=== PATIENT | male | born 1945 | race Caucasian/White ===

== ENCOUNTER 2017-08-24 08:12 | Emergency (ER) | payer OTHER ==
[~2017-08-24] VITALS: Ht 172.7 cm; Wt 77.9 kg
[~2017-08-24 08:12] MED LIST: AMLO-110 PO; ASPCH81X PO; ATOR-26 PO; BUSP15TA70 PO; CARV12.52 PO; CLOP1TAB5 PO; DIGO0.1267 PO; LEVO-459 PEG; LISI5TAB PO; LSX/40 PO; MCRK20 PO; METF1TAB53 PO; NTRGSL/4 UT; NUTR-1260 PO; OMEP20CA9 PO; PARO40TA3 PO; TAMS0.4C38 PO; VNTHFA/IN INH; WARF2.5T8 PO
[2017-08-24 08:23] VITALS: TEMP 36.7; Ht 172.7 cm; Wt 77.9 kg
[2017-08-24] MEDS ORDERED: LNX125 PO (09:03)
[2017-08-24] MEDS ORDERED: LISI-461 PO (09:05)
[2017-08-24] MEDS ORDERED: WARF3TAB6 PO (09:05)
--- NOTE | 2017-08-24 09:10 | EMERGENCY ROOM VISIT NOTE ---
History Report prepared by Neil: Marycruz Hidalgo Under the Supervision of: Dr. Lyubov Mcintyre M.D. First contact with patient: 08:49 Chief Complaint: DIZZY Stated Complaint: NEAR SYNCOPE Nursing Triage Summary: pt presents to ed from [facility] [place]. pt states was ambulating to get his am meds and became dizzy and weak. pt states having on and off numbness on rt side for past 3 weeks. pt denied having any cp/sob at time of occurance. pt denies any symptoms at present. History of Present Illness The patient is a 72 year old male who presents to the Emergency Room with complaints of episodic dizziness [employer]. He notes that he had an episode of near syncope while standing in line to get his blood sugar checked. He reports numbness and tingling in his right arm and right leg. He notes that he started to fall, but he was assisted to sit down. He notes that he did not fall to the floor. He denies any fluttering sensations in his chest. He notes nausea, headache, numbness, and lightheadedness He notes that he has had numbness and tingling in the right side of his limbs for the last few weeks. He states that he has not had his morning medications. The patient currently resides at [facility]. The patient has a history of acute DE, atrial fibrillation, CHF, HTN, DM, and anxiety. He denies any chest pain, shortness of breath, abdominal pain, back pain, melena, and hematochezia. Source of History: patient Onset: [employer] Position: other (global ) Quality: other (dizziness) Timing: other (episodic ) Associated Symptoms: + headache, + nausea, + numbness, No chest pain, No SOB , No abdominal pain, No back pain, No melena, No hematochezia Note: He notes lightheadedness, numbness, and tingling in his right arm and right leg. Review of Systems See HPI for pertinent positives & negatives. A total of 10 systems reviewed and were otherwise negative. Past Medical & Surgical Medical Problems: (1) Abnorm Electrocardiogram (2) Acute DE, inferior wall (3) Afib (4) Anxiety (5) Atrial Fibrillation (6) Congestive Heart Failure Nos (7) Diabetes (8) Hypertension (9) PNA (pneumonia) (10) Sepsis Family History FHx: heart disease Hypertension Social History Smoking Status: Unknown if Ever Smoked Drug Use: none Marital Status: single Housing Status: other Occupation Status: unemployed Current/Historical Medications Scheduled Albuterol Hfa (Ventolin Hfa), 1 PUFFS INH BID Amlodipine (Norvasc), 5 MG PO DAILY Aspirin (Aspirin Chewable), 81 MG PO QAM Atorvastatin (Lipitor), 80 MG PO QPM Buspirone Hcl (Buspar), 15 MG PO BID Carvedilol (Coreg), 25 MG PO BID Clopidogrel Bisulfate (Plavix), 75 MG PO QAM Digoxin (Digoxin), 0.125 MG PO QAM Furosemide (Lasix), 80 MG PO DAILY Lisinopril (Lisinopril), 10 MG PO DAILY Metformin Hcl (Glucophage Ext Rel), 1,000 MG PO BID Nitroglycerin (Nitrostat), 0.4 MG UT PRN Omeprazole (Prilosec), 20 MG PO BID Paroxetine Hcl (Paxil), 40 MG PO QAM Potassium Chloride (Klor-Con M20), 20 MEQ PO BID Tamsulosin Hcl (Flomax), 0.4 MG PO QPM Warfarin Sod (Jantoven), 3 MG PO HS Allergies Coded Allergies: No Known Allergies (Unverified , 08/24/17) Physical Exam Vital Signs Date Time Temp Pulse Resp B/P (MAP) Pulse Ox O2 Delivery O2 Flow Rate FiO2 08/24/17 13:18 79 161/131 98 08/24/17 12:24 78 08/24/17 10:52 69 18 159/88 08/24/17 10:02 64 182/99 71 164/97 76 115/75 08/24/17 09:41 63 18 186/100 08/24/17 09:39 62 08/24/17 08:23 36.7 62 18 193/97 98 Room Air 08/24/17 08:22 60 Physical Exam Vital signs reviewed. General: Elderly. Well-appearing, in no significant distress. HEENT: No scleral icterus, PERRLA, neck supple. Atraumatic. Cardiovascular: Regular rate and rhythm, no extra sounds. Pulmonary: Clear to auscultation bilaterally, normal work of breathing. Abdomen: Soft, nontender, nondistended, positive bowel sounds. Musculoskeletal: Atraumatic, no peripheral edema. Neurologic: Patient awake alert and oriented x 3, full strength in all 4 extremities. Cranial nerves 2 through 12 grossly intact. Skin: Warm, dry, no rash Medical Decision & Procedures ER Provider Diagnostic Interpretation: Radiology results as stated below per my review and radiologist interpretation: CHEST ONE VIEW PORTABLE HISTORY: dizzy COMPARISON: Chest 06/28/2016. FINDINGS: The lungs are clear. Cardiac silhouette is normal in size. No pleural effusions. No pneumothorax. IMPRESSION: No acute process. Electronically signed by: Evangelist Barnett M.D. 08/24/2017 9:46 AM Dictated Date/Time: 08/24/2017 9:[address] HEAD WITHOUT CONTRAST (CT) CLINICAL HISTORY: Right-sided weakness. Dizziness. Near-syncope. COMPARISON STUDY: No previous studies for comparison. TECHNIQUE: Axial CT of the brain is performed from the vertex to the skull base. IV contrast was not administered for this examination. A dose lowering technique was utilized adhering to the principles of ALARA. CT DOSE: 614.27 mGy.cm FINDINGS: No intra or extra-axial mass lesions are visualized. There is no CT evidence of acute cortical infarction. There is no evidence of midline shift. There is no acute hemorrhage. No calvarial fractures are visualized. There are patchy white matter hypodensities likely on a small vessel basis. There is no evidence of pathologic ventricular dilatation. There is no evidence of acute sinusitis IMPRESSION: No acute intracranial findings Electronically signed by: Sameer Reynolds M.D. 08/24/2017 11:35 AM Dictated Date/Time: 08/24/2017 11:34 AM Laboratory Results 08/24/17 08:25 Red Blood Count 4.76, Mean Corpuscular Volume 89.9, Mean Corpuscular Hemoglobin 32.4, Mean Corpuscular Hemoglobin Concent 36.0, Mean Platelet Volume 10.9, Neutrophils (%) (Auto) 67.3, Lymphocytes (%) (Auto) 19.8, Monocytes (%) (Auto) 10.2, Eosinophils (%) (Auto) 1.9, Basophils (%) (Auto) 0.4, Neutrophils # (Auto ) 5.29, Lymphocytes # (Auto) 1.56, Monocytes # (Auto) 0.80, Eosinophils # (Auto ) 0.15, Basophils # (Auto) 0.03 08/24/17 08:25 Test 08/24/17 08:25 08/24/17 09:32 08/24/17 09:40 White Blood Count 7.86 K/uL (4.8-10.8) Red Blood Count 4.76 M/uL (4.7-6.1) Hemoglobin 15.4 g/dL (14.0-18.0) Hematocrit 42.8 % (42-52) Mean Corpuscular Volume 89.9 fL (80-100) Mean Corpuscular Hemoglobin 32.4 pg (25-34) Mean Corpuscular Hemoglobin Concent 36.0 g/dl (32-36) Platelet Count 174 K/uL (130-400) Mean Platelet Volume 10.9 fL (7.4-10.4) Neutrophils (%) (Auto) 67.3 % Lymphocytes (%) (Auto) 19.8 % Monocytes (%) (Auto) 10.2 % Eosinophils (%) (Auto) 1.9 % Basophils (%) (Auto) 0.4 % Neutrophils # (Auto) 5.29 K/uL (1.4-6.5) Lymphocytes # (Auto) 1.56 K/uL (1.2-3.4) Monocytes # (Auto) 0.80 K/uL (0.11-0.59) Eosinophils # (Auto) 0.15 K/uL (0-0.5) Basophils # (Auto) 0.03 K/uL (0-0.2) RDW Standard Deviation 41.3 fL (36.4-46.3) RDW Coefficient of Variation 12.7 % (11.5-14.5) Immature Granulocyte % (Auto) 0.4 % Immature Granulocyte # (Auto) 0.03 K/uL (0.00-0.02) Prothrombin Time 11.4 SECONDS (9.0-12.0) Prothromb Time International Ratio 1.1 (0.9-1.1) Activated Partial Thromboplast Time 26.0 SECONDS (21.0-31.0) Partial Thromboplastin Ratio 1.0 Anion Gap 4.0 mmol/L (3-11) Est Creatinine Clear Calc Drug Dose 45.2 ml/min Estimated GFR () 55.2 Estimated GFR (Non- 47.7 BUN/Creatinine Ratio 9.3 (10-20) Calcium Level 8.5 mg/dl (8.5-10.1) Magnesium Level 1.6 mg/dl (1.8-2.4) Total Bilirubin 0.7 mg/dl (0.2-1) Direct Bilirubin 0.1 mg/dl (0-0.2) Aspartate Amino Transf (AST/SGOT) 33 U/L (15-37) Alanine Aminotransferase (ALT/SGPT) 43 U/L (12-78) Alkaline Phosphatase 114 U/L (45-117) Total Protein 6.8 gm/dl (6.4-8.2) Albumin 3.3 gm/dl (3.4-5.0) Thyroid Stimulating Hormone (TSH) 1.160 uIu/ml (0.300-4.500) Bedside Troponin I < 0.030 ng/ml (0-0.045) Urine Color YELLOW Urine Appearance CLEAR (CLEAR) Urine pH 6.0 (4.5-7.5) Urine Specific [place] 1.012 (1.000-1.030) Urine Protein 1+ (NEG) Urine Glucose (UA) 2+ (NEG) Urine Ketones NEG (NEG) Urine Occult Blood NEG (NEG) Urine Nitrite NEG (NEG) Urine Bilirubin NEG (NEG) Urine Urobilinogen NEG (NEG) Urine Leukocyte Esterase NEG (NEG) Urine WBC (Auto) 0 /hpf (0-5) Urine RBC (Auto) 0-4 /hpf (0-4) Urine Hyaline Casts (Auto) 1-5 /lpf (0-5) Urine Epithelial Cells (Auto) 0-5 /lpf (0-5) Urine Bacteria (Auto) NEG (NEG) Laboratory results per my review. Medications Administered Medications (Trade) Dose Ordered Sig/Corry Route Start Time Stop Time Status Last Admin Dose Admin Amlodipine Besylate (Norvasc Tab) 5 mg NOW ONCE PO 08/24/17 09:15 08/24/17 09:24 DC 08/24/17 09:34 5 MG Digoxin (Lanoxin Tab) 0.125 mg NOW STAT PO 08/24/17 09:13 08/24/17 09:24 DC 08/24/17 09:39 0.125 MG ECG Indication: other (dizziness) Rate (beats per minute): 64 Rhythm: normal sinus Findings: T-wave inversion (deep TWI in anterior and lateral ), no acute ischemic change, no ectopy, other (LVH with repolarization abnormality) Change: no significant change (when compared to 06/30/2016) ED Course 0902: Past medical records reviewed. The patient was evaluated in room B2. A complete history and physical examination was performed. 0913: Ordered Digoxin 0.125 mg PO 0915: Ordered Amlodipine 5 mg PO 1240: I reassessed the patient at this time. He is feeling better and resting comfortably. I discussed the results and treatment plan with the patient. I answered all pertaining questions that he had. He expressed understanding and verbalized agreement. The patient will be discharged home. Medical Decision Differential diagnosis: Etiologies such as benign positional vertigo, dehydration, hypovolemia, anemia, tumor, infection, hypoglycemia, electrolyte abnormalities, cardiac sources, intracerebral event, toxicologic, neurologic, as well as others were entertained. This patient was evaluated and appeared to be in no significant distress. Physical examination is fairly unrevealing. The patient initially stated that he had not of his morning medications or ventilator told nursing that he took his coreg and lisinopril. The patient was given Norvasc and digoxin. Patient' s EKG reveals chronic changes, there is no evidence of acute abnormality. Laboratory work is fairly unrevealing. CT scan of the head is negative. His blood pressure is somewhat labile in the emergency department, the etiology of this is unclear. His creatinine is mildly elevated however has been elevated in the past. He has not had a meal yet today. The patient feels well and is had no further episodes here in the ER. He will be discharged back to [place] [facility] for further medical management. He was advised to watch his blood sugars carefully and to return to the ER for worsening of symptoms or any medical concerns. Medication Reconcilliation Current Medication List: was personally reviewed by me Blood Pressure Screening Patient's blood pressure: Elevated blood pressure Blood pressure disposition: Elevated BP felt to be situational (has not recieved morning medication) Impression Primary Impression: Near syncope Scribe Attestation The scribe's documentation has been prepared under my direction and personally reviewed by me in its entirety. I confirm that the note above accurately reflects all work, treatment, procedures, and medical decision making performed by me. Departure Information Dispostion Home / Self-Care Referrals Sushil VALDEZ (PCP) Forms HOME CARE DOCUMENTATION FORM, IMPORTANT VISIT INFORMATION Patient Instructions My [facility] Additional Instructions Diagnosis: Near-syncope Please drink plenty of clear fluids. Continue your medications as prescribed. Monitor your glucose carefully as your medications may need to be adjusted. Return to the emergency department for worsening of symptoms or any medical concerns.
[2017-08-24] MEDS ORDERED: DIGOXIN 0.125 MG TAB PO STA (09:13)
[2017-08-24] MEDS ORDERED: CARVEDILOL 12.5 MG TAB PO ONE (09:15)
[2017-08-24] MEDS ORDERED: LISINOPRIL 5 MG TAB PO ONE (09:15)
[2017-08-24] MEDS ORDERED: AMLODIPINE BESYLATE 5 MG TAB PO ONE (09:15)
[2017-08-24 09:31] LABS: BASO % 0.4 %; BASO ABS # 0.03 K/uL (0-0.2); EOS % 1.9 %; EOS ABS # 0.15 K/uL (0-0.5); HEMATOCRIT 42.8 % (42-52); HEMOGLOBIN 15.4 g/dL (14.0-18.0); IG# 0.03 K/uL (0.00-0.02); LYMPH % 19.8 %; LYMPH ABS # 1.56 K/uL (1.2-3.4); MEAN CELL VOLUME 89.9 fL (80-100); MEAN CORPUSCULAR HEMOGLOBIN 32.4 pg (25-34); MEAN PLATELET VOLUME 10.9 fL (7.4-10.4); MONO % 10.2 %; NEUT % 67.3 %; NEUT ABS # 5.29 K/uL (1.4-6.5); PLATELET COUNT 174 K/uL (130-400); RED CELL DISTRIBUTION WIDTH CV 12.7 % (11.5-14.5); RED CELL DISTRIBUTION WIDTH SD 41.3 fL (36.4-46.3); WHITE BLOOD COUNT 7.86 K/uL (4.8-10.8)
[2017-08-24 09:38] LABS: INR 1.1 (0.9-1.1)
[2017-08-24 09:41] LABS: ALBUMIN 3.3 gm/dl (3.4-5.0); CALCIUM 8.5 mg/dl (8.5-10.1); CREATININE 1.47 mg/dl (0.60-1.40); POTASSIUM 3.8 mmol/L (3.5-5.1)
--- NOTE | 2017-08-24 09:47 | DIAGNOSTIC IMAGING REPORT ---
CHEST ONE VIEW PORTABLE HISTORY: dizzy COMPARISON: Chest 06/28/2016. FINDINGS: The lungs are clear. Cardiac silhouette is normal in size. No pleural effusions. No pneumothorax. IMPRESSION: No acute process. Electronically signed by: Evangelist Barnett M.D. 08/24/2017 9:46 AM Dictated Date/Time: 08/24/2017 9:44 AM
[2017-08-24 09:52] LABS: TOTAL PROTEIN 6.8 gm/dl (6.4-8.2)
--- NOTE | 2017-08-24 11:36 | DIAGNOSTIC IMAGING REPORT ---
CT HEAD WITHOUT CONTRAST (CT) CLINICAL HISTORY: Right-sided weakness. Dizziness. Near-syncope. COMPARISON STUDY: No previous studies for comparison. TECHNIQUE: Axial CT of the brain is performed from the vertex to the skull base. IV contrast was not administered for this examination. A dose lowering technique was utilized adhering to the principles of ALARA. CT DOSE: 614.27 mGy.cm FINDINGS: No intra or extra-axial mass lesions are visualized. There is no CT evidence of acute cortical infarction. There is no evidence of midline shift. There is no acute hemorrhage. No calvarial fractures are visualized. There are patchy white matter hypodensities likely on a small vessel basis. There is no evidence of pathologic ventricular dilatation. There is no evidence of acute sinusitis IMPRESSION: No acute intracranial findings Electronically signed by: Saemer Reynolds M.D. 08/24/2017 11:35 AM Dictated Date/Time: 08/24/2017 11:34 AM
[2017-08-24 13:18] VITALS: BP 161/131; PULSE 79; O2SAT 98
== END 2017-08-24 13:19 ==
LOC: EDBD 08:12 → C.EDB 08:13
DX: R55 Syncope and collapse (principal); I25.2 Old myocardial infarction; I48.91 Unspecified atrial fibrillation; I11.0 Hypertensive heart disease with heart failure; I50.9 Heart failure, unspecified; E11.9 Type 2 diabetes mellitus without complications; F41.9 Anxiety disorder, unspecified; Z79.82 Long term (current) use of aspirin; Z79.02 Long term (current) use of antithrombotics/antiplatelets; Z79.84 Long term (current) use of oral hypoglycemic drugs; Z79.01 Long term (current) use of anticoagulants; Z82.49 Family history of ischemic heart disease and other diseases of the circulatory system

== ENCOUNTER → 2017-09-18 | Outpatient (CLI) | payer OTHER ==
[~2017-09-18] MED LIST changes: -DIGO0.1267 PO; -LEVO-459 PEG; +LISI-461 PO; -LISI5TAB PO; +LNX125 PO; -NUTR-1260 PO; -WARF2.5T8 PO; +WARF3TAB6 PO
[2017-09-18 11:41] LABS: BASO % 0.3 %; BASO ABS # 0.04 K/uL (0-0.2); EOS % 1.1 %; EOS ABS # 0.17 K/uL (0-0.5); HEMATOCRIT 42.7 % (42-52); HEMOGLOBIN 15.1 g/dL (14.0-18.0); LYMPH % 9.4 %; LYMPH ABS # 1.47 K/uL (1.2-3.4); MEAN CELL VOLUME 90.3 fL (80-100); MEAN CORPUSCULAR HEMOGLOBIN 31.9 pg (25-34); MEAN CORPUSCULAR HGB CONC 35.4 g/dl (32-36); MEAN PLATELET VOLUME 10.7 fL (7.4-10.4); MONO % 8.8 %; MONO ABS # 1.38 K/uL (0.11-0.59); NEUT % 79.8 %; NEUT ABS # 12.44 K/uL (1.4-6.5); PLATELET COUNT 242 K/uL (130-400); RED CELL DISTRIBUTION WIDTH CV 13.1 % (11.5-14.5); RED CELL DISTRIBUTION WIDTH SD 42.3 fL (36.4-46.3)
[2017-09-18 12:01] LABS: ALBUMIN 3.4 gm/dl (3.4-5.0); ALKALINE PHOSPHATASE 119 U/L (45-117); ALT/SGPT 36 U/L (12-78); AST/SGOT 38 U/L (15-37); BLOOD UREA NITROGEN 15 mg/dl (7-18); CARBON DIOXIDE 27 mmol/L (21-32); CREATININE 1.65 mg/dl (0.60-1.40); GLUCOSE 187 mg/dl (70-99); POTASSIUM 4.2 mmol/L (3.5-5.1); SODIUM 138 mmol/L (136-145); TOTAL PROTEIN 7.1 gm/dl (6.4-8.2)
== END ==
LOC: C.LABSPEC 11:12
PROVIDERS: ATTEND Family Medicine
DX: I95.1 Orthostatic hypotension (principal)

== ENCOUNTER → 2018-03-27 | Outpatient (CLI) | payer OTHER ==
[~2018-03-27] MED LIST changes: -AMLO-110 PO; -CARV12.52 PO; +CARV25TA2 PO; -CLOP1TAB5 PO; +FERR1TAB23 PO; +GLIP5TAB3 PO; +IMD/2 PO; +ISOS60TA25 PO; +LEVA45AE INH; -LISI-461 PO; +LISI-725 PO; +MAGN1TAB41 PO; -MCRK20 PO; -METF1TAB53 PO; +NSS IV; +POTA-639 PO; -VNTHFA/IN INH; +VTMB12 PO; +WARF2.5T8 PO; -WARF3TAB6 PO
== END | disposition home or self-care (01) ==
LOC: C.LABSPEC 08:30
PROVIDERS: ATTEND Nurse Practitioner Adult Health
DX: R19.7 Diarrhea, unspecified (principal)

== ENCOUNTER 2018-09-23 13:33 | Inpatient (IN) ==
[2018-09-23] MEDS ORDERED: SODIUM CHLORIDE 0.9% 1000ML 1,000 ML IV ONE (14:35)
[2018-09-23] MEDS ORDERED: ONDANSETRON INJ 2 MG/ML 2 ML VIAL IV STA (14:35)
--- NOTE | 2018-09-23 14:51 | XRay Report ---
XR chest 1V portable CLINICAL HISTORY: 73 years-old Male presenting with Sepsis. TECHNIQUE: Portable upright AP view of the chest was obtained. COMPARISON: 05/14/[address] from 05/13/2018. FINDINGS: Atherosclerosis of the aortic arch. Cardiac silhouette mildly enlarged. Main pulmonary artery may be enlarged. No focal opacity. No large effusion or pneumothorax. Osseous structures normal. Upper abdom en normal. IMPRESSION: 1. Mild cardiomegaly. No convincing evidence of acute cardiopulmonary disease. Electronically signed by: Larry Wyatt M.D. 09/23/2018 2:50 PM
[2018-09-23 15:09] LABS: Basophils # (auto) 0.03 K/uL (0-0.2); Basophils % (auto) 0.5 %; Eosinophils # (auto) 0.31 K/uL (0-0.5); Hematocrit (blood only) 38.3 % (42-52); Immature Granulocytes # (auto) 0.02 K/uL (0.00-0.02); Immature Granulocytes % (auto) 0.3 %; Lymphocytes # (auto) 0.88 K/uL (1.2-3.4); Lymphocytes % (auto) 14.3 %; Mean Corpuscular Hgb Conc 33.9 g/dL (32-36); Mean Corpuscular Volume 93.4 fL (80-100); Monocytes % (auto) 6.5 %; Neutrophils # (auto) 4.53 K/uL (1.4-6.5); Neutrophils % (auto) 73.4 %; Platelet Count 181 K/uL (130-400); RDW Coefficient of Variation 13.8 % (11.5-14.5); RDW Standard Deviation 47.2 fL (36.4-46.3); White Blood Count 6.17 K/uL (4.8-10.8)
[2018-09-23 15:23] LABS: Alanine Aminotransferase 83 U/L (12-78); Albumin Globulin Ratio 0.7 (0.9-2); Albumin Level 3.1 gm/dl (3.4-5.0); Alkaline Phosphatase 166 U/L (45-117); Aspartate Aminotransferase 54 U/L (15-37); BUN Creatinine Ratio 53.5 (10-20); Bilirubin,Total 0.5 mg/dl (0.2-1); Blood Urea Nitrogen 100 mg/dl (7-18); Calcium 7.9 mg/dl (8.5-10.1); Carbon Dioxide 18 mmol/L (21-32); Chloride 112 mmol/L (98-107); Creatinine Clr Calc Pharmacy 33.9 ml/min; Est GFR (Non-African American) 35.4; Globulin 4.3 gm/dl (2.5-4.0); Glucose 143 mg/dl (70-99); Magnesium 1.9 mg/dl (1.8-2.4); Potassium 7.1 mmol/L (3.5-5.1); Sodium 135 mmol/L (136-145); Total Protein 7.4 gm/dl (6.4-8.2); Troponin I < 0.015 ng/ml (0-0.045)
[2018-09-23] MEDS ORDERED: ALBUT/IPRATROP 3MG/0.5MG NEB 3 ML VIAL NEB STA (15:28)
[2018-09-23] MEDS ORDERED: DEXTROSE 50% 50 ML SYRINGE IV ONE (15:40)
[2018-09-23] MEDS ORDERED: CALCIUM GLUCONATE 10% 1,000 MG in SODIUM CHLORIDE 0.9% 50 ML IV STA (15:40)
[2018-09-23] MEDS ORDERED: NovoLIN-R INSULIN PER UNIT CHARGE IV STA (15:40)
[2018-09-23 15:48] LABS: iSTAT Hemoglobin 12.2 g/dl (14.0-18.0); iSTAT Ionized Calcium 1.32 mmol/l (1.12-1.32)
[2018-09-23 16:10] LABS: INR 1.5 (0.9-1.1); Partial Thromboplastin Ratio 1.1; Partial Thromboplastin Time 29.6 Seconds (21.0-31.0); Prothrombin Time 14.4 Seconds (9.0-12.0)
--- NOTE | 2018-09-23 16:18 | Emergency Department Note ---
Entered by Jessica Lopez acting as a scribe for Aden Borrero MD History of Present Illness General Chief complaint: Syncope (Near Syncope) Stated complaint: syncope Time Seen by Provider: 09/23/18 14:20 Source: patient and RN notes reviewed Mode of arrival: EMS Limitations: no limitations History of Present Illness Provider complaint: Syncope/Near Syncope, vomiting Onset (ago): hour(s) 2 Location: abdomen Pain Consistency: + now resolved Associated symptoms: + other (chills, diarrhea, nausea) Patient is a 73 year old male presenting to the ED via EMS for vomiting that began x2 hours ago. Per nurses note, patient was brought in from [facility] after patient had a syncopal episode while using the bathroom. Note also includes that patient complained of nausea, vomiting, headache, and neck pain. Notes shares that patients BP was low at 86/58 and blood sugar was 195. Patient states that he was in his cell and went to use the restroom when he started to feel nauseous--he had vomited a few hours prior. He had diarrhea in the bathroom. The patient denies syncope despite the above report. Patient shares he does feel dehydrated and has had intermittent chills and diarrhea for the past few days. Diarrhea is described as dark black. Patient denies any CP or abd pain. Patient shares he was taken from his cell via EMS to the ED. He shares that he was in the [facility] recently after noticing chest discomfort and SOB. Patient shares he is on Coumadin, and was recently admitted a few months ago to this hospital. He denies any history of GI bleeds. Home Medications Home Medications Medication Instructions Recorded Confirmed Type atorvastatin 80 mg PO HS 05/01/18 09/23/18 History cyanocobalamin (vitamin B-12) 1,000 mcg PO QAM 05/01/18 09/23/18 History [Vitamin B-12] ferrous sulfate [iron] 325 mg PO 3XWK 05/01/18 09/23/18 History isosorbide mononitrate 60 mg PO QAM 05/01/18 09/23/18 History magnesium oxide 400 mg PO BID 05/01/18 09/23/18 History nitroglycerin [Nitrostat] 0.4 mg SUBLINGUAL UD 05/01/18 09/23/18 History omeprazole 20 mg PO BID 05/01/18 09/23/18 History paroxetine HCl 40 mg PO QAM 05/01/18 09/23/18 History potassium chloride 40 meq PO BID 05/01/18 09/23/18 History tamsulosin 0.4 mg PO HS 05/01/18 09/23/18 History glipizide 2.5 mg PO DAILY 05/13/18 09/23/18 History A&D Ointment 1 applic TOPICAL TID 09/23/18 09/23/18 History carvedilol 12.5 mg PO BID 09/23/18 09/23/18 History furosemide [Lasix] 80 mg PO DAILY 09/23/18 09/23/18 History hydralazine 25 mg PO TID 09/23/18 09/23/18 History hydrocortisone 1 applic TOPICAL BID 09/23/18 09/23/18 History lisinopril 40 mg PO DAILY 09/23/18 09/23/18 History spironolactone 25 mg PO BID 09/23/18 09/23/18 History warfarin 4 mg PO HS 09/23/18 09/23/18 History Allergies Allergy/AdvReac Type Severity Reaction Status Date / Time No Known Allergies Allergy Verified 09/23/18 15:45 Past Med/Surg History Medical History Diabetes (Chronic) Anxiety (Chronic) CHF (congestive heart failure) ICM with EF of 15-20% CKD (chronic kidney disease) stage 3, GFR 30-59 ml/min Essential hypertension Acute AL, inferior wall Afib Anemia Anxiety Atrial fibrillation CAD (coronary artery disease) s/p inferior wall AL with chronically occluded RCA - cath on 01/09/15 - no intervention. L to R collateralization noted CHF exacerbation COPD (chronic obstructive pulmonary disease) Cardiac ischemia Depression GERD (gastroesophageal reflux disease) High cholesterol Hyperlipidemia Male genitourinary symptoms Near syncope PNA (pneumonia) Sepsis Family History Other Diabetes Social History Current Living Situation: Other Current Living Situation Comment: correctional facility Feels Safe at Home: Yes Smoking Status: Unknown if ever smoked Hx Alcohol Use: No Hx Substance Use: No Beliefs That Will Affect Care: None Preferred Language: Kinyarwanda Review of Systems See HPI for pertinent positives & negatives. and A total of 10 systems reviewed and were otherwise negative Physical Exam Vital Signs Vital Signs - 24 hr 09/23/18 13:40 09/23/18 13:45 09/23/18 13:53 Temperature 36.4 C L Temperature Source Oral Sepsis Recent Fever Within 48 Hours No Sepsis Action Taken by Nursing No Action Required Pulse Rate 63 59 L 62 Pulse Rate [Left Finger] Pulse Rhythm Regular Pulse Rhythm [Left Finger] Pulse Strength Normal Pulse Strength [Left Finger] Respiratory Rate 20 19 19 Respiratory Effort / Characteristics Non-Labored Spontaneous Respiratory Depth Normal Respiratory Pattern Regular Blood Pressure 95/53 L 95/53 L Blood Pressure [Right Arm] Blood Pressure Mean 67 67 Blood Pressure Mean [Right Arm] Blood Pressure Position Lying Blood Pressure Position [Right Arm] Pulse Oximetry 94 95 94 Oxygen Delivery Method Room Air Oxygen Flow Rate 09/23/18 14:00 09/23/18 14:01 09/23/18 14:15 Temperature Temperature Source Sepsis Recent Fever Within 48 Hours Sepsis Action Taken by Nursing Pulse Rate 59 L 58 L 61 Pulse Rate [Left Finger] Pulse Rhythm Pulse Rhythm [Left Finger] Pulse Strength Pulse Strength [Left Finger] Respiratory Rate 18 19 20 Respiratory Effort / Characteristics Respiratory Depth Respiratory Pattern Blood Pressure 100/48 L Blood Pressure [Right Arm] Blood Pressure Mean 65 Blood Pressure Mean [Right Arm] Blood Pressure Position Blood Pressure Position [Right Arm] Pulse Oximetry 95 95 95 Oxygen Delivery Method Oxygen Flow Rate 09/23/18 14:30 09/23/18 14:31 09/23/18 14:35 Temperature Temperature Source Sepsis Recent Fever Within 48 Hours Sepsis Action Taken by Nursing Pulse Rate 63 65 Pulse Rate [Left Finger] Pulse Rhythm Pulse Rhythm [Left Finger] Pulse Strength Pulse Strength [Left Finger] Respiratory Rate 18 20 Respiratory Effort / Characteristics Respiratory Depth Respiratory Pattern Blood Pressure 96/57 L Blood Pressure [Right Arm] Blood Pressure Mean 70 Blood Pressure Mean [Right Arm] Blood Pressure Position Blood Pressure Position [Right Arm] Pulse Oximetry 97 95 Oxygen Delivery Method Room Air Oxygen Flow Rate 09/23/18 14:45 09/23/18 15:00 09/23/18 15:01 Temperature Temperature Source Sepsis Recent Fever Within 48 Hours Sepsis Action Taken by Nursing Pulse Rate 60 57 L 60 Pulse Rate [Left Finger] Pulse Rhythm Pulse Rhythm [Left Finger] Pulse Strength Pulse Strength [Left Finger] Respiratory Rate 19 20 19 Respiratory Effort / Characteristics Respiratory Depth Respiratory Pattern Blood Pressure 100/49 L 88/47 L Blood Pressure [Right Arm] Blood Pressure Mean 66 60 Blood Pressure Mean [Right Arm] Blood Pressure Position Blood Pressure Position [Right Arm] Pulse Oximetry 97 95 96 Oxygen Delivery Method Oxygen Flow Rate 09/23/18 15:02 09/23/18 15:15 09/23/18 15:16 Temperature Temperature Source Sepsis Recent Fever Within 48 Hours Sepsis Action Taken by Nursing Pulse Rate 60 60 57 L Pulse Rate [Left Finger] Pulse Rhythm Pulse Rhythm [Left Finger] Pulse Strength Pulse Strength [Left Finger] Respiratory Rate 20 20 19 Respiratory Effort / Characteristics Respiratory Depth Respiratory Pattern Blood Pressure 101/51 L Blood Pressure [Right Arm] Blood Pressure Mean 67 Blood Pressure Mean [Right Arm] Blood Pressure Position Blood Pressure Position [Right Arm] Pulse Oximetry 95 96 96 Oxygen Delivery Method Oxygen Flow Rate 09/23/18 15:20 09/23/18 15:30 09/23/18 15:31 Temperature Temperature Source Sepsis Recent Fever Within 48 Hours Sepsis Action Taken by Nursing Pulse Rate 59 L 63 62 Pulse Rate [Left Finger] Pulse Rhythm Pulse Rhythm [Left Finger] Pulse Strength Pulse Strength [Left Finger] Respiratory Rate 21 21 20 Respiratory Effort / Characteristics Respiratory Depth Respiratory Pattern Blood Pressure 94/52 L Blood Pressure [Right Arm] Blood Pressure Mean 66 Blood Pressure Mean [Right Arm] Blood Pressure Position Blood Pressure Position [Right Arm] Pulse Oximetry 96 96 96 Oxygen Delivery Method Oxygen Flow Rate 09/23/18 15:40 09/23/18 15:45 09/23/18 15:50 Temperature Temperature Source Sepsis Recent Fever Within 48 Hours Sepsis Action Taken by Nursing Pulse Rate 61 65 67 Pulse Rate [Left Finger] Pulse Rhythm Pulse Rhythm [Left Finger] Pulse Strength Pulse Strength [Left Finger] Respiratory Rate 20 20 19 Respiratory Effort / Characteristics Respiratory Depth Respiratory Pattern Blood Pressure 106/51 L Blood Pressure [Right Arm] Blood Pressure Mean 69 Blood Pressure Mean [Right Arm] Blood Pressure Position Blood Pressure Position [Right Arm] Pulse Oximetry 94 96 97 Oxygen Delivery Method Oxygen Flow Rate 09/23/18 16:00 09/23/18 16:01 09/23/18 16:10 Temperature Temperature Source Sepsis Recent Fever Within 48 Hours Sepsis Action Taken by Nursing Pulse Rate 72 78 83 Pulse Rate [Left Finger] Pulse Rhythm Pulse Rhythm [Left Finger] Pulse Strength Pulse Strength [Left Finger] Respiratory Rate 19 20 18 Respiratory Effort / Characteristics Respiratory Depth Respiratory Pattern Blood Pressure 121/51 L Blood Pressure [Right Arm] Blood Pressure Mean 74 Blood Pressure Mean [Right Arm] Blood Pressure Position Blood Pressure Position [Right Arm] Pulse Oximetry 100 100 96 Oxygen Delivery Method Oxygen Flow Rate 09/23/18 16:15 09/23/18 16:20 09/23/18 16:30 Temperature Temperature Source Sepsis Recent Fever Within 48 Hours Sepsis Action Taken by Nursing Pulse Rate 78 78 81 Pulse Rate [Left Finger] Pulse Rhythm Pulse Rhythm [Left Finger] Pulse Strength Pulse Strength [Left Finger] Respiratory Rate 18 19 21 Respiratory Effort / Characteristics Respiratory Depth Respiratory Pattern Blood Pressure 116/56 L 113/63 Blood Pressure [Right Arm] Blood Pressure Mean 76 79 Blood Pressure Mean [Right Arm] Blood Pressure Position Blood Pressure Position [Right Arm] Pulse Oximetry 97 96 90 Oxygen Delivery Method Oxygen Flow Rate 09/23/18 16:31 09/23/18 16:40 09/23/18 16:45 Temperature Temperature Source Sepsis Recent Fever Within 48 Hours Sepsis Action Taken by Nursing Pulse Rate 82 82 80 Pulse Rate [Left Finger] Pulse Rhythm Pulse Rhythm [Left Finger] Pulse Strength Pulse Strength [Left Finger] Respiratory Rate 20 20 20 Respiratory Effort / Characteristics Respiratory Depth Respiratory Pattern Blood Pressure 102/54 L Blood Pressure [Right Arm] Blood Pressure Mean 70 Blood Pressure Mean [Right Arm] Blood Pressure Position Blood Pressure Position [Right Arm] Pulse Oximetry 95 95 95 Oxygen Delivery Method Oxygen Flow Rate 09/23/18 16:50 09/23/18 17:00 09/23/18 17:01 Temperature Temperature Source Sepsis Recent Fever Within 48 Hours Sepsis Action Taken by Nursing Pulse Rate 81 89 86 Pulse Rate [Left Finger] Pulse Rhythm Pulse Rhythm [Left Finger] Pulse Strength Pulse Strength [Left Finger] Respiratory Rate 20 19 22 Respiratory Effort / Characteristics Respiratory Depth Respiratory Pattern Blood Pressure 128/66 Blood Pressure [Right Arm] Blood Pressure Mean 86 Blood Pressure Mean [Right Arm] Blood Pressure Position Blood Pressure Position [Right Arm] Pulse Oximetry 95 93 92 Oxygen Delivery Method Oxygen Flow Rate 09/23/18 17:10 09/23/18 17:15 09/23/18 17:20 Temperature Temperature Source Sepsis Recent Fever Within 48 Hours Sepsis Action Taken by Nursing Pulse Rate 88 91 H 96 H Pulse Rate [Left Finger] Pulse Rhythm Pulse Rhythm [Left Finger] Pulse Strength Pulse Strength [Left Finger] Respiratory Rate 21 20 19 Respiratory Effort / Characteristics Respiratory Depth Respiratory Pattern Blood Pressure 125/65 Blood Pressure [Right Arm] Blood Pressure Mean 85 Blood Pressure Mean [Right Arm] Blood Pressure Position Blood Pressure Position [Right Arm] Pulse Oximetry 93 92 95 Oxygen Delivery Method Oxygen Flow Rate 09/23/18 17:30 09/23/18 17:31 09/23/18 17:40 Temperature Temperature Source Sepsis Recent Fever Within 48 Hours Sepsis Action Taken by Nursing Pulse Rate 99 H 100 H 100 H Pulse Rate [Left Finger] Pulse Rhythm Pulse Rhythm [Left Finger] Pulse Strength Pulse Strength [Left Finger] Respiratory Rate 25 H 26 H 22 Respiratory Effort / Characteristics Respiratory Depth Respiratory Pattern Blood Pressure 138/78 Blood Pressure [Right Arm] Blood Pressure Mean 98 Blood Pressure Mean [Right Arm] Blood Pressure Position Blood Pressure Position [Right Arm] Pulse Oximetry 88 L 95 95 Oxygen Delivery Method Oxygen Flow Rate 09/23/18 17:45 09/23/18 17:50 09/23/18 18:00 Temperature Temperature Source Sepsis Recent Fever Within 48 Hours Sepsis Action Taken by Nursing Pulse Rate 100 H 100 H 103 H Pulse Rate [Left Finger] Pulse Rhythm Pulse Rhythm [Left Finger] Pulse Strength Pulse Strength [Left Finger] Respiratory Rate 19 21 21 Respiratory Effort / Characteristics Respiratory Depth Respiratory Pattern Blood Pressure 123/69 115/62 Blood Pressure [Right Arm] Blood Pressure Mean 87 79 Blood Pressure Mean [Right Arm] Blood Pressure Position Blood Pressure Position [Right Arm] Pulse Oximetry 94 97 97 Oxygen Delivery Method Oxygen Flow Rate 09/23/18 18:01 09/23/18 18:10 09/23/18 18:15 Temperature Temperature Source Sepsis Recent Fever Within 48 Hours Sepsis Action Taken by Nursing Pulse Rate 102 H 103 H 101 H Pulse Rate [Left Finger] Pulse Rhythm Pulse Rhythm [Left Finger] Pulse Strength Pulse Strength [Left Finger] Respiratory Rate 20 21 21 Respiratory Effort / Characteristics Respiratory Depth Respiratory Pattern Blood Pressure 107/55 L Blood Pressure [Right Arm] Blood Pressure Mean 72 Blood Pressure Mean [Right Arm] Blood Pressure Position Blood Pressure Position [Right Arm] Pulse Oximetry 97 93 97 Oxygen Delivery Method Oxygen Flow Rate 09/23/18 18:20 09/23/18 18:30 09/23/18 18:31 Temperature Temperature Source Sepsis Recent Fever Within 48 Hours Sepsis Action Taken by Nursing Pulse Rate 101 H 100 H 100 H Pulse Rate [Left Finger] Pulse Rhythm Pulse Rhythm [Left Finger] Pulse Strength Pulse Strength [Left Finger] Respiratory Rate 21 22 19 Respiratory Effort / Characteristics Respiratory Depth Respiratory Pattern Blood Pressure 97/53 L Blood Pressure [Right Arm] Blood Pressure Mean 67 Blood Pressure Mean [Right Arm] Blood Pressure Position Blood Pressure Position [Right Arm] Pulse Oximetry 83 L 97 99 Oxygen Delivery Method Oxygen Flow Rate 09/23/18 18:40 09/23/18 18:45 09/23/18 18:50 Temperature Temperature Source Sepsis Recent Fever Within 48 Hours Sepsis Action Taken by Nursing Pulse Rate 108 H 102 H 100 H Pulse Rate [Left Finger] Pulse Rhythm Pulse Rhythm [Left Finger] Pulse Strength Pulse Strength [Left Finger] Respiratory Rate 25 H 20 20 Respiratory Effort / Characteristics Respiratory Depth Respiratory Pattern Blood Pressure 98/55 L Blood Pressure [Right Arm] Blood Pressure Mean 69 Blood Pressure Mean [Right Arm] Blood Pressure Position Blood Pressure Position [Right Arm] Pulse Oximetry 99 96 98 Oxygen Delivery Method Room Air Oxygen Flow Rate 09/23/18 20:34 Temperature Temperature Source Sepsis Recent Fever Within 48 Hours Sepsis Action Taken by Nursing Pulse Rate Pulse Rate [Left Finger] 94 H Pulse Rhythm Pulse Rhythm [Left Finger] Regular Pulse Strength Pulse Strength [Left Finger] Normal Respiratory Rate 16 Respiratory Effort / Characteristics Non-Labored Spontaneous Respiratory Depth Normal Respiratory Pattern Blood Pressure Blood Pressure [Right Arm] 84/47 L Blood Pressure Mean Blood Pressure Mean [Right Arm] 59 Blood Pressure Position Blood Pressure Position [Right Arm] Sitting Pulse Oximetry 94 Oxygen Delivery Method Nasal Cannula Oxygen Flow Rate 4 GENERAL: Patient is in no acute distress. HEENT: No acute trauma, normocephalic atraumatic, mucous membranes dry, no nasal congestion, no scleral icterus. NECK: No stridor, no adenopathy, no meningismus, trachea is midline. LUNGS: Clear to auscultation bilaterally, no wheeze, no rhonchi, breath sounds equal. HEART: Without murmurs gallops or rubs, regular rate and rhythm. ABDOMEN: Soft, nontender, bowel sounds positive, no hernias, no peritonitis. EXTREMITIES: No cyanosis or edema, full range of motion of all the joints without pain or difficulty, no signs for acute trauma. NEUROLOGIC: Oriented x 3, no acute motor or sensory deficits, no focal weakness. SKIN: No rash, no jaundice, no diaphoresis. Pale RECTAL EXAM: Scant heme positive. Course 1426: Past medical records reviewed. The patient was evaluated in room B02, and a complete history and physical examination were performed. 1529: Alerted by nurse that patient has potassium of 7. 1537: Alerted by nurse that potassium was 8.6. 1552: Updated patient and guards on plan for admission. Patient is agreeable to plan. Administered Medications Atorvastatin Calcium (Lipitor) 80 mg PO HS HI Stop: 10/23/18 20:59 Last Admin: 09/23/18 20:59 Dose: 80 mg Pantoprazole Sodium 40 mg/ (Syringe) 10 mls @ 5 mls/min IV BID HI Stop: 10/23/18 20:59 Last Admin: 09/23/18 20:21 Dose: 5 mls/min Sodium Chloride (Nss 1000ml) 1,000 mls @ 80 mls/hr IV .[id number] HI Stop: 09/24/18 20:59 Last Admin: 09/23/18 20:59 Dose: 80 mls/hr Insulin Aspart (Novolog Flexpen) 0 units SC ACHS HI Stop: 10/23/18 20:59 Last Admin: 09/23/18 21:00 Dose: Not Given Non-Formulary Medication (A&D Ointment) 1 appln TOP TID HI Stop: 10/23/18 20:59 Last Admin: 09/23/18 20:59 Dose: Not Given Discontinued Medications Acetaminophen (Ofirmev) 1,000 mg IV ONE STA Stop: 09/23/18 17:36 Last Admin: 09/23/18 18:22 Dose: 1,000 mg Albuterol (Duoneb) 3 ml NEB NOW STA Stop: 09/23/18 15:29 Last Admin: 09/23/18 15:51 Dose: 3 ml Dextrose (Dextrose 50%) 50 ml IV NOW ONE Stop: 09/23/18 15:41 Last Admin: 09/23/18 15:51 Dose: 50 ml Sodium Chloride (Nss 1000ml) 1,000 mls @ 999 mls/hr IV .[id number] ONE Stop: 09/23/18 15:35 Last Infusion: 09/23/18 16:32 Dose: 0 mls/hr Admin: 09/23/18 15:26 Dose: 999 mls/hr Calcium Gluconate 1,000 mg/ (Sodium Chloride) 60 mls @ 240 mls/hr IV NOW STA Stop: 09/23/18 15:54 Last Infusion: 09/23/18 16:17 Dose: 0 mls/hr Admin: 09/23/18 15:53 Dose: 240 mls/hr Sodium Chloride (Nss) 500 mls @ 999 mls/hr IV .Q31M ONE Stop: 09/23/18 20:00 Last Infusion: 09/23/18 20:59 Dose: 0 mls/hr Admin: 09/23/18 20:21 Dose: 999 mls/hr Insulin Human Regular (Novolin R U-100 Per Unit) 10 units IV NOW STA Stop: 09/23/18 15:41 Last Admin: 09/23/18 15:52 Dose: 10 units Ondansetron HCl (Zofran) 4 mg IV NOW STA Stop: 09/23/18 14:36 Last Admin: 09/23/18 15:26 Dose: 4 mg Sodium Polystyrene Sulfonate (Kayexalate) 15 gm PO ONE ONE Stop: 09/23/18 19:46 Last Admin: 09/23/18 20:21 Dose: 15 gm Medical Decision Making Differential Diagnosis Differential Diagnosis includes:Gi bleed, anemia, electrolyte imbalance, dehydration, dysrhythmia, AL, infection or sepsis, Medical Records Attestation: I reviewed the patient's medical records. Left here 05/19/18. Was admitted for CHF. Records show that patients Coumadin was stopped after falling, but gave [facility] approval to restart Coumadin. Home Medications Current Medication List: was personally reviewed by me Laboratory Data Attestation: I reviewed the patient's lab results. Result diagrams: 09/23/18 18:15 09/23/18 18:15 Lab Results 09/23/18 09/23/18 09/23/18 Range/Units 14:30 14:30 14:30 WBC 6.17 (4.8-10.8) K/uL RBC 4.10 L (4.7-6.1) M/uL Hgb 13.0 L (14.0-18.0) g/dL POC Hgb (14.0-18.0) g/dl Hct 38.3 L (42-52) % POC Hct (42-52) % MCV 93.4 (80-100) fL MCH 31.7 (25-34) pg MCHC 33.9 (32-36) g/dL RDW Std Deviation 47.2 H (36.4-46.3) fL RDW Coeff of Samara 13.8 (11.5-14.5) % Plt Count 181 (130-400) K/uL MPV 10.0 (7.4-10.4) fL Immature Gran % (Auto) 0.3 % Neut % (Auto) 73.4 % Lymph % (Auto) 14.3 % [place] % (Auto) 6.5 % Eos % (Auto) 5.0 % Baso % (Auto) 0.5 % Immature Gran # (Auto) 0.02 (0.00-0.02) K/uL Neut # (Auto) 4.53 (1.4-6.5) K/uL Lymph # (Auto) 0.88 L (1.2-3.4) K/uL [place] # (Auto) 0.40 (0.11-0.59) K/uL Eos # (Auto) 0.31 (0-0.5) K/uL Baso # (Auto) 0.03 (0-0.2) K/uL PT Cancelled INR Cancelled APTT Cancelled PTT Ratio Cancelled POC Sodium (135-144) mEq/L Sodium 135 L (136-145) mmol/L POC Potassium (3.3-5.0) mEq/L Potassium 7.1 H* (3.5-5.1) mmol/L POC Chloride (101-112) mEq/L Chloride 112 H (98-107) mmol/L Carbon Dioxide 18 L (21-32) mmol/L POC Total CO2 (24-31) mEq/l Anion Gap 5.0 (3-11) POC Anion Gap (16-25) mmol/L POC BUN (7-18) mg/dl BUN 100 H (7-18) mg/dl Creatinine 1.87 H (0.6-1.4) mg/dl POC Creatinine (0.6-1.3) mg/dl Est Cr Clr Drug Dosing 33.9 ml/min Est GFR ( Amer) 41.0 Est GFR (Non-Af Amer) 35.4 BUN/Creatinine Ratio 53.5 H (10-20) Glucose 143 H (70-99) mg/dl POC Glucose (70-99) POC Glucose (other) (70-99) mg/dl Lactate (0.4-2.0) mmol/L Calcium 7.9 L (8.5-10.1) mg/dl POC Ioniz Calcium Tavo (1.12-1.32) mmol/l Magnesium 1.9 (1.8-2.4) mg/dl Total Bilirubin 0.5 (0.2-1) mg/dl AST 54 H (15-37) U/L ALT 83 H (12-78) U/L Alkaline Phosphatase 166 H (45-117) U/L Troponin I < 0.015 (0-0.045) ng/ml Total Protein 7.4 (6.4-8.2) gm/dl Albumin 3.1 L (3.4-5.0) gm/dl Globulin 4.3 H (2.5-4.0) gm/dl Albumin/Globulin Ratio 0.7 L (0.9-2) Urine Color Urine Appearance (Clear) Urine pH (4.5-7.5) Ur Specific Prentiss (1.000-1.030) Urine Protein (Negative) Urine Glucose (UA) (Negative) Urine Ketones (Negative) Urine Blood (Negative) Urine Nitrite (Negative) Urine Bilirubin (Negative) Urine Urobilinogen (Negative) Ur Leukocyte Esterase (Negative) Influenza Type A (PCR) (Neg) Influenza Type B (PCR) (Neg) 09/23/18 09/23/18 09/23/18 Range/Units 15:22 15:34 15:41 WBC (4.8-10.8) K/uL RBC (4.7-6.1) M/uL Hgb (14.0-18.0) g/dL POC Hgb 12.2 L (14.0-18.0) g/dl Hct (42-52) % POC Hct 36 L (42-52) % MCV (80-100) fL MCH (25-34) pg MCHC (32-36) g/dL RDW Std Deviation (36.4-46.3) fL RDW Coeff of Samara (11.5-14.5) % Plt Count (130-400) K/uL MPV (7.4-10.4) fL Immature Gran % (Auto) % Neut % (Auto) % Lymph % (Auto) % [place] % (Auto) % Eos % (Auto) % Baso % (Auto) % Immature Gran # (Auto) (0.00-0.02) K/uL Neut # (Auto) (1.4-6.5) K/uL Lymph # (Auto) (1.2-3.4) K/uL [place] # (Auto) (0.11-0.59) K/uL Eos # (Auto) (0-0.5) K/uL Baso # (Auto) (0-0.2) K/uL PT 14.4 H INR 1.5 H APTT 29.6 PTT Ratio 1.1 POC Sodium 132 L (135-144) mEq/L Sodium (136-145) mmol/L POC Potassium 8.6 H* (3.3-5.0) mEq/L Potassium (3.5-5.1) mmol/L POC Chloride 107 (101-112) mEq/L Chloride (98-107) mmol/L Carbon Dioxide (21-32) mmol/L POC Total CO2 20 L (24-31) mEq/l Anion Gap (3-11) POC Anion Gap 14.0 L (16-25) mmol/L POC BUN 116 H* (7-18) mg/dl BUN (7-18) mg/dl Creatinine (0.6-1.4) mg/dl POC Creatinine 2.1 H (0.6-1.3) mg/dl Est Cr Clr Drug Dosing ml/min Est GFR ( Amer) Est GFR (Non-Af Amer) BUN/Creatinine Ratio (10-20) Glucose (70-99) mg/dl POC Glucose (70-99) POC Glucose (other) 182 H (70-99) mg/dl Lactate 0.8 (0.4-2.0) mmol/L Calcium (8.5-10.1) mg/dl POC Ioniz Calcium Tavo 1.32 (1.12-1.32) mmol/l Magnesium (1.8-2.4) mg/dl Total Bilirubin (0.2-1) mg/dl AST (15-37) U/L ALT (12-78) U/L Alkaline Phosphatase (45-117) U/L Troponin I (0-0.045) ng/ml Total Protein (6.4-8.2) gm/dl Albumin (3.4-5.0) gm/dl Globulin (2.5-4.0) gm/dl Albumin/Globulin Ratio (0.9-2) Urine Color Urine Appearance (Clear) Urine pH (4.5-7.5) Ur Specific Prentiss (1.000-1.030) Urine Protein (Negative) Urine Glucose (UA) (Negative) Urine Ketones (Negative) Urine Blood (Negative) Urine Nitrite (Negative) Urine Bilirubin (Negative) Urine Urobilinogen (Negative) Ur Leukocyte Esterase (Negative) Influenza Type A (PCR) (Neg) Influenza Type B (PCR) (Neg) 09/23/18 09/23/18 09/23/18 Range/Units 16:15 18:15 18:15 WBC 7.45 (4.8-10.8) K/uL RBC 4.27 L (4.7-6.1) M/uL Hgb 12.9 L (14.0-18.0) g/dL POC Hgb (14.0-18.0) g/dl Hct 39.9 L (42-52) % POC Hct (42-52) % MCV 93.4 (80-100) fL MCH 30.2 (25-34) pg MCHC 32.3 (32-36) g/dL RDW Std Deviation 47.6 H (36.4-46.3) fL RDW Coeff of Samara 14.0 (11.5-14.5) % Plt Count 187 (130-400) K/uL MPV 10.2 (7.4-10.4) fL Immature Gran % (Auto) % Neut % (Auto) % Lymph % (Auto) % [place] % (Auto) % Eos % (Auto) % Baso % (Auto) % Immature Gran # (Auto) (0.00-0.02) K/uL Neut # (Auto) (1.4-6.5) K/uL Lymph # (Auto) (1.2-3.4) K/uL [place] # (Auto) (0.11-0.59) K/uL Eos # (Auto) (0-0.5) K/uL Baso # (Auto) (0-0.2) K/uL PT INR APTT PTT Ratio POC Sodium (135-144) mEq/L Sodium 134 L (136-145) mmol/L POC Potassium (3.3-5.0) mEq/L Potassium 7.0 H* (3.5-5.1) mmol/L POC Chloride (101-112) mEq/L Chloride 109 H (98-107) mmol/L Carbon Dioxide 19 L (21-32) mmol/L POC Total CO2 (24-31) mEq/l Anion Gap 4.0 (3-11) POC Anion Gap (16-25) mmol/L POC BUN (7-18) mg/dl BUN 104 H (7-18) mg/dl Creatinine 1.95 H (0.6-1.4) mg/dl POC Creatinine (0.6-1.3) mg/dl Est Cr Clr Drug Dosing 32.5 ml/min Est GFR ( Amer) 39.0 Est GFR (Non-Af Amer) 33.6 BUN/Creatinine Ratio 53.4 H (10-20) Glucose 108 H (70-99) mg/dl POC Glucose (70-99) POC Glucose (other) (70-99) mg/dl Lactate (0.4-2.0) mmol/L Calcium 9.4 D (8.5-10.1) mg/dl POC Ioniz Calcium Tavo (1.12-1.32) mmol/l Magnesium (1.8-2.4) mg/dl Total Bilirubin (0.2-1) mg/dl AST (15-37) U/L ALT (12-78) U/L Alkaline Phosphatase (45-117) U/L Troponin I < 0.015 (0-0.045) ng/ml Total Protein (6.4-8.2) gm/dl Albumin (3.4-5.0) gm/dl Globulin (2.5-4.0) gm/dl Albumin/Globulin Ratio (0.9-2) Urine Color Yellow Urine Appearance Clear (Clear) Urine pH 5.0 (4.5-7.5) Ur Specific Prentiss 1.011 (1.000-1.030) Urine Protein Negative (Negative) Urine Glucose (UA) Negative (Negative) Urine Ketones Negative (Negative) Urine Blood Negative (Negative) Urine Nitrite Negative (Negative) Urine Bilirubin Negative (Negative) Urine Urobilinogen Negative (Negative) Ur Leukocyte Esterase Negative (Negative) Influenza Type A (PCR) (Neg) Influenza Type B (PCR) (Neg) 02/07/19 02/07/19 Range/Units 18:15 21:00 WBC (4.8-10.8) K/uL RBC (4.7-6.1) M/uL Hgb (14.0-18.0) g/dL POC Hgb (14.0-18.0) g/dl Hct (42-52) % POC Hct (42-52) % MCV (80-100) fL MCH (25-34) pg MCHC (32-36) g/dL RDW Std Deviation (36.4-46.3) fL RDW Coeff of Samara (11.5-14.5) % Plt Count (130-400) K/uL MPV (7.4-10.4) fL Immature Gran % (Auto) % Neut % (Auto) % Lymph % (Auto) % [place] % (Auto) % Eos % (Auto) % Baso % (Auto) % Immature Gran # (Auto) (0.00-0.02) K/uL Neut # (Auto) (1.4-6.5) K/uL Lymph # (Auto) (1.2-3.4) K/uL [place] # (Auto) (0.11-0.59) K/uL Eos # (Auto) (0-0.5) K/uL Baso # (Auto) (0-0.2) K/uL PT INR APTT PTT Ratio POC Sodium (135-144) mEq/L Sodium (136-145) mmol/L POC Potassium (3.3-5.0) mEq/L Potassium (3.5-5.1) mmol/L POC Chloride (101-112) mEq/L Chloride (98-107) mmol/L Carbon Dioxide (21-32) mmol/L POC Total CO2 (24-31) mEq/l Anion Gap (3-11) POC Anion Gap (16-25) mmol/L POC BUN (7-18) mg/dl BUN (7-18) mg/dl Creatinine (0.6-1.4) mg/dl POC Creatinine (0.6-1.3) mg/dl Est Cr Clr Drug Dosing ml/min Est GFR ( Amer) Est GFR (Non-Af Amer) BUN/Creatinine Ratio (10-20) Glucose (70-99) mg/dl POC Glucose 96 (70-99) POC Glucose (other) (70-99) mg/dl Lactate (0.4-2.0) mmol/L Calcium (8.5-10.1) mg/dl POC Ioniz Calcium Tavo (1.12-1.32) mmol/l Magnesium (1.8-2.4) mg/dl Total Bilirubin (0.2-1) mg/dl AST (15-37) U/L ALT (12-78) U/L Alkaline Phosphatase (45-117) U/L Troponin I (0-0.045) ng/ml Total Protein (6.4-8.2) gm/dl Albumin (3.4-5.0) gm/dl Globulin (2.5-4.0) gm/dl Albumin/Globulin Ratio (0.9-2) Urine Color Urine Appearance (Clear) Urine pH (4.5-7.5) Ur Specific [place] (1.000-1.030) Urine Protein (Negative) Urine Glucose (UA) (Negative) Urine Ketones (Negative) Urine Blood (Negative) Urine Nitrite (Negative) Urine Bilirubin (Negative) Urine Urobilinogen (Negative) Ur Leukocyte Esterase (Negative) Influenza Type A (PCR) Neg for Influ A (Neg) Influenza Type B (PCR) Neg for Influ B (Neg) Imaging Data Radiologist's Impression: XR chest 1V portable CLINICAL HISTORY: 73 years-old Male presenting with Sepsis. TECHNIQUE: Portable upright AP view of the chest was obtained. COMPARISON: 05/14/[address] from 05/13/2018. FINDINGS: Atherosclerosis of the aortic arch. Cardiac silhouette mildly enlarged. Main pulmonary artery may be enlarged. No focal opacity. No large effusion or pneumothorax. Osseous structures normal. Upper abdomen normal. IMPRESSION: 1. Mild cardiomegaly. No convincing evidence of acute cardiopulmonary disease. Electronically signed by: Larry Wyatt M.D. 09/23/2018 2:50 PM ECG Data Attestation: I personally reviewed and interpreted this ECG as follows: Indication: syncope and vomiting Rate (beats per minute): 60 Rhythm: normal sinus Findings: + other (nonspecific ST change diffusely. ); no PVC Blood Pressure Blood Pressure Findings: Low blood pressure Blood Pressure Disposition: further management by hospitalist [facility] Narrative There is no leukocytosis. The patient is somewhat anemic but this appears to be baseline. INR is elevated consistent with his Coumadin use although, he is under anticoagulated. Renal panel testing shows renal insufficiency/failure with a creatinine of around 1.8. Potassium was markedly elevated at 7-8. BUN elevated consistent with dehydration. Lactic acid level was not elevated making severe sepsis less likely. There were a few subtle liver enzyme elevations. Urinalysis did not show evidence for infection. Influenza testing was negative. Chest film did not show pneumonia or CHF. EKG shows a sinus rhythm, no acute ischemia. Cardiac enzyme testing x1 is not consistent with acute cardiac injury. The patient received IV saline 1 L, he received IV Tylenol. He was given IV Zofran. He was given a DuoNeb. He received IV calcium, IV insulin and IV dextrose. Most of his medications were given to treat the severe hyperkalemia. The patient is doing well. His blood pressure is improved. The patient requires a hospital stay. He is hyperkalemic. He presents hypotensive. He has been vomiting and has some diarrhea. I did perform a stool heme test, this was trace heme positive. I talked to the patient and case management. I spoke to the on-call hospitalist. A hospital stay is warranted. Further workup is required. Impression & Plan Acute hypokalemia, Dehydration, Acute kidney injury, Hypotension, Vomiting, Diarrhea Critical Care Time I have personally spent greater than 44 minutes of critical care time in the direct management of this patient. This includes bedside care, interpretation of diagnostic studies, and testing, discussion with consultants, patient, and family members, and other required patient management activities. This 44 minutes is in excess of all separately billable procedures. Critical Care Time: Yes Total Critical Care Time: 44 Discharge Plan Visit Data Chief Complaint: Syncope (Near Syncope) Stated Complaint: syncope ED Provider: Aden Borrero Discharge Problem: Acute hypokalemia, Dehydration, Acute kidney injury, Hypotension, Vomiting, Diarrhea Patient Disposition: Admitted As Inpatient Discharge Instructions Interventions: ED Discharge Assessment Last Done: 09/23/18 18:50 The remaibe's documentation has been prepared under my direction and personally reviewed by me in its entirety. I confirm that the note above accurately reflects all work, treatment, procedures, and medical decision making performed by me.
[2018-09-23 16:28] LABS: Appearance Urine Clear (Clear); Bilirubin Urine Negative (Negative); Color Urine Yellow; Glucose Urine UA Negative (Negative); Ketones Urine Negative (Negative); Leukocyte Esterase Urine Negative (Negative); Nitrite Urine Negative (Negative); Protein Urine Negative (Negative); Specific Gravity Urine 1.011 (1.000-1.030); Urobilinogen Urine Negative (Negative)
[2018-09-23] MEDS ORDERED: ACETAMINOPHEN 1000 MG/100 ML IV IV STA (17:35)
--- NOTE | 2018-09-23 17:46 | History & Physical Report ---
Date of Service September 23, 2018 Assessment & Plan (1) Hyperkalemia: - Suspect this is largely due to dehydration possibly from GI illness/ other viral illness and also related to Spironolactone (BUN 100/Cr 1.87); Hyperkalemia may be induced by Spironolactone and ACEI as well -- Will need to F/U and see as Spironolactone may be new as he was previously on Lasix and is not on med rec sent from [facility] - Given 1 L NSS, calcium gluconate, Insulin/Glucose in ED - suspect this reading could be due to dehydration and will get repeat BMP in ED to further assess as hydration may be the coy to fix the lab given his hypotension but if not will need to add Kayexelate to truly remove K - BMP Q4H until stablized and monitor on telemetry - NSS at 80 mL/hr and monitor for fluid overload given EF 15-20% - Currently NSR on EKG with question of incomplete LBBB and previous EKGs with atrial fibrillation - will trend troponins and daily EKG Present on Admission?: Yes (2) Acute kidney injury: - Superimposed on CKD Stage III - Suspect this is prerenal given dehydration and will hydrate - was given 1 L NSS in ED and will run NSS at 80 mL/hr x 2 bags and monitor to avoid overload given ischemic cardiomyopathy - BUN is 100 and looks dry but given the extremes do need to R/O GI bleed Present on Admission?: Yes (3) Anemia: - Hgb 13 on arrival which is higher than baseline that may support dehydration however reports black stool but seems chronic - Will trend H&H and hold Coumadin at this time given the also drastically high BUN and symptoms will R/O bleed as cause - Per ED - scant heme + - Protonix 40 mg IV BID until further H&Hs can be evaluated Present on Admission?: Yes (4) Neck stiffness: - No meningeal signs to suggest meningitis at this time; reports acute onset nausea/vomiting and having chronic diarrhea - Does report respiratory symptoms of a progressive non-productive cough and SOB a couple days prior and will R/O influenza - Possibly related to viral illness - Tylenol 1 g IV x 1 dose then Tylenol PRN Present on Admission?: Yes (5) Atrial fibrillation, permanent: - Currently NSR on EKG but seems normally more A Fib - Due to hypotension will hold Coreg 12.5 mg BID and may need to use PRN IV dosing if experiencing A Fib with RVR until BP more stabilized - just having some mild tachycardia likely in setting of hypovolemia Present on Admission?: Yes (6) Chronic combined systolic (congestive) and diastolic (congestive) heart failure: - Most recent echo with EF 15-20%, Inferior wall thinning and akinesis, severe hypokinesis of remaining segments and regional wall motion abnormalities - Does not appear in an acute exacerbation at this time - Will monitor with I&Os given fluid resuscitation - Holding Lisinopril 40 mg daily 2/2 hyperkalemia Present on Admission?: Yes (7) Type 2 diabetes mellitus: - Hold Glipizide 2.5 mg daily and cover with SSI Present on Admission?: Yes (8) CAD (coronary artery disease): - H/O AK and PCI in the past; ischemic cardiomyopathy as described above - No current chest pain; EKG with reports of incomplete LBBB - serial troponins - Imdur 60 mg daily Present on Admission?: Yes (9) Chronic respiratory failure with hypoxia: - Wears baseline 2 L NC due to COPD and no acute exacerbation at this time - Duonebs PRN Present on Admission?: Yes History of Present Illness Chief Complaint: Headache/Nausea/Vomiting/Diarrhea Primary Care Provider: [facility] Mr. Garza is a 73 y/o male with PMHx of Paroxysmal Atrial Fibrillation, Chronic Combined Systolic and Diastolic CHF, Ischemic Cardiomyopathy with EF 15- 20%, CAD with AK and PCI, T2DM, HTN, CKD Stage III, Chronic Respiratory Failure due to COPD on 2 L NC, and BPH who presents from [facility] for acute onset headache, nausea/vomiting, stool incontinence. He reports feeling in is normal state of health up until approx. 2 hours before presentation. He states he was in his cell and developed nausea and when he went to the bathroom he had one episode of vomiting. He reports severe neck pain at the base of the head and denies chronic issues with this. States he did have migraines in the past. He reports chronic blurry vision but no worsening with the headache. No presence of meningeal signs on assessment. He states he did not have a syncopal episode prior to arrival which was reported. He was incontinent of stool during that time. His BP was noted to be 86/58 and BSG of 195. He reports feeling chilled and visibly experiencing rigors. He endorses having diarrhea for "months" going about 4-5 times a day. Reports stool is normally black per report. Patient also has a wet sounding cough that is nonproductive that has been present over the past few days Allergies Allergy/AdvReac Type Severity Reaction Status Date / Time No Known Allergies Allergy Verified 09/23/18 15:45 Home Medications Home Medications Medication Instructions Recorded Confirmed Type atorvastatin 80 mg PO HS 05/01/18 09/23/18 History cyanocobalamin (vitamin B-12) 1,000 mcg PO QAM 05/01/18 09/23/18 History [Vitamin B-12] ferrous sulfate [iron] 325 mg PO 3XWK 05/01/18 09/23/18 History isosorbide mononitrate 60 mg PO QAM 05/01/18 09/23/18 History magnesium oxide 400 mg PO BID 05/01/18 09/23/18 History nitroglycerin [Nitrostat] 0.4 mg SUBLINGUAL UD 05/01/18 09/23/18 History omeprazole 20 mg PO BID 05/01/18 09/23/18 History paroxetine HCl 40 mg PO QAM 05/01/18 09/23/18 History potassium chloride 40 meq PO BID 05/01/18 09/23/18 History tamsulosin 0.4 mg PO HS 05/01/18 09/23/18 History glipizide 2.5 mg PO DAILY 05/13/18 09/23/18 History A&D Ointment 1 applic TOPICAL TID 09/23/18 09/23/18 History carvedilol 12.5 mg PO BID 09/23/18 09/23/18 History furosemide [Lasix] 80 mg PO DAILY 09/23/18 09/23/18 History hydralazine 25 mg PO TID 09/23/18 09/23/18 History hydrocortisone 1 applic TOPICAL BID 09/23/18 09/23/18 History lisinopril 40 mg PO DAILY 09/23/18 09/23/18 History spironolactone 25 mg PO BID 09/23/18 09/23/18 History warfarin 4 mg PO HS 09/23/18 09/23/18 History Past Med/Surg History Medical History Diabetes (Chronic) Anxiety (Chronic) CHF (congestive heart failure) ICM with EF of 15-20% CKD (chronic kidney disease) stage 3, GFR 30-59 ml/min Essential hypertension Acute AK, inferior wall Afib Anemia Anxiety Atrial fibrillation CAD (coronary artery disease) s/p inferior wall AK with chronically occluded RCA - cath on 01/09/15 - no intervention. L to R collateralization noted CHF exacerbation COPD (chronic obstructive pulmonary disease) Cardiac ischemia Depression GERD (gastroesophageal reflux disease) High cholesterol Hyperlipidemia Male genitourinary symptoms Near syncope PNA (pneumonia) Sepsis Family History Other Diabetes Social History Current Living Situation: Other Current Living Situation Comment: correctional facility Feels Safe at Home: Yes Smoking Status: Unknown if ever smoked Hx Alcohol Use: No Hx Substance Use: No Beliefs That Will Affect Care: None Preferred Language: Panamanian Review of Systems Constitutional: + chills, + fatigue and + weakness; no fever Eyes: + problem reported (chronic blurry vision) Ear, Nose, Mouth, Throat: no nasal congestion and no sore throat Respiratory: + cough; no dyspnea and no sputum production Cardiovascular: no chest pain, no orthopnea, no palpitations, no syncope, no edema and no calf pain Gastrointestinal: + diarrhea/loose stools; no abdominal pain, no nausea, no vomiting and no constipation Genitourinary (Male): no dysuria Musculoskeletal: no body aches Integumentary: no rash Neurologic: + headache(s) (at the base of the head without radiation) Physical Exam 2 Vital Signs (Past 24 Hours): Last Vital Signs Temp 36.4 C L 09/23/18 13:40 Pulse 82 09/23/18 16:31 Resp 20 09/23/18 16:31 BP 113/63 09/23/18 16:30 Pulse Ox 95 09/23/18 16:31 Physical Exam: Exam as done by Jessica Rodriguez DO: Constitutional: WD/WN, vitals as above + ill appearing; no acute distress currently experiencing rigors Eyes: + anicteric sclerae, PERRL and EOM intact bilaterally ENMT: Ears: no hearing impairment Throat: uvula midline Neck: trachea midline Respiratory: normal respiratory effort, lungs clear to auscultation Auscultation: + diminished lung sounds Cardiovascular: Rate/Rhythm: regular rate and regular rhythm Gastrointestinal (Abdomen): Inspection/Auscultation: normal bowel sounds Percussion/Palpation: abdomen soft; abdomen nontender Musculoskeletal: Head/Neck/Chest: normocephalic, head atraumatic and neck supple Neg for peripheral LE edema, + pedal pulses Skin: no rashes, warm and dry Neurologic: moves all extremities; no meningeal signs Speech / Cognition: normal speech Psychiatric: A+Ox3, euthymic affect Lymphatic: Exam as done by Jessica Rodriguez, DO Results & Data Diagnostic Findings XR chest 1V portable FINDINGS: Atherosclerosis of the aortic arch. Cardiac silhouette mildly enlarged. Main pulmonary artery may be enlarged. No focal opacity. No large effusion or pneumothorax. Osseous structures normal. Upper abdomen normal. IMPRESSION: 1. Mild cardiomegaly. No convincing evidence of acute cardiopulmonary disease. Code Status & VTE Plan Code Status FULL RESUSCITATION Supervising Physician Co-Signing Physician Notes Pt seen and examined by me. Denies chest pain or SOB. Sudden onset of n/v today. Hx of several months of diarrhea. ?? syncope, denies LOC or fall. Pt states his nausea is less. He has had no emesis since leaving detention. Feels generally unwell. Agree with HPI/ROS as noted by PA See above for my exam in PE section Agree with plan as outlined above HyperK--monitor s/p above intervention, IVF Flu swab pending Afib, on coumadin--holding for now Other medical issues are stable 2L O2 baseline _ (1) CAD (coronary artery disease) Associated angina: without angina Coronary Disease-Associated Artery/Lesion type: [place] artery [place] vs. transplanted heart: [place] heart Qualified Code (s): I25.10 - Atherosclerotic heart disease of [place] coronary artery without angina pectoris
[2018-09-23 18:40] LABS: Hematocrit (blood only) 39.9 % (42-52); Hemoglobin 12.9 g/dL (14.0-18.0); Mean Corpuscular Hgb Conc 32.3 g/dL (32-36); Mean Corpuscular Volume 93.4 fL (80-100); Mean Platelet Volume 10.2 fL (7.4-10.4); Platelet Count 187 K/uL (130-400); RDW Standard Deviation 47.6 fL (36.4-46.3); Red Blood Count 4.27 M/uL (4.7-6.1); White Blood Count 7.45 K/uL (4.8-10.8)
[2018-09-23] MEDS ORDERED: ALBUT/IPRATROP 3MG/0.5MG NEB 3 ML VIAL NEB PRN (18:46)
[2018-09-23 18:56] LABS: BUN Creatinine Ratio 53.4 (10-20); Blood Urea Nitrogen 104 mg/dl (7-18); Calcium 9.4 mg/dl (8.5-10.1); Carbon Dioxide 19 mmol/L (21-32); Chloride 109 mmol/L (98-107); Creatinine Clr Calc Pharmacy 32.5 ml/min; Est GFR (Non-African American) 33.6; Glucose 108 mg/dl (70-99); Sodium 134 mmol/L (136-145)
[2018-09-23 19:09] LABS: Influenza A virus by PCR Neg for Influ A (Neg); Influenza B virus by PCR Neg for Influ B (Neg); Troponin I < 0.015 ng/ml (0-0.045)
[2018-09-23] MEDS ORDERED: MAGNESIUM HYDROXIDE SUSP 30 ML UDC PO PRN (19:21)
[2018-09-23] MEDS ORDERED: NITROGLYCERIN SL 0.4 MG/TAB TAB SL SCH (19:21)
[2018-09-23] MEDS ORDERED: ACETAMINOPHEN 325 MG TAB PO PRN (19:21)
[2018-09-23] MEDS ORDERED: GLUCOSE 10 TABS/TUBE PO PRN (19:21)
[2018-09-23] MEDS ORDERED: DEXTROSE 50% 50 ML SYRINGE IV PRN (19:21)
[2018-09-23] MEDS ORDERED: ONDANSETRON INJ 2 MG/ML 2 ML VIAL IV PRN (19:21)
[2018-09-23] MEDS ORDERED: GLUCOSE 40% GEL 15 GM TUBE PO PRN (19:21)
[2018-09-23] MEDS ORDERED: POLYETHYLENE (MIRALAX) 17 GM PACK PO PRN (19:21)
[2018-09-23] MEDS ORDERED: CARBOHYDRATES FOR HYPOGLYCEMIA PO PRN (19:21)
[2018-09-23] MEDS ORDERED: ALUMINUM/MAGNESIUM SUSP 30 ML UDC PO PRN (19:21)
[2018-09-23] MEDS ORDERED: GLUCAGON FOR INJ 1 MG VIAL SQ PRN (19:21)
[2018-09-23] MEDS ORDERED: SODIUM CHLORIDE 0.9% 500 ML IV ONE (19:30)
[2018-09-23] MEDS ORDERED: SODIUM POLYSTYRENE SULFONATE 15G/60ML SUSP PO ONE (19:45)
[2018-09-23] MEDS ORDERED: SODIUM CHLORIDE 0.9% 1000ML 1,000 ML IV SCH (20:00)
[2018-09-23] MEDS: PANTOprazole 40 MG in SYRINGE 0 ML IV SCH (20:21)
[2018-09-23] MEDS: [UNRECOGNIZED DRUG - OTHER] TOP SCH (20:59)
[2018-09-23] MEDS: ATORVASTATIN 40 MG TAB PO SCH (20:59)
[2018-09-23] MEDS: INSULIN ASPART 100 UNITS/ML 3 ML PEN SC SCH (21:00)
[2018-09-23 21:59] LABS: Hematocrit (blood only) 38.6 % (42-52); Hemoglobin 12.7 g/dL (14.0-18.0); Mean Corpuscular Hgb Conc 32.9 g/dL (32-36); Mean Corpuscular Volume 94.1 fL (80-100); Mean Platelet Volume 9.8 fL (7.4-10.4); Platelet Count 166 K/uL (130-400); RDW Coefficient of Variation 13.9 % (11.5-14.5); RDW Standard Deviation 47.6 fL (36.4-46.3); White Blood Count 12.57 K/uL (4.8-10.8)
[2018-09-23 22:21] LABS: BUN Creatinine Ratio 46.3 (10-20); Calcium 9.2 mg/dl (8.5-10.1); Creatinine Clr Calc Pharmacy 25.9 ml/min; Est GFR (African American) 31.9; Est GFR (Non-African American) 27.5
[2018-09-23] MEDS ORDERED: DEXTROSE 50% 50 ML SYRINGE IV STA (22:23)
[2018-09-23] MEDS ORDERED: INSULIN HUMAN REGULAR PER UNIT 10 UNITS in SYRINGE 9.9 ML IV SCH (22:30)
[2018-09-23] MEDS ORDERED: PIPERACILL/TAZOBAC CONSULT ACTIVE PRN (22:45)
[2018-09-23] MEDS ORDERED: PIPERACILLIN/TAZOBACTAM 4.5 GM in DEXTROSE 5% 100 ML IV STA (22:51)
[2018-09-24] MEDS ORDERED: DEXTROSE 50% 50 ML SYRINGE IV ONE (00:23)
[2018-09-24] MEDS ORDERED: INSULIN HUMAN REGULAR PER UNIT 10 UNITS in SYRINGE 9.9 ML IV SCH (00:30)
[2018-09-24 01:34] LABS: Hematocrit (blood only) 34.9 % (42-52); Hemoglobin 11.2 g/dL (14.0-18.0); Mean Corpuscular Hgb Conc 32.1 g/dL (32-36); Mean Corpuscular Volume 94.1 fL (80-100); Mean Platelet Volume 9.5 fL (7.4-10.4); Platelet Count 146 K/uL (130-400); RDW Coefficient of Variation 13.9 % (11.5-14.5); RDW Standard Deviation 47.7 fL (36.4-46.3); Red Blood Count 3.71 M/uL (4.7-6.1); White Blood Count 15.45 K/uL (4.8-10.8)
[2018-09-24 01:57] LABS: BUN Creatinine Ratio 42.8 (10-20); Calcium 8.6 mg/dl (8.5-10.1); Creatinine Clr Calc Pharmacy 25.5 ml/min; Est GFR (African American) 31.4; Est GFR (Non-African American) 27.1; Potassium 6.7 mmol/L (3.5-5.1)
[2018-09-24] MEDS ORDERED: PIPERACILLIN/TAZOBACTAM 4.5 GM in DEXTROSE 5% 100 ML IV SCH (04:00)
[2018-09-24] MEDS: SODIUM BICARBONATE 8.4% 75 MEQ in SODIUM CHLORIDE 0.45 % 1,000 ML IV SCH ×2 (04:12→14:56)
[2018-09-24 05:56] LABS: Hematocrit (blood only) 32.8 % (42-52); Hemoglobin 10.8 g/dL (14.0-18.0); Mean Corpuscular Hgb Conc 32.9 g/dL (32-36); Mean Corpuscular Volume 91.9 fL (80-100); Mean Platelet Volume 9.3 fL (7.4-10.4); Platelet Count 144 K/uL (130-400); RDW Coefficient of Variation 13.9 % (11.5-14.5); RDW Standard Deviation 47.4 fL (36.4-46.3); Red Blood Count 3.57 M/uL (4.7-6.1); White Blood Count 17.07 K/uL (4.8-10.8)
[2018-09-24 06:34] LABS: BUN Creatinine Ratio 43.3 (10-20); Calcium 8.7 mg/dl (8.5-10.1); Creatinine Clr Calc Pharmacy 27.1 ml/min; Est GFR (African American) 33.1; Est GFR (Non-African American) 28.6; Magnesium 1.6 mg/dl (1.8-2.4); Potassium 6.6 mmol/L (3.5-5.1)
[2018-09-24] MEDS ORDERED: MAGNESIUM SULFATE / D5W 1 GM/100 ML BAG IV ONE (06:38)
[2018-09-24 07:32] LABS: Basophils # (auto) 0.02 K/uL (0-0.2); Basophils % (auto) 0.1 %; Echinocytes 2+; Eosinophils # (auto) 0.05 K/uL (0-0.5); Eosinophils % (auto) 0.3 %; Howell-Jolly Bodies 1+; Immature Granulocytes # (auto) 0.04 K/uL (0.00-0.02); Immature Granulocytes % (auto) 0.2 %; Lymphocytes % (auto) 4.7 %; Monocytes # (auto) 1.59 K/uL (0.11-0.59); Monocytes % (auto) 9.3 %; Neutrophils # (auto) 14.57 K/uL (1.4-6.5); Neutrophils % (auto) 85.4 %
[2018-09-24] MEDS: CYANOCOBALAMIN 500 MCG TABLET (VITAMIN B-12) PO SCH (08:24)
[2018-09-24] MEDS: PARoxetine HCl 20 MG TAB PO SCH (08:24)
[2018-09-24] MEDS: PANTOprazole 40 MG in SYRINGE 0 ML IV SCH ×2 (08:44→20:09)
[2018-09-24] MEDS: INSULIN ASPART 100 UNITS/ML 3 ML PEN SC SCH ×4 (08:52→21:25)
[2018-09-24] MEDS ORDERED: FERROUS SULFATE 325 MG TAB PO SCH (09:00)
[2018-09-24] MEDS ORDERED: ISOSORBIDE MONO EXTENDED REL 60 MG TABCR PO SCH (09:00)
[2018-09-24] MEDS: [UNRECOGNIZED DRUG - OTHER] TOP SCH ×3 (10:25→21:22)
[2018-09-24 10:26] LABS: BUN Creatinine Ratio 40.2 (10-20); Calcium 8.5 mg/dl (8.5-10.1); Creatinine Clr Calc Pharmacy 26.8 ml/min; Est GFR (African American) 32.8; Est GFR (Non-African American) 28.3; Potassium 5.8 mmol/L (3.5-5.1)
--- NOTE | 2018-09-24 10:56 | CT Scan Report ---
CT abd pelvis wo con CT DOSE: 592.78 mGycm HISTORY: Infection Unknown Source of Infection/Sepsis; Nausea/Vomitin TECHNIQUE: Multiaxial CT images of the abdomen and pelvis were performed without contrast. A dose lo wering technique was utilized adhering to the principles of ALARA. COMPARISON STUDY: 05/13/2018 FINDINGS: Mild bibasilar infiltrative/atelectatic change. Configuration of liver spleen and pancreas are unremarkable. Several gallstones are present within the gallbladder lumen. Several renal cysts bi laterally. No evidence for hydronephrosis or obstructing urinary tract calculus. Nonobstructive bowel pattern. Stable 3.5 cm infrarenal abdominal aortic aneurysm. Nonobstructive bowel pattern. Scattered colonic diverticuli with no evidence for diverticulitis. Hines catheter within the bladder. IMPRESSION:. Small bibasilar parenchymal infiltrative/atelectatic changes. 2. Gallstones. 3. Bilateral renal cysts with no evidence for hydronephrosis. 4. No acute process of the abdomen or pelvis. IMPRESSION: No significant abnormality identified within the abdomen or pelvis. The above report was generated using voice recognition software. It may contain grammatical, syntax or spelling errors. Electronically signed by: Alexis Balderas M.D. 09/24/2018 10:55 AM
--- NOTE | 2018-09-24 11:09 | Hospitalist Progress Note ---
Date of Service September 24, 2018 Assessment & Plan (1) Hyperkalemia: - Likely multifactorial given JACOB and use of Spironolactone/ACEI and likely component of dehydration - Has had intermittent dosing of Dextrose/Insulin and Kayexcelate - K is now down to 5.8 - Will check BMP this evening and likely can follow daily thereafter (2) Acute kidney injury: - Superimposed on CKD Stage III - Given low BPs and the significant rise since admission this could likely be ATN but has stabilized. Will monitor for improvement - Initial concern for possible emergent dialysis needs but this is now improving - 1/2 NSS with Sodium Bicarb at 100 mL/hr and monitor I&Os (3) Anemia: - Hgb 13 on arrival which is higher than baseline that may support dehydration however reports black stool but seems chronic - Slight decrease in hemoglobin however this is actually trending better towards baseline - do not suspect GI bleed at this time - Will continue Protonix 40 mg IV BID for now given symptoms until GI source of possible infection R/Od (4) Neck stiffness: - This is more base of the head pain and seems to be musculoskeletal and wax and wanes; reports he would intermittent get this same pain when tipping his head back to watch TV and also reports chronic vision issues due to not having his glasses which seems to trigger some of his head pain - Again no menigeal signs appreciated on assessment today (5) Atrial fibrillation, permanent: - Currently NSR but previously it was suggested he was more chronically in A Fib and will monitor - so maybe more Paroxysmal - Due to hypotension will hold Coreg 12.5 mg BID and monitor for rebound until BP more stabilized - Will resume Coumadin and monitor INR - currently in NSR and will hold on bridge (6) Chronic combined systolic (congestive) and diastolic (congestive) heart failure: - Most recent echo with EF 15-20%, Inferior wall thinning and akinesis, severe hypokinesis of remaining segments and regional wall motion abnormalities - Does not appear in an acute exacerbation at this time - Will monitor with I&Os given fluid resuscitation - Holding Lisinopril 40 mg daily 2/2 hyperkalemia/hypotension/JACOB (7) Type 2 diabetes mellitus: - Hold Glipizide 2.5 mg daily and cover with SSI (8) CAD (coronary artery disease): - H/O [place] and PCI in the past; ischemic cardiomyopathy as described above - Troponins negative x 2 - Hold Imdur 60 mg daily (9) Chronic respiratory failure with hypoxia: - Wears baseline 2 L NC due to COPD and no acute exacerbation at this time - Duonebs PRN (10) DVT prophylaxis: - Coumadin Disposition: Await clinical improvement; inmate at [facility] Subjective Patient reports feeling a little better compared to yesterday and objectively looks a bit better. K is beginning to trend down and Cr is stabilized; BP is improving Procalcitonin is positive and now has a WBC of 17 - source at this time is unknown Reports headache is improving and is more at the base of the head not neck stiffness and notes that tipping his head back to watch tv aggravates this which has been going on. Again no meningeal signs to suggest meningitis as cause of sepsis Still looks generally dry on examination and does not appear in volume overload He currently has no complaints or symptoms to help determine source of infection Constitutional: + fatigue and + weakness; no fever, no chills and no anorexia Eyes: + problem reported (chronic blurred vision - awaiting new glasses); no worsening vision Ear, Nose, Mouth, Throat: + dry mouth; no nasal congestion, no sore throat, no hoarseness and no pain with swallowing Respiratory: + cough; no dyspnea, no sputum production and no wheezing Cardiovascular: no chest pain, no palpitations, no lightheadedness, no edema and no calf pain Gastrointestinal: + diarrhea/loose stools (chronic); no abdominal pain, no nausea, no vomiting and no constipation Genitourinary (Male): no dysuria Musculoskeletal: no neck pain and no body aches Integumentary: no rash Physical Exam 2 Vital Signs (Past 24 Hours): Last Vital Signs Temp 36.5 C 09/24/18 07:57 Pulse 76 09/24/18 07:57 Resp 18 09/24/18 07:57 BP 104/56 L 09/24/18 07:57 Pulse Ox 95 09/24/18 07:57 Constitutional: + ill appearing (but improving); no acute distress Eyes: + anicteric sclerae ENMT: Ears: no hearing impairment Throat: uvula midline Neck: trachea midline Respiratory: normal respiratory effort, lungs clear to auscultation Cardiovascular: Rate/Rhythm: regular rate and regular rhythm Gastrointestinal (Abdomen): Inspection/Auscultation: normal bowel sounds Percussion/Palpation: abdomen soft; abdomen nontender Musculoskeletal: Head/Neck/Chest: normocephalic, head atraumatic and neck supple Extremities: no cyanosis Skin: no rashes, warm and dry Neurologic: moves all extremities; no meningeal signs Psychiatric: A+Ox3, euthymic affect Genitourinary: Hines catheter draining pale yellow urine _ (1) CAD (coronary artery disease) Coronary Disease-Associated Artery/Lesion type: [place] artery [place] vs. transplanted heart: [place] heart Associated angina: without angina Qualified Code(s): I25.10 - Atherosclerotic heart disease of [place] coronary artery without angina pectoris
--- NOTE | 2018-09-24 11:11 | CT Scan Report ---
CT chest wo con CT DOSE: 561.93 mGycm HISTORY: Cough Unknown Source of Infection/Sepsis; Cough TECHNIQUE: Multiaxial CT images of the chest were performed without contrast. A dose lowering techni que was utilized adhering to the principles of ALARA. COMPARISON: 05/13/2018 FINDINGS: Considerable decrease in volume of the pleural effusions described previously. Patchy bibas ilar parenchymal infiltrative change. Small parenchymal infiltrate superior segment right lower lobe. Pulmonary apices are clear. There is a component of moderate emphysematous change. Narrowing of the mainstem bronchi in the prior study has resolved. Mild mid mediastinal adenopathy measured up to 1.3 cm. Adenopathy overall is of the mediastinal and hilar regions has improved. IMPRESSION: 1. Mixed findings compared to the prior study. 2. Patchy bibasilar parenchymal infiltrative change with additional infiltrative process superior seg ment right lower lobe 3. Resolution of the prior bilateral pleural effusions. 4. Mediastinal adenopathy improved from the prior exam. 5. Gallstones. 6. Left supraclavicular adenopathy stable compared to the prior exam. The above report was generated using voice recognition software. It may contain grammatical, syntax or spelling errors. Electronically signed by: Alexis Balderas M.D. 09/24/2018 11:10 AM
[2018-09-24] MEDS: PIPERACILLIN/TAZOBACTAM 3.375 GM in DEXTROSE 5% 100 ML IV SCH ×2 (12:16→20:08)
[2018-09-24] MEDS: WARFARIN SOD 4 MG TAB PO SCH (16:52)
[2018-09-24 17:13] LABS: BUN Creatinine Ratio 39.6 (10-20); Calcium 8.3 mg/dl (8.5-10.1); Est GFR (Non-African American) 31.1; Potassium 5.1 mmol/L (3.5-5.1)
[2018-09-24] MEDS: ATORVASTATIN 40 MG TAB PO SCH (20:09)
[2018-09-25] MEDS: SODIUM BICARBONATE 8.4% 75 MEQ in SODIUM CHLORIDE 0.45 % 1,000 ML IV SCH (01:11)
[2018-09-25] MEDS: PIPERACILLIN/TAZOBACTAM 3.375 GM in DEXTROSE 5% 100 ML IV SCH ×3 (04:55→20:56)
[2018-09-25 07:27] LABS: Hematocrit (blood only) 31.4 % (42-52); Hemoglobin 10.4 g/dL (14.0-18.0); Mean Corpuscular Hgb Conc 33.1 g/dL (32-36); Mean Platelet Volume 9.9 fL (7.4-10.4); Platelet Count 138 K/uL (130-400); RDW Coefficient of Variation 13.9 % (11.5-14.5); RDW Standard Deviation 46.4 fL (36.4-46.3); Red Blood Count 3.45 M/uL (4.7-6.1); White Blood Count 12.46 K/uL (4.8-10.8)
[2018-09-25 07:35] LABS: INR 1.6 (0.9-1.1)
[2018-09-25 08:00] LABS: BUN Creatinine Ratio 35.1 (10-20); Calcium 8.3 mg/dl (8.5-10.1); Est GFR (Non-African American) 38.9; Magnesium 1.7 mg/dl (1.8-2.4); Potassium 4.3 mmol/L (3.5-5.1)
[2018-09-25] MEDS: CYANOCOBALAMIN 500 MCG TABLET (VITAMIN B-12) PO SCH (09:01)
[2018-09-25] MEDS: PANTOprazole 40 MG in SYRINGE 0 ML IV SCH (09:01)
[2018-09-25] MEDS: PARoxetine HCl 20 MG TAB PO SCH (09:01)
[2018-09-25] MEDS: INSULIN ASPART 100 UNITS/ML 3 ML PEN SC SCH ×4 (09:02→20:56)
[2018-09-25] MEDS: [UNRECOGNIZED DRUG - OTHER] TOP SCH ×3 (10:42→20:48)
--- NOTE | 2018-09-25 12:57 | Hospitalist Progress Note ---
Date of Service September 25, 2018 Assessment & Plan (1) Severe sepsis with acute organ dysfunction: - This is POA - initial presentation fit possibly viral etiology with hypovolemia however as first night progressed he developed leukocytosis and procalcitonin was elevated - Likely presentation is multifactorial between dehydration/hypovolemia and sepsis from pulmonary source leading to hypotension and JACOB - CT chest with consolidation in RLL and given symptoms this suggests a pneumonia; CT abd unremarkable - BP did improve with fluid resuscitation and will monitor off IVF at this time - Continue Zosyn for now and likely convert to Augmentin tomorrow (2) Hyperkalemia: - Likely multifactorial given JACOB and use of Spironolactone/ACEI and likely component of dehydration - Has had intermittent dosing of Dextrose/Insulin and Kayexcelate - K is now down to 4.3 and stable - Daily BMP (3) Acute kidney injury: - Superimposed on CKD Stage III - This does seem to be pre-renal even though there was a rise to 2.3 he has quickly rebound nearly to his baseline - 1/2 NSS with Sodium Bicarb at 100 mL/hr will be stopped at this time and monitor - can give intermittent boluses if necessary and thankfully no signs of volume overload (4) Anemia: - Hgb 13 on arrival which is higher than baseline that may support dehydration however reports black stool but seems chronic - Slight decrease in hemoglobin however this is actually trending better towards baseline - do not suspect GI bleed at this time (5) Neck stiffness: - This is more base of the head pain and seems to be musculoskeletal and wax and wanes; reports he would intermittent get this same pain when tipping his head back to watch TV and also reports chronic vision issues due to not having his glasses which seems to trigger some of his head pain - Again no meningeal signs appreciated (6) Atrial fibrillation, permanent: - It appears he converted back to A Fib which is more commonly his rhythm per record review - rate controlled at this time - Due to hypotension will hold Coreg 12.5 mg BID and monitor for rebound until BP more stabilized - Will resume Coumadin and monitor INR - currently 1.6 (7) Chronic combined systolic (congestive) and diastolic (congestive) heart failure: - Most recent echo with EF 15-20%, Inferior wall thinning and akinesis, severe hypokinesis of remaining segments and regional wall motion abnormalities - Does not appear in an acute exacerbation at this time - Will monitor with I&Os - Holding Lisinopril 40 mg daily 2/2 hyperkalemia/hypotension/JACOB (8) Type 2 diabetes mellitus: - Hold Glipizide 2.5 mg daily and cover with SSI (9) CAD (coronary artery disease): - H/O PR and PCI in the past; ischemic cardiomyopathy as described above - Troponins negative x 2 - Hold Imdur 60 mg daily (10) Chronic respiratory failure with hypoxia: - Wears baseline 2 L NC due to COPD and no acute exacerbation at this time - seems like he could use O2 only intermittently as he has good saturations on RA at times - Duonebs PRN (11) DVT prophylaxis: - Coumadin Disposition: Possible D/C next 1-2 days; inmate at [facility] Subjective Reports feeling better today. Having normal blood pressures today but intermittent lower ones. Tolerating diet without nausea/vomiting. K is WNL and Cr at 1.73. Continues with a cough that is nonproductive. Was on RA on my visit and denied SOB. Constitutional: + fatigue; no fever, no chills and no anorexia Eyes: + problem reported (chronic blurred vision - awaiting new glasses); no worsening vision Ear, Nose, Mouth, Throat: no nasal congestion Respiratory: + cough; no dyspnea, no sputum production and no wheezing Cardiovascular: no chest pain, no orthopnea and no lightheadedness Gastrointestinal: + diarrhea/loose stools (chronic); no abdominal pain, no nausea, no vomiting and no constipation Genitourinary (Male): no dysuria Musculoskeletal: no body aches Integumentary: no rash Neurologic: no headache(s) Physical Exam 2 Vital Signs (Past 24 Hours): Last Vital Signs Temp 36.5 C 09/25/18 11:00 Pulse 66 09/25/18 11:00 Resp 16 09/25/18 11:00 BP 93/60 L 09/25/18 11:00 Pulse Ox 95 09/25/18 11:00 Constitutional: + thin; no acute distress and not ill appearing Eyes: + anicteric sclerae ENMT: Ears: no hearing impairment Throat: uvula midline Neck: trachea midline Respiratory: normal respiratory effort and + cough Auscultation: + diminished lung sounds and + rhonchi (R base) Cardiovascular: Rate/Rhythm: regular rate; + abnormal rhythm (irregularly irregular) Gastrointestinal (Abdomen): Inspection/Auscultation: normal bowel sounds Percussion/Palpation: abdomen soft; abdomen nontender Musculoskeletal: Head/Neck/Chest: normocephalic, head atraumatic and neck supple Skin: no rashes, warm and dry Neurologic: moves all extremities; no meningeal signs Psychiatric: A+Ox3, euthymic affect _ (1) CAD (coronary artery disease) Coronary Disease-Associated Artery/Lesion type: mo[place]gan artery [place] vs. transplanted heart: mohegan heart Associated angina: without angina Qualified Code(s): I25.10 - Atherosclerotic heart disease of mohegan coronary artery without angina pectoris
[2018-09-25] MEDS: WARFARIN SOD 4 MG TAB PO SCH (17:19)
[2018-09-25] MEDS: ATORVASTATIN 40 MG TAB PO SCH (20:57)
[2018-09-26] MEDS ORDERED: COUGH DROP (SUGAR FREE) LOZ 24 LOZ/1 BOX BUCCAL ONE (03:27)
[2018-09-26] MEDS ORDERED: COUGH DROP (SUGAR FREE) LOZ 24 LOZ/1 BOX BUCCAL PRN (03:28)
[2018-09-26] MEDS: PIPERACILLIN/TAZOBACTAM 3.375 GM in DEXTROSE 5% 100 ML IV SCH (04:56)
[2018-09-26 07:55] LABS: Hematocrit (blood only) 33.9 % (42-52); Hemoglobin 11.2 g/dL (14.0-18.0); Mean Corpuscular Volume 91.4 fL (80-100); Mean Platelet Volume 9.8 fL (7.4-10.4); Platelet Count 163 K/uL (130-400); RDW Coefficient of Variation 13.9 % (11.5-14.5); RDW Standard Deviation 45.9 fL (36.4-46.3); Red Blood Count 3.71 M/uL (4.7-6.1); White Blood Count 11.83 K/uL (4.8-10.8)
[2018-09-26 08:04] LABS: INR 2.1 (0.9-1.1); Prothrombin Time 20.1 Seconds (9.0-12.0)
[2018-09-26] MEDS: CYANOCOBALAMIN 500 MCG TABLET (VITAMIN B-12) PO SCH (08:38)
[2018-09-26] MEDS: PARoxetine HCl 20 MG TAB PO SCH (08:39)
[2018-09-26 08:40] LABS: BUN Creatinine Ratio 22.3 (10-20); Calcium 8.8 mg/dl (8.5-10.1); Creatinine Clr Calc Pharmacy 40.7 ml/min; Est GFR (African American) 53.1; Est GFR (Non-African American) 45.8; Magnesium 1.7 mg/dl (1.8-2.4); Potassium 4.1 mmol/L (3.5-5.1)
[2018-09-26] MEDS: INSULIN ASPART 100 UNITS/ML 3 ML PEN SC SCH ×2 (08:43→12:48)
[2018-09-26] MEDS ORDERED: MAGNESIUM OXIDE 400 MG TAB PO SCH (09:00)
[2018-09-26] MEDS: [UNRECOGNIZED DRUG - OTHER] TOP SCH ×2 (09:00→12:54)
[2018-09-26] MEDS ORDERED: AMOXICILLIN/CLAVULANATE 875 MG TAB PO SCH (09:30)
--- NOTE | 2018-09-26 19:47 | Discharge Summary ---
Date of Service September 26, 2018 Admission HPI Per Admitting Provider Mr. Garza is a 73 y/o male with PMHx of Paroxysmal Atrial Fibrillation, Chronic Combined Systolic and Diastolic CHF, Ischemic Cardiomyopathy with EF 15- 20%, CAD with HI and PCI, T2DM, HTN, CKD Stage III, Chronic Respiratory Failure due to COPD on 2 L NC, and BPH who presents from [facility] for acute onset headache, nausea/vomiting, stool incontinence. He reports feeling in is normal state of health up until approx. 2 hours before presentation. He states he was in his cell and developed nausea and when he went to the bathroom he had one episode of vomiting. He reports severe neck pain at the base of the head and denies chronic issues with this. States he did have migraines in the past. He reports chronic blurry vision but no worsening with the headache. No presence of meningeal signs on assessment. He states he did not have a syncopal episode prior to arrival which was reported. He was incontinent of stool during that time. His BP was noted to be 86/58 and BSG of 195. He reports feeling chilled and visibly experiencing rigors. He endorses having diarrhea for "months" going about 4-5 times a day. Reports stool is normally black per report. Patient also has a wet sounding cough that is nonproductive that has been present over the past few days Principal Diagnosis Severe Sepsis vs Severe Hypovolemia; JACOB on CKD; Pneumonia Discharge Exam Constitutional + thin; no acute distress and not ill appearing Eyes + anicteric sclerae, PERRL and EOM intact bilaterally ENMT Ears: no hearing impairment Throat: uvula midline Neck trachea midline Respiratory normal respiratory effort, lungs clear to auscultation normal respiratory effort and + cough Auscultation: + diminished lung sounds and + rhonchi (R base) Cardiovascular Rate/Rhythm: regular rate; + abnormal rhythm (irregularly irregular) Gastrointestinal (Abdomen) Inspection/Auscultation: normal bowel sounds Percussion/Palpation: abdomen soft; abdomen nontender Musculoskeletal Head/Neck/Chest: normocephalic, head atraumatic and neck supple Extremities: no cyanosis Skin no rashes, warm and dry Neurologic moves all extremities; no meningeal signs Psychiatric A+Ox3, euthymic affect Discharge Data Allergies Allergy/AdvReac Type Severity Reaction Status Date / Time No Known Allergies Allergy Verified 09/23/18 15:45 Consultations 02/07/19 15:49 ED Decision to Admit Stat Ordered Studies CT chest wo con COMPARISON: 05/13/2018 FINDINGS: Considerable decrease in volume of the pleural effusions described previously. Patchy bibasilar parenchymal infiltrative change. Small parenchymal infiltrate superior segment right lower lobe. Pulmonary apices are clear. There is a component of moderate emphysematous change. Narrowing of the mainstem bronchi in the prior study has resolved. Mild mid mediastinal adenopathy measured up to 1.3 cm. Adenopathy overall is of the mediastinal and hilar regions has improved. IMPRESSION: 1. Mixed findings compared to the prior study. 2. Patchy bibasilar parenchymal infiltrative change with additional infiltrative process superior segment right lower lobe 3. Resolution of the prior bilateral pleural effusions. 4. Mediastinal adenopathy improved from the prior exam. 5. Gallstones. 6. Left supraclavicular adenopathy stable compared to the prior exam. CT abd pelvis wo con FINDINGS: Mild bibasilar infiltrative/atelectatic change. Configuration of liver spleen and pancreas are unremarkable. Several gallstones are present within the gallbladder lumen. Several renal cysts bilaterally. No evidence for hydronephrosis or obstructing urinary tract calculus. Nonobstructive bowel pattern. Stable 3.5 cm infrarenal abdominal aortic aneurysm. Nonobstructive bowel pattern. Scattered colonic diverticuli with no evidence for diverticulitis. Hines catheter within the bladder. IMPRESSION:. 1. Small bibasilar parenchymal infiltrative/atelectatic changes. 2. Gallstones. 3. Bilateral renal cysts with no evidence for hydronephrosis. 4. No acute process of the abdomen or pelvis. No significant abnormality identified within the abdomen or pelvis. Hospital Course (1) Severe sepsis with acute organ dysfunction: - This is POA - initial presentation fit possibly viral etiology with hypovolemia however as first night progressed he developed leukocytosis and procalcitonin was elevated - this procal could be from severe hypotension? - Likely presentation is multifactorial between dehydration/hypovolemia and sepsis from pulmonary source leading to hypotension and JACOB - CT chest with consolidation in RLL and given symptoms this suggests a pneumonia however maybe atelectic; CT abd unremarkable - BP did improve with fluid resuscitation and remains stable off IVF - Initially treated with Zosyn and will convert to Augmentin BID to finish a 7 day course (2) Hyperkalemia: - Likely multifactorial given JACOB and use of Spironolactone/ACEI and likely component of dehydration - Has had intermittent dosing of Dextrose/Insulin and Kayexcelate during admission and K is stable at 4.1 but was 8.6 on admission surprisingly without EKG changes (3) Acute kidney injury: - Superimposed on CKD Stage III - This does seem to be pre-renal even though there was a rise to 2.3 he has quickly rebound nearly to his baseline - 1/2 NSS with Sodium Bicarb at 100 mL/hr was utilized and has been stable off fluids (4) Anemia: - Hgb 13 on arrival which is higher than baseline that may support dehydration however reports black stool but seems chronic and is on iron supplementation; heme negative - Slight decrease in hemoglobin however this is actually trending better towards baseline - do not suspect GI bleed at this time (5) Neck stiffness: - This is more base of the head pain and seems to be musculoskeletal and wax and wanes; reports he would intermittent get this same pain when tipping his head back to watch TV and also reports chronic vision issues due to not having his glasses which seems to trigger some of his head pain - No meningeal signs appreciated (6) Atrial fibrillation, permanent: - Was NSR on admission but appears he converted back to A Fib which is more commonly his rhythm per record review - rate controlled at this time - May continue Coreg 12.5 mg BID with BP monitoring - Coumadin and monitor INR - currently 2.1 (7) Chronic combined systolic (congestive) and diastolic (congestive) heart failure: - Most recent echo with EF 15-20%, Inferior wall thinning and akinesis, severe hypokinesis of remaining segments and regional wall motion abnormalities - Does not appear in an acute exacerbation at this time - Recommend to resume Lisinopril given his ischemic cardiomyopathy and is Coreg - may need to monitor his BP and gradually resume is other anti-hypertensives - Recommend to hold is diuretic therapy 2-3 more days unless signs/symptoms of vascular overload occurs (8) Type 2 diabetes mellitus: - Glipizide 2.5 mg daily (9) CAD (coronary artery disease): - H/O HI and PCI in the past; ischemic cardiomyopathy as described above - Troponins negative x 2 - Imdur 60 mg daily (10) Chronic respiratory failure with hypoxia: - Wears baseline 2 L NC due to COPD and no acute exacerbation at this time - seems like he could use O2 only intermittently as he has good saturations on RA at times Total Time Total Time Spent Total Time Spent (In Minutes): Greater than 30 minutes Discharge Plan Discharge Items [facility] Disposition: [facility] Reason For Visit: HYPERKALEMIA Discharge Diagnosis: Pneumonia Discharge Goals: Decrease discomfort, Improve disease control and Increase independence Activity: Resume your previous activity Non-emergency contact: Primary Care Provider Call non-emergency contact if: you have any medication questions, your symptoms worsen and your temperature is above 101 Follow-up/Referrals: Sushil VALDEZ [Primary Care Provider] - Diet: Heart Healthy Addtl Provider Instructions: Severe sepsis with acute organ dysfunction: - Initial presentation fit possibly viral etiology with hypovolemia however as first night progressed he developed leukocytosis and procalcitonin was elevated at 2.6 - Likely presentation is multifactorial between dehydration/hypovolemia and sepsis from pulmonary source leading to hypotension and JACOB - CT chest with consolidation in RLL and given symptoms this suggests a pneumonia; CT abd unremarkable - BP did improve with fluid resuscitation and has remained stable off fluids but without blood pressure medications administered - Initially treated with Zosyn due to initially unknown source of infection. Given good clinical response will convert to Augmentin BID to finish a course - Given his reported chronic diarrhea may benefit from a probiotic especially while on antibiotics and may not be unreasonable to continue Hyperkalemia: - Likely multifactorial given JACOB and use of Spironolactone/ACEI and likely component of dehydration - Currently K is at 4.1 and no further intervention is necessary at this time. Could consider repeat labs in 2-3 days to confirm stability Acute kidney injury on CKD Stage III: - Cr peaked at 2.3 and currently at 1.51 which baseline appears to be around 1.3 -1.4 when comparing previous admissions Anemia: - Hgb 13 on arrival which is higher than baseline that may support dehydration however reports black stool but seems chronic; heme negative on assessment and Hgb remaining stable around 11 which is his baseline on previous labs - Do not suspect GI bleed given stability of labs. Likely the black stool is from iron supplementation Neck stiffness: - This is more base of the head pain and seems to be musculoskeletal and wax and wanes; reports he would intermittently get this same pain when tipping his head back to watch TV and also reports chronic vision issues due to not having his glasses which seems to trigger some of his head pain; also had some nausea last night that seemed to trigger his headache - No meningeal signs appreciated and does not support a meningitis - He does have a history of migraines and this could be possible vs just simply a headache due to illness Atrial fibrillation, permanent: - Was NSR on admission but it appears he converted back to A Fib which is more commonly his rhythm per record review - rate controlled at this time - Due to hypotension did hold Coreg 12.5 mg BID and given normalization of his BP can resume this on discharge - Coumadin continued and INR at 2.1 on 09/26/18 Chronic combined systolic (congestive) and diastolic (congestive) heart failure : - Most recent echo with EF 15-20%, Inferior wall thinning and akinesis, severe hypokinesis of remaining segments and regional wall motion abnormalities - Does not appear in an acute exacerbation at this time and maybe slightly on the dry side - Recommend to hold his diuretic therapy for possible 2-3 more days until more recovered from acute illness. Recommend to hold his potassium until resuming diuretics - Recommend daily weights and monitor as if fluid retention begins to occur would recommend to resume his diuretic therapy to prevent CHF exacerbation - Suspect the hyperkalemia was in the setting of renal failure and dehydration. Would recommend to continue the Lisinopril due to his chronic heart failure and his reduce ejection fraction HTN: - He is now normotensive. However his multiple blood pressure medications could be too much right now. Due to his ischemic cardiomyopathy and A Fib the Lisinopril and Coreg are definitely recommended. May need to trend blood pressures for a couple days and then can resume his Hydralazine/Imdur. Type 2 diabetes mellitus: - May resume Glipizide 2.5 mg daily CAD (coronary artery disease): - H/O HI and PCI in the past; ischemic cardiomyopathy as described above - Troponins negative x 2 - Continue Imdur 60 mg daily Chronic respiratory failure with hypoxia: - Wears baseline 2 L NC due to COPD and no acute exacerbation at this time - seems like he could use O2 only intermittently as he has good saturations on RA at times but suspect he likely has more desaturations with fluid retention Prescriptions: New amoxicillin-pot clavulanate 875-125 mg Tablet 1 tab PO BIDM Qty: 9 RF: 0 Continue glipizide 5 mg Tablet 2.5 mg PO DAILY RF: 0 atorvastatin 80 mg Tablet 80 mg PO HS RF: 0 isosorbide mononitrate 60 mg Tablet Extended Release 24 Hr 60 mg PO QAM RF: 0 ferrous sulfate [iron] 325 mg (65 mg iron) Tablet 325 mg PO 3XWK RF: 0 nitroglycerin [Nitrostat] 0.4 mg Tablet, Sublingual 0.4 mg Sublingual UD RF: 0 omeprazole 20 mg Capsule,Delayed Release(Dr/Ec) 20 mg PO BID RF: 0 magnesium oxide 400 mg Capsule 400 mg PO BID RF: 0 cyanocobalamin (vitamin B-12) [Vitamin B-12] 1,000 mcg Tablet 1,000 mcg PO QAM RF: 0 tamsulosin 0.4 mg Capsule 0.4 mg PO HS RF: 0 paroxetine HCl 40 mg Tablet 40 mg PO QAM RF: 0 A&D Ointment 1 applic topical TID RF: 0 carvedilol 12.5 mg Tablet 12.5 mg PO BID RF: 0 hydralazine 25 mg Tablet 25 mg PO TID RF: 0 hydrocortisone 2.5 % Lotion 1 applic TOPICAL BID RF: 0 warfarin 2 mg Tablet 4 mg PO HS RF: 0 lisinopril 40 mg Tablet 40 mg PO DAILY RF: 0 spironolactone 25 mg Tablet 25 mg PO BID Qty: 0 RF: 0 furosemide [Lasix] 80 mg Tablet 80 mg PO DAILY Qty: 0 RF: 0 potassium chloride 20 mEq Tablet Extended Release 40 meq PO BID Qty: 0 RF: 0 Stand-Alone Forms: [facility] Discharge Orders: Discharge Order (Routine); Ordered 09/26/18 Ordered By: Génesis Copeland Admission Data Admit Date/Time: 09/23/18 17:42 Attending Provider: Raman Barclay Admit Provider: Jessica Rodriguez Primary Care Provider: Sushil VALDEZ Other Providers: Jessica Rodriguez Service: Medical Other Interventions: Discharge Summary Assessment (RN) Last Done: 09/26/18 13:01 Pending Studies at Discharge: No DC Date/Time DO NOT enter until pt leaves facility: 09/26/18 15:09
== END 2018-09-26 15:09 | DRG 871 ==
LOC: ED 13:33 → SUATTDRO 17:42 → 2S 17:42 → 4W 09-25 11:04

== ENCOUNTER 2018-10-14 09:00 | Inpatient (IN) ==
[2018-10-14] MEDS ORDERED: ONDANSETRON INJ 2 MG/ML 2 ML VIAL IV STA (09:20)
[2018-10-14] MEDS ORDERED: SODIUM CHLORIDE 0.9% 1000ML 1,000 ML IV SCH (09:30)
[2018-10-14 09:55] LABS: Basophils # (auto) 0.04 K/uL (0-0.2); Basophils % (auto) 0.5 %; Eosinophils # (auto) 0.15 K/uL (0-0.5); Hematocrit (blood only) 39.9 % (42-52); Hemoglobin 13.1 g/dL (14.0-18.0); Immature Granulocytes # (auto) 0.01 K/uL (0.00-0.02); Immature Granulocytes % (auto) 0.1 %; Lymphocytes # (auto) 0.73 K/uL (1.2-3.4); Lymphocytes % (auto) 9.7 %; Mean Corpuscular Hgb Conc 32.8 g/dL (32-36); Mean Corpuscular Volume 92.8 fL (80-100); Mean Platelet Volume 9.7 fL (7.4-10.4); Monocytes # (auto) 0.84 K/uL (0.11-0.59); Monocytes % (auto) 11.2 %; Neutrophils # (auto) 5.75 K/uL (1.4-6.5); Neutrophils % (auto) 76.5 %; Platelet Count 184 K/uL (130-400); RDW Coefficient of Variation 14.8 % (11.5-14.5); RDW Standard Deviation 50.3 fL (36.4-46.3); White Blood Count 7.52 K/uL (4.8-10.8)
--- NOTE | 2018-10-14 09:55 | XRay Report ---
KUB HISTORY: Acute vomiting with reported constipation constipation COMPARISON: CT abdomen pelvis 09/24/2018. FINDINGS: The bowel gas pattern is non-obstructive. Gas-filled loops of large bowel with mild stool v olume. There is no organomegaly. No renal calculi. No ureteral calculi. No pneumoperitoneum or pneum atosis. Degenerative changes are noted about the spine, pelvis and hips. No fracture. IMPRESSION: 1. Nonobstructive bowel gas pattern. 2. No radiographic evidence of constipation. Electronically signed by: Moises Vuong M.D. 10/14/2018 9:53 AM
--- NOTE | 2018-10-14 09:56 | XRay Report ---
XR chest 1V portable HISTORY: 73 years-old Male a fib, vomiting acute vomiting with cardiac arrhythmia COMPARISON: Chest radiograph 09/23/2018, chest CT 09/24/2018 TECHNIQUE: Portable AP view of the chest FINDINGS: Cardiomediastinal and hilar silhouettes are unchanged. There is no pneumothorax, pleural effusion, fo adalgisa airspace consolidation or overt pulmonary edema. The bones of the chest appear grossly intact. IMPRESSION: No acute process. The above report was generated using voice recognition software. It may contain grammatical, syntax o r spelling errors. Electronically signed by: Moises Vuong M.D. 10/14/2018 9:54 AM
[2018-10-14 10:19] LABS: Albumin Level 3.6 gm/dl (3.4-5.0); BUN Creatinine Ratio 28.4 (10-20); Bilirubin,Total 0.5 mg/dl (0.2-1); Calcium 9.7 mg/dl (8.5-10.1); Creatinine Clr Calc Pharmacy 16.4 ml/min; Est GFR (African American) 18.7; Est GFR (Non-African American) 16.1; Globulin 4.9 gm/dl (2.5-4.0); Potassium 8.2 mmol/L (3.5-5.1); Total Protein 8.5 gm/dl (6.4-8.2)
--- NOTE | 2018-10-14 10:35 | Ultrasound Report ---
Iliac ultrasound CLINICAL HISTORY: gallstones vomiting COMPARISON STUDY: 01/19/2018 FINDINGS: There is an infrarenal abdominal aortic aneurysm measuring 3.6 cm in maximal diameter. The liver appears sonographically normal. There is no ductal dilatation. The common bile duct measures 5 mm. The pancreas was nonvisualized. There is a 9 mm shadowing calculus in the region the gallbladder neck. There is no gallbladder wall t hickening. There is no pericholecystic fluid. There is no right-sided hydronephrosis. There are multiple septated renal cysts the largest of which measures 34 mm. IMPRESSION: 1. Cholelithiasis. No evidence of ductal dilatation 2. Nondiagnostic evaluation the pancreas 3. 3.6 cm infrarenal abdominal aortic aneurysm 4. Complex right renal cysts Electronically signed by: Sameer Reynolds M.D. 10/14/2018 10:34 AM
[2018-10-14 10:42] LABS: Partial Thromboplastin Ratio 1.9; Prothrombin Time 77.3 Seconds (9.0-12.0)
[2018-10-14] MEDS ORDERED: NovoLIN-R INSULIN PER UNIT CHARGE IV STA (10:51)
[2018-10-14] MEDS ORDERED: CALCIUM GLUCONATE 10% 10 ML VIAL IV STA (10:51)
[2018-10-14] MEDS ORDERED: SODIUM CHLORIDE 0.9% 1000ML 1,000 ML IV ONE (10:51)
[2018-10-14 10:55] LABS: iSTAT Creatinine 3.4 mg/dl (0.6-1.3); iSTAT Hemoglobin 12.6 g/dl (14.0-18.0); iSTAT Ionized Calcium 1.32 mmol/l (1.12-1.32); iSTAT Potassium 8.9 mEq/L (3.3-5.0)
[2018-10-14 11:13] LABS: INR 8.8 (0.9-1.1)
[2018-10-14 11:14] LABS: Partial Thromboplastin Time 51.1 Seconds (21.0-31.0)
[2018-10-14] MEDS: DEXTROSE 50% 50 ML SYRINGE IV ONE ×2 (11:25→11:26)
--- NOTE | 2018-10-14 12:05 | CT Scan Report ---
CT OF THE ABDOMEN AND PELVIS WITHOUT CONTRAST CLINICAL HISTORY: renal failure, obstruction? COMPARISON STUDY: CT of the abdomen and pelvis September 24, 2018.] Ultrasound performed earlier today . TECHNIQUE: Axial images of the abdomen and pelvis were obtained without IV contrast. Images were revi ewed in the axial, sagittal, and coronal planes. Automated exposure control was utilized for the andres dy. A dose lowering technique was utilized adhering to the principles of ALARA. FINDINGS: No abnormalities are identified within the lower lungs. No pneumatosis, free air or portal venous gas is present. Evaluation of the abdomen and pelvis is suboptimal on this unenhanced exam. Se veral hypodense hepatic lesions are suboptimally assessed on this unenhanced exam but are unchanged f rom study of May 13, 2018. These favor cysts. Gallstone is noted without evidence for acute cho lecystitis. Unenhanced images of the spleen, adrenal glands and pancreas are normal. There are cl us water attenuation bilateral renal lesions. These are suboptimally assessed on this unenhanced exam but favor cysts. A few intermediate attenuation lesions probably reflect hyperdense cysts when corre lating with prior contrast enhanced CT but these remain indeterminate. Moderate to marked bilateral r enal atrophy, greater on the left is noted. There is no hydronephrosis or hydroureter. No ureteral ca lculi are present. A 2 mm left renal calculus is noted. A 3.7 cm infrarenal abdominal aortic aneurysm is unchanged. There is no evidence for rupture. There is hypodensity within the cecum. The appendix is normal caliber. There is no evidence for acute appendicitis. An L1 compression deformity is not ac dotty. There is grade one antral listhesis of L4 and L5 due to bilateral L4 pars defects. There is no e vidence for a bowel obstruction. No suspicious osseous lesions are noted. There is no biliary or panc reatic ductal dilatation. IMPRESSION: 1. No hydronephrosis. Moderate to marked left renal atrophy. Moderate right renal atrophy. 2. Numerous bilateral renal lesions which are suboptimally assessed on this unenhanced exam. The annalisa rity, if not all, of these reflect cysts. A few lesions are indeterminate but may reflect hyperdense cysts within correlating with prior contrast enhanced CT of May 13, 2018. 3. Cholelithiasis. 4. No change in a 3.7 cm infrarenal abdominal aortic aneurysm. No rupture. 5. 2 mm left renal calculus. No ureteral calculi. Electronically signed by: Leroy Maguire M.D. 10/14/2018 12:03 PM
[2018-10-14 12:30] LABS: Albumin Globulin Ratio 0.7 (0.9-2)
--- NOTE | 2018-10-14 13:16 | XRay Report ---
KUB HISTORY: Acute renal failure. Acute generalized abdominal pain NGT suction COMPARISON: CT abdomen and pelvis of same day at 11:36 AM. FINDINGS: The imaged lung kirby appear clear. The bowel gas pattern is non-obstructive. There is no organomegaly. No renal calculi. No ureteral calculi. No pneumoperitoneum or pneumatosis. Arterial ca lcifications are noted. No fracture. IMPRESSION: Nonobstructive bowel gas pattern. Electronically signed by: Moises Vuong M.D. 10/14/2018 1:15 PM
[2018-10-14] MEDS ORDERED: GLUCOSE 40% GEL 15 GM TUBE PO PRN (14:04)
[2018-10-14] MEDS ORDERED: GLUCOSE 10 TABS/TUBE PO PRN (14:04)
[2018-10-14] MEDS ORDERED: ACETAMINOPHEN 325 MG TAB PO PRN (14:04)
[2018-10-14] MEDS ORDERED: DEXTROSE 50% 50 ML SYRINGE IV PRN (14:04)
[2018-10-14] MEDS ORDERED: GLUCAGON FOR INJ 1 MG VIAL SQ PRN (14:04)
[2018-10-14] MEDS ORDERED: CARBOHYDRATES FOR HYPOGLYCEMIA PO PRN (14:04)
[2018-10-14] MEDS: SODIUM CHLORIDE 0.9% 1000ML 1,000 ML IV SCH (14:13)
[2018-10-14] MEDS ORDERED: SODIUM POLYSTYRENE SULFONATE 15G/60ML SUSP PO ONE ×3 (14:30→15:45)
[2018-10-14] MEDS ORDERED: CALCIUM GLUCONATE 10% 1,000 MG in SODIUM CHLORIDE 0.9% 50 ML IV ONE (14:30)
--- NOTE | 2018-10-14 14:36 | History & Physical Report ---
Date of Service October 14, 2018 Assessment & Plan (1) Acute renal failure: Patient with CKD Stage II, baseline Cr 1.2 - 1.4, history of DM/HTN, suggestion of medical-renal disease on CT scan with bilateral renal atrophy, also with numerous renal cysts . Presenting with ARF. Most likely multi- factorial, progression of disease as well as pre-renal azotemia in setting of poor po intake and GI losses and medication effects - patient has been on Lasix (?when they stopped this at [facility]) as well as Lisinopril, Spironolactone and K repletion. NDX=703 now, Cr=3.58. HCO3=19 and K=8.2 with EKG changes. Calcium gluconate administered in ER as well as insulin and D50. Patient is making urine, AA&O x 4 with no asterixis or clinical evidence of uremia. -Admit to PCU with continuous cardiac monitoring -Place Hines catheter and monitor strict I/Os -Check UA with culture if indicated, urine eosinophils and electrolytes to calculate FeUrea -NSS at 100mL/hr x 2 liters -BMP TID to assess renal function -Kayexelate -Nephrology consultation - appreciate assistance with this case -Avoid nephrotoxic medications -Renal dosing where appropriate Present on Admission?: Yes (2) Acute hyperkalemia: As above, acute hyperkalemia with EKG changes in setting of CKD, volume depletion and medication effects. -Calcium gluconate, insulin and D50 given in ER -Will administer additional gram of Calcium -Kayexelate - monitor for BM -Nephro consult as above - if failure of medical management patient will need HD (3) Neck stiffness: Patient complaining of pain and stiffness at the base of his neck as well as frontal headache. This was present during his last hospital stay as well. No neurological deficits although patient does report tingling in his fingertips on occasion. Seems to be positional in nature - worse when tipping his head back. No meningeal signs. ?degenerative changes with cervicalgia -Check XR of C-spine -PT and OT evaluation, possible recommendations on strengthening exercises -Heat and Tylenol PRN (4) Type 2 diabetes mellitus: Patient on Glipizide 2.5mg po daily. -Hold glipizide for now -ISS, caution with renal impairment -Monitor blood glucose (5) CAD (coronary artery disease): Stable. History of VA with PCI in the past. ICM with EF of 15-20%. Patient presently without chest pain. Appears hypovolemic on clinical exam -Hold Atorvastatin for now -Hold Lisinopril -Continue Carvedilol -Continue Imdur -Continue Hydralazine (6) Hypertension: Blood pressure stable at present -Continue Hydralazine, Coreg, Imdur -Continue to monitor (7) BPH (benign prostatic hyperplasia): Stable -Hines placement as above -Continue Flomax (8) Atrial fibrillation, permanent: Patient with AF, rate controlled at present. INR suprathrapeutic at 8.8. No bleeding reported -Hold Coumadin -Will administer 2.5mg of oral vitamin K for reversal - ?uremic platelets contributing to bleeding risk factor ?need for temporary HD access placement -Monitor INR daily -Continue Coreg (9) COPD (chronic obstructive pulmonary disease): Stable. No SOB/respiratory distress. -Continue supplemental O2 - patient wears 2L at baseline -Nebs as needed (10) Anxiety: Stable -Continue Paxil (11) CHF (congestive heart failure): As above. Stable -Cautious IVF repletion -Continue Coreg, Hydralazine, Imdur F/E/N- NSS at 100mL/hr x 2 liters, monitor electrolytes with BMP TID, Renal/CC/Heart healthy diet as tolerated Ppx - No chemical prophylaxis given elevated INR, continue home Protonix Code - Full Dispo -PCU History of Present Illness Chief Complaint: Nausea/vomitin/JACOB/hyperkalemia Primary Care Provider: [facility] Mr. Garza is a 73yo male presenting with JACOB and hyperkalemia. He is an inmate at [facility]. States that when he woke this AM he felt ill and quite weak. He required assistance to get up from the toilet. He went to breakfast and became acutely nauseous with a few episodes of NB/NB vomiting. He reports loose stools at baseline, no diarrhea with this episode. He states he has not been eating or drinking well for the last week. Patient hemodynamically stable upon arrival. Laboratory workup with BXT=991, Cr=3.58 and K=8.2. Also with INR of 8.8, no bleeding at present. Patient takes Lasix 80mg po daily, Spironolactone 25mg po BID, KCL 40mEq po BID as well as Lisinopril 40mg po daily. He states that he was not being given the Lasix as he was producing too much urine. He is unsure about the dosing on his other medications. He is also complaining of posterior neck pain and headache since last admission. Occasional tingling in his fingertips, no weakness. Patient was admitted earlier this month with very similar presentation. His potassium was 8.6 on admission at that time. He was managed with Insulin/Dextrose and Kayexelate with improvement. His discharge K level was stable at 4.1. Patient with history of CKD III, Cr on admission was 2.3 which improved to 1.51 prior to discharge. ER Course: Calcium gluconate x 1gm, Insulin 10u + 1 amp of D50, NSS x 2 liters, Zofran Allergies Allergy/AdvReac Type Severity Reaction Status Date / Time No Known Allergies Allergy Verified 10/14/18 09:51 Home Medications Home Medications Medication Instructions Recorded Confirmed Type atorvastatin 80 mg PO HS 05/01/18 10/14/18 History cyanocobalamin (vitamin B-12) 1,000 mcg PO DAILY 05/01/18 10/14/18 History [Vitamin B-12] ferrous sulfate [iron] 325 mg PO 3XWK 05/01/18 10/14/18 History isosorbide mononitrate 60 mg PO DAILY 05/01/18 10/14/18 History magnesium oxide 400 mg PO BID 05/01/18 10/14/18 History nitroglycerin [Nitrostat] 0.4 mg SUBLINGUAL UD PRN 05/01/18 10/14/18 History paroxetine HCl 40 mg PO QAM 05/01/18 10/14/18 History tamsulosin 0.4 mg PO HS 05/01/18 10/14/18 History glipizide 2.5 mg PO DAILY 05/13/18 10/14/18 History A&D Ointment 1 applic TOPICAL TID 09/23/18 10/14/18 History carvedilol 12.5 mg PO BID 09/23/18 10/14/18 History hydralazine 25 mg PO TID 09/23/18 10/14/18 History hydrocortisone 1 applic TOPICAL BID 09/23/18 10/14/18 History warfarin 4 mg PO HS 09/23/18 10/14/18 History furosemide [Lasix] 80 mg PO DAILY #0 tab 09/26/18 10/14/18 Rx potassium chloride 40 meq PO BID #0 tab 09/26/18 10/14/18 Rx spironolactone 25 mg PO BID #0 tab 09/26/18 10/14/18 Rx acetaminophen 325 mg PO TID PRN 10/14/18 10/14/18 History ascorbic acid (vitamin C) [Vitamin 500 mg PO 3XWK 10/14/18 10/14/18 History C] lisinopril 20 mg PO DAILY 10/14/18 10/14/18 History pantoprazole 40 mg PO BID 10/14/18 10/14/18 History Past Med/Surg History Medical History Diabetes (Chronic) Anxiety (Chronic) CHF (congestive heart failure) ICM with EF of 15-20% No significant past surgical history Acute VA, inferior wall Afib Anemia Anxiety Atrial fibrillation CAD (coronary artery disease) s/p inferior wall VA with chronically occluded RCA - cath on 01/09/15 - no intervention. L to R collateralization noted CHF exacerbation CKD (chronic kidney disease) stage 3, GFR 30-59 ml/min COPD (chronic obstructive pulmonary disease) Cardiac ischemia Depression Essential hypertension GERD (gastroesophageal reflux disease) High cholesterol Hyperlipidemia Male genitourinary symptoms Near syncope PNA (pneumonia) Sepsis Family History Other Diabetes Social History Preferred Language: Brazilian Communication Ability: Effective Education General Manager Required: No Beliefs That Will Affect Care: Mu-Ism Current Living Situation: Other Current Living Situation Comment: [facility] Other Information That Helps Us Care for You: No Feels Safe at Home: Yes Safety Concerns: Feels Safe At This Time Smoking Status: Former smoker Hx Alcohol Use: No Hx Substance Use: No Review of Systems All systems reviewed & are unremarkable except as noted in HPI & below +neck pain +headache Denies CP, palpitations, SOB, abdominal pain, flank pain Physical Exam Vital Signs (Past 24 Hours): Last Vital Signs Temp 36.4 C L 10/14/18 09:04 Pulse 74 10/14/18 11:40 Resp 20 10/14/18 11:40 BP 130/63 10/14/18 11:40 Pulse Ox 100 10/14/18 11:40 Physical Exam: General: patient resting comfortably, NAD, non-toxic in appearance, AA&O x 4 Skin: warm, dry, intact, no rashes or lesions, no bruises HEENT: NC/AT, PERRL, EOMI, anicteric sclera, conjunctiva without injection, external ear normal to inspection and nontender, nares patent, dry mucus membra angelia, dentures in place, no oropharyngeal lesions, neck supple, trachea midline, no LAD, no thyromegaly, no JVD Heart: +S1/S2, regular, no m/r/g Lungs: equal air entry bilaterally, no rales/rhonchi/wheezes Abd: +BS, soft, ND, no masses/organomegaly/ascites, mild tenderness with deep palpation in lower abdomen, no rebound/guarding/peritoneal signs, no CVA tenderness, no suprapubic tenderness Ext: warm, 2+ pulses in UE/LE bilaterally, no clubbing/cyanosis or edema Neuro: nonfocal, patient AA&O x 4, speech intact, no facial droop, moving all extremities on command with equal strength 5/5, no asterixis Results & Data Laboratory Results Lab Results 10/14/18 10/14/18 10/14/18 Range/Units 09:39 09:39 09:43 WBC 7.52 (4.8-10.8) K/uL RBC 4.30 L (4.7-6.1) M/uL Hgb 13.1 L (14.0-18.0) g/dL POC Hgb (14.0-18.0) g/dl Hct 39.9 L (42-52) % POC Hct (42-52) % MCV 92.8 (80-100) fL MCH 30.5 (25-34) pg MCHC 32.8 (32-36) g/dL RDW Std Deviation 50.3 H (36.4-46.3) fL RDW Coeff of Samara 14.8 H (11.5-14.5) % Plt Count 184 (130-400) K/uL MPV 9.7 (7.4-10.4) fL Immature Gran % (Auto) 0.1 % Neut % (Auto) 76.5 % Lymph % (Auto) 9.7 % [place] % (Auto) 11.2 % Eos % (Auto) 2.0 % Baso % (Auto) 0.5 % Immature Gran # (Auto) 0.01 (0.00-0.02) K/uL Neut # (Auto) 5.75 (1.4-6.5) K/uL Lymph # (Auto) 0.73 L (1.2-3.4) K/uL [place] # (Auto) 0.84 H (0.11-0.59) K/uL Eos # (Auto) 0.15 (0-0.5) K/uL Baso # (Auto) 0.04 (0-0.2) K/uL PT 77.3 H (9.0-12.0) Seconds INR 8.8 H* (0.9-1.1) APTT 51.1 H* (21.0-31.0) Seconds PTT Ratio 1.9 POC Sodium (135-144) mEq/L Sodium 131 L (136-145) mmol/L POC Potassium (3.3-5.0) mEq/L Potassium 8.2 H* (3.5-5.1) mmol/L POC Chloride (101-112) mEq/L Chloride 105 (98-107) mmol/L Carbon Dioxide 19 L (21-32) mmol/L POC Total CO2 (24-31) mEq/l Anion Gap 7.0 (3-11) POC Anion Gap (16-25) mmol/L POC BUN (7-18) mg/dl BUN 102 H (7-18) mg/dl Creatinine 3.58 H (0.6-1.4) mg/dl POC Creatinine (0.6-1.3) mg/dl Est Cr Clr Drug Dosing 16.4 ml/min Est GFR ( Amer) 18.7 Est GFR (Non-Af Amer) 16.1 BUN/Creatinine Ratio 28.4 H (10-20) Glucose 178 H (70-99) mg/dl POC Glucose (other) (70-99) mg/dl Calcium 9.7 (8.5-10.1) mg/dl POC Ioniz Calcium [place]avo (1.12-1.32) mmol/l Total Bilirubin 0.5 (0.2-1) mg/dl AST 47 H (15-37) U/L ALT 73 (12-78) U/L Alkaline Phosphatase 172 H (45-117) U/L Total Protein 8.5 H (6.4-8.2) gm/dl Albumin 3.6 (3.4-5.0) gm/dl Globulin 4.9 H (2.5-4.0) gm/dl Albumin/Globulin Ratio 0.7 L (0.9-2) Lipase 342 (73-393) U/L 10/14/18 Range/Units 10:40 WBC (4.8-10.8) K/uL RBC (4.7-6.1) M/uL Hgb (14.0-18.0) g/dL POC Hgb 12.6 L (14.0-18.0) g/dl Hct (42-52) % POC Hct 37 L (42-52) % MCV (80-100) fL MCH (25-34) pg MCHC (32-36) g/dL RDW Std Deviation (36.4-46.3) fL RDW Coeff of Samara (11.5-14.5) % Plt Count (130-400) K/uL MPV (7.4-10.4) fL Immature Gran % (Auto) % Neut % (Auto) % Lymph % (Auto) % [place] % (Auto) % Eos % (Auto) % Baso % (Auto) % Immature Gran # (Auto) (0.00-0.02) K/uL Neut # (Auto) (1.4-6.5) K/uL Lymph # (Auto) (1.2-3.4) K/uL [place] # (Auto) (0.11-0.59) K/uL Eos # (Auto) (0-0.5) K/uL Baso # (Auto) (0-0.2) K/uL PT (9.0-12.0) Seconds INR (0.9-1.1) APTT (21.0-31.0) Seconds PTT Ratio POC Sodium 132 L (135-144) mEq/L Sodium (136-145) mmol/L POC Potassium 8.9 H* (3.3-5.0) mEq/L Potassium (3.5-5.1) mmol/L POC Chloride 108 (101-112) mEq/L Chloride (98-107) mmol/L Carbon Dioxide (21-32) mmol/L POC Total CO2 20 L (24-31) mEq/l Anion Gap (3-11) POC Anion Gap 14.0 L (16-25) mmol/L POC BUN 106 H* (7-18) mg/dl BUN (7-18) mg/dl Creatinine (0.6-1.4) mg/dl POC Creatinine 3.4 H (0.6-1.3) mg/dl Est Cr Clr Drug Dosing ml/min Est GFR ( Amer) Est GFR (Non-Af Amer) BUN/Creatinine Ratio (10-20) Glucose (70-99) mg/dl POC Glucose (other) 188 H (70-99) mg/dl Calcium (8.5-10.1) mg/dl POC Ioniz Calcium [place] 1.32 (1.12-1.32) mmol/l Total Bilirubin (0.2-1) mg/dl AST (15-37) U/L ALT (12-78) U/L Alkaline Phosphatase (45-117) U/L Total Protein (6.4-8.2) gm/dl Albumin (3.4-5.0) gm/dl Globulin (2.5-4.0) gm/dl Albumin/Globulin Ratio (0.9-2) Lipase (73-393) U/L Diagnostic Findings KUB HISTORY: Acute vomiting with reported constipation constipation COMPARISON: CT abdomen pelvis 09/24/2018. FINDINGS: The bowel gas pattern is non-obstructive. Gas-filled loops of large bowel with mild stool volume. There is no organomegaly. No renal calculi. No ureteral calculi. No pneumoperitoneum or pneumatosis. Degenerative changes are noted about the spine, pelvis and hips. No fracture. IMPRESSION: 1. Nonobstructive bowel gas pattern. 2. No radiographic evidence of constipation. Electronically signed by: Moises Vuong M.D. 10/14/2018 9:53 AM Dictated: 10/14/18 0952 Transcribed: 10/14/18 0952 Iliac ultrasound CLINICAL HISTORY: gallstones vomiting COMPARISON STUDY: 01/19/2018 FINDINGS: There is an infrarenal abdominal aortic aneurysm measuring 3.6 cm in maximal diameter. The liver appears sonographically normal. There is no ductal dilatation. The common bile duct measures 5 mm. The pancreas was nonvisualized. There is a 9 mm shadowing calculus in the region the gallbladder neck. There is no gallbladder wall thickening. There is no pericholecystic fluid. There is no right-sided hydronephrosis. There are multiple septated renal cysts the largest of which measures 34 mm. IMPRESSION: 1. Cholelithiasis. No evidence of ductal dilatation 2. Nondiagnostic evaluation the pancreas 3. 3.6 cm infrarenal abdominal aortic aneurysm 4. Complex right renal cysts Electronically signed by: Sameer Reynolds M.D. 10/14/2018 10:34 AM Dictated: 10/14/18 1030 Transcribed: 10/14/18 1030 XR chest 1V portable HISTORY: 73 years-old Male a fib, vomiting acute vomiting with cardiac arrhythmia COMPARISON: Chest radiograph 09/23/2018, chest CT 09/24/2018 TECHNIQUE: Portable AP view of the chest FINDINGS: Cardiomediastinal and hilar silhouettes are unchanged. There is no pneumothorax, pleural effusion, focal airspace consolidation or overt pulmonary edema. The bones of the chest appear grossly intact. IMPRESSION: No acute process. The above report was generated using voice recognition software. It may contain grammatical, syntax or spelling errors. Electronically signed by: Moises Vuong M.D. 10/14/2018 9:54 AM Dictated: 10/14/1853 Transcribed: 10/14/1853 -- CT OF THE ABDOMEN AND PELVIS WITHOUT CONTRAST CLINICAL HISTORY: renal failure, obstruction? COMPARISON STUDY: CT of the abdomen and pelvis September 24, 2018.] Ultrasound performed earlier today. TECHNIQUE: Axial images of the abdomen and pelvis were obtained without IV contrast. Images were reviewed in the axial, sagittal, and coronal planes. Automated exposure control was utilized for the study. A dose lowering technique was utilized adhering to the principles of ALARA. FINDINGS: No abnormalities are identified within the lower lungs. No pneumatosis, free air or portal venous gas is present. Evaluation of the abdomen and pelvis is suboptimal on this unenhanced exam. Several hypodense hepatic l esions are suboptimally assessed on this unenhanced exam but are unchanged from study of May 13, 2018. These favor cysts. Gallstone is noted without evidence for acute cholecystitis. Unenhanced images of the spleen, adrenal glands and pancreas are normal. There are numerous water attenuation bilateral renal lesions. These are suboptimally assessed on this unenhanced exam but favor cysts. A few intermediate attenuation lesions probably reflect hyperdense cysts when correlating with prior contrast enhanced CT but these remain indeterminate. Moderate to marked bilateral renal atrophy, greater on the left is noted. There is no hydronephrosis or hydroureter. No ureteral calculi are present. A 2 mm left renal calculus is noted. A 3.7 cm infrarenal abdominal aortic aneurysm is unchanged. There is no evidence for rupture. There is hypodensity within the cecum. The appendix is normal caliber. There is no evidence for acute appendicitis. An L1 compression deformity is not acute. There is grade one antral listhesis of L4 and L5 due to bilateral L4 pars defects. There is no evidence for a bowel obstruction. No suspicious osseous lesions are noted. There is no biliary or pancreatic ductal dilatation. IMPRESSION: 1. No hydronephrosis. Moderate to marked left renal atrophy. Moderate right renal atrophy. 2. Numerous bilateral renal lesions which are suboptimally assessed on this un enhanced exam. The majority, if not all, of these reflect cysts. A few lesions are indeterminate but may reflect hyperdense cysts within correlating with prior contrast enhanced CT of May 13, 2018. 3. Cholelithiasis. 4. No change in a 3.7 cm infrarenal abdominal aortic aneurysm. No rupture. 5. 2 mm left renal calculus. No ureteral calculi. Electronically signed by: Leroy Maguire M.D. 10/14/2018 12:03 PM Dictated: 10/14/18 1152 Transcribed: 10/14/18 1152 ECG Additional Comments: Sinus bradycardia at 59bpm, PACs, ?bigeminy, normal axis, XZ=878, PKJ=071, CXx=729, tall T-waves present in V1-V3. When compared to 09/25/18 QRS duration has increased, T-waves more pronounced Code Status & VTE Plan Code Status FULL VTE Prophylaxis Plan VTE Prophylaxis will be ordered: No Reason for no VTE drug order: Treatment not indicated Reason for no VTE mechanical prophylaxis: Treatment not indicated Critical Care Time Critical Care Time: No (1) Acute renal failure Acute renal failure type: unspecified Qualified Code(s): N17.9 - Acute kidney failure, unspecified (2) Type 2 diabetes mellitus Diabetes mellitus jail insulin use: without jail use Diabetes mellitus complication status: without complication Qualified Code(s): E11.9 - Type 2 diabetes mellitus without complications (3) CAD (coronary artery disease) Coronary Disease-Associated Artery/Lesion type: [place] artery [place] vs. transplanted heart: [place] heart Associated angina: without angina Qualified Code(s): I25.10 - Atherosclerotic heart disease of [place] coronary artery without angina pectoris (4) Hypertension Hypertension type: essential hypertension Qualified Code(s): I10 - Essential (primary) hypertension (5) BPH (benign prostatic hyperplasia) Lower urinary tract symptom presence: symptoms absent Qualified Code(s): N40.0 - Benign prostatic hyperplasia without lower urinary tract symptoms
[2018-10-14] MEDS ORDERED: ALBUT/IPRATROP 3MG/0.5MG NEB 3 ML VIAL NEB PRN (14:41)
[2018-10-14] MEDS ORDERED: PHYTONADIONE 2.5 MG TAB PO STA (14:43)
[2018-10-14] MEDS ORDERED: PHYTONADIONE 5 MG TAB PO STA (14:55)
[2018-10-14 15:14] LABS: Calcium 9.2 mg/dl (8.5-10.1); Creatinine Clr Calc Pharmacy 18.8 ml/min; Est GFR (African American) 22.1; Magnesium 2.3 mg/dl (1.8-2.4); Potassium 7.6 mmol/L (3.5-5.1)
--- NOTE | 2018-10-14 15:19 | XRay Report ---
XR cervical spine 2 or 3V HISTORY: 73 years-old Male chronic pain chronic neck pain without reported trauma COMPARISON: CT cervical spine 05/13/2018 TECHNIQUE: 5 views of the cervical spine FINDINGS: Moderate intervertebral disc space narrowing with spondylitic spurring redemonstrated at C5-C6. Mild to moderate multilevel facet arthrosis with spondylitic spurring. No acute fracture or subluxation. N o prevertebral soft tissue swelling. Imaged lung apices appear clear. IMPRESSION: 1. No acute fracture or subluxation. 2. Unchanged moderate intervertebral disc space narrowing with spondylitic spurring at C5-C6. The above report was generated using voice recognition software. It may contain grammatical, syntax o r spelling errors. Electronically signed by: Moises Vuong M.D. 10/14/2018 3:18 PM
[2018-10-14] MEDS: [UNRECOGNIZED DRUG - OTHER] TOP SCH ×2 (15:20→20:36)
--- NOTE | 2018-10-14 15:24 | Nephrology Consultation ---
Date of Consultation October 14, 2018 Assessment & Plan (1) Acute hyperkalemia: Mr. Garza was admitted to the hospital with 3 weeks history of diarrhea and poor p.o. intake, nausea, vomiting since this morning and found to have hyperkalemia and acute kidney injury. He was on Lasix, spironolactone, lisinopril and potassium supplement however he was not sure whether he has been taking Lasix over last few days. On admission he was found to have severe hyperkalemia and acute kidney injury. Hyperkalemia in the setting of acute kidney injury, potassium supplement and being on SHANNON inhibitor and potassium-sparing diuretics.Had some EKG changes. He received calcium gluconate and insulin D50 and potassium slightly improved to 7.6. Has been non-oliguric. Has been getting IV normal saline 100 per hour. --just received Kayexalate 30 grams p.o. x1 dose, --suggest another dose of insulin and D50 --repeat potassium in 2 hours --may need emergency dialysis if potassium does not improve however seems like potassium started to improve and expected to continue to improve --continue to hold all potassium-sparing diuretics, SHANNON-inhibitor/ARB potassium supplement --in future strongly encourage discontinuing potassium supplement and monitor labs frequently if patient needs to be on spironolactone in addition to lisinopril --needs counseling regarding avoiding high potassium food while on SHANNON- inhibitor Will follow Thank you for allowing me to participate in your patient's care. It was a pleasure to see Austin (2) Acute renal failure: (3) Anemia: (4) Vomiting: (5) CKD (chronic kidney disease), stage III: History of Present Illness Reason for Consultation: Acute kidney injury, hyperkalemia. Attending Physician: Jacqui Carter DO History of Present Illness Austin darling was 73-year-old gentlemen with past medical history significant for hypertension, stage III CKD chronic congestive heart failure admitted to the hospital with acute kidney injury and hyperkalemia. Nephro consult was requested to manage hyperkalemia and evaluate for need for emergency dialysis. Chronic medical records including labs and imaging are reviewed in detail during patient's visit. Austin has been having poor p.o. intake and watery diarrhea for 3 weeks. Since this morning he was feeling weak. inability to move and had an episode nausea and vomited once. No abdominal pain. He reports voiding normally over last few days. On admission his creatinine was 3.6 BUN 104, potassium was 8.2. He was started on NS at 100 ml/h. Repeat potassium was 8.9 and he was given calcium gluconate, insulin, D50 and Kayexalate however, he vomited out the kayexalate. Potassium just now came back to 7.6. He wa sgiven another dose of kayexalate 10 minutes ago. Did not have nay BM since admission. He had similar episode 2 weeks ago when he was admitted to the hospital with sepsis and found to have acute kidney injury. Potassium on admission was 8.9 which eventually improved to 4.1 on discharge. At home he was on potassium chloride 40 milliequivalent twice a day, lisinopril 20 daily and spironolactone 25 milligram daily. Was on Lasix 40 twice a day. He was continued all those medications on discharge and has been taking those until admission today. Mr. Owens has stage 3 chronic kidney disease baseline creatinine somewhat variable from 1.6-2.0. Chronic kidney disease most likely secondary to microvascular disease with bilateral atrophic kidney. No proteinuria and microscopic hematuria. Renal ultrasound today showed bilateral atrophy kidney, left kidney much more atrophic than the right, no hydronephrosis. History of chronic congestive heart failure, EF 35-40 percent, was on Lasix 40 milligram twice a day. Has also been on lisinopril, spironolactone and potassium supplement. He does have some nausea but denies abdominal pain, did not have any further episode of vomiting or diarrhea.. Allergies Allergy/AdvReac Type Severity Reaction Status Date / Time No Known Allergies Allergy Verified 10/14/18 09:51 Home Medications Home Medications Medication Instructions Recorded Confirmed Type atorvastatin 80 mg PO HS 05/01/18 10/14/18 History cyanocobalamin (vitamin B-12) 1,000 mcg PO DAILY 05/01/18 10/14/18 History [Vitamin B-12] ferrous sulfate [iron] 325 mg PO 3XWK 05/01/18 10/14/18 History isosorbide mononitrate 60 mg PO DAILY 05/01/18 10/14/18 History magnesium oxide 400 mg PO BID 05/01/18 10/14/18 History nitroglycerin [Nitrostat] 0.4 mg SUBLINGUAL UD PRN 05/01/18 10/14/18 History paroxetine HCl 40 mg PO QAM 05/01/18 10/14/18 History tamsulosin 0.4 mg PO HS 05/01/18 10/14/18 History glipizide 2.5 mg PO DAILY 05/13/18 10/14/18 History A&D Ointment 1 applic TOPICAL TID 09/23/18 10/14/18 History carvedilol 12.5 mg PO BID 09/23/18 10/14/18 History hydralazine 25 mg PO TID 09/23/18 10/14/18 History hydrocortisone 1 applic TOPICAL BID 09/23/18 10/14/18 History warfarin 4 mg PO HS 09/23/18 10/14/18 History furosemide [Lasix] 80 mg PO DAILY #0 tab 09/26/18 10/14/18 Rx potassium chloride 40 meq PO BID #0 tab 09/26/18 10/14/18 Rx spironolactone 25 mg PO BID #0 tab 09/26/18 10/14/18 Rx acetaminophen 325 mg PO TID PRN 10/14/18 10/14/18 History ascorbic acid (vitamin C) [Vitamin 500 mg PO 3XWK 10/14/18 10/14/18 History C] lisinopril 20 mg PO DAILY 10/14/18 10/14/18 History pantoprazole 40 mg PO BID 10/14/18 10/14/18 History Patient History Medical History Diabetes (Chronic) Anxiety (Chronic) CHF (congestive heart failure) ICM with EF of 15-20% No significant past surgical history Acute OR, inferior wall Afib Anemia Anxiety Atrial fibrillation CAD (coronary artery disease) s/p inferior wall OR with chronically occluded RCA - cath on 01/09/15 - no intervention. L to R collateralization noted CHF exacerbation CKD (chronic kidney disease) stage 3, GFR 30-59 ml/min COPD (chronic obstructive pulmonary disease) Cardiac ischemia Depression Essential hypertension GERD (gastroesophageal reflux disease) High cholesterol Hyperlipidemia Male genitourinary symptoms Near syncope PNA (pneumonia) Sepsis Family History Other Diabetes Social History Preferred Language: Wallisian Communication Ability: Effective Pantograph Watcher Required: No Beliefs That Will Affect Care: Holiness Current Living Situation: Other Current Living Situation Comment: [place] Other Information That Helps Us Care for You: No Feels Safe at Home: Yes Safety Concerns: Feels Safe At This Time Smoking Status: Former smoker Hx Alcohol Use: No Hx Substance Use: No Review of Systems Constitutional: positive for weakness, no chills, fever or night sweats Head neck: no visual changes, hearing loss Respiratory: No cough, dyspnea on exertion, shortness of breath, sputum or wheezing Cardiac: No chest pain or palpitation Abdomen: positive for anorexia, nausea, vomiting and diarrhea Musculoskeletal: No joint pain, muscle pain, back pain : No dysuria, hematuria, foamy urine, incontinence, No urinary frequency Endocrine: no polyuria, excessive thirst, heat or cold intolerance Hematological: no petechiae, easy bruising Neurologic: no confusion, weakness, No memory loss, No numbness/tingling, No paralysis, No vertigo Skin: no rash , Psychiatry: no anxiety, depression. Physical Exam Vital Signs (Past 24 Hours): Last Vital Signs Temp 36.7 C 10/14/18 14:03 Pulse 70 10/14/18 14:03 Resp 18 10/14/18 14:03 BP 126/65 10/14/18 14:03 Pulse Ox 100 10/14/18 14:03 Physical Exam: GENERAL:elderly male, AAA x 3, ill-appearing, not in any distress. HEENT: Atraumatic, normocephalic. NECK: Supple, no JVD, no carotid bruit appreciated. ENT: No sinus tenderness MOUTH and THROAT: dry oral mucosa, RESPIRATORY: Normal breathing efforts, clear to auscultation bilaterally, no wheezes or rales. CARDIOVASCULAR: S1, S2 normal, rate rhythm regular. ABDOMEN: Soft, nontender, positive bowel sound. MUSCULOSKELETAL: No CVA tenderness. No joint swelling, erythema or tenderness. Normal range of motion. SKIN: No skin rash EXTREMITY: No lower extremity edema NEURO: No gross focal neurological deficit, speech fluent. PSYCHIATRY: Normal mood and judgment (1) Acute renal failure Acute renal failure type: unspecified Qualified Code(s): N17.9 - Acute kidney failure, unspecified (2) Vomiting Nausea presence: unspecified Vomiting Intractability: unspecified Vomiting type: unspecified Qualified Code(s): R11.10 - Vomiting, unspecified
[2018-10-14 15:29] LABS: Prothrombin Time > 90.0 Seconds (9.0-12.0)
[2018-10-14 15:31] LABS: INR > 10.4 (0.9-1.1)
--- NOTE | 2018-10-14 15:48 | Emergency Department Note ---
Entered by Suzi Neal acting as a scribe for History of Present Illness General Chief complaint: Hypotension Source: patient and other ([facility] staff) Mode of arrival: EMS History of Present Illness Provider complaint: vomiting Onset (ago): hour(s) 1 Location: abdomen Pain Consistency: + other (episode) Quality: + other (vomiting) Associated symptoms: + other (nausea, low blood pressure, inability to ambulate. Denies: abdominal pain, chest pain) The patient is a 75 year old male who presents to the Emergency Room with comp laints of an episode of vomiting beginning 1 hour ago. He notes intermittent nausea. The patient denies abdominal pain or chest pain. Per [facility] staff, that patient's blood pressure was low and he was unable to ambulate after vomiting. The patient reports his last bowel movement was this morning, and it was hard. He reports he has to strain to have a bowel movement. Home Medications Home Medications Medication Instructions Recorded Confirmed Type atorvastatin 80 mg PO HS 05/01/18 10/14/18 History cyanocobalamin (vitamin B-12) 1,000 mcg PO DAILY 05/01/18 10/14/18 History [Vitamin B-12] ferrous sulfate [iron] 325 mg PO 3XWK 05/01/18 10/14/18 History isosorbide mononitrate 60 mg PO DAILY 05/01/18 10/14/18 History magnesium oxide 400 mg PO BID 05/01/18 10/14/18 History nitroglycerin [Nitrostat] 0.4 mg SUBLINGUAL UD PRN 05/01/18 10/14/18 History paroxetine HCl 40 mg PO QAM 05/01/18 10/14/18 History tamsulosin 0.4 mg PO HS 05/01/18 10/14/18 History glipizide 2.5 mg PO DAILY 05/13/18 10/14/18 History A&D Ointment 1 applic TOPICAL TID 09/23/18 10/14/18 History carvedilol 12.5 mg PO BID 09/23/18 10/14/18 History hydralazine 25 mg PO TID 09/23/18 10/14/18 History hydrocortisone 1 applic TOPICAL BID 09/23/18 10/14/18 History warfarin 4 mg PO HS 09/23/18 10/14/18 History furosemide [Lasix] 80 mg PO DAILY #0 tab 09/26/18 10/14/18 Rx potassium chloride 40 meq PO BID #0 tab 09/26/18 10/14/18 Rx spironolactone 25 mg PO BID #0 tab 09/26/18 10/14/18 Rx acetaminophen 325 mg PO TID PRN 10/14/18 10/14/18 History ascorbic acid (vitamin C) [Vitamin 500 mg PO 3XWK 10/14/18 10/14/18 History C] lisinopril 20 mg PO DAILY 10/14/18 10/14/18 History pantoprazole 40 mg PO BID 10/14/18 10/14/18 History Allergies Allergy/AdvReac Type Severity Reaction Status Date / Time No Known Allergies Allergy Verified 10/14/18 09:51 Past Med/Surg History Medical History Diabetes (Chronic) Anxiety (Chronic) CHF (congestive heart failure) ICM with EF of 15-20% No significant past surgical history Acute VA, inferior wall Afib Anemia Anxiety Atrial fibrillation CAD (coronary artery disease) s/p inferior wall VA with chronically occluded RCA - cath on 01/09/15 - no intervention. L to R collateralization noted CHF exacerbation CKD (chronic kidney disease) stage 3, GFR 30-59 ml/min COPD (chronic obstructive pulmonary disease) Cardiac ischemia Depression Essential hypertension GERD (gastroesophageal reflux disease) High cholesterol Hyperlipidemia Male genitourinary symptoms Near syncope PNA (pneumonia) Sepsis Family History Other Diabetes Social History Preferred Language: Spanish Communication Ability: Effective Epic Analyst Required: No Beliefs That Will Affect Care: Scientologist Current Living Situation: Other Current Living Situation Comment: [facility] Other Information That Helps Us Care for You: No Feels Safe at Home: Yes Safety Concerns: Feels Safe At This Time Smoking Status: Former smoker Hx Alcohol Use: No Hx Substance Use: No Review of Systems See HPI for pertinent positives & negatives. and A total of 10 systems reviewed and were otherwise negative Physical Exam Vital Signs Vital Signs - 24 hr 10/16/18 08:00 10/16/18 12:00 10/16/18 15:54 Temperature 37.2 C 36.5 C 36.5 C Temperature Source Oral Oral Oral Pulse Rate 80 Pulse Rate [Left] 85 73 59 L Pulse Rhythm [Left] Regular Regular Pulse Strength [Left] Normal Normal Respiratory Rate 16 18 16 Respiratory Effort / Characteristics Non-Labored Spontaneous Non-Labored Spontaneous Respiratory Depth Normal Normal Respiratory Pattern Regular Blood Pressure [Left Arm] 136/69 107/59 L 135/72 Blood Pressure Mean [Left Arm] 91 75 93 Blood Pressure Position [Left Arm] Sitting Sitting Lying Pulse Oximetry 95 98 97 Oxygen Delivery Method Room Air Room Air 10/16/18 20:00 10/16/18 23:00 10/16/18 23:03 Temperature 36.4 C L 36.5 C Temperature Source Oral Oral Pulse Rate 68 Pulse Rate [Left] 65 67 Pulse Rhythm [Left] Pulse Strength [Left] Respiratory Rate 18 18 Respiratory Effort / Characteristics Respiratory Depth Respiratory Pattern Blood Pressure [Left Arm] 144/69 H 141/80 H Blood Pressure Mean [Left Arm] 94 100 Blood Pressure Position [Left Arm] Lying Lying Pulse Oximetry 96 95 Oxygen Delivery Method Room Air Room Air 10/17/18 03:04 Temperature 36.9 C Temperature Source Oral Pulse Rate Pulse Rate [Left] 66 Pulse Rhythm [Left] Pulse Strength [Left] Respiratory Rate 18 Respiratory Effort / Characteristics Respiratory Depth Respiratory Pattern Blood Pressure [Left Arm] 140/63 Blood Pressure Mean [Left Arm] 88 Blood Pressure Position [Left Arm] Lying Pulse Oximetry 96 Oxygen Delivery Method Room Air Vital signs reviewed. General: Chronically ill-appearing elderly man, in no significant distress. HEENT: No scleral icterus, PERRLA, neck supple. Atraumatic. Cardiovascular: Regular rate and rhythm, no extra sounds. Pulmonary: Clear to auscultation bilaterally, normal work of breathing. Abdomen: Soft, nondistended, positive bowel sounds. Mild epigastric to LUQ tenderness, no rebound, no guarding. Musculoskeletal: Atraumatic, no peripheral edema. Neurologic: Patient awake alert and oriented x 3. Skin: Warm, dry, no rash. Course 0917: Past medical records reviewed. The patient was evaluated in room A3, and a complete history and physical examination were performed. 1220: Upon reevaluation, the patient is resting. I discussed test results. They verbalized agreement with the treatment plan. 1224: I reviewed the patient's case with BIANKA Engel [facility] hospitalist. She will evaluate the patient for further management. Consultations Consultation #1: Loli Love, CUSTOMER CARE TEAM COACH, [facility] hospitalist Time: 12:24 Administered Medications Acetaminophen (Tylenol) 650 mg PO Q4H PRN PRN Reason: Pain or Fever Stop: 11/13/18 14:03 Last Admin: 10/16/18 16:06 Dose: 650 mg Documented by: [id number] Carvedilol (Coreg) 12.5 mg PO BID [facility] Stop: 11/13/18 20:59 Last Admin: 10/16/18 20:48 Dose: 12.5 mg Documented by: [id number] Admin: 10/16/18 09:25 Dose: 12.5 mg Documented by: [id number] Admin: 10/15/18 21:27 Dose: 12.5 mg Documented by: [id number] Admin: 10/15/18 09:01 Dose: 12.5 mg Documented by: [id number] Admin: 10/14/18 20:31 Dose: 12.5 mg Documented by: [id number] Hydralazine HCl (Apresoline) 25 mg PO TID [facility] Stop: 11/13/18 14:03 Last Admin: 10/16/18 20:49 Dose: 25 mg Documented by: [id number] Admin: 10/16/18 13:55 Dose: 25 mg Documented by: [id number] Admin: 10/16/18 09:27 Dose: 25 mg Documented by: [id number] Admin: 10/15/18 21:27 Dose: Not Given Documented by: [id number] Admin: 10/15/18 13:46 Dose: Not Given Documented by: [id number] Admin: 10/15/18 09:01 Dose: 25 mg Documented by: [id number] Admin: 10/14/18 20:31 Dose: 25 mg Documented by: [id number] Admin: 10/14/18 15:21 Dose: 25 mg Documented by: [id number] Hydrocortisone (Hydrocortisone 2.5%) 1 appln EXT BID HI Stop: 11/13/18 20:59 Last Admin: 10/16/18 20:49 Dose: 1 appln Documented by: [id number] Admin: 10/16/18 09:26 Dose: Not Given Documented by: [id number] Admin: 10/15/18 21:27 Dose: Not Given Documented by: [id number] Admin: 10/15/18 10:01 Dose: Not Given Documented by: [id number] Admin: 10/14/18 20:30 Dose: 1 appln Documented by: [id number] Insulin Aspart (Novolog Flexpen) 0 units SC ACHS HI Stop: 11/13/18 16:29 Last Admin: 10/16/18 20:51 Dose: 2 units Documented by: [id number] Cosigned by: [id number] Admin: 10/16/18 16:59 Dose: 8 units Documented by: [id number] Cosigned by: [id number] Admin: 10/16/18 11:50 Dose: 3 units Documented by: [id number] Cosigned by: [id number] Admin: 10/16/18 09:33 Dose: 2 units Documented by: [id number] Cosigned by: [id number] Admin: 10/15/18 21:39 Dose: Not Given Documented by: [id number] Cosigned by: [id number] Admin: 10/15/18 17:10 Dose: 4 units Documented by: [id number] Cosigned by: [id number] Admin: 10/15/18 12:18 Dose: 3 units Documented by: [id number] Cosigned by: [id number] Admin: 10/15/18 09:03 Dose: 2 units Documented by: [id number] Cosigned by: [id number] Admin: 10/14/18 20:57 Dose: 2 units Documented by: [id number] Cosigned by: [id number] Admin: 10/14/18 17:25 Dose: Not Given Documented by: [id number] Cosigned by: [id number] Isosorbide Mononitrate (Imdur Extended Rel) 60 mg PO DAILY [facility] Stop: 11/14/18 08:59 Last Admin: 10/16/18 09:26 Dose: 60 mg Documented by: [id number] Admin: 10/15/18 09:01 Dose: 60 mg Documented by: [id number] Magnesium Oxide (Mag-Ox) 400 mg PO BID [facility] Stop: 11/13/18 20:59 Last Admin: 10/16/18 20:49 Dose: 400 mg Documented by: [id number] Admin: 10/16/18 09:25 Dose: 400 mg Documented by: [id number] Admin: 10/15/18 21:28 Dose: 400 mg Documented by: [id number] Admin: 10/15/18 09:01 Dose: 400 mg Documented by: [id number] Admin: 10/14/18 20:31 Dose: 400 mg Documented by: [id number] Non-Formulary Medication (A&D Ointment) 1 appln TOP TID HI Stop: 11/13/18 14:03 Last Admin: 10/16/18 20:50 Dose: Not Given Documented by: [id number] Admin: 10/16/18 13:55 Dose: Not Given Documented by: [id number] Admin: 10/16/18 09:27 Dose: Not Given Documented by: [id number] Admin: 10/15/18 21:28 Dose: Not Given Documented by: [id number] Admin: 10/15/18 15:15 Dose: Not Given Documented by: [id number] Admin: 10/15/18 10:00 Dose: Not Given Documented by: [id number] Admin: 10/14/18 20:36 Dose: Not Given Documented by: [id number] Admin: 10/14/18 15:20 Dose: 1 appln Documented by: [id number] Pantoprazole Sodium (Protonix) 40 mg PO BID HI Stop: 11/13/18 20:59 Last Admin: 10/16/18 20:48 Dose: 40 mg Documented by: [id number] Admin: 10/16/18 09:26 Dose: 40 mg Documented by: [id number] Admin: 10/15/18 21:26 Dose: 40 mg Documented by: [id number] Admin: 10/15/18 09:01 Dose: 40 mg Documented by: [id number] Admin: 10/14/18 20:32 Dose: 40 mg Documented by: [id number] Paroxetine HCl (Paxil) 40 mg PO QAM HI Stop: 11/14/18 08:59 Last Admin: 10/16/18 09:25 Dose: 40 mg Documented by: [id number] Admin: 10/15/18 09:01 Dose: 40 mg Documented by: [id number] Tamsulosin HCl (Flomax) 0.4 mg PO HS HI Stop: 11/13/18 20:59 Last Admin: 10/16/18 20:48 Dose: 0.4 mg Documented by: [id number] Admin: 10/15/18 21:27 Dose: 0.4 mg Documented by: [id number] Admin: 10/14/18 20:31 Dose: 0.4 mg Documented by: [id number] Discontinued Medications Al Hydrox/Mg Hydrox/Simethicone (Maalox) 15 ml PO NOW ONE Stop: 10/17/18 05:44 Last Admin: 10/17/18 06:08 Dose: 15 ml Documented by: [id number] Calcium Gluconate (Calcium Gluconate 10%) 1,000 mg IV NOW STA Stop: 10/14/18 10:52 Last Admin: 10/14/18 11:25 Dose: 1,000 mg Documented by: [id number] Dextrose (Dextrose 50%) 50 ml IV NOW ONE Stop: 10/14/18 10:52 Last Admin: 10/14/18 11:26 Dose: 50 ml Documented by: [id number] Admin: 10/14/18 11:25 Dose: 50 ml Documented by: [id number] Dextrose (Dextrose 50%) 50 ml IV NOW ONE Stop: 10/14/18 22:59 Last Admin: 10/14/18 23:27 Dose: 50 ml Documented by: [id number] Sodium Chloride (Nss 1000ml) 1,000 mls @ 125 mls/hr IV .Q8H IH Stop: 11/13/18 09:29 Last Infusion: 10/14/18 19:13 Dose: 0 mls/hr Documented by: [id number] Infusion: 10/14/18 15:48 Dose: 0 mls/hr Documented by: [id number] Admin: 10/14/18 09:34 Dose: 125 mls/hr Documented by: [id number] Sodium Chloride (Nss 1000ml) 1,000 mls @ 999 mls/hr IV .Q1H1M ONE Stop: 10/14/18 11:51 Last Infusion: 10/14/18 15:48 Dose: 0 mls/hr Documented by: [id number] Admin: 10/14/18 11:25 Dose: 999 mls/hr Documented by: [id number] Sodium Chloride (Nss 1000ml) 1,000 mls @ 100 mls/hr IV .Q10H [facility] Stop: 10/15/18 10:03 Last Infusion: 10/15/18 11:00 Dose: 0 mls/hr Documented by: [id number] Admin: 10/15/18 00:58 Dose: 100 mls/hr Documented by: [id number] Infusion: 10/15/18 00:57 Dose: 0 mls/hr Documented by: [id number] Admin: 10/14/18 14:13 Dose: 100 mls/hr Documented by: [id number] Calcium Gluconate 1,000 mg/ (Sodium Chloride) 60 mls @ 120 mls/hr IV NOW ONE Stop: 10/14/18 14:59 Last Infusion: 10/14/18 15:48 Dose: 0 mls/hr Documented by: [id number] Admin: 10/14/18 14:34 Dose: 120 mls/hr Documented by: [id number] Insulin Human Regular 10 units (/ Syringe) 10 mls @ 0 mls/hr IV ONE ONE Stop: 10/14/18 23:16 Last Admin: 10/14/18 23:27 Dose: 1 mls/hr Documented by: [id number] Cosigned by: [id number] Insulin Human Regular (Novolin R U-100 Per Unit) 10 units IV NOW STA Stop: 10/14/18 10:52 Last Admin: 10/14/18 11:26 Dose: 10 units Documented by: [id number] Cosigned by: [id number] Ondansetron HCl (Zofran) 4 mg IV NOW STA Stop: 10/14/18 09:21 Last Admin: 10/14/18 09:34 Dose: 4 mg Documented by: [id number] Phytonadione (Mephyton) 2.5 mg PO NOW STA Stop: 10/14/18 14:56 Last Admin: 10/14/18 15:21 Dose: 2.5 mg Documented by: [id number] Phytonadione (Mephyton) 5 mg PO NOW STA Stop: 10/15/18 15:33 Last Admin: 10/15/18 15:51 Dose: 5 mg Documented by: [id number] Sodium Polystyrene Sulfonate (Kayexalate) 30 gm PO NOW ONE Stop: 10/14/18 14:31 Last Admin: 10/14/18 15:21 Dose: 30 gm Documented by: [id number] Sodium Polystyrene Sulfonate (Kayexalate) 30 gm PO ONE ONE Stop: 10/14/18 15:46 Last Admin: 10/14/18 16:23 Dose: 30 gm Documented by: [id number] Medical Decision Making Differential Diagnosis Etiologies such as gastroenteritis, food borne illness, infections, appendicitis, diverticulitis, inflammatory bowel disease, obstruction, GI bleed, biliary pathology, cardiac process, intracranial process, as well as others were entertained. Medical Records Attestation: I reviewed the patient's medical records. Home Medications Current Medication List: was personally reviewed by me Laboratory Data Attestation: I reviewed the patient's lab results. Result diagrams: 10/15/18 03:51 10/16/18 09:26 Lab Results 02/10/14/18 10/14/18 Range/Units 09:39 09:39 09:43 WBC 7.52 (4.8-10.8) K/uL RBC 4.30 L (4.7-6.1) M/uL Hgb 13.1 L (14.0-18.0) g/dL POC Hgb (14.0-18.0) g/dl Hct 39.9 L (42-52) % POC Hct (42-52) % MCV 92.8 (80-100) fL MCH 30.5 (25-34) pg MCHC 32.8 (32-36) g/dL RDW Std Deviation 50.3 H (36.4-46.3) fL RDW Coeff of Samara 14.8 H (11.5-14.5) % Plt Count 184 (130-400) K/uL MPV 9.7 (7.4-10.4) fL Immature Gran % (Auto) 0.1 % Neut % (Auto) 76.5 % Lymph % (Auto) 9.7 % Crowley % (Auto) 11.2 % Eos % (Auto) 2.0 % Baso % (Auto) 0.5 % Immature Gran # (Auto) 0.01 (0.00-0.02) K/uL Neut # (Auto) 5.75 (1.4-6.5) K/uL Lymph # (Auto) 0.73 L (1.2-3.4) K/uL Crowley # (Auto) 0.84 H (0.11-0.59) K/uL Eos # (Auto) 0.15 (0-0.5) K/uL Baso # (Auto) 0.04 (0-0.2) K/uL PT 77.3 H (9.0-12.0) Seconds INR 8.8 H* (0.9-1.1) APTT 51.1 H* (21.0-31.0) Seconds PTT Ratio 1.9 POC Sodium (135-144) mEq/L Sodium 131 L (136-145) mmol/L POC Potassium (3.3-5.0) mEq/L Potassium 8.2 H* (3.5-5.1) mmol/L POC Chloride (101-112) mEq/L Chloride 105 (98-107) mmol/L Carbon Dioxide 19 L (21-32) mmol/L POC Total CO2 (24-31) mEq/l Anion Gap 7.0 (3-11) POC Anion Gap (16-25) mmol/L POC BUN (7-18) mg/dl BUN 102 H (7-18) mg/dl Creatinine 3.58 H (0.6-1.4) mg/dl POC Creatinine (0.6-1.3) mg/dl Est Cr Clr Drug Dosing 16.4 ml/min Est GFR ( Amer) 18.7 Est GFR (Non-Af Amer) 16.1 BUN/Creatinine Ratio 28.4 H (10-20) Glucose 178 H (70-99) mg/dl POC Glucose (70-99) POC Glucose (other) (70-99) mg/dl Calcium 9.7 (8.5-10.1) mg/dl POC Ioniz Calcium Tavo (1.12-1.32) mmol/l Phosphorus (2.5-4.9) mg/dl Magnesium (1.8-2.4) mg/dl Total Bilirubin 0.5 (0.2-1) mg/dl Direct Bilirubin (0-0.2) mg/dl AST 47 H (15-37) U/L ALT 73 (12-78) U/L Alkaline Phosphatase 172 H (45-117) U/L Total Creatine Kinase (39-308) U/L Total Protein 8.5 H (6.4-8.2) gm/dl Albumin 3.6 (3.4-5.0) gm/dl Globulin 4.9 H (2.5-4.0) gm/dl Albumin/Globulin Ratio 0.7 L (0.9-2) Lipase 342 (73-393) U/L Urine Color Urine Appearance (Clear) Urine pH (4.5-7.5) Ur Specific Ross (1.000-1.030) Urine Protein (Negative) Urine Glucose (UA) (Negative) Urine Ketones (Negative) Urine Blood (Negative) Urine Nitrite (Negative) Urine Bilirubin (Negative) Urine Urobilinogen (Negative) Ur Leukocyte Esterase (Negative) Urine Osmolality (500-800) mOsm/kg Ur Random Sodium mmol/L Ur Random Urea Nitrogn mg/dl 10/14/18 10/14/18 10/14/18 Range/Units 10:40 14:28 14:54 WBC (4.8-10.8) K/uL RBC (4.7-6.1) M/uL Hgb (14.0-18.0) g/dL POC Hgb 12.6 L (14.0-18.0) g/dl Hct (42-52) % POC Hct 37 L (42-52) % MCV (80-100) fL MCH (25-34) pg MCHC (32-36) g/dL RDW Std Deviation (36.4-46.3) fL RDW Coeff of Samara (11.5-14.5) % Plt Count (130-400) K/uL MPV (7.4-10.4) fL Immature Gran % (Auto) % Neut % (Auto) % Lymph % (Auto) % Crowley % (Auto) % Eos % (Auto) % Baso % (Auto) % Immature Gran # (Auto) (0.00-0.02) K/uL Neut # (Auto) (1.4-6.5) K/uL Lymph # (Auto) (1.2-3.4) K/uL Crowley # (Auto) (0.11-0.59) K/uL Eos # (Auto) (0-0.5) K/uL Baso # (Auto) (0-0.2) K/uL PT > 90.0 H (9.0-12.0) Seconds INR > 10.4 H* (0.9-1.1) APTT (21.0-31.0) Seconds PTT Ratio POC Sodium 132 L (135-144) mEq/L Sodium 134 L (136-145) mmol/L POC Potassium 8.9 H* (3.3-5.0) mEq/L Potassium 7.6 H* (3.5-5.1) mmol/L POC Chloride 108 (101-112) mEq/L Chloride 110 H (98-107) mmol/L Carbon Dioxide 18 L (21-32) mmol/L POC Total CO2 20 L (24-31) mEq/l Anion Gap 6.0 (3-11) POC Anion Gap 14.0 L (16-25) mmol/L POC BUN 106 H* (7-18) mg/dl BUN 90 H (7-18) mg/dl Creatinine 3.12 H D (0.6-1.4) mg/dl POC Creatinine 3.4 H (0.6-1.3) mg/dl Est Cr Clr Drug Dosing 18.8 ml/min Est GFR ( Amer) 22.1 Est GFR (Non-Af Amer) 19.0 BUN/Creatinine Ratio 29.0 H (10-20) Glucose 101 H (70-99) mg/dl POC Glucose (70-99) POC Glucose (other) 188 H (70-99) mg/dl Calcium 9.2 (8.5-10.1) mg/dl POC Ioniz Calcium Tavo 1.32 (1.12-1.32) mmol/l Phosphorus 4.0 (2.5-4.9) mg/dl Magnesium 2.3 (1.8-2.4) mg/dl Total Bilirubin (0.2-1) mg/dl Direct Bilirubin (0-0.2) mg/dl AST (15-37) U/L ALT (12-78) U/L Alkaline Phosphatase (45-117) U/L Total Creatine Kinase 55 (39-308) U/L Total Protein (6.4-8.2) gm/dl Albumin (3.4-5.0) gm/dl Globulin (2.5-4.0) gm/dl Albumin/Globulin Ratio (0.9-2) Lipase (73-393) U/L Urine Color Urine Appearance (Clear) Urine pH (4.5-7.5) Ur Specific Ross (1.000-1.030) Urine Protein (Negative) Urine Glucose (UA) (Negative) Urine Ketones (Negative) Urine Blood (Negative) Urine Nitrite (Negative) Urine Bilirubin (Negative) Urine Urobilinogen (Negative) Ur Leukocyte Esterase (Negative) Urine Osmolality (500-800) mOsm/kg Ur Random Sodium mmol/L Ur Random Urea Nitrogn mg/dl 10/14/18 10/14/18 10/14/18 Range/Units 16:07 17:11 18:32 WBC (4.8-10.8) K/uL RBC (4.7-6.1) M/uL Hgb (14.0-18.0) g/dL POC Hgb (14.0-18.0) g/dl Hct (42-52) % POC Hct (42-52) % MCV (80-100) fL MCH (25-34) pg MCHC (32-36) g/dL RDW Std Deviation (36.4-46.3) fL RDW Coeff of Samara (11.5-14.5) % Plt Count (130-400) K/uL MPV (7.4-10.4) fL Immature Gran % (Auto) % Neut % (Auto) % Lymph % (Auto) % Crowley % (Auto) % Eos % (Auto) % Baso % (Auto) % Immature Gran # (Auto) (0.00-0.02) K/uL Neut # (Auto) (1.4-6.5) K/uL Lymph # (Auto) (1.2-3.4) K/uL Crowley # (Auto) (0.11-0.59) K/uL Eos # (Auto) (0-0.5) K/uL Baso # (Auto) (0-0.2) K/uL PT (9.0-12.0) Seconds INR (0.9-1.1) APTT (21.0-31.0) Seconds PTT Ratio POC Sodium (135-144) mEq/L Sodium 135 L (136-145) mmol/L POC Potassium (3.3-5.0) mEq/L Potassium 6.8 H* (3.5-5.1) mmol/L POC Chloride (101-112) mEq/L Chloride 108 H (98-107) mmol/L Carbon Dioxide 20 L (21-32) mmol/L POC Total CO2 (24-31) mEq/l Anion Gap 7.0 (3-11) POC Anion Gap (16-25) mmol/L POC BUN (7-18) mg/dl BUN 85 H (7-18) mg/dl Creatinine 3.06 H (0.6-1.4) mg/dl POC Creatinine (0.6-1.3) mg/dl Est Cr Clr Drug Dosing 19.2 ml/min Est GFR ( Amer) 22.6 Est GFR (Non-Af Amer) 19.5 BUN/Creatinine Ratio 27.8 H (10-20) Glucose 134 H (70-99) mg/dl POC Glucose 145 H (70-99) POC Glucose (other) (70-99) mg/dl Calcium 9.5 (8.5-10.1) mg/dl POC Ioniz Calcium Tavo (1.12-1.32) mmol/l Phosphorus 4.3 (2.5-4.9) mg/dl Magnesium (1.8-2.4) mg/dl Total Bilirubin (0.2-1) mg/dl Direct Bilirubin (0-0.2) mg/dl AST (15-37) U/L ALT (12-78) U/L Alkaline Phosphatase (45-117) U/L Total Creatine Kinase (39-308) U/L Total Protein (6.4-8.2) gm/dl Albumin 3.5 (3.4-5.0) gm/dl Globulin (2.5-4.0) gm/dl Albumin/Globulin Ratio (0.9-2) Lipase (73-393) U/L Urine Color Urine Appearance (Clear) Urine pH (4.5-7.5) Ur Specific Ross (1.000-1.030) Urine Protein (Negative) Urine Glucose (UA) (Negative) Urine Ketones (Negative) Urine Blood (Negative) Urine Nitrite (Negative) Urine Bilirubin (Negative) Urine Urobilinogen (Negative) Ur Leukocyte Esterase (Negative) Urine Osmolality 429 L (500-800) mOsm/kg Ur Random Sodium mmol/L Ur Random Urea Nitrogn mg/dl 10/14/18 10/14/18 10/14/18 Range/Units 18:32 18:32 20:24 WBC (4.8-10.8) K/uL RBC (4.7-6.1) M/uL Hgb (14.0-18.0) g/dL POC Hgb (14.0-18.0) g/dl Hct (42-52) % POC Hct (42-52) % MCV (80-100) fL MCH (25-34) pg MCHC (32-36) g/dL RDW Std Deviation (36.4-46.3) fL RDW Coeff of Samara (11.5-14.5) % Plt Count (130-400) K/uL MPV (7.4-10.4) fL Immature Gran % (Auto) % Neut % (Auto) % Lymph % (Auto) % Crowley % (Auto) % Eos % (Auto) % Baso % (Auto) % Immature Gran # (Auto) (0.00-0.02) K/uL Neut # (Auto) (1.4-6.5) K/uL Lymph # (Auto) (1.2-3.4) K/uL Crowley # (Auto) (0.11-0.59) K/uL Eos # (Auto) (0-0.5) K/uL Baso # (Auto) (0-0.2) K/uL PT (9.0-12.0) Seconds INR (0.9-1.1) APTT (21.0-31.0) Seconds PTT Ratio POC Sodium (135-144) mEq/L Sodium (136-145) mmol/L POC Potassium (3.3-5.0) mEq/L Potassium (3.5-5.1) mmol/L POC Chloride (101-112) mEq/L Chloride (98-107) mmol/L Carbon Dioxide (21-32) mmol/L POC Total CO2 (24-31) mEq/l Anion Gap (3-11) POC Anion Gap (16-25) mmol/L POC BUN (7-18) mg/dl BUN (7-18) mg/dl Creatinine (0.6-1.4) mg/dl POC Creatinine (0.6-1.3) mg/dl Est Cr Clr Drug Dosing ml/min Est GFR ( Amer) Est GFR (Non-Af Amer) BUN/Creatinine Ratio (10-20) Glucose (70-99) mg/dl POC Glucose 187 H (70-99) POC Glucose (other) (70-99) mg/dl Calcium (8.5-10.1) mg/dl POC Ioniz Calcium Tavo (1.12-1.32) mmol/l Phosphorus (2.5-4.9) mg/dl Magnesium (1.8-2.4) mg/dl Total Bilirubin (0.2-1) mg/dl Direct Bilirubin (0-0.2) mg/dl AST (15-37) U/L ALT (12-78) U/L Alkaline Phosphatase (45-117) U/L Total Creatine Kinase (39-308) U/L Total Protein (6.4-8.2) gm/dl Albumin (3.4-5.0) gm/dl Globulin (2.5-4.0) gm/dl Albumin/Globulin Ratio (0.9-2) Lipase (73-393) U/L Urine Color Yellow Urine Appearance Clear (Clear) Urine pH 5.0 (4.5-7.5) Ur Specific Ross 1.016 (1.000-1.030) Urine Protein Negative (Negative) Urine Glucose (UA) Negative (Negative) Urine Ketones Negative (Negative) Urine Blood Negative (Negative) Urine Nitrite Negative (Negative) Urine Bilirubin Negative (Negative) Urine Urobilinogen Negative (Negative) Ur Leukocyte Esterase Negative (Negative) Urine Osmolality (500-800) mOsm/kg Ur Random Sodium 71 mmol/L Ur Random Urea Nitrogn 518 mg/dl 10/14/18 10/15/18 10/15/18 Range/Units 21:53 00:02 03:51 WBC 7.32 (4.8-10.8) K/uL RBC 3.88 L (4.7-6.1) M/uL Hgb 11.7 L (14.0-18.0) g/dL POC Hgb (14.0-18.0) g/dl Hct 35.6 L (42-52) % POC Hct (42-52) % MCV 91.8 (80-100) fL MCH 30.2 (25-34) pg MCHC 32.9 (32-36) g/dL RDW Std Deviation 49.3 H (36.4-46.3) fL RDW Coeff of Samara 14.7 H (11.5-14.5) % Plt Count 158 (130-400) K/uL MPV 9.3 (7.4-10.4) fL Immature Gran % (Auto) 0.1 % Neut % (Auto) 69.1 % Lymph % (Auto) 13.1 % Crowley % (Auto) 14.8 % Eos % (Auto) 2.5 % Baso % (Auto) 0.4 % Immature Gran # (Auto) 0.01 (0.00-0.02) K/uL Neut # (Auto) 5.06 (1.4-6.5) K/uL Lymph # (Auto) 0.96 L (1.2-3.4) K/uL Crowley # (Auto) 1.08 H (0.11-0.59) K/uL Eos # (Auto) 0.18 (0-0.5) K/uL Baso # (Auto) 0.03 (0-0.2) K/uL PT (9.0-12.0) Seconds INR (0.9-1.1) APTT (21.0-31.0) Seconds PTT Ratio POC Sodium (135-144) mEq/L Sodium 135 L (136-145) mmol/L POC Potassium (3.3-5.0) mEq/L Potassium 7.2 H* (3.5-5.1) mmol/L POC Chloride (101-112) mEq/L Chloride 107 (98-107) mmol/L Carbon Dioxide 21 (21-32) mmol/L POC Total CO2 (24-31) mEq/l Anion Gap 6.0 (3-11) POC Anion Gap (16-25) mmol/L POC BUN (7-18) mg/dl BUN 86 H (7-18) mg/dl Creatinine 3.06 H (0.6-1.4) mg/dl POC Creatinine (0.6-1.3) mg/dl Est Cr Clr Drug Dosing 19.2 ml/min Est GFR ( Amer) 22.6 Est GFR (Non-Af Amer) 19.5 BUN/Creatinine Ratio 28.0 H (10-20) Glucose 145 H (70-99) mg/dl POC Glucose 170 H (70-99) POC Glucose (other) (70-99) mg/dl Calcium 9.5 (8.5-10.1) mg/dl POC Ioniz Calcium Tavo (1.12-1.32) mmol/l Phosphorus (2.5-4.9) mg/dl Magnesium (1.8-2.4) mg/dl Total Bilirubin (0.2-1) mg/dl Direct Bilirubin (0-0.2) mg/dl AST (15-37) U/L ALT (12-78) U/L Alkaline Phosphatase (45-117) U/L Total Creatine Kinase (39-308) U/L Total Protein (6.4-8.2) gm/dl Albumin (3.4-5.0) gm/dl Globulin (2.5-4.0) gm/dl Albumin/Globulin Ratio (0.9-2) Lipase (73-393) U/L Urine Color Urine Appearance (Clear) Urine pH (4.5-7.5) Ur Specific Ross (1.000-1.030) Urine Protein (Negative) Urine Glucose (UA) (Negative) Urine Ketones (Negative) Urine Blood (Negative) Urine Nitrite (Negative) Urine Bilirubin (Negative) Urine Urobilinogen (Negative) Ur Leukocyte Esterase (Negative) Urine Osmolality (500-800) mOsm/kg Ur Random Sodium mmol/L Ur Random Urea Nitrogn mg/dl 10/15/18 10/15/18 10/15/18 Range/Units 03:51 03:51 07:41 WBC (4.8-10.8) K/uL RBC (4.7-6.1) M/uL Hgb (14.0-18.0) g/dL POC Hgb (14.0-18.0) g/dl Hct (42-52) % POC Hct (42-52) % MCV (80-100) fL MCH (25-34) pg MCHC (32-36) g/dL RDW Std Deviation (36.4-46.3) fL RDW Coeff of Saamra (11.5-14.5) % Plt Count (130-400) K/uL MPV (7.4-10.4) fL Immature Gran % (Auto) % Neut % (Auto) % Lymph % (Auto) % Crowley % (Auto) % Eos % (Auto) % Baso % (Auto) % Immature Gran # (Auto) (0.00-0.02) K/uL Neut # (Auto) (1.4-6.5) K/uL Lymph # (Auto) (1.2-3.4) K/uL Crowley # (Auto) (0.11-0.59) K/uL Eos # (Auto) (0-0.5) K/uL Baso # (Auto) (0-0.2) K/uL PT 80.9 H (9.0-12.0) Seconds INR 9.3 H* (0.9-1.1) APTT (21.0-31.0) Seconds PTT Ratio POC Sodium (135-144) mEq/L Sodium 138 (136-145) mmol/L POC Potassium (3.3-5.0) mEq/L Potassium 5.9 H D (3.5-5.1) mmol/L POC Chloride (101-112) mEq/L Chloride 112 H (98-107) mmol/L Carbon Dioxide 21 (21-32) mmol/L POC Total CO2 (24-31) mEq/l Anion Gap 5.0 (3-11) POC Anion Gap (16-25) mmol/L POC BUN (7-18) mg/dl BUN 82 H (7-18) mg/dl Creatinine 3.00 H (0.6-1.4) mg/dl POC Creatinine (0.6-1.3) mg/dl Est Cr Clr Drug Dosing 19.6 ml/min Est GFR ( Amer) 23.1 Est GFR (Non-Af Amer) 20.0 BUN/Creatinine Ratio 27.2 H (10-20) Glucose 94 (70-99) mg/dl POC Glucose 79 (70-99) POC Glucose (other) (70-99) mg/dl Calcium 8.5 (8.5-10.1) mg/dl POC Ioniz Calcium Tavo (1.12-1.32) mmol/l Phosphorus (2.5-4.9) mg/dl Magnesium (1.8-2.4) mg/dl Total Bilirubin 0.6 (0.2-1) mg/dl Direct Bilirubin 0.2 (0-0.2) mg/dl AST 47 H (15-37) U/L ALT 63 (12-78) U/L Alkaline Phosphatase 149 H (45-117) U/L Total Creatine Kinase (39-308) U/L Total Protein 7.1 (6.4-8.2) gm/dl Albumin 3.0 L (3.4-5.0) gm/dl Globulin (2.5-4.0) gm/dl Albumin/Globulin Ratio (0.9-2) Lipase (73-393) U/L Urine Color Urine Appearance (Clear) Urine pH (4.5-7.5) Ur Specific Ross (1.000-1.030) Urine Protein (Negative) Urine Glucose (UA) (Negative) Urine Ketones (Negative) Urine Blood (Negative) Urine Nitrite (Negative) Urine Bilirubin (Negative) Urine Urobilinogen (Negative) Ur Leukocyte Esterase (Negative) Urine Osmolality (500-800) mOsm/kg Ur Random Sodium mmol/L Ur Random Urea Nitrogn mg/dl 10/15/18 10/15/18 10/15/18 Range/Units 11:22 16:11 20:17 WBC (4.8-10.8) K/uL RBC (4.7-6.1) M/uL Hgb (14.0-18.0) g/dL POC Hgb (14.0-18.0) g/dl Hct (42-52) % POC Hct (42-52) % MCV (80-100) fL MCH (25-34) pg MCHC (32-36) g/dL RDW Std Deviation (36.4-46.3) fL RDW Coeff of Samara (11.5-14.5) % Plt Count (130-400) K/uL MPV (7.4-10.4) fL Immature Gran % (Auto) % Neut % (Auto) % Lymph % (Auto) % Crowley % (Auto) % Eos % (Auto) % Baso % (Auto) % Immature Gran # (Auto) (0.00-0.02) K/uL Neut # (Auto) (1.4-6.5) K/uL Lymph # (Auto) (1.2-3.4) K/uL Crowley # (Auto) (0.11-0.59) K/uL Eos # (Auto) (0-0.5) K/uL Baso # (Auto) (0-0.2) K/uL PT (9.0-12.0) Seconds INR (0.9-1.1) APTT (21.0-31.0) Seconds PTT Ratio POC Sodium (135-144) mEq/L Sodium (136-145) mmol/L POC Potassium (3.3-5.0) mEq/L Potassium (3.5-5.1) mmol/L POC Chloride (101-112) mEq/L Chloride (98-107) mmol/L Carbon Dioxide (21-32) mmol/L POC Total CO2 (24-31) mEq/l Anion Gap (3-11) POC Anion Gap (16-25) mmol/L POC BUN (7-18) mg/dl BUN (7-18) mg/dl Creatinine (0.6-1.4) mg/dl POC Creatinine (0.6-1.3) mg/dl Est Cr Clr Drug Dosing ml/min Est GFR ( Amer) Est GFR (Non-Af Amer) BUN/Creatinine Ratio (10-20) Glucose (70-99) mg/dl POC Glucose 121 H 120 H 135 H (70-99) POC Glucose (other) (70-99) mg/dl Calcium (8.5-10.1) mg/dl POC Ioniz Calcium Tavo (1.12-1.32) mmol/l Phosphorus (2.5-4.9) mg/dl Magnesium (1.8-2.4) mg/dl Total Bilirubin (0.2-1) mg/dl Direct Bilirubin (0-0.2) mg/dl AST (15-37) U/L ALT (12-78) U/L Alkaline Phosphatase (45-117) U/L Total Creatine Kinase (39-308) U/L Total Protein (6.4-8.2) gm/dl Albumin (3.4-5.0) gm/dl Globulin (2.5-4.0) gm/dl Albumin/Globulin Ratio (0.9-2) Lipase (73-393) U/L Urine Color Urine Appearance (Clear) Urine pH (4.5-7.5) Ur Specific Ross (1.000-1.030) Urine Protein (Negative) Urine Glucose (UA) (Negative) Urine Ketones (Negative) Urine Blood (Negative) Urine Nitrite (Negative) Urine Bilirubin (Negative) Urine Urobilinogen (Negative) Ur Leukocyte Esterase (Negative) Urine Osmolality (500-800) mOsm/kg Ur Random Sodium mmol/L Ur Random Urea Nitrogn mg/dl 10/16/18 10/16/18 10/16/18 Range/Units 07:28 09:26 11:47 WBC (4.8-10.8) K/uL RBC (4.7-6.1) M/uL Hgb (14.0-18.0) g/dL POC Hgb (14.0-18.0) g/dl Hct (42-52) % POC Hct (42-52) % MCV (80-100) fL MCH (25-34) pg MCHC (32-36) g/dL RDW Std Deviation (36.4-46.3) fL RDW Coeff of Samara (11.5-14.5) % Plt Count (130-400) K/uL MPV (7.4-10.4) fL Immature Gran % (Auto) % Neut % (Auto) % Lymph % (Auto) % Crowley % (Auto) % Eos % (Auto) % Baso % (Auto) % Immature Gran # (Auto) (0.00-0.02) K/uL Neut # (Auto) (1.4-6.5) K/uL Lymph # (Auto) (1.2-3.4) K/uL Crowley # (Auto) (0.11-0.59) K/uL Eos # (Auto) (0-0.5) K/uL Baso # (Auto) (0-0.2) K/uL PT (9.0-12.0) Seconds INR (0.9-1.1) APTT (21.0-31.0) Seconds PTT Ratio POC Sodium (135-144) mEq/L Sodium 140 (136-145) mmol/L POC Potassium (3.3-5.0) mEq/L Potassium 4.0 D (3.5-5.1) mmol/L POC Chloride (101-112) mEq/L Chloride 110 H (98-107) mmol/L Carbon Dioxide 23 (21-32) mmol/L POC Total CO2 (24-31) mEq/l Anion Gap 6.0 (3-11) POC Anion Gap (16-25) mmol/L POC BUN (7-18) mg/dl BUN 56 H (7-18) mg/dl Creatinine 1.93 H D (0.6-1.4) mg/dl POC Creatinine (0.6-1.3) mg/dl Est Cr Clr Drug Dosing 30.6 ml/min Est GFR ( Amer) 39.5 Est GFR (Non-Af Amer) 34.0 BUN/Creatinine Ratio 28.8 H (10-20) Glucose 141 H (70-99) mg/dl POC Glucose 80 123 H (70-99) POC Glucose (other) (70-99) mg/dl Calcium 8.3 L (8.5-10.1) mg/dl POC Ioniz Calcium Tavo (1.12-1.32) mmol/l Phosphorus 2.9 D (2.5-4.9) mg/dl Magnesium (1.8-2.4) mg/dl Total Bilirubin (0.2-1) mg/dl Direct Bilirubin (0-0.2) mg/dl AST (15-37) U/L ALT (12-78) U/L Alkaline Phosphatase (45-117) U/L Total Creatine Kinase (39-308) U/L Total Protein (6.4-8.2) gm/dl Albumin 2.6 L (3.4-5.0) gm/dl Globulin (2.5-4.0) gm/dl Albumin/Globulin Ratio (0.9-2) Lipase (73-393) U/L Urine Color Urine Appearance (Clear) Urine pH (4.5-7.5) Ur Specific Ross (1.000-1.030) Urine Protein (Negative) Urine Glucose (UA) (Negative) Urine Ketones (Negative) Urine Blood (Negative) Urine Nitrite (Negative) Urine Bilirubin (Negative) Urine Urobilinogen (Negative) Ur Leukocyte Esterase (Negative) Urine Osmolality (500-800) mOsm/kg Ur Random Sodium mmol/L Ur Random Urea Nitrogn mg/dl 10/16/18 10/16/18 10/17/18 Range/Units 16:32 20:10 06:08 WBC (4.8-10.8) K/uL RBC (4.7-6.1) M/uL Hgb (14.0-18.0) g/dL POC Hgb (14.0-18.0) g/dl Hct (42-52) % POC Hct (42-52) % MCV (80-100) fL MCH (25-34) pg MCHC (32-36) g/dL RDW Std Deviation (36.4-46.3) fL RDW Coeff of Samara (11.5-14.5) % Plt Count (130-400) K/uL MPV (7.4-10.4) fL Immature Gran % (Auto) % Neut % (Auto) % Lymph % (Auto) % Crowley % (Auto) % Eos % (Auto) % Baso % (Auto) % Immature Gran # (Auto) (0.00-0.02) K/uL Neut # (Auto) (1.4-6.5) K/uL Lymph # (Auto) (1.2-3.4) K/uL Crowley # (Auto) (0.11-0.59) K/uL Eos # (Auto) (0-0.5) K/uL Baso # (Auto) (0-0.2) K/uL PT 13.3 H (9.0-12.0) Seconds INR 1.3 H (0.9-1.1) APTT (21.0-31.0) Seconds PTT Ratio POC Sodium (135-144) mEq/L Sodium (136-145) mmol/L POC Potassium (3.3-5.0) mEq/L Potassium (3.5-5.1) mmol/L POC Chloride (101-112) mEq/L Chloride (98-107) mmol/L Carbon Dioxide (21-32) mmol/L POC Total CO2 (24-31) mEq/l Anion Gap (3-11) POC Anion Gap (16-25) mmol/L POC BUN (7-18) mg/dl BUN (7-18) mg/dl Creatinine (0.6-1.4) mg/dl POC Creatinine (0.6-1.3) mg/dl Est Cr Clr Drug Dosing ml/min Est GFR ( Amer) Est GFR (Non-Af Amer) BUN/Creatinine Ratio (10-20) Glucose (70-99) mg/dl POC Glucose 310 H 140 H (70-99) POC Glucose (other) (70-99) mg/dl Calcium (8.5-10.1) mg/dl POC Ioniz Calcium Tavo (1.12-1.32) mmol/l Phosphorus (2.5-4.9) mg/dl Magnesium (1.8-2.4) mg/dl Total Bilirubin (0.2-1) mg/dl Direct Bilirubin (0-0.2) mg/dl AST (15-37) U/L ALT (12-78) U/L Alkaline Phosphatase (45-117) U/L Total Creatine Kinase (39-308) U/L Total Protein (6.4-8.2) gm/dl Albumin (3.4-5.0) gm/dl Globulin (2.5-4.0) gm/dl Albumin/Globulin Ratio (0.9-2) Lipase (73-393) U/L Urine Color Urine Appearance (Clear) Urine pH (4.5-7.5) Ur Specific Ross (1.000-1.030) Urine Protein (Negative) Urine Glucose (UA) (Negative) Urine Ketones (Negative) Urine Blood (Negative) Urine Nitrite (Negative) Urine Bilirubin (Negative) Urine Urobilinogen (Negative) Ur Leukocyte Esterase (Negative) Urine Osmolality (500-800) mOsm/kg Ur Random Sodium mmol/L Ur Random Urea Nitrogn mg/dl Imaging Data Radiologist's Impression: Radiology results as stated below per my review and the radiologist's interpretation: KUB HISTORY: Acute vomiting with reported constipation constipation COMPARISON: CT abdomen pelvis 09/24/2018. FINDINGS: The bowel gas pattern is non-obstructive. Gas-filled loops of large bowel with mild stool volume. There is no organomegaly. No renal calculi. No ureteral calculi. No pneumoperitoneum or pneumatosis. Degenerative changes are noted about the spine, pelvis and hips. No fracture. IMPRESSION: 1. Nonobstructive bowel gas pattern. 2. No radiographic evidence of constipation. Electronically signed by: Moises Vuong M.D. 10/14/2018 9:53 AM Iliac ultrasound CLINICAL HISTORY: gallstones vomiting COMPARISON STUDY: 01/19/2018 FINDINGS: There is an infrarenal abdominal aortic aneurysm measuring 3.6 cm in maximal diameter. The liver appears sonographically normal. There is no ductal dilatation. The common bile duct measures 5 mm. The pancreas was nonvisualized. There is a 9 mm shadowing calculus in the region the gallbladder neck. There is no gallbladder wall thickening. There is no pericholecystic fluid. There is no right-sided hydronephrosis. There are multiple septated renal cysts the largest of which measures 34 mm. IMPRESSION: 1. Cholelithiasis. No evidence of ductal dilatation 2. Nondiagnostic evaluation the pancreas 3. 3.6 cm infrarenal abdominal aortic aneurysm 4. Complex right renal cysts Electronically signed by: Sameer Reynolds M.D. 10/14/2018 10:34 AM XR chest 1V portable HISTORY: 73 years-old Male a fib, vomiting acute vomiting with cardiac arrhythmia COMPARISON: Chest radiograph 09/23/2018, chest CT 09/24/2018 TECHNIQUE: Portable AP view of the chest FINDINGS: Cardiomediastinal and hilar silhouettes are unchanged. There is no pneumothorax, pleural effusion, focal airspace consolidation or overt pulmonary edema. The bones of the chest appear grossly intact. IMPRESSION: No acute process. The above report was generated using voice recognition software. It may contain grammatical, syntax or spelling errors. Electronically signed by: Moises Vuong M.D. 10/14/2018 9:[address] OF THE ABDOMEN AND PELVIS WITHOUT CONTRAST CLINICAL HISTORY: renal failure, obstruction? COMPARISON STUDY: CT of the abdomen and pelvis September 24, 2018.] Ultrasound performed earlier today. TECHNIQUE: Axial images of the abdomen and pelvis were obtained without IV contrast. Images were reviewed in the axial, sagittal, and coronal planes. A utomated exposure control was utilized for the study. A dose lowering technique was utilized adhering to the principles of ALARA. FINDINGS: No abnormalities are identified within the lower lungs. No pneumatosis, free air or portal venous gas is present. Evaluation of the abdomen and pelvis is suboptimal on this unenhanced exam. Several hypodense hepatic lesions are suboptimally assessed on this unenhanced exam but are unchanged from study of May 13, 2018. These favor cysts. Gallstone is noted without evidence for acute cholecystitis. Unenhanced images of the spleen, adrenal glands and pancreas are normal. There are numerous water attenuation bilateral renal lesions. These are suboptimally assessed on this unenhanced exam but favor cysts. A few intermediate attenuation lesions probably reflect hyperdense cysts when correlating with prior contrast enhanced CT but these remain indeterminate. Moderate to marked bilateral renal atrophy, greater on the left is noted. There is no hydronephrosis or hydroureter. No ureteral calculi are present. A 2 mm left renal calculus is noted. A 3.7 cm infrarenal abdominal aortic aneurysm is unchanged. There is no evidence for rupture. There is hypodensity within the cecum. The appendix is normal caliber. There is no evidence for acute appendi citis. An L1 compression deformity is not acute. There is grade one antral listhesis of L4 and L5 due to bilateral L4 pars defects. There is no evidence for a bowel obstruction. No suspicious osseous lesions are noted. There is no biliary or pancreatic ductal dilatation. IMPRESSION: 1. No hydronephrosis. Moderate to marked left renal atrophy. Moderate right renal atrophy. 2. Numerous bilateral renal lesions which are suboptimally assessed on this unenhanced exam. The majority, if not all, of these reflect cysts. A few lesions are indeterminate but may reflect hyperdense cysts within correlating with prior contrast enhanced CT of May 13, 2018. 3. Cholelithiasis. 4. No change in a 3.7 cm infrarenal abdominal aortic aneurysm. No rupture. 5. 2 mm left renal calculus. No ureteral calculi. Electronically signed by: Leroy Maguire M.D. 10/14/2018 12:03 PM ECG Data Attestation: I personally reviewed and interpreted this ECG as follows: Indication: vomiting Rate (beats per minute): 59 Rhythm: sinus bradycardia Findings: + other (nonspecific intraventricular conduction delay. QTC 443. repolarization abnormality in lateral leads), + 1st degree AV block and + PAC (frequent) Comparison ECG Date: from (09/25/18) Change: the following changes noted (PVC resolved, PAC now present) Blood Pressure Blood Pressure Findings: Normal blood pressure Blood Pressure Disposition: did not require urgent referral MDM Narrative This pt was evaluated and appeared to be in no distress. IV access was obtained and lab work was drawn. Pt was placed on the teletypesetter monitor. IVF were initiated. EKG reveals a nonspecific intraventricular conduction delay, no acute ischemia. Lab work reveals JACOB with K of 8.2. Repeat POC K is 8.9. Pt was given IV calcium, D50 and insulin. He remained stable on the teletypesetter monitor. Pt's INR is noted to be elevated at 8.8 but without acute bleeding. Case was d/w the hospitalist service for further management. Pt was informed of the findings and plan for hospitalization. Impression & Plan Acute renal failure, Acute hyperkalemia Critical Care Time I have personally spent greater than 35 minutes of critical care time in the direct management of this patient. This includes bedside care, interpretation of diagnostic studies, and testing, discussion with consultants, patient, and family members, and other required patient management activities. This 35 minutes is in excess of all separately billable procedures. Critical Care Time: Yes Total Critical Care Time: 35 Discharge Plan Visit Data *Final* Discharge Date/Time: 10/14/18 13:43 Chief Complaint: Hypotension Other Complaint: Abdominal Pain ED Provider: Lyubov Mcintyre Discharge Problem: Acute renal failure, Acute hyperkalemia Patient Disposition: Admitted As Inpatient Discharge Instructions Interventions: ED Discharge Assessment Last Done: 10/14/18 13:43 Discharge Problem: Acute renal failure Qualifiers: Acute renal failure type: unspecified Qualified Code(s): N17.9 - Acute kidney failure, unspecified The scribe's documentation has been prepared under my direction and personally reviewed by me in its entirety. I confirm that the note above accurately reflects all work, treatment, procedures, and medical decision making performed by me.
[2018-10-14] MEDS: INSULIN ASPART 100 UNITS/ML 3 ML PEN SC SCH ×2 (17:25→20:57)
[2018-10-14 18:08] LABS: Albumin Level 3.5 gm/dl (3.4-5.0); BUN Creatinine Ratio 27.8 (10-20); Calcium 9.5 mg/dl (8.5-10.1); Creatinine Clr Calc Pharmacy 19.2 ml/min; Est GFR (African American) 22.6; Est GFR (Non-African American) 19.5; Phosphorus 4.3 mg/dl (2.5-4.9); Potassium 6.8 mmol/L (3.5-5.1)
[2018-10-14 19:01] LABS: Appearance Urine Clear (Clear); Bilirubin Urine Negative (Negative); Blood Urine Negative (Negative); Color Urine Yellow; Glucose Urine UA Negative (Negative); Ketones Urine Negative (Negative); Leukocyte Esterase Urine Negative (Negative); Nitrite Urine Negative (Negative); Protein Urine Negative (Negative); Specific Gravity Urine 1.016 (1.000-1.030); Urobilinogen Urine Negative (Negative)
[2018-10-14 19:16] LABS: Sodium Random Urine 71 mmol/L; Urea Nitrogen, Urine Random 518 mg/dl
[2018-10-14] MEDS: HYDROCORTISONE 2.5% CR 30 GM TUBE EXT SCH (20:30)
[2018-10-14] MEDS: TAMSULOSIN HCL 0.4 MG CAP PO SCH (20:31)
[2018-10-14] MEDS: CARVEDILOL 12.5 MG TAB PO SCH (20:31)
[2018-10-14] MEDS: MAGNESIUM OXIDE 400 MG TAB PO SCH (20:31)
[2018-10-14] MEDS: PANTOprazole 40 MG TAB PO SCH (20:32)
[2018-10-14 22:43] LABS: Calcium 9.5 mg/dl (8.5-10.1); Creatinine Clr Calc Pharmacy 19.2 ml/min; Est GFR (African American) 22.6; Est GFR (Non-African American) 19.5; Potassium 7.2 mmol/L (3.5-5.1)
[2018-10-14] MEDS ORDERED: DEXTROSE 50% 50 ML SYRINGE IV ONE (22:58)
[2018-10-14] MEDS ORDERED: INSULIN HUMAN REGULAR PER UNIT 10 UNITS in SYRINGE 9.9 ML IV ONE (23:15)
[2018-10-15] MEDS: SODIUM CHLORIDE 0.9% 1000ML 1,000 ML IV SCH (00:58)
[2018-10-15 04:01] LABS: Basophils # (auto) 0.03 K/uL (0-0.2); Basophils % (auto) 0.4 %; Eosinophils # (auto) 0.18 K/uL (0-0.5); Eosinophils % (auto) 2.5 %; Hematocrit (blood only) 35.6 % (42-52); Hemoglobin 11.7 g/dL (14.0-18.0); Immature Granulocytes # (auto) 0.01 K/uL (0.00-0.02); Immature Granulocytes % (auto) 0.1 %; Lymphocytes # (auto) 0.96 K/uL (1.2-3.4); Lymphocytes % (auto) 13.1 %; Mean Corpuscular Hgb Conc 32.9 g/dL (32-36); Mean Corpuscular Volume 91.8 fL (80-100); Mean Platelet Volume 9.3 fL (7.4-10.4); Monocytes # (auto) 1.08 K/uL (0.11-0.59); Monocytes % (auto) 14.8 %; Neutrophils # (auto) 5.06 K/uL (1.4-6.5); Neutrophils % (auto) 69.1 %; Platelet Count 158 K/uL (130-400); RDW Coefficient of Variation 14.7 % (11.5-14.5); RDW Standard Deviation 49.3 fL (36.4-46.3); Red Blood Count 3.88 M/uL (4.7-6.1); White Blood Count 7.32 K/uL (4.8-10.8)
[2018-10-15 04:18] LABS: Prothrombin Time 80.9 Seconds (9.0-12.0)
[2018-10-15 04:22] LABS: INR 9.3 (0.9-1.1)
[2018-10-15 04:27] LABS: BUN Creatinine Ratio 27.2 (10-20); Bilirubin Direct 0.2 mg/dl (0-0.2); Bilirubin,Total 0.6 mg/dl (0.2-1); Calcium 8.5 mg/dl (8.5-10.1); Creatinine Clr Calc Pharmacy 19.6 ml/min; Est GFR (African American) 23.1; Potassium 5.9 mmol/L (3.5-5.1); Total Protein 7.1 gm/dl (6.4-8.2)
--- NOTE | 2018-10-15 08:26 | Nephrology Progress Note ---
Date of Service October 15, 2018 Assessment & Plan (1) Acute hyperkalemia: Mr. Garza was admitted to the hospital with 3 weeks history of diarrhea and poor p.o. intake, nausea, vomiting since this morning and found to have hyperkalemia and acute kidney injury. He was on Lasix, spironolactone, lisinopril and potassium supplement however he was not sure whether he has been taking Lasix over last few days. On admission he was found to have severe hyperkalemia and acute kidney injury. Hyperkalemia in the setting of acute kidney injury, potassium supplement and being on SHANNON inhibitor and potassium-sparing diuretics.Had some EKG changes. He received calcium gluconate and insulin D50 and potassium slightly improved to 7.6. Has been non-oliguric. Has been getting IV normal saline 100 per hour. K improving, renal function slowly getting better. --continue IV fluid for now, encourage po intake --continue to hold all potassium-sparing diuretics, SHANNON-inhibitor/ARB potassium supplement --in future strongly encourage discontinuing potassium supplement and monitor labs frequently if patient needs to be on spironolactone in addition to lisinopril --needs counseling regarding avoiding high potassium food while on SHANNON- inhibitor Will follow (2) Acute renal failure: (3) Anemia: (4) Vomiting: (5) CKD (chronic kidney disease), stage III: Subjective Austin was seen and examined in his room this am with security personel in room. Overall feeling better, no further n/v. BP OK, UO decent. K and Cr better. Review of Systems Detail ROS was negative Physical Exam Vital Signs (Past 24 Hours): Last Vital Signs Temp 36.3 C L 10/15/18 06:58 Pulse 92 H 10/15/18 06:58 Resp 16 10/15/18 06:58 BP 117/64 10/15/18 06:58 Pulse Ox 97 10/15/18 06:58 Constitutional: WD/WN, vitals as above + ill appearing Respiratory: normal respiratory effort, lungs clear to auscultation Cardiovascular: RRR, no murmur, no edema Neurologic: moves all extremities and awake Psychiatric: A+Ox3, euthymic affect (1) Acute renal failure Acute renal failure type: unspecified Qualified Code(s): N17.9 - Acute kidney failure, unspecified (2) Vomiting Nausea presence: unspecified Vomiting Intractability: unspecified Vomiting type: unspecified Qualified Code(s): R11.10 - Vomiting, unspecified
[2018-10-15] MEDS: HYDROCORTISONE 2.5% CR 30 GM TUBE EXT SCH ×3 (09:00→21:27)
[2018-10-15] MEDS: MAGNESIUM OXIDE 400 MG TAB PO SCH ×2 (09:01→21:28)
[2018-10-15] MEDS: CARVEDILOL 12.5 MG TAB PO SCH ×2 (09:01→21:27)
[2018-10-15] MEDS: PARoxetine HCl 20 MG TAB PO SCH (09:01)
[2018-10-15] MEDS: ISOSORBIDE MONO EXTENDED REL 60 MG TABCR PO SCH (09:01)
[2018-10-15] MEDS: PANTOprazole 40 MG TAB PO SCH ×2 (09:01→21:26)
[2018-10-15] MEDS: INSULIN ASPART 100 UNITS/ML 3 ML PEN SC SCH ×4 (09:03→21:39)
[2018-10-15] MEDS: [UNRECOGNIZED DRUG - OTHER] TOP SCH ×3 (10:00→21:28)
[2018-10-15] MEDS ORDERED: PHYTONADIONE 5 MG TAB PO STA (15:32)
[2018-10-15] MEDS: TAMSULOSIN HCL 0.4 MG CAP PO SCH (21:27)
[2018-10-16] MEDS: MAGNESIUM OXIDE 400 MG TAB PO SCH ×2 (09:25→20:49)
[2018-10-16] MEDS: CARVEDILOL 12.5 MG TAB PO SCH ×2 (09:25→20:48)
[2018-10-16] MEDS: PARoxetine HCl 20 MG TAB PO SCH (09:25)
[2018-10-16] MEDS: PANTOprazole 40 MG TAB PO SCH ×2 (09:26→20:48)
[2018-10-16] MEDS: ISOSORBIDE MONO EXTENDED REL 60 MG TABCR PO SCH (09:26)
[2018-10-16] MEDS: HYDROCORTISONE 2.5% CR 30 GM TUBE EXT SCH ×2 (09:26→20:49)
[2018-10-16] MEDS: [UNRECOGNIZED DRUG - OTHER] TOP SCH ×3 (09:27→20:50)
[2018-10-16] MEDS: INSULIN ASPART 100 UNITS/ML 3 ML PEN SC SCH ×4 (09:33→20:51)
[2018-10-16 09:58] LABS: Albumin Level 2.6 gm/dl (3.4-5.0); BUN Creatinine Ratio 28.8 (10-20); Calcium 8.3 mg/dl (8.5-10.1); Creatinine Clr Calc Pharmacy 30.6 ml/min; Est GFR (African American) 39.5; Phosphorus 2.9 mg/dl (2.5-4.9)
--- NOTE | 2018-10-16 10:31 | Nephrology Progress Note ---
Date of Service October 16, 2018 Assessment & Plan (1) Acute hyperkalemia: Mr. Garza was admitted to the hospital with 3 weeks history of diarrhea and poor p.o. intake, nausea, vomiting since this morning and found to have hyperkalemia and acute kidney injury. He was on Lasix, spironolactone, lisinopril and potassium supplement however he was not sure whether he has been taking Lasix over last few days. On admission he was found to have severe hyperkalemia and acute kidney injury. Hyperkalemia in the setting of acute kidney injury, potassium supplement and being on SHANNON inhibitor and potassium-sparing diuretics.Had some EKG changes. He received calcium gluconate and insulin D50 and potassium slightly improved to 7.6. Has been non-oliguric. Hyperkalemia resolved, renal function improved now close to baseline. --continue to hold all potassium-sparing diuretics, SHANNON-inhibitor/ARB potassium supplement --in future strongly encourage discontinuing potassium supplement and monitor labs frequently if patient needs to be on spironolactone in addition to lisinopril --needs counseling regarding avoiding high potassium food while on SHANNON- inhibitor Will follow (2) Acute renal failure: (3) Anemia: (4) Vomiting: (5) CKD (chronic kidney disease), stage III: Subjective Austin was seen and examined in his room this am with security personel in room. Overall feeling better, no further n/v. BP OK, UO decent. Renal function continues to improve, creatinine now close to his baseline, electrolyte normal. Blood pressure and volume status stable. Physical Exam Vital Signs (Past 24 Hours): Last Vital Signs Temp 36.5 C 10/16/18 04:00 Pulse 86 10/16/18 04:00 Resp 18 10/16/18 04:00 BP 136/74 10/16/18 04:00 Pulse Ox 95 10/16/18 04:00 Constitutional: WD/WN, vitals as above + ill appearing Respiratory: normal respiratory effort, lungs clear to auscultation Cardiovascular: RRR, no murmur, no edema Neurologic: moves all extremities and awake Psychiatric: A+Ox3, euthymic affect (1) Acute renal failure Acute renal failure type: unspecified Qualified Code(s): N17.9 - Acute kidney failure, unspecified (2) Vomiting Nausea presence: unspecified Vomiting Intractability: unspecified Vomiting type: unspecified Qualified Code(s): R11.10 - Vomiting, unspecified
[2018-10-16] MEDS: ACETAMINOPHEN 325 MG TAB PO PRN (16:06)
[2018-10-16] MEDS ORDERED: PHARMACY GLYCEMIC MGMT CONSULT PRN (18:49)
[2018-10-16] MEDS: TAMSULOSIN HCL 0.4 MG CAP PO SCH (20:48)
--- NOTE | 2018-10-16 22:56 | Hospitalist Progress Note ---
Date of Service October 16, 2018 Assessment & Plan (1) Acute renal failure: Patient with CKD Stage III, baseline Cr 1.2 - 1.4, history of DM/HTN, suggestion of medical-renal disease on CT scan with bilateral renal atrophy, also with numerous renal cysts . Presenting with ARF. Most likely multi- factorial, progression of disease as well as pre-renal azotemia in setting of poor po intake and GI losses and medication effects - patient has been on Lasix (?when they stopped this at [facility]) as well as Lisinopril, Spironolactone and K repletion. oN ADMISSION: JDO=576 now, Cr=3.58. HCO3=19 and K=8.2 with EKG changes. patient is making urine, AA&O x 4 with no asterixis or clinical evidence of uremia. AdmitTED to PCU with continuous cardiac monitoring; WILL REMAIN ON MONITOR -creatinine IMPROVED significantly; will continue to hold shannon inh and spironolactone -Place Hines catheter and monitor strict I/Os Hyperkalemia continues to improve as well. -Nephrology consultation - appreciate assistance with this case -Avoid nephrotoxic medications -Renal dosing where appropriate -Recommend -encourage po intake --continue to hold all potassium-sparing diuretics, SHANNON-inhibitor/ARB potassium supplement (2) Acute hyperkalemia: As noted above, hyperkalemia, continues to improve. -Nephro consult as above (3) Neck stiffness: Patient complaining of pain and stiffness at the base of his neck as well as frontal headache. This was present during his last hospital stay as well. No neurological deficits although patient does report tingling in his fingertips on occasion. Seems to be positional in nature - worse when tipping his head back. No meningeal signs. ?degenerative changes with cervicalgia XR of c- spine is negative. except for moderate intervertebral disc space narrowing with spondylitic spurring at C5-C6. -PT and OT evaluation, possible recommendations on strengthening exercises -Heat and Tylenol PRN (4) Type 2 diabetes mellitus: Patient on Glipizide 2.5mg po daily. -Hold glipizide for now -ISS, caution with renal impairment -Monitor blood glucose (5) CAD (coronary artery disease): Stable. History of [place] with PCI in the past. ICM with EF of 15-20%. Patient presently without chest pain. Appears hypovolemic on clinical exam -Hold Atorvastatin for now -Hold Lisinopril -Continue Carvedilol -Continue Imdur -Continue Hydralazine (6) Hypertension: Blood pressure stable at present -Continue Hydralazine, Coreg, Imdur -Continue to monitor (7) BPH (benign prostatic hyperplasia): Stable -Hines placement as above -Continue Flomax (8) Atrial fibrillation, permanent: Patient with AF, rate controlled at present. INR suprathrapeutic at 8.8. No bleeding reported -will recheck INR in AM. --Coumadin held due to elevated INR. -Continue Coreg (9) COPD (chronic obstructive pulmonary disease): Stable. No SOB/respiratory distress. -Continue supplemental O2 - patient wears 2L at baseline -Nebs as needed (10) Anxiety: Stable -Continue Paxil (11) CHF (congestive heart failure): As above. Stable -Cautious IVF repletion -Continue Coreg, Hydralazine, Imdur Ppx - No chemical prophylaxis given elevated INR, continue home Protonix Code - Full Spent 25 minutes in management of patient. Subjective 73 yo male does not have any complaints today. Patient denies any nuasea, vomiting. Physical Exam Vital Signs (Past 24 Hours): Last Vital Signs Temp 36.4 C L 10/16/18 20:00 Pulse 65 10/16/18 20:00 Resp 18 10/16/18 20:00 BP 144/69 H 10/16/18 20:00 Pulse Ox 96 10/16/18 20:00 Physical Exam: General: patient resting comfortably, NAD, non-toxic in appearance, AA&O x 4 Skin: warm, dry, intact, no rashes or lesions, no bruises HEENT: NC/AT, PERRL, EOMI, anicteric sclera, no LAD, no thyromegaly, no JVD Heart: +S1/S2, regular, no m/r/g Lungs: equal air entry bilaterally, no rales/rhonchi/wheezes Abd: +BS, soft, ND, no masses/organomegaly/ascites, not tenderness, no rebound/guarding/peritoneal signs, no CVA tenderness, no suprapubic tenderness Ext: warm, 2+ pulses in UE/LE bilaterally, no clubbing/cyanosis or edema Neuro: nonfocal, patient AA&O x 4, speech intact, no facial droop, moving all extremities on command with equal strength 5/5, no asterixis (1) BPH (benign prostatic hyperplasia) Lower urinary tract symptom presence: symptoms absent Qualified Code(s): N40.0 - Benign prostatic hyperplasia without lower urinary tract symptoms (2) Acute renal failure Acute renal failure type: unspecified Qualified Code(s): N17.9 - Acute kidney failure, unspecified (3) Type 2 diabetes mellitus Diabetes mellitus complication status: without complication Diabetes mellitus skilled nursing insulin use: without technology trainer use Qualified Code(s): E11.9 - Type 2 diabetes mellitus without complications (4) CAD (coronary artery disease) Associated angina: without angina Coronary Disease-Associated Artery/Lesion type: [place] artery [place] vs. transplanted heart: [place] heart Qualified Code(s): I25.10 - Atherosclerotic heart disease of [place] coronary artery without angina pectoris (5) Hypertension Hypertension type: essential hypertension Qualified Code(s): I10 - Essential (primary) hypertension
--- NOTE | 2018-10-16 22:57 | Hospitalist Progress Note ---
Date of Service October 15, 2018 Assessment & Plan (1) Acute renal failure: Patient with CKD Stage II, baseline Cr 1.2 - 1.4, history of DM/HTN, suggestion of medical-renal disease on CT scan with bilateral renal atrophy, also with numerous renal cysts . Presenting with ARF. Most likely multi- factorial, progression of disease as well as pre-renal azotemia in setting of poor po intake and GI losses and medication effects - patient has been on Lasix (?when they stopped this at [facility]) as well as Lisinopril, Spironolactone and K repletion. KSK=245 now, Cr=3.58. HCO3=19 and K=8.2 with EKG changes. Calcium gluconate administered in ER as well as insulin and D50. Patient is making urine, AA&O x 4 with no asterixis or clinical evidence of uremia. -Admit to PCU with continuous cardiac monitoring; -creatinine mildly improved with IVF. Will continue to montor. -Place Hines catheter and monitor strict I/Os Hyperkalemia continues to improve as well. -Nephrology consultation - appreciate assistance with this case -Avoid nephrotoxic medications -Renal dosing where appropriate -Recommend -continue IV fluid for now, encourage po intake --continue to hold all potassium-sparing diuretics, SHANNON-inhibitor/ARB potassium supplement (2) Acute hyperkalemia: As noted above, hyperkalemia, continues to improve. -Nephro consult as above - if failure of medical management patient will need HD (3) Neck stiffness: Patient complaining of pain and stiffness at the base of his neck as well as frontal headache. This was present during his last hospital stay as well. No neurological deficits although patient does report tingling in his fingertips on occasion. Seems to be positional in nature - worse when tipping his head back. No meningeal signs. ?degenerative changes with cervicalgia XR of c- spine is negative. except for moderate intervertebral disc space narrowing with spondylitic spurring at C5-C6. -PT and OT evaluation, possible recommendations on strengthening exercises -Heat and Tylenol PRN (4) Type 2 diabetes mellitus: Patient on Glipizide 2.5mg po daily. -Hold glipizide for now -ISS, caution with renal impairment -Monitor blood glucose (5) CAD (coronary artery disease): Stable. History of [place] with PCI in the past. ICM with EF of 15-20%. Patient presently without chest pain. Appears hypovolemic on clinical exam -Hold Atorvastatin for now -Hold Lisinopril -Continue Carvedilol -Continue Imdur -Continue Hydralazine (6) Hypertension: Blood pressure stable at present -Continue Hydralazine, Coreg, Imdur -Continue to monitor (7) BPH (benign prostatic hyperplasia): Stable -Hines placement as above -Continue Flomax (8) Atrial fibrillation, permanent: Patient with AF, rate controlled at present. INR suprathrapeutic at 8.8. No bleeding reported -Hold Coumadin -Will continue to monitor INR. -INR remains elevatd. -Continue Coreg (9) COPD (chronic obstructive pulmonary disease): Stable. No SOB/respiratory distress. -Continue supplemental O2 - patient wears 2L at baseline -Nebs as needed (10) Anxiety: Stable -Continue Paxil (11) CHF (congestive heart failure): As above. Stable -Cautious IVF repletion -Continue Coreg, Hydralazine, Imdur Ppx - No chemical prophylaxis given elevated INR, continue home Protonix Code - Full Spent 25 minutes in management of patient. Subjective 73 yo male does not have any complaints today. He just feels fatigued and weak. Physical Exam Vital Signs (Past 24 Hours): Last Vital Signs Temp 36.7 C 10/15/18 16:00 Pulse 62 10/15/18 16:00 Resp 18 10/15/18 16:00 BP 108/52 10/15/18 16:00 Pulse Ox 98 10/15/18 16:00 Physical Exam: General: patient resting comfortably, NAD, non-toxic in appearance, AA&O x 4 Skin: warm, dry, intact, no rashes or lesions, no bruises HEENT: NC/AT, PERRL, EOMI, anicteric sclera, no LAD, no thyromegaly, no JVD Heart: +S1/S2, regular, no m/r/g Lungs: equal air entry bilaterally, no rales/rhonchi/wheezes Abd: +BS, soft, ND, no masses/organomegaly/ascites, not tenderness, no rebound/guarding/peritoneal signs, no CVA tenderness, no suprapubic tenderness Ext: warm, 2+ pulses in UE/LE bilaterally, no clubbing/cyanosis or edema Neuro: nonfocal, patient AA&O x 4, speech intact, no facial droop, moving all extremities on command with equal strength 5/5, no asterixis (1) BPH (benign prostatic hyperplasia) Lower urinary tract symptom presence: symptoms absent Qualified Code(s): N40.0 - Benign prostatic hyperplasia without lower urinary tract symptoms (2) Acute renal failure Acute renal failure type: unspecified Qualified Code(s): N17.9 - Acute kidney failure, unspecified (3) Type 2 diabetes mellitus Diabetes mellitus complication status: without complication Diabetes mellitus group home insulin use: without terminal operations supervisor use Qualified Code(s): E11.9 - Type 2 diabetes mellitus without complications (4) CAD (coronary artery disease) Associated angina: without angina Coronary Disease-Associated Artery/Lesion type: [place] artery [place] vs. transplanted heart: [place] heart Qualified Code(s): I25.10 - Atherosclerotic heart disease of [place] coronary artery without angina pectoris (5) Hypertension Hypertension type: essential hypertension Qualified Code(s): I10 - Essential (primary) hypertension
[2018-10-17] MEDS ORDERED: ALUMINUM/MAGNESIUM SUSP 30 ML UDC PO ONE (05:43)
[2018-10-17 06:50] LABS: INR 1.3 (0.9-1.1); Prothrombin Time 13.3 Seconds (9.0-12.0)
[2018-10-17 07:32] LABS: Albumin Level 2.7 gm/dl (3.4-5.0); BUN Creatinine Ratio 26.5 (10-20); Calcium 8.3 mg/dl (8.5-10.1); Creatinine Clr Calc Pharmacy 35.4 ml/min; Est GFR (African American) 47.7; Est GFR (Non-African American) 41.1; Potassium 3.9 mmol/L (3.5-5.1)
[2018-10-17] MEDS: INSULIN ASPART 100 UNITS/ML 3 ML PEN SC SCH ×4 (08:38→21:02)
[2018-10-17] MEDS: ISOSORBIDE MONO EXTENDED REL 60 MG TABCR PO SCH (08:40)
[2018-10-17] MEDS: PANTOprazole 40 MG TAB PO SCH ×2 (08:40→21:02)
[2018-10-17] MEDS: [UNRECOGNIZED DRUG - OTHER] TOP SCH ×3 (08:40→20:59)
[2018-10-17] MEDS: MAGNESIUM OXIDE 400 MG TAB PO SCH ×2 (08:41→21:01)
[2018-10-17] MEDS: CARVEDILOL 12.5 MG TAB PO SCH ×2 (08:41→21:01)
[2018-10-17] MEDS: PARoxetine HCl 20 MG TAB PO SCH (08:41)
[2018-10-17] MEDS: HYDROCORTISONE 2.5% CR 30 GM TUBE EXT SCH ×2 (08:45→20:59)
--- NOTE | 2018-10-17 09:22 | Nephrology Progress Note ---
Date of Service October 17, 2018 Assessment & Plan (1) Acute hyperkalemia: Mr. Garza was admitted to the hospital with 3 weeks history of diarrhea and poor p.o. intake, nausea, vomiting since this morning and found to have hyperkalemia and acute kidney injury. He was on Lasix, spironolactone, lisinopril and potassium supplement however he was not sure whether he has been taking Lasix over last few days. On admission he was found to have severe hyperkalemia and acute kidney injury. Hyperkalemia in the setting of acute kidney injury, potassium supplement and being on SHANNON inhibitor and potassium-sparing diuretics.Had some EKG changes. He received calcium gluconate and insulin D50 and potassium slightly improved to 7.6. Has been non-oliguric. Hyperkalemia and JACOB resolved, renal function improved now at baseline. --continue to hold all potassium-sparing diuretics, SHANNON-inhibitor/ARB potassium supplement --in future strongly encourage discontinuing potassium supplement and monitor labs frequently if patient needs to be on spironolactone in addition to lisinopril --needs counseling regarding avoiding high potassium food while on SHANNON- inhibitor Will sign off. (2) Acute renal failure: (3) Anemia: (4) Vomiting: (5) CKD (chronic kidney disease), stage III: Subjective Austin was seen and examined in his room this am with security in room. Overall feeling better, no further n/v. BP OK, UO decent. Renal function continues to improve, creatinine now at his baseline, electrolyte normal. Blood pressure and volume status stable. Physical Exam Vital Signs (Past 24 Hours): Last Vital Signs Temp 36.5 C 10/17/18 07:35 Pulse 62 10/17/18 07:35 Resp 16 10/17/18 07:35 BP 157/72 H 10/17/18 07:35 Pulse Ox 97 10/17/18 07:35 Constitutional: WD/WN, vitals as above + ill appearing Respiratory: normal respiratory effort, lungs clear to auscultation Cardiovascular: RRR, no murmur, no edema Neurologic: moves all extremities and awake Psychiatric: A+Ox3, euthymic affect (1) Acute renal failure Acute renal failure type: unspecified Qualified Code(s): N17.9 - Acute kidney failure, unspecified (2) Vomiting Nausea presence: unspecified Vomiting Intractability: unspecified Vomiting type: unspecified Qualified Code(s): R11.10 - Vomiting, unspecified
[2018-10-17] MEDS ORDERED: WARFARIN SOD 5 MG TAB PO ONE (10:00)
--- NOTE | 2018-10-17 11:13 | Hospitalist Progress Note ---
Date of Service October 17, 2018 Assessment & Plan (1) Acute renal failure: Patient with CKD Stage III, baseline Cr 1.2 - 1.4, history of DM/HTN, suggestion of medical-renal disease on CT scan with bilateral renal atrophy, also with numerous renal cysts . Presenting with ARF. Most likely multi- factorial, progression of disease as well as pre-renal azotemia in setting of poor po intake and GI losses and medication effects - patient has been on Lasix (?when they stopped this at [facility]) as well as Lisinopril, Spironolactone and K repletion. oN ADMISSION: WEX=258 now, Cr=3.58. HCO3=19 and K=8.2 with EKG changes. patient is making urine, AA&O x 4 with no asterixis or clinical evidence of uremia. AdmitTED to PCU with continuous cardiac monitoring; WILL REMAIN ON MONITOR -creatinine IMPROVED significantly DOWN TO 1.6 (/); WILL RESTART cristobal INH AND SPIRINOLACTONE AT A LOWER DOSE. -Place Hines catheter and monitor strict I/Os Hyperkalemia has resolved. -Nephrology consultation - appreciate assistance with this case -Avoid nephrotoxic medications -Renal dosing where appropriate -Recommend -encourage po intake (2) Acute hyperkalemia: As noted above, hyperkalemia, continues to improve. -Nephro consult as above (3) Neck stiffness: Patient complaining of pain and stiffness at the base of his neck as well as frontal headache. This was present during his last hospital stay as well. No neurological deficits although patient does report tingling in his fingertips on occasion. Seems to be positional in nature - worse when tipping his head back. No meningeal signs. ?degenerative changes with cervicalgia XR of c- spine is negative. except for moderate intervertebral disc space narrowing with spondylitic spurring at C5-C6. -PT and OT evaluation, possible recommendations on strengthening exercises -Heat and Tylenol PRN (4) Type 2 diabetes mellitus: Patient on Glipizide 2.5mg po daily. -Hold glipizide for now -ISS, caution with renal impairment -Monitor blood glucose (5) CAD (coronary artery disease): Stable. History of [place] with PCI in the past. ICM with EF of 15-20%. Patient presently without chest pain. Appears hypovolemic on clinical exam -Hold Atorvastatin for now -Restart cristobal inhibitor. -Continue Carvedilol -Continue Imdur -Continue Hydralazine (6) Hypertension: Blood pressure stable at present -Continue Hydralazine, Coreg, Imdur -Continue to monitor (7) BPH (benign prostatic hyperplasia): Stable -Hines placement as above -Continue Flomax (8) Atrial fibrillation, permanent: Patient with AF, rate controlled at present. INR suprathrapeutic at 8.8. No bleeding reported --Coumadin restarted coumadin. -Continue Coreg -elisha need to recheck dose on Thursday. (9) COPD (chronic obstructive pulmonary disease): Stable. No SOB/respiratory distress. -Continue supplemental O2 - patient wears 2L at baseline -Nebs as needed (10) Anxiety: Stable -Continue Paxil (11) CHF (congestive heart failure): As above. Stable -Cautious IVF repletion -Continue Coreg, Hydralazine, Imdur spironolactone and lisinopril has been restarted. Ppx - No chemical prophylaxis given elevated INR, continue home Protonix Code - Full Spent 25 minutes in management of patient. Subjective Patient reports feeling well. He has no complaints. he states he ambulates via wheelchair. Constitutional: no sweats and no malaise Eyes: no blind spots Ear, Nose, Mouth, Throat: no ear pain Respiratory: no dyspnea Cardiovascular: no chest pain Gastrointestinal: no abdominal pain Musculoskeletal: no myalgia Integumentary: no acne Psychiatric: no behavioral changes and no anhedonia Physical Exam Vital Signs (Past 24 Hours): Last Vital Signs Temp 36.5 C 10/17/18 07:35 Pulse 62 10/17/18 07:35 Resp 16 10/17/18 07:35 BP 157/72 H 10/17/18 07:35 Pulse Ox 97 10/17/18 07:35 Physical Exam: General: patient resting comfortably, NAD, non-toxic in appearance, AA&O x 4 Skin: warm, dry, intact, no rashes or lesions, no bruises HEENT: NC/AT, PERRL, EOMI, anicteric sclera, no LAD, no thyromegaly, no JVD Heart: +S1/S2, regular, no m/r/g Lungs: equal air entry bilaterally, no rales/rhonchi/wheezes Abd: +BS, soft, ND, no masses/organomegaly/ascites, not tenderness, no rebound/guarding/peritoneal signs, no CVA tenderness, no suprapubic tenderness Ext: warm, 2+ pulses in UE/LE bilaterally, no clubbing/cyanosis or edema Neuro: nonfocal, patient AA&O x 4, speech intact, no facial droop, moving all extremities on command with equal strength 5/5, no asterixis (1) BPH (benign prostatic hyperplasia) Lower urinary tract symptom presence: symptoms absent Qualified Code(s): N40.0 - Benign prostatic hyperplasia without lower urinary tract symptoms (2) Acute renal failure Acute renal failure type: unspecified Qualified Code(s): N17.9 - Acute kidney failure, unspecified (3) Type 2 diabetes mellitus Diabetes mellitus complication status: without complication Diabetes mellitus long term care pharmacist insulin use: without fdc use Qualified Code(s): E11.9 - Type 2 diabetes mellitus without complications (4) CAD (coronary artery disease) Associated angina: without angina Coronary Disease-Associated Artery/Lesion type: [place] artery [place] vs. transplanted heart: [place] heart Qualified Code(s): I25.10 - Atherosclerotic heart disease of [place] coronary artery without angina pectoris (5) Hypertension Hypertension type: essential hypertension Qualified Code(s): I10 - Essential (primary) hypertension
[2018-10-17] MEDS ORDERED: LISINOPRIL 5 MG TAB PO ONE (12:46)
[2018-10-17] MEDS: SPIRONOLACTONE 25 MG TAB PO SCH (14:02)
[2018-10-17] MEDS: ACETAMINOPHEN 325 MG TAB PO PRN (15:20)
--- NOTE | 2018-10-17 15:41 | Pharmacy Report ---
Pharmacy Glycemic Short Note 2 - Date of Service October 17, 2018 - Glycemic Short BSG Results (Last 24 hours): 10/16/18 10/16/18 10/17/18 16:32 20:10 06:08 Glucose 84 POC Glucose 310 H 140 H 10/17/18 10/17/18 07:28 11:26 Glucose POC Glucose 137 H 126 H OUTPATIENT ANTIDIABETIC REGIMEN: * glipizide 2.5 mg PO daily * A1c pending ASSESSMENT: * 73 yr old T2DM male admitted with acute renal failure. * Austin is maintained on glipizide as an outpatient. This was held per admission and he was started on insulin coverage with Novolog only. He received a total of 15 units yesterday. This produced good glycemic control with the exception of an isolated BSG elevation at dinner. * Fasting BSG is at goal; 137 mg/dL. Fasting is trending upward. May need to basal insulin tomorrow. * Continue current Novolog parameters. PLAN FOR INPATIENT GLYCEMIC CONTROL: * Hold outpatient oral diabetes medications * Bolus insulin * NovoLog per scale ACHS or Q6hrs while NPO * Goal Range: Low 110 mg/dL - High 140 mg/dL * Correction Factor: 40 mg/dL/unit * Nutritional / Prandial insulin per carb ratio of 1 unit per 13 grams CHO consumed PLAN FOR DISCHARGE: * pending A1c result
[2018-10-17] MEDS: TAMSULOSIN HCL 0.4 MG CAP PO SCH (21:02)
[2018-10-18 06:41] LABS: Albumin Level 2.8 gm/dl (3.4-5.0); BUN Creatinine Ratio 20.9 (10-20); Calcium 8.4 mg/dl (8.5-10.1); Creatinine Clr Calc Pharmacy 40.6 ml/min; Est GFR (African American) 55.8; Est GFR (Non-African American) 48.1; Potassium 3.8 mmol/L (3.5-5.1)
[2018-10-18 06:45] LABS: Phosphorus 2.4 mg/dl (2.5-4.9)
[2018-10-18 06:53] LABS: Estimated Average Glucose 157 mg/dl; Hemoglobin A1C 7.1 % (4.5-5.6)
[2018-10-18] MEDS: [UNRECOGNIZED DRUG - OTHER] TOP SCH ×2 (08:52→13:10)
[2018-10-18] MEDS: HYDROCORTISONE 2.5% CR 30 GM TUBE EXT SCH (08:52)
[2018-10-18] MEDS: PARoxetine HCl 20 MG TAB PO SCH (08:53)
[2018-10-18] MEDS: SPIRONOLACTONE 25 MG TAB PO SCH (08:53)
[2018-10-18] MEDS: CARVEDILOL 12.5 MG TAB PO SCH (08:54)
[2018-10-18] MEDS: PANTOprazole 40 MG TAB PO SCH (08:54)
[2018-10-18] MEDS: ISOSORBIDE MONO EXTENDED REL 60 MG TABCR PO SCH (08:54)
[2018-10-18] MEDS: MAGNESIUM OXIDE 400 MG TAB PO SCH (08:54)
[2018-10-18] MEDS: INSULIN ASPART 100 UNITS/ML 3 ML PEN SC SCH ×2 (08:55→13:10)
--- NOTE | 2018-10-18 09:59 | Nephrology Progress Note ---
Date of Service October 18, 2018 Assessment & Plan (1) Acute hyperkalemia: Mr. Garza was admitted to the hospital with 3 weeks of nausea, diarrhea, and poor p.o. intake. He was admitted with hyperkalemia and acute kidney injury. He was on Lasix, spironolactone, lisinopril and potassium supp lement. Hyperkalemia in the setting of acute kidney injury, potassium supplement and being on SHANNON inhibitor and potassium-sparing diuretics. Had some EKG changes. He received calcium gluconate and insulin D50 and potassium slightly improved to 7.6. Has been non-oliguric. Hyperkalemia and JACOB resolved, renal function improved now at baseline. Continue to hold all potassium-sparing diuretics, SHANNON-inhibitor/ARB potassium supplement Hines catheter can be removed when appropriate. Outpatient follow up to be arranged with Dr. Hurtado within 1-2 weeks of discharge. (2) Acute renal failure: (3) Anemia: (4) Vomiting: (5) CKD (chronic kidney disease), stage III: Subjective No acute events overnight. Austin was seen and evaluated in his hospital room this morning. He reported some constipation but otherwise felt well. Appetite is good. He denies nausea. Appetite is good. No chest pain or palpitations. Review of Systems All systems reviewed & are unremarkable except as noted in HPI & below Physical Exam Vital Signs (Past 24 Hours): Last Vital Signs Temp 36.8 C 10/18/18 06:45 Pulse 69 10/18/18 06:45 Resp 14 10/18/18 06:45 BP 139/85 10/18/18 06:45 Pulse Ox 96 10/18/18 06:45 Constitutional: WD/WN, vitals as above Eyes: no scleral abnormality and no corneal abnormality ENMT: Nose: no nasal mucous membrane abnormality Mouth: oral mucous membranes not dry Neck: normal visual inspection Thyroid: normal thyroid Respiratory: normal respiratory effort, lungs clear to auscultation Cardiovascular: RRR, no murmur, no edema Musculoskeletal: Extremities: no cyanosis and no clubbing Skin: no rashes, warm and dry Neurologic: moves all extremities and awake Psychiatric: A+Ox3, euthymic affect Genitourinary: Hines draining clear yellow urine Results & Data Laboratory Results Laboratory Results - last 24 hr 10/17/18 10/17/18 10/17/18 06:08 11:26 16:21 Sodium Potassium Chloride Carbon Dioxide Anion Gap BUN Creatinine Est Cr Clr Drug Dosing Est GFR ( Amer) Est GFR (Non-Af Amer) BUN/Creatinine Ratio Glucose POC Glucose 126 H 108 H Estimat Average Glucose 157 Hemoglobin A1c 7.1 H Calcium Phosphorus Albumin 10/17/18 10/18/18 20:24 05:31 Sodium 138 Potassium 3.8 Chloride 105 Carbon Dioxide 26 Anion Gap 7.0 BUN 30 H Creatinine 1.45 H Est Cr Clr Drug Dosing 40.6 Est GFR ( Amer) 55.8 Est GFR (Non-Af Amer) 48.1 BUN/Creatinine Ratio 20.9 H Glucose 93 POC Glucose 175 H Estimat Average Glucose Hemoglobin A1c Calcium 8.4 L Phosphorus 2.4 L Albumin 2.8 L (1) Acute renal failure Acute renal failure type: unspecified Qualified Code(s): N17.9 - Acute kidney failure, unspecified (2) Vomiting Nausea presence: unspecified Vomiting Intractability: unspecified Vomiting type: unspecified Qualified Code(s): R11.10 - Vomiting, unspecified
[2018-10-18] MEDS ORDERED: WARFARIN SOD 4 MG TAB PO SCH (16:00)
--- NOTE | 2018-10-25 07:41 | Discharge Summary ---
Date of Service October 18, 2018 Admission HPI Per Admitting Provider Mr. Garza is a 73yo male presenting with JACOB and hyperkalemia. He is an inmate at [facility]. States that when he woke this AM he felt ill and quite weak. He required assistance to get up from the toilet. He went to breakfast and became acutely nauseous with a few episodes of NB/NB vomiting. He reports loose stools at baseline, no diarrhea with this episode. He states he has not been eating or drinking well for the last week. Patient hemodynamically stable upon arrival. Laboratory workup with HWS=868, Cr=3.58 and K=8.2. Also with INR of 8.8, no bleeding at present. Patient takes Lasix 80mg po daily, Spironolactone 25mg po BID, KCL 40mEq po BID as well as Lisinopril 40mg po daily. He states that he was not being given the Lasix as he was producing too much urine. He is unsure about the dosing on his other medications. He is also complaining of posterior neck pain and headache since last admission. Occasional tingling in his fingertips, no weakness. Patient was admitted earlier this month with very similar presentation. His potassium was 8.6 on admission at that time. He was managed with Insulin/Dextrose and Kayexelate with improvement. His discharge K level was stable at 4.1. Patient with history of CKD III, Cr on admission was 2.3 which improved to 1.51 prior to discharge. ER Course: Calcium gluconate x 1gm, Insulin 10u + 1 amp of D50, NSS x 2 liters, Zofran Principal Diagnosis Acute renal failure Discharge Exam General: patient resting comfortably, NAD, non-toxic in appearance, AA&O x 4 Skin: warm, dry, intact, no rashes or lesions, no bruises HEENT: NC/AT, PERRL, EOMI, anicteric sclera, no LAD, no thyromegaly, no JVD Heart: +S1/S2, regular, no m/r/g Lungs: equal air entry bilaterally, no rales/rhonchi/wheezes Abd: +BS, soft, ND, no masses/organomegaly/ascites, not tenderness, no rebound/guarding/peritoneal signs, no CVA tenderness, no suprapubic tenderness Ext: warm, 2+ pulses in UE/LE bilaterally, no clubbing/cyanosis or edema Neuro: nonfocal, patient AA&O x 4, speech intact, no facial droop, moving all extremities on command with equal strength 5/5, no asterixis Discharge Data Allergies Allergy/AdvReac Type Severity Reaction Status Date / Time No Known Allergies Allergy Verified 10/14/18 09:51 Consultations 10/14/18 12:16 ED Decision to Admit Stat 10/14/18 14:04 Consult Nephrology Routine Ordered Studies 10/14/18 09:20 US gallbladder Stat 10/14/18 10:51 CT abd pelvis wo con Stat Hospital Course (1) Acute renal failure: Patient with CKD Stage III, baseline Cr 1.2 - 1.4, history of DM/HTN, suggestion of medical-renal disease on CT scan with bilateral renal atrophy, also with numerous renal cysts . Presenting with ARF. Most likely multi- factorial, progression of disease as well as pre-renal azotemia in setting of poor po intake and GI losses and medication effects - patient has been on Lasix (?when they stopped this at [facility]) as well as Lisinopril, Spironolactone and K repletion. oN ADMISSION: XOA=824 now, Cr=3.58. HCO3=19 and K=8.2 with EKG changes. patient is making urine, AA&O x 4 with no asterixis or clinical evidence of uremia. AdmitTED to PCU with continuous cardiac monitoring; WILL REMAIN ON MONITOR -creatinine IMPROVED significantly DOWN TO 1.45 (3/4); WILL RESTART cristobal INH AND SPIRINOLACTONE AT A LOWER DOSE. -Place Hines catheter and monitor strict I/Os Hyperkalemia has resolved. -Nephrology consultation - appreciate assistance with this case -Avoid nephrotoxic medications -Renal dosing where appropriate -Recommend -encourage po intake (2) Acute hyperkalemia: As noted above, hyperkalemia, continues to improve. -Nephro consult as above (3) Neck stiffness: Patient complaining of pain and stiffness at the base of his neck as well as frontal headache. This was present during his last hospital stay as well. No neurological deficits although patient does report tingling in his fingertips on occasion. Seems to be positional in nature - worse when tipping his head back. No meningeal signs. ?degenerative changes with cervicalgia XR of c- spine is negative. except for moderate intervertebral disc space n arrowing with spondylitic spurring at C5-C6. -PT and OT evaluation, possible recommendations on strengthening exercises -Heat and Tylenol PRN (4) Type 2 diabetes mellitus: Patient on Glipizide 2.5mg po daily. -Hold glipizide for now -ISS, caution with renal impairment -Monitor blood glucose (5) CAD (coronary artery disease): Stable. History of CO with PCI in the past. ICM with EF of 15-20%. Patient presently without chest pain. Appears hypovolemic on clinical exam -Held Atorvastatin during hospital stay, and will continue on discharge -Restart cristobal inhibitor. -Continue Carvedilol -Continue Imdur -Continue Hydralazine (6) Hypertension: Blood pressure stable at present -Continue Hydralazine, Coreg, Imdur -Continue to monitor (7) BPH (benign prostatic hyperplasia): Stable -Hines placement as above -Continue Flomax (8) Atrial fibrillation, permanent: Patient with AF, rate controlled at present. INR suprathrapeutic at 8.8. No bleeding reported --Coumadin restarted coumadin. -Continue Coreg -will need to recheck dose on Thursday. (9) COPD (chronic obstructive pulmonary disease): Stable. No SOB/respiratory distress. -Continue supplemental O2 - patient wears 2L at baseline -Nebs as needed (10) Anxiety: Stable -Continue Paxil (11) CHF (congestive heart failure): As above. Stable -Cautious IVF repletion -Continue Coreg, Hydralazine, Imdur spironolactone and lisinopril has been restarted. Ppx - No chemical prophylaxis given elevated INR, continue home Protonix Code - Full Total Time Total Time Spent Total Time Spent (In Minutes): 32 Total Time Includes: Examination of the Patient, Discharge Planning and Medication Reconciliation Discharge Plan Discharge Items [facility] Reason For Visit: JACOB ON CKD, HYPERKALEMIA Discharge Diagnosis: Acute on chronic kidney disease. Discharge Goals: Decrease discomfort Activity: Resume your previous activity Non-emergency contact: Primary Care Provider Call non-emergency contact if: you have any medication questions Follow-up/Referrals: Sushil VALDEZ [Primary Care Provider] - Diet: Heart Healthy and Low Potassium (2gm) Addtl Provider Instructions: You were admitted with renal failure and high potassium You responded to fluid and holding your cristobal inhibitor and spirinolactone. Resumed your medicine but at a lower dose. Will also need to recheck INR tomorrow. Avoid food with high potassium: Exampes are the following. Artichoke Hearts, Avocados Bananas, Beets, Beet Greens, Broccoli [place] Sprouts, Cantaloupe, Chick Peas, Cod, Johann Greens, Halibut, Kidney Beans, Ma Beans, Lentils, Papaya, Mercedes Beans, Raisins, Soybeans, Spinach, [place] Chard, [place] Tuna, White Beans, Winter Squash Check BMP in 1 week. Followup with cardiology in 3-4 weeks Followup with Nephrology in 1-2 weeks. Followup with PCP in 1-2 weeks. Prescriptions: New spironolactone 25 mg Tablet 12.5 mg PO DAILY Qty: 30 RF: 0 isosorbide mononitrate 60 mg Tablet Extended Release 24 Hr 60 mg PO DAILY Qty: 30 RF: 0 lisinopril 5 mg tablet 5 mg PO DAILY Qty: 30 RF: 0 furosemide 40 mg tablet 40 mg PO DAILY PRN (Reason: weight gain) Qty: 30 RF: 0 Continued glipizide 5 mg Tablet 2.5 mg PO DAILY RF: 0 acetaminophen 325 mg Tablet 325 mg PO TID PRN (Reason: Headache) RF: 0 ascorbic acid (vitamin C) [Vitamin C] 500 mg Tablet 500 mg PO 3XWK RF: 0 pantoprazole 40 mg Tablet,Delayed Release (Dr/Ec) 40 mg PO BID RF: 0 atorvastatin 80 mg Tablet 80 mg PO HS RF: 0 isosorbide mononitrate 60 mg Tablet Extended Release 24 Hr 60 mg PO DAILY RF: 0 ferrous sulfate [iron] 325 mg (65 mg iron) Tablet 325 mg PO 3XWK RF: 0 nitroglycerin [Nitrostat] 0.4 mg Tablet, Sublingual 0.4 mg Sublingual UD PRN (Reason: Chest Pain) RF: 0 magnesium oxide 400 mg Capsule 400 mg PO BID RF: 0 cyanocobalamin (vitamin B-12) [Vitamin B-12] 1,000 mcg Tablet 1,000 mcg PO DAILY RF: 0 tamsulosin 0.4 mg Capsule 0.4 mg PO HS RF: 0 paroxetine HCl 40 mg Tablet 40 mg PO QAM RF: 0 A&D Ointment 1 applic topical TID RF: 0 carvedilol 12.5 mg Tablet 12.5 mg PO BID RF: 0 hydralazine 25 mg Tablet 25 mg PO TID RF: 0 hydrocortisone 2.5 % Lotion 1 applic TOPICAL BID RF: 0 warfarin 2 mg Tablet 4 mg PO HS RF: 0 Changed furosemide [Lasix] 80 mg Tablet 40 mg PO DAILY Qty: 0 RF: 0 Discontinued lisinopril 20 mg Tablet 20 mg PO DAILY RF: 0 spironolactone 25 mg Tablet 25 mg PO BID Qty: 0 RF: 0 potassium chloride 20 mEq Tablet Extended Release 40 meq PO BID Qty: 0 RF: 0 Stand-Alone Forms: [facility] Discharge Orders: Discharge Order (Routine); Ordered 10/18/18 Ordered By: Kevin Rehman Admission Data Admit Date/Time: 10/14/18 13:03 Attending Provider: Kevin Rehman Admit Provider: Jacqui Carter Primary Care Provider: Sushil VALDEZ Other Providers: Jacqui Carter ; Lawrence Henry ; Reinaldo Mercado ; Krystyna Noel ; Lisa Hurtado ; Elvis Tran Service: Telemetry Other Interventions: Discharge Summary Assessment (RN) Last Done: 10/18/18 14:14 DC Date/Time DO NOT enter until pt leaves facility: 10/18/18 15:30
== END 2018-10-18 15:30 | DRG 683 ==
LOC: ED 09:00 → 2E 13:43 → SUATTDRO 14:02 → 2E 14:02
DX: I50.9 Heart failure, unspecified; I13.0 Hypertensive heart and chronic kidney disease with heart failure and stage 1 through stage 4 chronic kidney disease, or unspecified chronic kidney disease; J44.9 Chronic obstructive pulmonary disease, unspecified; I48.2 Chronic atrial fibrillation; N40.0 Benign prostatic hyperplasia without lower urinary tract symptoms; N17.9 Acute kidney failure, unspecified; F32.9 Major depressive disorder, single episode, unspecified; I25.10 Atherosclerotic heart disease of native coronary artery without angina pectoris; I25.2 Old myocardial infarction; E11.21 Type 2 diabetes mellitus with diabetic nephropathy; N18.2 Chronic kidney disease, stage 2 (mild); I25.5 Ischemic cardiomyopathy; Z79.01 Long term (current) use of anticoagulants; N18.3 Chronic kidney disease, stage 3 (moderate); E87.5 Hyperkalemia

== ENCOUNTER 2020-07-04 11:01 | Inpatient (IN) ==
[2020-07-04] MEDS ORDERED: dilTIAZem HCl 5 MG/ML 5 ML VIAL IV STA (12:24)
--- NOTE | 2020-07-04 12:26 | Electrocardiogram Report ---
Test Reason : Blood Pressure : / mmHG Vent. Rate : 123 BPM Atrial Rate : 127 BPM P-R Int : 232 ms QRS Dur : 096 ms QT Int : 318 ms P-R-T Axes : 000 060 202 degrees QTc Int : 455 ms Probable Atrial fibrillation with rapid ventricular response with premature ventricular or aberrantly conducted complexes Left ventricular hypertrophy with repolarization abnormality Abnormal ECG When compared with ECG of 03-JAN-2020 16:15, Significant changes have occurred Confirmed by Cj Ceja ([id number]) on 07/04/2020 12:26:16 PM Referred By: [facility] Confirmed By:Cj Ceja
--- NOTE | 2020-07-04 12:27 | XRay Report ---
XR chest 1V portable HISTORY: 75 years-old Male Chest Pain acute atypical chest pain COMPARISON: Chest radiograph 01/03/2020 TECHNIQUE: Portable AP view of the chest FINDINGS: Cardiac silhouette is enlarged. Mild right hemidiaphragm elevation. Mild chronic interstitial coarsen ing with emphysema. No pneumothorax, pleural effusion, airspace consolidation or overt pulmonary yeyo a. Degenerative changes of the shoulders and spine. IMPRESSION: No acute process. ACT 112: Negative or not required by law. The above report was generated using voice recognition software. It may contain grammatical, syntax o r spelling errors. Electronically signed by: Moises Vuong M.D. 07/04/2020 12:26 PM
[2020-07-04] MEDS: MAGNESIUM SULFATE / D5W 1 GM/100 ML BAG IV SCH ×4 (12:53→20:38)
[2020-07-04] MEDS ORDERED: ONDANSETRON INJ 2 MG/ML 2 ML VIAL ONE (13:27)
[2020-07-04] MEDS ORDERED: STAT IV Infusion **Titration per Protocol STA (13:33)
[2020-07-04 13:36] LABS: Basophils # (auto) 0.01 K/uL (0-0.2); Basophils % (auto) 0.1 %; Eosinophils # (auto) 0.01 K/uL (0-0.5); Eosinophils % (auto) 0.1 %; Hematocrit (blood only) 37.6 % (42-52); Hemoglobin 12.3 g/dL (14.0-18.0); Immature Granulocytes # (auto) 0.03 K/uL (0.00-0.02); Immature Granulocytes % (auto) 0.4 %; Lymphocytes % (auto) 10.1 %; Mean Corpuscular Hemoglobin 31.4 pg (25-34); Mean Corpuscular Hgb Conc 32.7 g/dL (32-36); Mean Corpuscular Volume 95.9 fL (80-100); Monocytes # (auto) 0.55 K/uL (0.11-0.59); Neutrophils % (auto) 82.3 %; Platelet Count 221 K/uL (130-400); RDW Standard Deviation 47.6 fL (36.4-46.3); Red Blood Count 3.92 M/uL (4.7-6.1)
[2020-07-04] MEDS ORDERED: DEXAMETHASONE SOD INJ 10 MG/ML VIAL IV ONE (13:41)
[2020-07-04] MEDS ORDERED: dilTIAZem HCL 125 MG in DEXTROSE 5% 100 ML IV SCH (13:45)
[2020-07-04 13:55] LABS: Creatine Kinase MB 8.6 ng/ml (0.5-3.6)
[2020-07-04] MEDS ORDERED: CEFEPIME 2,000 MG/20 ML VIAL IV STA (13:55)
[2020-07-04 13:56] LABS: C Reactive Protein 9.06 mg/dl (0-0.29); Ferritin 1271.8 ng/ml (8-388)
[2020-07-04 13:57] LABS: Partial Thromboplastin Ratio 2.3; Prothrombin Time 39.5 Seconds (9.0-12.0)
[2020-07-04 13:59] LABS: Albumin Globulin Ratio 0.7 (0.9-2); Calcium 8.6 mg/dl (8.5-10.1); Est GFR (African American) 40.4; Est GFR (Non-African American) 34.9; Potassium 4.6 mmol/L (3.5-5.1); Troponin I 0.14 ng/ml (0-0.045)
[2020-07-04 14:09] LABS: Beta-Hydroxybutyrate 8.99 mg/dl (0.2-2.81)
[2020-07-04] MEDS ORDERED: NovoLIN-R INSULIN PER UNIT CHARGE IV STA (14:09)
[2020-07-04] MEDS ORDERED: SODIUM CHLORIDE 0.9% 500 ML IV ONE (14:09)
[2020-07-04 14:21] LABS: Partial Thromboplastin Time 62.8 Seconds (21.0-31.0)
--- NOTE | 2020-07-04 14:54 | History & Physical Report ---
Date of Service July 04, 2020 Assessment & Plan (1) Chronic respiratory failure with hypoxia: Austin is a 75yo M inmate with a PMHx of combined sys/sarah CHF, T2DM, HTN, and Afib with RVR on warfarin who presents with 1 week of shortness of breath and found to be COVID positive. Acute Hypoxic Respiratory Failure 2/2 COVID - COVID positive - Baseline up to 3-5L oxygen in the past, has not needed baseline O2 int he last few months - On 5L SpO2 ~90% but desats during speaking. - Remdesivir ordered. CrCl >30. - Convalescent plasma ordered. Pt consented for blood. - Decadron 6mg daily - SpO2 goal 90%, NC/Oxy as needed - Fluid management as above - Recieved cefepime in ED. No signs of bacterial PNA. Defer abx at this time, follow clinically. Elevated trop, Chronic Systolic/Diastolic CHF with EF 35-50% - BNP 23k on admission - CXR without pulmonary edema, MM tacky, no pedal edema. Pt appears intravascularly depleted. - S/p 1L NSS bolus. +1x 500cc bolus. Yomaira bolus and reassess PRN. - Trop 0.3, without CP at assessment. Trend x3 - BMP daily T2DM - Glucose 441 on admit. S/p fluids +10u insulin IV - Hold antiglycemic orals - Glucose checks AC/HS - Lantus 7u, CF 66, Ratio 19 JACOB on CKD, unclear baseline - Cr on admission 1.87, crcl 34 - Unclear baseline, as low as 1.45. - Hold nephrotoxins - Fluids as above HTN - Lisinopril, latasha held as above for JACOB - Continue carvedilol - Dilt 30mg Q8H hold for sbp <110, dbp <80, HR<60 Afib hx RVR - Fluids as above - Continue warfarin - BB, CCB as above - Admit Med/Tele COVID DVT PPx: COntinue Warfarin Dipso: COVID Med/Tele Code Status: COnditional Code FENGI: 2g limit, intravascularly depleted but with history of CHF (2) Type 2 diabetes mellitus: (3) Chronic combined systolic (congestive) and diastolic (congestive) heart failure: (4) Hyperkalemia: (5) CKD (chronic kidney disease), stage III: (6) Atrial fibrillation, permanent: History of Present Illness Chief Complaint: Shortness of breath Primary Care Provider: JOSÉ MIGUEL Avila is a 75yo M inmate with a PMHx of combined sys/sarah CHF, T2DM, HTN, and Afib with RVR on warfarin who presents with 1 week of shortness of breath and found to be COVID positive. 1 week several episodes of shortness of breath. He is able to catch his breath normally, but the last week he was persistently short of breath and had diffi culty sleepng. He had cough in the past week which went away Thursday (2 days ago). Nonproductive. No shortness of currently, was sjhort of breath at rest prior to arrival and O2. He has been on baseline oxygen intermittently in the past. Has had a heart attack 2x, last 2 years ago and transiently required oxygen after. No fevers but felt warm. No chills. NO chest pain, no chest pressure. ENdoreses some lower rib pain. He has had some intermittent nausea. Has had diarrhea x1 week, very loose BMs a 4-5x per day. Reports his stool is yellow in color. No blood. Body aches 'all the time' which were worse in the last week. Tylenol helps 2x every 6 hours. He used to get swelling in his legs and feet. "Excellent" lately, no swelling in week or so. Urinating frequently (6-8x times per day, small volumes, no dysuria, no blood). Drinking fluids OK, decreased appetite. Meds: Reviewed MedHx: CAD w/ HI with balloon angioplastly but no stents or bipass, T2DM on glipizie, Afib on warfarin, CHF on lasix, COPD not on any basline inhalers, CKD not on dialysis., Allergies: NKDA Social: Inmate. Past tobacco use non in last 40 years. EtoH. No recreational drug use. CODE STATUS: Conditional Code. No ventilator under any circumstances, but does want chest compressions, shock, and meds. Allergies Allergy/AdvReac Type Severity Reaction Status Date / Time No Known Allergies Allergy Verified 07/04/20 13:18 Home Medications Medication Instructions Recorded Confirmed Type atorvastatin 80 mg PO HS 05/01/18 07/04/20 History cyanocobalamin (vitamin B-12) 1,000 mcg PO DAILY 05/01/18 07/04/20 History [Vitamin B-12] ferrous sulfate [iron] 325 mg PO 3XWK 05/01/18 07/04/20 History magnesium oxide 400 mg PO BID 05/01/18 07/04/20 History nitroglycerin [Nitrostat] 0.4 mg SUBLINGUAL DIRECTED PRN 05/01/18 07/04/20 History paroxetine HCl 40 mg PO QAM 05/01/18 07/04/20 History tamsulosin 0.4 mg PO HS 05/01/18 07/04/20 History glipizide 2.5 mg PO DAILY 05/13/18 07/04/20 History carvedilol 12.5 mg PO BID 09/23/18 07/04/20 History warfarin 2 mg PO 3XWK 09/23/18 07/04/20 History ascorbic acid (vitamin C) [Vitamin 500 mg PO 3XWK 10/14/18 07/04/20 History C] pantoprazole 40 mg PO BID 10/14/18 07/04/20 History isosorbide mononitrate 60 mg PO DAILY #30 tab 10/18/18 07/04/20 Rx spironolactone 12.5 mg PO DAILY #30 tab 10/18/18 07/04/20 Rx calcium polycarbophil [Fiber-Lax] 625 mg PO DAILY 01/03/20 07/04/20 History furosemide 20 mg PO DAILY 01/03/20 07/04/20 History hydralazine 10 mg PO TID 01/03/20 07/04/20 History lisinopril 20 mg PO DAILY 01/03/20 07/04/20 History loperamide [Imodium A-D] 2 mg PO QID PRN 01/03/20 07/04/20 History warfarin 1 mg PO 4XWK 01/03/20 07/04/20 History Past Med/Surg History Medical History (Updated 07/04/20 @ 16:30 by Elvis Harris MD) Acute HI, inferior wall Afib Anemia Anxiety Anxiety Atrial fibrillation CAD (coronary artery disease) s/p inferior wall HI with chronically occluded RCA - cath on 01/09/15 - no intervention. L to R collateralization noted Cardiac ischemia CHF (congestive heart failure) ICM with EF of 15-20% CHF exacerbation CKD (chronic kidney disease) stage 3, GFR 30-59 ml/min COPD (chronic obstructive pulmonary disease) Depression Diabetes Essential hypertension GERD (gastroesophageal reflux disease) High cholesterol Hyperlipidemia Male genitourinary symptoms Near syncope PNA (pneumonia) Sepsis Surgical History No significant past surgical history Family History Other Diabetes Social History Smoking Status: Former smoker Second Hand Exposure: Yes; Hx Alcohol Use: No Hx Substance Use: No Preferred Language: Welsh Communication Ability: Effective Visual Impairment: No Limitations Shank Breaker Required: No Beliefs That Will Affect Care: None Current Living Situation: Other Current Living Situation Comment: [facility] Other Information That Helps Us Care for You: No Feels Safe at Home: Yes Assistive Devices: Oxygen - Continuous Review of Systems Review of Systems: Constitutional: See HPI Eyes: Denies double vision, vision change, eye pain ENT: Denies ear pain, sore throat, sinus pain Cardiovascular: See HPI Respiratory: See HPI Gastrointestinal: See HPI Genitourinary: Denies pain with urination, urinary urgency, urinary frequency Musculoskeletal: See HPI Integumentary:Denies rash, lesions, bruising Neurological: Endorses headaches. Denies numbness, tingling, focal weakness Physical Exam Physical Exam: General: A&Ox3. NAD. Cooperative. HEENT: Atraumatic, normocephalic. PERLAA. Visual acuity and hearing grossly intact. Pulm: Bibasilar crackles. Symmetrical chest rise. No increase work of breathing. No respiratory distress. Cardiac: tachycardic, -mrg. Radial pulses intact and symmetrical. No distal leg pitting edema. Abdominal: Nontender, nondistended, soft. BS present. Ext: Warm, dry, no edema. PT and radial pulses intact. Manager Respiratory Care strength, ankle dorsi/plantarflexion 5/5 and symmetrical. Results & Data Results & Data ([facility]) Vital Signs (Past 12 Hours) Vital Signs Temp Pulse Pulse Resp BP Pulse Ox 07/04/20 14:00 99 H 23 162/66 H 94 07/04/20 13:45 97 H 24 100 07/04/20 13:42 85 L 07/04/20 13:23 95 H 25 H 153/103 H 93 07/04/20 12:59 98 H 07/04/20 12:30 122 H 26 H 177/107 H 94 07/04/20 12:01 128 H 24 146/115 H 96 07/04/20 11:30 129 H 26 H 145/110 H 91 07/04/20 11:25 97 07/04/20 11:11 120 H 22 141/94 H 95 07/04/20 10:52 36.5 C 120 H 20 141/94 H 97 Supervising Physician Co-Signing Physician Notes Attending addendum: I have physically seen this patient, have supervised the medical residents activities, and agree with the H&P unless as otherwise noted. Assessment and Plan: Acute respiratory failure with hypoxia/pneumonia due to COVID-19 virus- Decadron 6 mg IV daily Convalescent plasma x1 Remdesivir IV per protocol Oxygen titration to keep pulse ox around 90% HFpEF/elevated troponin/atrial fib with RVR- The patient will be admitted to telemetry for serial cardiac enzymes, serial EKG's, cardiac rhythm monitoring and a 2-D echocardiogram with Dopplers. Continue carvedilol, hydralazine, isosorbide mononitrate And warfarin Hold lisinopril due to acute kidney injury JACOB on CKD- Creatinine 1.87 upon admission, with no previous baseline. Holding lisinopril as noted. IV fluid rehydration Repeat laboratories in a.m. Remainder of orders and notations as noted Resident Activity Tracking Resident Involvement: Resident Care Provided Care Provided: Adult [facility] Medicine (1) Type 2 diabetes mellitus Diabetes mellitus complication status: without complication Diabetes mellitus prison insulin use: without supervisor intermediates use Qualified Code(s): E11.9 - Type 2 diabetes mellitus without complications
[2020-07-04 14:56] LABS: D Dimer 330 ug/L FEU (0-500)
--- NOTE | 2020-07-04 16:19 | Emergency Department Note ---
History of Present Illness General Chief complaint: Cardiac Assessment Stated complaint: SOB, CARDIAC ASSESSMENT Time Seen by Provider: 07/04/20 12:00 Source: patient, EMS, RN notes reviewed, old records reviewed and other (ca retakers) Mode of arrival: EMS Limitations: no limitations History of Present Illness Provider complaint: Shortness of breath Onset (ago): week(s) 1 Location: chest Radiation: non-radiation Severity: moderate Pain Consistency: + intermittent Relieved By: + rest Exacerbated By: + movement Associated symptoms: + fever/chills and + shortness of breath; no confusion, no chest pain, no diaphoresis and no headaches Treatments prior to arrival: none This is a 75-year-old prisoner who was sent in from [place] over concerns of the patient is increasingly short of breath over the past week. In addition the patient reportedly does not have a history of atrial fibrillation however was diagnosed with it today at the halfway. He was also swabbed for bullard although the tests are not back. Patient reports anytime he moves he becomes short of breath however rest allows him to feel better. He is also complaining of fevers and chills. He denies any other symptoms including abdominal pain or chest pain. Home Medications Medication Instructions Recorded Confirmed Type atorvastatin 80 mg PO HS 05/01/18 07/04/20 History cyanocobalamin (vitamin B-12) 1,000 mcg PO DAILY 05/01/18 07/04/20 History [Vitamin B-12] ferrous sulfate [iron] 325 mg PO 3XWK 05/01/18 07/04/20 History magnesium oxide 400 mg PO BID 05/01/18 07/04/20 History nitroglycerin [Nitrostat] 0.4 mg SUBLINGUAL DIRECTED PRN 05/01/18 07/04/20 History paroxetine HCl 40 mg PO QAM 05/01/18 07/04/20 History tamsulosin 0.4 mg PO HS 05/01/18 07/04/20 History glipizide 2.5 mg PO DAILY 05/13/18 07/04/20 History carvedilol 12.5 mg PO BID 09/23/18 07/04/20 History warfarin 2 mg PO 3XWK 09/23/18 07/04/20 History ascorbic acid (vitamin C) [Vitamin 500 mg PO 3XWK 10/14/18 07/04/20 History C] pantoprazole 40 mg PO BID 10/14/18 07/04/20 History isosorbide mononitrate 60 mg PO DAILY #30 tab 10/18/18 07/04/20 Rx spironolactone 12.5 mg PO DAILY #30 tab 10/18/18 07/04/20 Rx calcium polycarbophil [Fiber-Lax] 625 mg PO DAILY 01/03/20 07/04/20 History furosemide 20 mg PO DAILY 01/03/20 07/04/20 History hydralazine 10 mg PO TID 01/03/20 07/04/20 History lisinopril 20 mg PO DAILY 01/03/20 07/04/20 History loperamide [Imodium A-D] 2 mg PO QID PRN 01/03/20 07/04/20 History warfarin 1 mg PO 4XWK 01/03/20 07/04/20 History Allergies Allergy/AdvReac Type Severity Reaction Status Date / Time No Known Allergies Allergy Verified 07/04/20 13:18 Past Med/Surg History Medical History (Updated 07/04/20 @ 16:30 by Elvis Harris MD) Acute PA, inferior wall Afib Anemia Anxiety Anxiety Atrial fibrillation CAD (coronary artery disease) s/p inferior wall PA with chronically occluded RCA - cath on 01/09/15 - no intervention. L to R collateralization noted Cardiac ischemia CHF (congestive heart failure) ICM with EF of 15-20% CHF exacerbation CKD (chronic kidney disease) stage 3, GFR 30-59 ml/min COPD (chronic obstructive pulmonary disease) Depression Diabetes Essential hypertension GERD (gastroesophageal reflux disease) High cholesterol Hyperlipidemia Male genitourinary symptoms Near syncope PNA (pneumonia) Sepsis Surgical History No significant past surgical history Family History Other Diabetes Social History Smoking Status: Former smoker Second Hand Exposure: Yes; Hx Alcohol Use: No Hx Substance Use: No Preferred Language: Yi Communication Ability: Effective Visual Impairment: No Limitations 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 Beliefs That Will Affect Care: Taoist Taoist Beliefs: Advent/[employer]ar[employer] Current Living Situation: Other Current Living Situation Comment: JOSÉ MIGUEL Ling Feels Safe at Home: Yes Assistive Devices: None Review of Systems A total of 10 systems reviewed and were otherwise negative Physical Exam Vital Signs Vital Signs - 24 hr 07/04/20 10:52 07/04/20 11:11 07/04/20 11:25 Temperature 36.5 C Temperature Source Oral Pulse Rate 120 H 120 H Pulse Rate [Right Finger] Pulse Rate from SpO2 Sensor 120 H Pulse Rhythm Irregular Pulse Rhythm [Right Finger] Respiratory Rate 20 22 Respiratory Depth Normal Blood Pressure 141/94 H 141/94 H Blood Pressure Mean 109 108 Blood Pressure Position Sitting Pulse Oximetry 97 95 97 Oxygen Delivery Method Room Air Room Air Oxygen Flow Rate Sepsis Recent Fever Within 48 Hours No Sepsis New/Unexplained Change in Mental Status No Sepsis Action Taken by Nursing No Action Required Oxygen Flow Rate - Titration Pulse Oximetry Post Tiitration 07/04/20 11:30 07/04/20 12:01 07/04/20 12:30 Temperature Temperature Source Pulse Rate 129 H 128 H 122 H Pulse Rate [Right Finger] Pulse Rate from SpO2 Sensor 125 H 128 H 117 H Pulse Rhythm Irregular Pulse Rhythm [Right Finger] Respiratory Rate 26 H 24 26 H Respiratory Depth Blood Pressure 145/110 H 146/115 H 177/107 H Blood Pressure Mean 114 122 138 Blood Pressure Position Pulse Oximetry 91 96 94 Oxygen Delivery Method Room Air Oxygen Flow Rate Sepsis Recent Fever Within 48 Hours Sepsis New/Unexplained Change in Mental Status Sepsis Action Taken by Nursing Oxygen Flow Rate - Titration Pulse Oximetry Post Tiitration 07/04/20 12:59 07/04/20 13:23 07/04/20 13:42 Temperature Temperature Source Pulse Rate 95 H Pulse Rate [Right Finger] 98 H Pulse Rate from SpO2 Sensor 123 H Pulse Rhythm Pulse Rhythm [Right Finger] Irregular Respiratory Rate 25 H Respiratory Depth Blood Pressure 153/103 H Blood Pressure Mean 112 Blood Pressure Position Pulse Oximetry 93 85 L Oxygen Delivery Method Room Air Nasal Cannula Oxygen Flow Rate Sepsis Recent Fever Within 48 Hours Sepsis New/Unexplained Change in Mental Status Sepsis Action Taken by Nursing Oxygen Flow Rate - Titration 4 Pulse Oximetry Post Tiitration 97 07/04/20 13:45 07/04/20 14:00 Temperature Temperature Source Pulse Rate 97 H 99 H Pulse Rate [Right Finger] Pulse Rate from SpO2 Sensor 96 H Pulse Rhythm Pulse Rhythm [Right Finger] Respiratory Rate 24 23 Respiratory Depth Blood Pressure 162/66 H Blood Pressure Mean 112 Blood Pressure Position Pulse Oximetry 100 94 Oxygen Delivery Method Nasal Cannula Oxygen Flow Rate 4 Sepsis Recent Fever Within 48 Hours Sepsis New/Unexplained Change in Mental Status Sepsis Action Taken by Nursing Oxygen Flow Rate - Titration Pulse Oximetry Post Tiitration VITAL SIGNS - Vital signs and nursing notes were reviewed. GENERAL - 75-year-old male appearing pale, cachectic in appearance. Communicates well with provider and answers questions appropriately. SKIN - Without rashes. HEAD - NC/AT. EYES - PERRL with EOMI bilaterally. Sclera anicteric. Palpebral conjunctiva pink and moist with no injection noted. EARS - No deformities of external structures noted on gross examination bilaterally. No pain elicited with palpation of the tragus bilaterally. External auditory canals without discharge or otorrhea. Tympanic membranes pearly glover without retraction or bulging. No fluid or purulent material visualized behind the TM. Handle of malleus, umbo, cone of light, pars tensa/flaccid all easily visualized. NOSE - Midline and without cyanosis. No epistaxis or purulent drainage noted. Septum midline without deviation or septal hematoma noted. MOUTH/OROPHARYNX - Without perioral cyanosis. Buccal mucosa pink and moist and without leukoplakia. Tongue midline with equal elevation of palate bilaterally. No tonsillar hypertrophy, erythema, or exudates noted. dentition noted. NECK - Neck with FROM. Supple to palpation. lymphadenopathy noted. No nuchal rigidity. LUNGS - Chest wall symmetric without accessory muscle use, intercostals retractions, or central cyanosis. Normal vesicular breath sounds CTA B/L. No wheezes, rales, or rhonchi appreciated. CARDIAC - RRR with S1/S2. No murmur, rubs, or gallops appreciated. ABDOMEN - Abdominal contour without pulsations or visible masses. BS normoactive all four quadrants. No tenderness, palpable masses, hepatosplenomegaly, or ascites noted. EXTREMITIES - No clubbing or peripheral cyanosis. No pretibial edema present. +3/5 radial, posterior tibial, and dorsalis pedis pulses palpated throughout. + 5/5 strength noted in UE/LE bilaterally. NEUROLOGIC - Cranial nerves II through XII grossly intact. Sensory intact to light touch throughout. Patellar reflexes +2/4. PSYCH - A&Ox3 and cooperates fully with examiner. Pt is very pleasant and interacts well with examiner. Course Administered Medications Diltiazem HCl 125 mg/ Dextrose 125 mls @ 5 mls/hr IV .Q24H [facility]; Protocol Stop: 08/03/20 13:44 Last Admin: 07/04/20 14:38 Dose: Not Given Documented by: [id number] Discontinued Medications Dexamethasone (Dexamethasone Sod Inj 10 Mg/Ml Vial) 6 mg IV NOW ONE Stop: 07/04/20 13:42 Last Admin: 07/04/20 15:20 Dose: 6 mg Documented by: [id number] Diltiazem HCl (Diltiazem Hcl 5 Mg/Ml 5 Ml Vial) 20 mg IV NOW STA Stop: 07/04/20 12:25 Last Admin: 07/04/20 12:53 Dose: 20 mg Documented by: [id number] Cosigned by: [id number] Magnesium Sulfate/Dextrose (Magnesium Sulfate / D5w) 1 gm in 100 mls @ 200 mls/hr IV Q30M [facility] Stop: 07/04/20 13:23 Last Infusion: 07/04/20 14:42 Dose: 0 mls/hr Documented by: [id number] Admin: 07/04/20 13:35 Dose: 200 mls/hr Documented by: [id number] Infusion: 07/04/20 13:23 Dose: 0 mls/hr Documented by: [id number] Admin: 07/04/20 12:53 Dose: 200 mls/hr Documented by: [id number] Magnesium Sulfate/Dextrose (Magnesium Sulfate / D5w) 1 gm in 100 mls @ 200 mls/hr IV Q30M [facility] Stop: 07/04/20 13:23 Last Admin: 07/04/20 15:20 Dose: 200 mls/hr Documented by: [id number] Cefepime HCl (Maxipime) 2,000 mg in 20 mls @ 5 mls/min IV NOW STA; Protocol Stop: 07/04/20 13:58 Last Admin: 07/04/20 15:20 Dose: 5 mls/min Documented by: [id number] Sodium Chloride (Nss) 500 mls @ 999 mls/hr IV .Q31M ONE Stop: 07/04/20 14:39 Last Admin: 07/04/20 15:20 Dose: 999 mls/hr Documented by: [id number] Insulin Human Regular (Novolin-R Insulin Per Unit Charge) 10 units IV NOW STA Stop: 07/04/20 14:10 Last Admin: 07/04/20 15:04 Dose: 10 units Documented by: [id number] Cosigned by: [id number] Miscellaneous (Stat Iv Infusion Titration Per Protocol) 1 ea N/A NOW STA Stop: 07/04/20 13:34 Last Admin: 07/04/20 14:38 Dose: Not Given Documented by: [id number] Ondansetron HCl (Ondansetron Inj 2 Mg/Ml 2 Ml Vial) Confirm Administered Dose 4 mg .ROUTE .STK-MED ONE Stop: 07/04/20 13:28 Last Admin: 07/04/20 13:35 Dose: 4 mg Documented by: [id number] Critical Care Time I have personally spent greater than 90 minutes of critical care time in the direct management of this patient. This includes bedside care, interpretation of diagnostic studies, and testing, discussion with consultants, patient, and family members, and other required patient management activities. This 90 minutes is in excess of all separately billable procedures. Medical Decision Making Differential Diagnosis Reactive airway disease, pneumonia, pneumothorax, COPD, CHF, infections, cardiac ischemia, pulmonary embolism, musculoskeletal, gastrointestinal, as well as other pathologies. Medical Records Attestation: I reviewed the patient's medical records. Home Medications Current Medication List: was personally reviewed by me Laboratory Data Attestation: I reviewed the patient's lab results. Result diagrams: 07/04/20 13:16 07/04/20 13:16 Lab Results 07/04/20 07/04/20 07/04/20 Range/Units 12:54 13:00 13:16 WBC 7.90 (4.8-10.8) K/uL RBC 3.92 L (4.7-6.1) M/uL Hgb 12.3 L (14.0-18.0) g/dL Hct 37.6 L (42-52) % MCV 95.9 (80-100) fL MCH 31.4 (25-34) pg MCHC 32.7 (32-36) g/dL RDW Std Deviation 47.6 H (36.4-46.3) fL RDW Coeff of Samara 14.0 (11.5-14.5) % Plt Count 221 (130-400) K/uL MPV 11.0 H (7.4-10.4) fL Immature Gran % (Auto) 0.4 % Neut % (Auto) 82.3 % Lymph % (Auto) 10.1 % [place] % (Auto) 7.0 % Eos % (Auto) 0.1 % Baso % (Auto) 0.1 % Neut # (Auto) 6.50 (1.4-6.5) K/uL Lymph # (Auto) 0.80 L (1.2-3.4) K/uL [place] # (Auto) 0.55 (0.11-0.59) K/uL Eos # (Auto) 0.01 (0-0.5) K/uL Baso # (Auto) 0.01 (0-0.2) K/uL Immature Gran # (Auto) 0.03 H (0.00-0.02) K/uL ESR (0-14) mm/hr PT (9.0-12.0) Seconds INR (0.9-1.1) APTT (21.0-31.0) Seconds PTT Ratio D-Dimer (0-500) ug/L FEU Sodium (136-145) mmol/L Potassium (3.5-5.1) mmol/L Chloride (98-107) mmol/L Carbon Dioxide (21-32) mmol/L Anion Gap (3-11) BUN (7-18) mg/dl Creatinine (0.6-1.4) mg/dl Est Cr Clr Drug Dosing ml/min Est GFR ( Amer) Est GFR (Non-Af Amer) BUN/Creatinine Ratio (10-20) Glucose (70-99) mg/dl Calcium (8.5-10.1) mg/dl Ferritin (8-388) ng/ml Total Bilirubin (0.2-1) mg/dl AST (15-37) U/L ALT (12-78) U/L Alkaline Phosphatase (45-117) U/L Lactate Dehydrogenase (87-241) U/L Total Creatine Kinase (39-308) U/L CK-MB (CK-2) (0.5-3.6) ng/ml CK/CKMB % Calc (0-3.0) Troponin I (0-0.045) ng/ml C-Reactive Protein (0-0.29) mg/dl NT-Pro-B Natriuret Pep (0-900) pg/ml Total Protein (6.4-8.2) gm/dl Albumin (3.4-5.0) gm/dl Globulin (2.5-4.0) gm/dl Albumin/Globulin Ratio (0.9-2) Beta-Hydroxybutyric Acd (0.2-2.81) mg/dl SARS-CoV-2, RNA, NAAT POSITIVE A* (NEGATIVE) SARS-CoV-2 Ag (Rapid) Positive A* (Negative) Blood Type Antibody Screen 07/04/20 07/04/20 07/04/20 Range/Units 13:16 13:16 13:16 WBC (4.8-10.8) K/uL RBC (4.7-6.1) M/uL Hgb (14.0-18.0) g/dL Hct (42-52) % MCV (80-100) fL MCH (25-34) pg MCHC (32-36) g/dL RDW Std Deviation (36.4-46.3) fL RDW Coeff of Samara (11.5-14.5) % Plt Count (130-400) K/uL MPV (7.4-10.4) fL Immature Gran % (Auto) % Neut % (Auto) % Lymph % (Auto) % [place] % (Auto) % Eos % (Auto) % Baso % (Auto) % Neut # (Auto) (1.4-6.5) K/uL Lymph # (Auto) (1.2-3.4) K/uL [place] # (Auto) (0.11-0.59) K/uL Eos # (Auto) (0-0.5) K/uL Baso # (Auto) (0-0.2) K/uL Immature Gran # (Auto) (0.00-0.02) K/uL ESR (0-14) mm/hr PT 39.5 H (9.0-12.0) Seconds INR 4.0 H (0.9-1.1) APTT 62.8 H* (21.0-31.0) Seconds PTT Ratio 2.3 D-Dimer (0-500) ug/L FEU Sodium 135 L (136-145) mmol/L Potassium 4.6 (3.5-5.1) mmol/L Chloride 104 (98-107) mmol/L Carbon Dioxide 23 (21-32) mmol/L Anion Gap 9.0 (3-11) BUN 24 H (7-18) mg/dl Creatinine 1.87 H (0.6-1.4) mg/dl Est Cr Clr Drug Dosing 34.0 ml/min Est GFR ( Amer) 40.4 Est GFR (Non-Af Amer) 34.9 BUN/Creatinine Ratio 13.0 (10-20) Glucose 441 H* (70-99) mg/dl Calcium 8.6 (8.5-10.1) mg/dl Ferritin (8-388) ng/ml Total Bilirubin 1.0 (0.2-1) mg/dl AST 39 H (15-37) U/L ALT 21 (12-78) U/L Alkaline Phosphatase 119 H (45-117) U/L Lactate Dehydrogenase (87-241) U/L Total Creatine Kinase 613 H (39-308) U/L CK-MB (CK-2) 8.6 H (0.5-3.6) ng/ml CK/CKMB % Calc 1.4 (0-3.0) Troponin I 0.140 H* (0-0.045) ng/ml C-Reactive Protein (0-0.29) mg/dl NT-Pro-B Natriuret Pep 60752 H (0-900) pg/ml Total Protein 7.0 (6.4-8.2) gm/dl Albumin 3.0 L (3.4-5.0) gm/dl Globulin 4.0 (2.5-4.0) gm/dl Albumin/Globulin Ratio 0.7 L (0.9-2) Beta-Hydroxybutyric Acd 8.99 H (0.2-2.81) mg/dl SARS-CoV-2, RNA, NAAT (NEGATIVE) SARS-CoV-2 Ag (Rapid) (Negative) Blood Type Antibody Screen 07/04/20 07/04/20 07/04/20 Range/Units 13:16 13:16 13:16 WBC (4.8-10.8) K/uL RBC (4.7-6.1) M/uL Hgb (14.0-18.0) g/dL Hct (42-52) % MCV (80-100) fL MCH (25-34) pg MCHC (32-36) g/dL RDW Std Deviation (36.4-46.3) fL RDW Coeff of Samara (11.5-14.5) % Plt Count (130-400) K/uL MPV (7.4-10.4) fL Immature Gran % (Auto) % Neut % (Auto) % Lymph % (Auto) % [place] % (Auto) % Eos % (Auto) % Baso % (Auto) % Neut # (Auto) (1.4-6.5) K/uL Lymph # (Auto) (1.2-3.4) K/uL [place] # (Auto) (0.11-0.59) K/uL Eos # (Auto) (0-0.5) K/uL Baso # (Auto) (0-0.2) K/uL Immature Gran # (Auto) (0.00-0.02) K/uL ESR 54 H (0-14) mm/hr PT (9.0-12.0) Seconds INR (0.9-1.1) APTT (21.0-31.0) Seconds PTT Ratio D-Dimer (0-500) ug/L FEU Sodium (136-145) mmol/L Potassium (3.5-5.1) mmol/L Chloride (98-107) mmol/L Carbon Dioxide (21-32) mmol/L Anion Gap (3-11) BUN (7-18) mg/dl Creatinine (0.6-1.4) mg/dl Est Cr Clr Drug Dosing ml/min Est GFR ( Amer) Est GFR (Non-Af Amer) BUN/Creatinine Ratio (10-20) Glucose (70-99) mg/dl Calcium (8.5-10.1) mg/dl Ferritin 1271.8 H (8-388) ng/ml Total Bilirubin (0.2-1) mg/dl AST (15-37) U/L ALT (12-78) U/L Alkaline Phosphatase (45-117) U/L Lactate Dehydrogenase (87-241) U/L Total Creatine Kinase (39-308) U/L CK-MB (CK-2) (0.5-3.6) ng/ml CK/CKMB % Calc (0-3.0) Troponin I (0-0.045) ng/ml C-Reactive Protein 9.06 H (0-0.29) mg/dl NT-Pro-B Natriuret Pep (0-900) pg/ml Total Protein (6.4-8.2) gm/dl Albumin (3.4-5.0) gm/dl Globulin (2.5-4.0) gm/dl Albumin/Globulin Ratio (0.9-2) Beta-Hydroxybutyric Acd (0.2-2.81) mg/dl SARS-CoV-2, RNA, NAAT (NEGATIVE) SARS-CoV-2 Ag (Rapid) (Negative) Blood Type O Negative Antibody Screen NEGATIVE 07/04/20 07/04/20 Range/Units 13:16 13:16 WBC (4.8-10.8) K/uL RBC (4.7-6.1) M/uL Hgb (14.0-18.0) g/dL Hct (42-52) % MCV (80-100) fL MCH (25-34) pg MCHC (32-36) g/dL RDW Std Deviation (36.4-46.3) fL RDW Coeff of Samara (11.5-14.5) % Plt Count (130-400) K/uL MPV (7.4-10.4) fL Immature Gran % (Auto) % Neut % (Auto) % Lymph % (Auto) % [place] % (Auto) % Eos % (Auto) % Baso % (Auto) % Neut # (Auto) (1.4-6.5) K/uL Lymph # (Auto) (1.2-3.4) K/uL [place] # (Auto) (0.11-0.59) K/uL Eos # (Auto) (0-0.5) K/uL Baso # (Auto) (0-0.2) K/uL Immature Gran # (Auto) (0.00-0.02) K/uL ESR (0-14) mm/hr PT (9.0-12.0) Seconds INR (0.9-1.1) APTT (21.0-31.0) Seconds PTT Ratio D-Dimer 330 (0-500) ug/L FEU Sodium (136-145) mmol/L Potassium (3.5-5.1) mmol/L Chloride (98-107) mmol/L Carbon Dioxide (21-32) mmol/L Anion Gap (3-11) BUN (7-18) mg/dl Creatinine (0.6-1.4) mg/dl Est Cr Clr Drug Dosing ml/min Est GFR ( Amer) Est GFR (Non-Af Amer) BUN/Creatinine Ratio (10-20) Glucose (70-99) mg/dl Calcium (8.5-10.1) mg/dl Ferritin (8-388) ng/ml Total Bilirubin (0.2-1) mg/dl AST (15-37) U/L ALT (12-78) U/L Alkaline Phosphatase (45-117) U/L Lactate Dehydrogenase 272 H (87-241) U/L Total Creatine Kinase (39-308) U/L CK-MB (CK-2) (0.5-3.6) ng/ml CK/CKMB % Calc (0-3.0) Troponin I (0-0.045) ng/ml C-Reactive Protein (0-0.29) mg/dl NT-Pro-B Natriuret Pep (0-900) pg/ml Total Protein (6.4-8.2) gm/dl Albumin (3.4-5.0) gm/dl Globulin (2.5-4.0) gm/dl Albumin/Globulin Ratio (0.9-2) Beta-Hydroxybutyric Acd (0.2-2.81) mg/dl SARS-CoV-2, RNA, NAAT (NEGATIVE) SARS-CoV-2 Ag (Rapid) (Negative) Blood Type Antibody Screen Imaging Data Radiologist's Impression: [facility], [phone] XRay Report Patient: PILLO WILLIAMSON [id number] Date: 07/04/20MR#: [id number]: [facility]:[id number]: BOX ABirt Date: 1945[facility] Zip: [place] [id number]: 75Location: EDSex: MRoom/Bed:Att Phy:Diagnosis: SOB, CARDIAC ASSESSMENTPri Phy: JOSÉ MIGUEL LingService Date: 07/04/20Fam Phy:Interpreting Phy: Good VuongAdmit Phy: Ordering Phy: Elvis Harris MD cc: ~ XR chest 1V portable HISTORY: 75 years-old Male Chest Pain acute atypical chest pain COMPARISON: Chest radiograph 01/03/2020 TECHNIQUE: Portable AP view of the chest FINDINGS: Cardiac silhouette is enlarged. Mild right hemidiaphragm elevation. Mild chronic interstitial coarsening with emphysema. No pneumothorax, pleural effusion, airspace consolidation or overt pulmonary edema. Degenerative changes of the shoulders and spine. IMPRESSION: No acute process. ACT 112: Negative or not required by law. The above report was generated using voice recognition software. It may contain grammatical, syntax or spelling errors. Electronically signed by: Moises Vuong M.D. 07/04/2020 12:26 PM Dictated: 07/04/201206Transcribed: 07/04/201206 ECG Data Attestation: I personally reviewed and interpreted this ECG as follows: Indication: + tachycardia Rate (beats per minute): 123 Rhythm: + atrial fibrillation (rvr) ECG Intervals/blocks: + First degree AV block and + Normal QT-c (455) ECG [place]: + Normal ECG ST segments: no ST depression and no ST elevation ECG Findings: + PVCs Comparison ECG Date: from (01/03/2020) Change: the following changes noted (Afib has replaced NSR) MDM Narrative This is a 75-year-old male who presents emergency department with a new onset A. fib with RVR. Patient was swabbed for coronavirus and is positive. He is requiring oxygen here in the emergency department therefore he was given Decadron. He was typed and screened and started on cefepime. His blood sugar and troponin were also found to be elevated. He was given insulin here in the emergency department and also Cardizem. Due to the multiple comorbidities as well as a secondary inflammatory markers I did discuss the case with the hospitalist service who did agree to meet the patient. Patient and caretakers are in agreement with the treatment plan. Patient was seen and evaluated as above in room B8. Review was performed of nursing notes and vital signs. I did review pertinent previous visits and pat ient history. After obtaining a thorough history and physical examination the above work up was performed. While in the department, I personally reevaluated the patient several times and each time the patient was found to be resting comfortably. The patient was educated upon management, educated upon todays findings/results, educated upon importance of follow up from today's visit, educated upon symptoms in which to return, had questions answered prior to discharge, verbalized understanding, and was discharged home in good condition. An order was placed for continuous cardiac monitoring. The monitor shows a rate of 89 with A fib rhythm. The patient was evaluated during the global COVID-19 pandemic, and that diagnosis was suspected/considered upon their initial presentation. Their evaluation, treatment and testing was consistent with current guidelines for patients who present with complaints or symptoms that may be related to COVID- 19. Impression & Plan COVID-19, Acute hyperglycemia, Elevated troponin, Atrial fibrillation, new onset Discharge Plan Visit Data Chief Complaint: Cardiac Assessment Stated Complaint: SOB, CARDIAC ASSESSMENT ED Provider: Elvis Harris Discharge Problem: COVID-19, Acute hyperglycemia, Elevated troponin, Atrial fibrillation, new onset Forms Stand Alone Forms: [facility] [employer] Prescriptions Prescriptions: No Action glipizide 5 mg Tablet 2.5 mg PO DAILY RF: 0 ascorbic acid (vitamin C) [Vitamin C] 500 mg Tablet 500 mg PO 3XWK RF: 0 pantoprazole 40 mg Tablet,Delayed Release (Dr/Ec) 40 mg PO BID RF: 0 spironolactone 25 mg Tablet 12.5 mg PO DAILY Qty: 30 RF: 0 isosorbide mononitrate 60 mg Tablet Extended Release 24 Hr 60 mg PO DAILY Qty: 30 RF: 0 hydralazine 10 mg Tablet 10 mg PO TID RF: 0 loperamide [Imodium A-D] 2 mg Capsule 2 mg PO QID PRN (Reason: Diarrhea) RF: 0 lisinopril 20 mg Tablet 20 mg PO DAILY RF: 0 calcium polycarbophil [Fiber-Lax] 625 mg Tablet 625 mg PO DAILY RF: 0 furosemide 20 mg Tablet 20 mg PO DAILY RF: 0 warfarin 1 mg Tablet 1 mg PO 4XWK RF: 0 atorvastatin 80 mg Tablet 80 mg PO HS RF: 0 ferrous sulfate [iron] 325 mg (65 mg iron) Tablet 325 mg PO 3XWK RF: 0 nitroglycerin [Nitrostat] 0.4 mg Tablet, Sublingual 0.4 mg Sublingual DIRECTED PRN (Reason: Chest Pain) RF: 0 magnesium oxide 400 mg Capsule 400 mg PO BID RF: 0 cyanocobalamin (vitamin B-12) [Vitamin B-12] 1,000 mcg Tablet 1,000 mcg PO DAILY RF: 0 tamsulosin 0.4 mg Capsule 0.4 mg PO HS RF: 0 paroxetine HCl 40 mg Tablet 40 mg PO QAM RF: 0 carvedilol 12.5 mg Tablet 12.5 mg PO BID RF: 0 warfarin 2 mg Tablet 2 mg PO 3XWK RF: 0
[2020-07-04] MEDS ORDERED: GLUCOSE 10 TABS/TUBE PO PRN (19:36)
[2020-07-04] MEDS ORDERED: GLUCAGON FOR INJ 1 MG VIAL SQ PRN (19:36)
[2020-07-04] MEDS ORDERED: GLUCOSE 40% GEL 15 GM TUBE PO PRN (19:36)
[2020-07-04] MEDS ORDERED: DEXTROSE 50% 50 ML SYRINGE IV PRN (19:36)
[2020-07-04] MEDS ORDERED: CARBOHYDRATES FOR HYPOGLYCEMIA PO PRN (19:36)
[2020-07-04] MEDS ORDERED: REMDESIVIR 200 MG in SODIUM CHLORIDE 0.9% 210 ML IV ONE (20:30)
[2020-07-04 20:31] LABS: D Dimer 360 ug/L FEU (0-500)
[2020-07-04] MEDS ORDERED: INSULIN GLARGINE SOLOSTAR 100 UNITS/ML 3 ML PEN SC SCH (21:00)
[2020-07-04] MEDS ORDERED: SODIUM CHLORIDE 0.9% 10ML FLUSH IV ONE (22:30)
[2020-07-04] MEDS: dilTIAZem HCL 30 MG TAB PO SCH (22:31)
[2020-07-04] MEDS: ATORVASTATIN 40 MG TAB PO SCH (22:32)
[2020-07-04] MEDS: carvediloL 12.5 MG TAB PO SCH (22:32)
[2020-07-04] MEDS: INSULIN ASPART 100 UNITS/ML 3 ML PEN SC SCH (22:39)
[2020-07-04] MEDS: ALBUMIN 25% 12.5 GM/50 ML VIAL IV SCH (23:24)
[2020-07-05] MEDS: ALBUMIN 25% 12.5 GM/50 ML VIAL IV SCH (00:30)
[2020-07-05 06:38] LABS: Hematocrit (blood only) 38.2 % (42-52); Hemoglobin 12.3 g/dL (14.0-18.0); Immature Granulocytes # (auto) 0.02 K/uL (0.00-0.02); Immature Granulocytes % (auto) 0.2 %; Lymphocytes # (auto) 0.69 K/uL (1.2-3.4); Lymphocytes % (auto) 5.5 %; Mean Corpuscular Hemoglobin 31.2 pg (25-34); Mean Corpuscular Hgb Conc 32.2 g/dL (32-36); Monocytes # (auto) 0.45 K/uL (0.11-0.59); Monocytes % (auto) 3.6 %; Neutrophils # (auto) 11.33 K/uL (1.4-6.5); Neutrophils % (auto) 90.7 %; Platelet Count 207 K/uL (130-400); RDW Coefficient of Variation 14.2 % (11.5-14.5); RDW Standard Deviation 49.6 fL (36.4-46.3); Red Blood Count 3.94 M/uL (4.7-6.1); White Blood Count 12.49 K/uL (4.8-10.8)
[2020-07-05 06:47] LABS: INR 2.5 (0.9-1.1); Prothrombin Time 25.1 Seconds (9.0-12.0)
[2020-07-05 07:06] LABS: Albumin Level 3.1 gm/dl (3.4-5.0); BUN Creatinine Ratio 20.4 (10-20); Calcium 8.9 mg/dl (8.5-10.1); Creatinine Clr Calc Pharmacy 33.2 ml/min; Est GFR (African American) 39.2; Est GFR (Non-African American) 33.8; Potassium 4.4 mmol/L (3.5-5.1)
[2020-07-05] MEDS ORDERED: INSULIN HUMAN REGULAR PER UNIT 10 UNITS in SYRINGE 0 ML IV STA (07:10)
[2020-07-05] MEDS ORDERED: Nursing to Pharmacy Communication SCH (07:15)
[2020-07-05] MEDS ORDERED: PHARMACY GLYCEMIC MGMT CONSULT PRN (07:15)
[2020-07-05 07:25] LABS: Albumin Globulin Ratio 0.8 (0.9-2); Beta-Hydroxybutyrate 7.4 mg/dl (0.2-2.81); Bilirubin,Total 0.7 mg/dl (0.2-1); Total Protein 7.1 gm/dl (6.4-8.2)
[2020-07-05] MEDS ORDERED: INSULIN HUMAN REGULAR PER UNIT 8 UNITS in SYRINGE 7.92 ML IV ONE (07:45)
[2020-07-05] MEDS ORDERED: INSULIN GLARGINE SOLOSTAR 100 UNITS/ML 3 ML PEN SC ONE ×2 (07:45→21:00)
[2020-07-05] MEDS ORDERED: INSULIN HUMAN NPH SC ONE (07:45)
[2020-07-05] MEDS ORDERED: hydrALAZINE HCL 20 MG/ML VIAL IV PRN (08:10)
--- NOTE | 2020-07-05 08:10 | Hospitalist Progress Note ---
Date of Service July 05, 2020 Assessment & Plan (1) Chronic respiratory failure with hypoxia: Austin is a 75yo M inmate with a PMHx of combined sys/sarah CHF, T2DM, HTN, and Afib with RVR on warfarin who presents with 1 week of shortness of breath and found to be COVID positive. Acute Hypoxic Respiratory Failure 2/2 COVID pneumonia - COVID positive - Baseline up to 3-5L oxygen in the past, has not needed baseline O2 int he last few months - On 5L SpO2 ~90% but desats during speaking. - Remdesivir ordered. CrCl >30. - Convalescent plasma ordered. Pt consented for blood. - Decadron 6mg daily x10 days last dose 07/14 - SpO2 goal 90%, NC/Oxy as needed - Recieved cefepime in ED. No signs of bacterial PNA. Defer abx at this time, follow clinically. DVT PPx: COntinue Warfarin Code Status: COnditional Code (2) Type 2 diabetes mellitus: T2DM will initiate glycemic consult additional bolus of insulin regular given in the morning of 07/05 - Glucose 441 on admit. S/p fluids - Hold antiglycemic orals - Glucose checks AC/HS - Lantus 7u, CF 66, Ratio 19 (3) Chronic combined systolic (congestive) and diastolic (congestive) heart failure: Concern with hydration given his marked hyperglycemia and his history of both systolic and diastolic heart failure. He will remain on Coreg diltiazem and isosorbide. His last ejection fraction was 35%. Troponins trending are low and have peaked at 0.14 continue to trend doubt this is acute [place] or non-STEMI this is most likely demand ischemia in the face of acute Covid infection and possibly even Covid carditis (4) Hyperkalemia: (5) CKD (chronic kidney disease), stage III: Patient is JACOB with CKD 3. Lisinopril was held on presentation he was hydrated with fluids. Blood pressure control becomes an issue lisinopril will be restarted once his renal function returns (6) Atrial fibrillation, permanent: Afib hx RVR after initial rapid response is now rate controlled. He is anticoagulated with warfarin. He remains on nadolol and diltiazem - Admission and Anticipated Discharge Date Admission Date: July 04, 2020 Subjective Patient is breathless with some coughing. He is requiring supplemental oxygen. He overall feels fatigued. Review of Systems Review of Systems: Mild distress and fatigue no headache, blurry or double vision no speech or swallowing issues no chest pain, pressure or palpitations Nonproductive coughing and feelings of breathlessness no abdominal pain, nausea or vomiting, diarrhea or constipation no dysuria, hematuria or frequency no focal joint pain or swelling no back pain, CVA tenderness or radicular pain no bruising, bleeding or rashes no focal signs of weakness or numbness or altered sensation no complaints of anxiety or depression. Physical Exam Physical Exam: The patient appeared well nourished and normally developed. Vital signs as documented. Head exam is normocephalic atraumatic no scleral icterus Neck is without JVD, thyromegaly, or carotid bruits. Lungs bilateral breath sounds with poor air movement throughout Cardiac exam, Rhythm is regular.. Systolic murmur is heard Abdominal exam reveals normal bowel sounds, soft non tender, no masses Extremities are nonedematous and both pedal pulses are present Neurologic exam is alert and oriented, no focal loss of strength or sensation Skin is without bruises or rashes Psychologically is without concerns for anxiety or depression. Results & Data Results & Data ([facility]) Vital Signs (Past 12 Hours) Vital Signs Temp Pulse Pulse Resp BP BP Pulse Ox 07/05/20 08:07 92 H 07/05/20 04:12 98.4 F 93 H 18 152/115 H 91 07/05/20 04:10 98.4 F 93 H 18 152/115 H 91 07/05/20 03:32 98.5 F 92 H 18 162/108 H 91 07/05/20 03:02 98.3 F 93 H 18 162/108 H 93 07/05/20 02:47 98.4 F 94 H 18 156/113 H 92 07/05/20 02:25 98.1 F 97 H 18 159/109 H 94 07/05/20 00:00 102 H 07/04/20 23:07 98.4 F 102 H 22 165/104 H 92 PG Care Time/CCT Total # of Minutes Spent Total Time Spent with Patient: Total time spent is greater than 50% in coordination of care (as documented) at patient's floor/unit and/or counseling patient: Coding Level of Care Code 01699 Subseq Hosp Care Lvl 3 Diagnoses Chronic respiratory failure with hypoxia J96.11 Type 2 diabetes mellitus E11.9 Diabetes mellitus complication status: without complication Diabetes mellitus manager long term care insulin use: without chcf use Chronic combined systolic (congestive) and diastolic (congestive) heart failure I50.42 Hyperkalemia E87.5 CKD (chronic kidney disease), stage III N18.3 Atrial fibrillation, permanent I48.2 (1) Type 2 diabetes mellitus Diabetes mellitus complication status: without complication Diabetes mellitus manager long term care insulin use: without manager long term care use Qualified Code(s): E11.9 - Type 2 diabetes mellitus without complications
[2020-07-05] MEDS: INSULIN ASPART 100 UNITS/ML 3 ML PEN SC SCH ×4 (08:27→21:47)
[2020-07-05] MEDS: dexAMETHasone 6 MG in SYRINGE 0 ML IV SCH (08:34)
[2020-07-05] MEDS: ISOSORBIDE MONO EXTENDED REL 60 MG TABCR PO SCH (08:44)
[2020-07-05] MEDS: carvediloL 12.5 MG TAB PO SCH ×2 (08:44→20:16)
[2020-07-05] MEDS: PARoxetine HCL 20 MG TAB PO SCH (08:44)
[2020-07-05] MEDS: dilTIAZem HCL 30 MG TAB PO SCH ×3 (08:45→20:15)
--- NOTE | 2020-07-05 11:06 | Pharmacy Report ---
Glycemic Control Consultation - Date of Service July 05, 2020 - Scope Scope: Glycemic Pharmacist consulted for glycemic control and to write orders per [facility] inpatient glycemic control protocol. - Objective Weight: 80.9 kg Accuchecks BSG (last 24hrs): 07/04/20 07/04/20 07/04/20 13:16 20:43 20:45 Glucose 441 H* POC Glucose 382 H* 361 H* 07/04/20 07/05/20 07/05/20 20:46 05:44 07:13 Glucose 421 H* POC Glucose 348 H* 396 H* Laboratory Data (last 24hrs): 07/04/20 07/05/20 13:16 05:44 Potassium 4.6 4.4 Carbon Dioxide 23 24 Anion Gap 9.0 8.0 Creatinine 1.87 H 1.92 H Est Cr Clr Drug Dosing 34.0 33.2 Beta-Hydroxybutyric Acd 8.99 H 7.40 H - Recent Pertinent Medications Outpatient Anti-diabetic Regimen: * Glipizide * A1c outdated - reordered for tomorrow The patient is currently receiving: * Basal insulin: Lantus 7 units every 12 hours * Correctional Insulin: Novolog Correction per scale ACHS Goal Range: Low 100 mg/dL - High 140 mg/dL Correction Factor: 55 mg/dL/unit * Prandial insulin: Per carb ratio of 1 unit per 20 grams CHO consumed Risk Factors for Insulin Resistance: * Steroids: dexamethasone 6 mg IV q24h * Infection: COVID-19 * Diet: T2DM - Assessment & Plan Assessment & Plan: ASSESSMENT: * 75 yo M with acute respiratory failure 2nd COVID-19 with BSG >400 mg/dL on pr esentation (prior to steroids), now also receiving dexamethasone. * HS and AM fating BSG's both also close to 400 mg/dL. Anion gap, CO2, sodium all normal - not DKA nor HHS. * Regular insulin 0.1 units/kg x1 now with breakfast * Will utilize weight-based severe stress estimate for basal needs - split 75% NPH and 25% Lantus with breakfast. Will have supplemental Lantus scheduled this evening if BSG remains >180 mg/dL * Will utilize weight-based severe stress estimate for prandial needs as well. Will schedule two overnight checks 2nd severe persistent hyperglycemia overnight into this AM * Lunch BSG still >300 mg/dL - will utilize q2h Novolog (which will stack but will help to get BSG down faster). Due to stacking effects, will temporarily change Novolog parameters to weight-based moderate stress, with plan to transition back to q4h checks at severe stress estimate when BSG falls below 250 mg/dL PLAN FOR INPATIENT GLYCEMIC CONTROL: * Holding outpatient oral diabetes medications * Basal insulin * NPH 30 units SC x1 with breakfast * Lantus 10 units SQ x1 with breakfast. Repeat at HS if BSG >180 mg/dL * Bolus insulin * NovoLog per scale ACHS or Q6hrs while NPO * Goal Range: Low 100 mg/dL - High 140 mg/dL * Correction Factor: 20 mg/dL/unit * Nutritional / Prandial insulin per carb ratio of 1 unit per 7 grams CHO consumed * Please note that the plan above was derived based on current level of insulin resistance and hospital stress. These recommendations are appropriate for inpatient admission only. Plan of care upon discharge will need to be reassessed to avoid potential outpatient hypo/hyperglycemia. Thank you.
--- NOTE | 2020-07-05 11:09 | Billing Data ---
Date of Service July 05, 2020 Coding Level of Care Code 91033 Initial Inpt Care Lvl 3
[2020-07-05] MEDS ORDERED: INSULIN ASPART 100 UNITS/ML 3 ML PEN SC SCH (11:30)
[2020-07-05] MEDS ORDERED: INSULIN ASPART 100 UNITS/ML 3 ML PEN SC STA (12:18)
[2020-07-05] MEDS ORDERED: INSULIN HUMAN REGULAR PER UNIT 8 UNITS in SYRINGE 7.92 ML IV STA (12:19)
[2020-07-05] MEDS ORDERED: dexAMETHasone 6 MG in SYRINGE 0 ML IV SCH (15:00)
[2020-07-05] MEDS: WARFARIN SOD 1 MG TAB PO SCH (17:57)
[2020-07-05] MEDS: REMDESIVIR 100 MG in SODIUM CHLORIDE 0.9% 230 ML IV SCH (20:15)
[2020-07-05] MEDS: ATORVASTATIN 40 MG TAB PO SCH (20:16)
[2020-07-05 20:23] LABS: D Dimer 420 ug/L FEU (0-500)
[2020-07-05] MEDS: SODIUM CHLORIDE 0.9% 10ML FLUSH IV SCH (22:23)
[2020-07-06] MEDS ORDERED: INSULIN ASPART 100 UNITS/ML 3 ML PEN SC SCH
[2020-07-06] MEDS: INSULIN ASPART 100 UNITS/ML 3 ML PEN SC SCH ×6 (00:40→20:58)
[2020-07-06 07:00] LABS: Estimated Average Glucose 220 mg/dl; Hemoglobin A1C 9.3 % (4.5-5.6)
[2020-07-06 07:02] LABS: Prothrombin Time 20.3 Seconds (9.0-12.0)
[2020-07-06] MEDS ORDERED: INSULIN HUMAN NPH SC ONE (09:00)
[2020-07-06] MEDS: dexAMETHasone 6 MG in SYRINGE 0 ML IV SCH (09:18)
[2020-07-06] MEDS: dilTIAZem HCL 30 MG TAB PO SCH ×3 (09:19→21:08)
[2020-07-06] MEDS: ISOSORBIDE MONO EXTENDED REL 60 MG TABCR PO SCH (09:19)
[2020-07-06] MEDS: carvediloL 12.5 MG TAB PO SCH ×2 (09:19→21:08)
[2020-07-06] MEDS: PARoxetine HCL 20 MG TAB PO SCH (09:21)
[2020-07-06] MEDS ORDERED: INSULIN GLARGINE SOLOSTAR 100 UNITS/ML 3 ML PEN SC ONE ×2 (12:30→21:00)
--- NOTE | 2020-07-06 12:37 | Pharmacy Report ---
Pharmacy Glycemic Short Note 2 - Date of Service July 06, 2020 - Glycemic Short BSG Results (Last 24 hours): 07/05/20 07/05/20 07/05/20 14:12 16:16 20:38 POC Glucose 246 H 156 H 96 07/06/20 07/06/20 07/06/20 00:08 04:01 07:33 POC Glucose 90 96 122 H 07/06/20 11:00 POC Glucose 178 H Outpatient Anti-diabetic Regimen: * Glipizide * A1c 9.3% on 07/06/20 Risk Factors for Insulin Resistance: * Steroids: dexamethasone 6 mg IV q24h * Infection: COVID-19 * Diet: T2DM ASSESSMENT: 07/06 * BSG's trended down nicely with aggressive dosing yesterday. A few BSG's below goal range overnight, but no hypoglycemia noted * Now that BSG's are back in goal range (and current parameters caused significant trend down), will reduce NPH slightly and will also slightly lo osen CHO ratio 07/05 * 75 yo M with acute respiratory failure 2nd COVID-19 with BSG >400 mg/dL on presentation (prior to steroids), now also receiving dexamethasone. * HS and AM fating BSG's both also close to 400 mg/dL. Anion gap, CO2, sodium all normal - not DKA nor HHS. * Regular insulin 0.1 units/kg x1 now with breakfast * Will utilize weight-based severe stress estimate for basal needs - split 75% NPH and 25% Lantus with breakfast. Will have supplemental Lantus scheduled this evening if BSG remains >180 mg/dL * Will utilize weight-based severe stress estimate for prandial needs as well. Will schedule two overnight checks 2nd severe persistent hyperglycemia overnight into this AM * Lunch BSG still >300 mg/dL - will utilize q2h Novolog (which will stack but will help to get BSG down faster). Due to stacking effects, will temporarily change Novolog parameters to weight-based moderate stress, with plan to transition back to q4h checks at severe stress estimate when BSG falls below 250 mg/dL PLAN FOR INPATIENT GLYCEMIC CONTROL: * Hold outpatient oral diabetes medications * Basal insulin - decrease NPH * NPH 25 units SQ x1 with breakfast * Lantus 10 units SQ x1 this afternoon * Bolus insulin - loosen CHO ratio * NovoLog per scale ACHS or Q6hrs while NPO * Goal Range: Low 110 mg/dL - High 140 mg/dL * Correction Factor: 20 mg/dL/unit * Nutritional / Prandial insulin per carb ratio of 1 unit per 8 grams CHO consumed
[2020-07-06] MEDS: ACETAMINOPHEN 325 MG TAB PO PRN ×2 (13:51→21:09)
[2020-07-06] MEDS ORDERED: WARFARIN SOD 2 MG TAB PO SCH (16:00)
--- NOTE | 2020-07-06 19:26 | Hospitalist Progress Note ---
Date of Service July 06, 2020 Assessment & Plan (1) Chronic respiratory failure with hypoxia: Austin is a 75yo M inmate with a PMHx of combined sys/sarah CHF, T2DM, HTN, and Afib with RVR on warfarin who presents with 1 week of shortness of breath and found to be COVID positive. Acute Hypoxic Respiratory Failure 2/2 COVID pneumonia - COVID positive - Baseline up to 3-5L oxygen in the past, has not needed baseline O2 int he last few months - On 5L SpO2 ~90% but desats during speaking. - Remdesivir ordered. CrCl >30. - Convalescent plasma ordered. Pt consented for blood. - Decadron 6mg daily x10 days last dose 07/14 - SpO2 goal 90%, NC/Oxy as needed - Recieved cefepime in ED. No signs of bacterial PNA. Defer abx at this time, follow clinically. DVT PPx: COntinue Warfarin Code Status: COnditional Code (2) Type 2 diabetes mellitus: T2DM will initiate glycemic consult additional bolus of insulin regular given in the morning of 07/05 - Glucose 441 on admit. S/p fluids - Hold antiglycemic orals - Glucose checks AC/HS - Lantus 7u, CF 66, Ratio 19 (3) Chronic combined systolic (congestive) and diastolic (congestive) heart failure: Concern with hydration given his marked hyperglycemia and his history of both systolic and diastolic heart failure. He will remain on Coreg diltiazem and isosorbide. His last ejection fraction was 35%. Troponins trending are low and have peaked at 0.14 continue to trend doubt this is acute ME or non-STEMI this is most likely demand ischemia in the face of acute Covid infection and possibly even Covid carditis (4) Hyperkalemia: (5) CKD (chronic kidney disease), stage III: Patient is JACOB with CKD 3. Lisinopril was held on presentation he was hydrated with fluids. Blood pressure control becomes an issue lisinopril will be restarted once his renal function returns (6) Atrial fibrillation, permanent: Afib hx RVR after initial rapid response is now rate controlled. He is anticoagulated with warfarin. He remains on nadolol and diltiazem - Admission and Anticipated Discharge Date Admission Date: July 04, 2020 Subjective Patient is much improved with less coughing. He still is requiring supplemental oxygen. He overall feels fatigued. Review of Systems Review of Systems: Mild distress and fatigue no headache, blurry or double vision no speech or swallowing issues no chest pain, pressure or palpitations Nonproductive coughing and feelings of breathlessness no abdominal pain, nausea or vomiting, diarrhea or constipation no dysuria, hematuria or frequency no focal joint pain or swelling no back pain, CVA tenderness or radicular pain no bruising, bleeding or rashes no focal signs of weakness or numbness or altered sensation no complaints of anxiety or depression. Physical Exam Physical Exam: The patient appeared well nourished and normally developed. Vital signs as documented. Head exam is normocephalic atraumatic no scleral icterus Neck is without JVD, thyromegaly, or carotid bruits. Lungs bilateral breath sounds with poor air movement throughout Cardiac exam, Rhythm is regular.. Systolic murmur is heard Abdominal exam reveals normal bowel sounds, soft non tender, no masses Extremities are nonedematous and both pedal pulses are present Neurologic exam is alert and oriented, no focal loss of strength or sensation Skin is without bruises or rashes Psychologically is without concerns for anxiety or depression. Results & Data Results & Data ([facility]) Vital Signs (Past 12 Hours) Vital Signs Temp Pulse Pulse Resp BP Pulse Ox 07/06/20 15:57 97.5 F L 72 133/81 97 07/06/20 15:23 97.7 F 75 19 126/81 94 07/06/20 10:58 97.7 F 70 18 124/73 93 PG Care Time/CCT Total # of Minutes Spent Total Time Spent with Patient: Total time spent is greater than 50% in coordination of care (as documented) at patient's floor/unit and/or counseling patient: Coding Level of Care Code 60202 Subseq Hosp Care Lvl 3 Diagnoses Chronic respiratory failure with hypoxia J96.11 Type 2 diabetes mellitus E11.9 Diabetes mellitus senior living insulin use: without senior living use Diabetes mellitus complication status: without complication Chronic combined systolic (congestive) and diastolic (congestive) heart failure I50.42 Hyperkalemia E87.5 CKD (chronic kidney disease), stage III N18.3 Atrial fibrillation, permanent I48.2 (1) Type 2 diabetes mellitus Diabetes mellitus long term care phlebotomist insulin use: without long term care phlebotomist use Diabetes mellitus complication status: without complication Qualified Code(s): E11.9 - T ype 2 diabetes mellitus without complications
[2020-07-06 20:01] LABS: D Dimer 420 ug/L FEU (0-500)
[2020-07-06] MEDS: ATORVASTATIN 40 MG TAB PO SCH (21:08)
[2020-07-06] MEDS: REMDESIVIR 100 MG in SODIUM CHLORIDE 0.9% 230 ML IV SCH (21:08)
[2020-07-06] MEDS: SODIUM CHLORIDE 0.9% 10ML FLUSH IV SCH (22:22)
[2020-07-07] MEDS: INSULIN ASPART 100 UNITS/ML 3 ML PEN SC SCH ×6 (00:11→20:50)
[2020-07-07 06:59] LABS: INR 1.8 (0.9-1.1); Prothrombin Time 18.3 Seconds (9.0-12.0)
[2020-07-07] MEDS ORDERED: INSULIN HUMAN NPH SC SCH ×2 (07:30)
--- NOTE | 2020-07-07 07:56 | Hospitalist Progress Note ---
Date of Service July 07, 2020 Assessment & Plan (1) Chronic respiratory failure with hypoxia: Austin is a 75yo M inmate with a PMHx of combined sys/sarah CHF, T2DM, HTN, and Afib with RVR on warfarin who presents with 1 week of shortness of breath and found to be COVID positive. Acute Hypoxic Respiratory Failure 2/2 COVID pneumonia-resolving - COVID positive - - Initiailly on 5L SpO2 ~90% now has been doing well - Remdesivir ordered LD 07/08 - Convalescent plasma ordered. Pt consented for blood. - Decadron 6mg daily x10 days last dose 07/14 - SpO2 goal 89%, NC/Oxy as needed - Received cefepime in ED. No signs of bacterial PNA. Defer abx at this time, follow clinically. DVT PPx: Continue Warfarin Code Status: Conditional Code (2) Type 2 diabetes mellitus: T2DM will initiate glycemic consult additional bolus of insulin regular given in the morning of 07/05 - Glucose 441 on admit. S/p fluids - Hold antiglycemic orals - Glucose checks AC/HS - Lantus 7u, CF 66, Ratio 19 (3) Chronic combined systolic (congestive) and diastolic (congestive) heart failure: Concern with hydration given his marked hyperglycemia and his history of both systolic and diastolic heart failure. He will remain on Coreg diltiazem and isosorbide. His last ejection fraction was 35%. Troponins trending are low and have peaked at 0.14, doubt this is acute ME or non-STEMI this is most likely demand ischemia in the face of acute Covid infection and possibly even Covid carditis (4) Hyperkalemia: (5) CKD (chronic kidney disease), stage III: Patient is JACOB with CKD 3. Lisinopril was held on presentation he was hydrated with fluids. restart lisinoprol at lower dose (6) Atrial fibrillation, permanent: Afib hx RVR after initial rapid response is now rate controlled. He is anticoagulated with warfarin. He remains on nadolol and diltiazem. increase diltiazem to 180 - Admission and Anticipated Discharge Date Admission Date: July 04, 2020 Subjective Patient is much improved with less coughing. He still is no longer requiring supplemental oxygen. Review of Systems Review of Systems: Mild distress and fatigue no headache, blurry or double vision no speech or swallowing issues no chest pain, pressure or palpitations Nonproductive coughing and feelings of breathlessness no abdominal pain, nausea or vomiting, diarrhea or constipation no dysuria, hematuria or frequency no focal joint pain or swelling no back pain, CVA tenderness or radicular pain no bruising, bleeding or rashes no focal signs of weakness or numbness or altered sensation no complaints of anxiety or depression. Physical Exam Physical Exam: The patient appeared well nourished and normally developed. Vital signs as documented. Head exam is normocephalic atraumatic no scleral icterus Neck is without JVD, thyromegaly, or carotid bruits. Lungs bilateral breath sounds with poor air movement throughout Cardiac exam, Rhythm is regular.. Systolic murmur is heard Abdominal exam reveals normal bowel sounds, soft non tender, no masses Extremities are nonedematous and both pedal pulses are present Neurologic exam is alert and oriented, no focal loss of strength or sensation Skin is without bruises or rashes Psychologically is without concerns for anxiety or depression. Results & Data Results & Data ([facility]) Vital Signs (Past 12 Hours) Vital Signs Temp Pulse Pulse Pulse Resp BP Pulse Ox 07/07/20 07:31 98 F 76 18 146/105 H 91 07/07/20 03:25 97.7 F 68 20 124/78 97 07/06/20 23:33 98.2 F 78 19 133/85 96 07/06/20 23:10 74 07/06/20 20:36 123/85 07/06/20 19:59 98.1 F 77 21 98 PG Care Time/CCT Total # of Minutes Spent Total Time Spent with Patient: Total time spent is greater than 50% in coordination of care (as documented) at patient's floor/unit and/or counseling patient: Coding Level of Care Code 99135 Subseq Hosp Care Lvl 3 Diagnoses Chronic respiratory failure with hypoxia J96.11 Type 2 diabetes mellitus E11.9 Diabetes mellitus complication status: without complication Diabetes mellitus rn long term care insulin use: without rn long term care use Chronic combined systolic (congestive) and diastolic (congestive) heart failure I50.42 Hyperkalemia E87.5 CKD (chronic kidney disease), stage III N18.3 Atrial fibrillation, permanent I48.2 (1) Type 2 diabetes mellitus Diabetes mellitus complication status: without complication Diabetes mellitus assisted insulin use: without rn long term care use Qualified Code(s): E11.9 - Type 2 diabetes mellitus without complications
[2020-07-07] MEDS: dexAMETHasone 6 MG in SYRINGE 0 ML IV SCH (08:22)
[2020-07-07] MEDS: ISOSORBIDE MONO EXTENDED REL 60 MG TABCR PO SCH (08:24)
[2020-07-07] MEDS: carvediloL 12.5 MG TAB PO SCH ×2 (08:24→20:04)
[2020-07-07] MEDS: PARoxetine HCL 20 MG TAB PO SCH (08:25)
[2020-07-07] MEDS ORDERED: INSULIN GLARGINE SOLOSTAR 100 UNITS/ML 3 ML PEN SC SCH (09:00)
[2020-07-07] MEDS: dilTIAZem HCL 180 MG CAPCR PO SCH (09:21)
[2020-07-07] MEDS: lisinopril 10 MG TAB PO SCH (09:21)
[2020-07-07] MEDS ORDERED: INSULIN GLARGINE SOLOSTAR 100 UNITS/ML 3 ML PEN SC ONE (12:30)
--- NOTE | 2020-07-07 14:35 | Pharmacy Report ---
Glycemic Control Progress Note - Date of Service July 07, 2020 - Scope Glycemic Pharmacist consulted for glycemic control to write orders per [facility] inpatient glycemic control protocol. - Objective Accuchecks BSG(last 24 hours):: 07/06/20 07/06/20 07/07/20 15:54 20:35 00:07 POC Glucose 190 H 126 H 90 07/07/20 07/07/20 07/07/20 03:35 08:06 11:50 POC Glucose 148 H 152 H 346 H* 07/07/20 11:52 POC Glucose 353 H* HbA1c:: Hemoglobin A1c 9.3 % (4.5-5.6) H 07/06/20 05:54 - Recent Pertinent Medications The patient is currently receiving: * Basal insulin: Lantus 10 units every 24 hours + NPH 25 UNITS * Correctional Insulin: Novolog Correction per scale ACHS Goal Range: Low 110 mg/dL - High 140 mg/dL Correction Factor: 20 mg/dL/unit * Prandial insulin: Per carb ratio of 1 unit per 8 grams CHO consumed - Outpatient Anti-Diabetic Meds glipizide 2.5 mg daily - Assessment & Plan ASSESSMENT: * See progress note from 07/05/20 for more background info, in short: * Pt receiving SQ basal bolus insulin regimen for hyperglycemia secondary to baseline DM (outpatient regimen on hold). Patient is COVID positive and is receiving dexamethasone 6 mg IV daily * Patient is currently receiving an average of 49 units of insulin per day * 35 units of basal insulin * 14 units of prandial/correctional insulin * BSGs ranging 90 - 190 mg/dl over the past 24hrs * Changes needed to insulin regimen: * AM Fasting BSG = 152 mg/dl. This is in goal range for patient based on inpatient targets and co-morbidities. This is above yesterday's fasting. With elevated BSG of 353 mg/dL at lunchtime, gave additional 5 units to make 15 units. Also since BSGs increased throughout the day yesterday, increased NPH to 30 units today. * Post-prandial BSGs were elevated yesterday so increased NPH. However, with elevated lunchtime BSG, tightened CF/CR. * Total daily dose = ? units. TBD based upon steroids PLAN FOR INPATIENT GLYCEMIC CONTROL: * INCREASING Lantus to 15 units SQ daily * TIGHTENING correction factor to 18 mg/dl/unit * TIGHTENING carb ratio to 1 unit per 6 grams CHO consumed * Continuing goal range of Low 110 mg/dL - High 140 mg/dL * Please note that the plan above was derived based on current level of insulin resistance and hospital stress. These recommendations are appropriate for in patient admission only. Plan of care upon discharge will need to be reassessed to avoid potential outpatient hypo/hyperglycemia. Thank you.
[2020-07-07] MEDS: WARFARIN SOD 1 MG TAB PO SCH (16:43)
[2020-07-07 19:34] LABS: D Dimer 400 ug/L FEU (0-500)
[2020-07-07] MEDS: REMDESIVIR 100 MG in SODIUM CHLORIDE 0.9% 230 ML IV SCH (20:01)
[2020-07-07] MEDS: SODIUM CHLORIDE 0.9% 10ML FLUSH IV SCH (20:02)
[2020-07-07] MEDS: ATORVASTATIN 40 MG TAB PO SCH (20:04)
[2020-07-07] MEDS: ACETAMINOPHEN 325 MG TAB PO PRN (23:46)
[2020-07-08 07:02] LABS: INR 1.8 (0.9-1.1); Prothrombin Time 18.8 Seconds (9.0-12.0)
[2020-07-08] MEDS ORDERED: INSULIN HUMAN NPH SC SCH (07:30)
--- NOTE | 2020-07-08 08:49 | Pharmacy Report ---
Glycemic Control Progress Note - Date of Service July 08, 2020 - Scope Glycemic Pharmacist consulted for glycemic control to write orders per [facility], located within [facility] inpatient glycemic control protocol. - Objective Accuchecks BSG(last 24 hours):: 07/07/20 07/07/20 07/07/20 11:50 11:52 16:27 POC Glucose 346 H* 353 H* 258 H 07/07/20 07/08/20 20:44 08:00 POC Glucose 178 H 107 H HbA1c:: Hemoglobin A1c 9.3 % (4.5-5.6) H 07/06/20 05:54 - Recent Pertinent Medications The patient is currently receiving: * Basal insulin: Lantus 15 units every 24 hours * Correctional Insulin: Novolog Correction per scale ACHS Goal Range: Low 110 mg/dL - High 140 mg/dL Correction Factor: 18 mg/dL/unit * Prandial insulin: Per carb ratio of 1 unit per 6 grams CHO consumed - Outpatient Anti-Diabetic Meds glipizide 2.5 mg daily - Assessment & Plan ASSESSMENT: * See progress note from 07/05/20 for more background info, in short: * Pt receiving SQ basal bolus insulin regimen for hyperglycemia secondary to baseline DM (outpatient regimen on hold),stress/infection (patient COVID positive on dexamethasone 6 mg IV daily). * Patient is currently receiving an average of 86 units of insulin per day * 45 units of basal insulin * 41 units of prandial/correctional insulin * BSGs ranging 152 - 353 mg/dl over the past 24hrs * Changes needed to insulin regimen: * AM Fasting BSG = 107 mg/dl. This is in goal range for patient based on inpatient targets and co-morbidities. Will reduce Lantus to 12 units for now. Patient received about 20 units of correctional insulin yesterday. Will increase NPH by 15 units to compensate. * Post-prandial BSGs were elevated. Increased NPH dramatically so will continue CF/CR for now. * Total daily dose = ~100 units. Increased insulin. PLAN FOR INPATIENT GLYCEMIC CONTROL: * DECREASING Lantus to 12 units SQ daily + INCREASING NPH to 45 units daily * Continuing correction factor of 18 mg/dl/unit * Continuing carb ratio of 1 unit per 6 grams CHO consumed * Continuing goal range of Low 110 mg/dL - High 140 mg/dL * Please note that the plan above was derived based on current level of insulin resistance and hospital stress. These recommendations are appropriate for inpatient admission only. Plan of care upon discharge will need to be reassessed to avoid potential outpatient hypo/hyperglycemia. Thank you.
[2020-07-08] MEDS ORDERED: INSULIN GLARGINE SOLOSTAR 100 UNITS/ML 3 ML PEN SC SCH ×2 (09:00)
[2020-07-08] MEDS: INSULIN ASPART 100 UNITS/ML 3 ML PEN SC SCH ×4 (09:32→20:47)
[2020-07-08] MEDS: dexAMETHasone 6 MG in SYRINGE 0 ML IV SCH (09:33)
[2020-07-08] MEDS: ISOSORBIDE MONO EXTENDED REL 60 MG TABCR PO SCH (09:33)
[2020-07-08] MEDS: PARoxetine HCL 20 MG TAB PO SCH (09:34)
[2020-07-08] MEDS: lisinopril 10 MG TAB PO SCH (09:34)
[2020-07-08] MEDS: dilTIAZem HCL 180 MG CAPCR PO SCH (09:34)
[2020-07-08] MEDS: carvediloL 12.5 MG TAB PO SCH ×2 (09:35→20:40)
--- NOTE | 2020-07-08 13:41 | Discharge Summary ---
Date of Service July 08, 2020 Admission HPI Per Admitting Provider Austin is a 75yo M inmate with a PMHx of combined sys/sarah CHF, T2DM, HTN, and Afib with RVR on warfarin who presents with 1 week of shortness of breath and found to be COVID positive. 1 week several episodes of shortness of breath. He is able to catch his breath normally, but the last week he was persistently short of breath and had difficulty sleepng. He had cough in the past week which went away Thursday (2 days ago). Nonproductive. No shortness of currently, was sjhort of breath at rest prior to arrival and O2. He has been on baseline oxygen intermittently in the past. Has had a heart attack 2x, last 2 years ago and transiently required oxygen after. No fevers but felt warm. No chills. NO chest pain, no chest pressure. ENdoreses some lower rib pain. He has had some intermittent nausea. Has had diarrhea x1 week, very loose BMs a 4-5x per day. Reports his stool is yellow in color. No blood. Body aches 'all the time' which were worse in the last week. Tylenol helps 2x every 6 hours. Meds: Reviewed MedHx: CAD w/ TX with balloon angioplastly but no stents or bipass, T2DM on glipizie, Afib on warfarin, CHF on lasix, COPD not on any basline inhalers, CKD not on dialysis., Allergies: NKDA Social: Inmate. Past tobacco use non in last 40 years. EtoH. No recreational drug use. CODE STATUS: Conditional Code. No ventilator under any circumstances, but does want chest compressions, shock, and meds. Principal Diagnosis Hypoxia due to the pneumonia from COVID-19 Discharge Exam The patient appeared well Vital signs as documented. Lungs are clear to auscultation and appear unlabored Cardiac exam, Rhythm is regular.. No murmurs, rubs or gallops. Abdominal exam reveals normal bowel sounds, soft non tender, no masses Extremities are nonedematous and both pedal pulses are normal. Neurologic exam is alert and oriented, no focal loss of strength or sensation Skin is without bruises or rashes Psychologically is without concerns for anxiety or depression. Discharge Data Allergies Allergy/AdvReac Type Severity Reaction Status Date / Time No Known Allergies Allergy Verified 07/04/20 13:18 Consultations 07/04/20 13:47 ED Decision to Admit Stat Diabetes Follow up Diabetes Follow-up Needed for HgbA1c >9% Hospital Course (1) Chronic respiratory failure with hypoxia: Austin is a 75yo M inmate with a PMHx of combined sys/sarah CHF, T2DM, HTN, and Afib with RVR on warfarin who presents with 1 week of shortness of breath and found to be COVID positive. Acute Hypoxic Respiratory Failure 2/2 COVID pneumonia-resolving - COVID positive - - Initiailly on 5L SpO2 ~90% now has been doing well just in the room air - Remdesivir ordered LD 07/08 - Convalescent plasma ordered. Pt consented for blood. - Decadron 6mg daily x10 days last dose 07/14 - - Received cefepime in ED. No signs of bacterial PNA. Defer abx at this time, follow clinically. DVT PPx: Continue Warfarin Code Status: Conditional Code (2) Type 2 diabetes mellitus: T2DM will initiate glycemic consult additional bolus of insulin regular given in the morning of 07/05 - Glucose 441 on admit. S/p fluids -Patient going home on increased oral medications during dexamethasone use (3) Chronic combined systolic (congestive) and diastolic (congestive) heart failure: Concern with hydration given his marked hyperglycemia and his history of both systolic and diastolic heart failure. He will remain on Coreg diltiazem and isosorbide. His last ejection fraction was 35%. Troponins trending are low and have peaked at 0.14, doubt this is acute TX or non-STEMI this is most likely demand ischemia in the face of acute Covid infection and possibly even Covid carditis (4) Hyperkalemia: (5) CKD (chronic kidney disease), stage III: Patient is JACOB with CKD 3. Lisinopril was held on presentation he was hydrated with fluids. restart lisinoprol at lower dose (6) Atrial fibrillation, permanent: Afib hx RVR after initial rapid response is now rate controlled. Patient transition to Cardizem 180-day. he is anticoagulated with warfarin. He remains on nadolol and diltiazem. increase diltiazem to 180 - Total Time Total Time Spent Total Time Spent (In Minutes): It required greater than 30 minutes to prepare this patient for discharge Discharge Plan Discharge Items [facility] Disposition: [facility] Reason For Visit: COVID, SHORTNESS OF BREATH Discharge Diagnosis: covid 19 diabetes worsening from steroids afib Activity: Resume your previous activity Non-emergency contact: Primary Care Provider Call non-emergency contact if: you have any medication questions Follow-up/Referrals: Sushil VALDEZ [Primary Care Provider] - Diet: Carb Consistent or DM2 Addtl Attending Provider Instructions: Pt should be on dexamethasone 6 mg daily with last dose 07/14 while on the dexamethasone we recommend increasing his glyburide, it can return to normal dose of 2.5 mg on 07/16 there has been some medicine changes while here and ill, his antihypertensive medicines may require attention as he improved Home Isolation COVID-19 Instructions The following information about Home Isolation is from the CDC Website: https://www.cdc.gov/coronavirus/2019-ncov/hcp/tbrxmqlf-bcofmlz-inieag.html Stay home except to get medical care People who are mildly ill with COVID-19 are able to isolate at home during their illness. You should restrict activities outside your home, except for getting medical care. Do not go to work, school, or public areas. Avoid using public transportation, ride-sharing, or taxis. Separate yourself from other people and animals in your home People: As much as possible, you should stay in a specific room and away from other people in your home. Also, you should use a separate bathroom, if available. Animals: You should restrict contact with pets and other animals while you are sick with COVID-19, just like you would around other people. Although there have not been reports of pets or other animals becoming sick with COVID-19, it is still recommended that people sick with COVID-19 limit contact with animals until more information is known about the virus. When possible, have another member of your household care for your animals while you are sick. If you are sick with COVID-19, avoid contact with your pet, including petting, snuggling, being kissed or licked, and sharing food. If you must care for your pet or be around animals while you are sick, wash your hands before and after you interact with pets and wear a face mask. Call ahead before visiting your doctor If you have a medical appointment, call the healthcare provider and tell them that you have or may have COVID-19. This will help the healthcare providers office take steps to keep other people from getting infected or exposed. Wear a face mask You should wear a face mask when you are around other people (e.g., sharing a room or vehicle) or pets and before you enter a healthcare providers office. If you are not able to wear a face mask (for example, because it causes trouble breathing), then people who live with you should not stay in the same room with you, or they should wear a face mask if they enter your room. Cover your coughs and sneezes Cover your mouth and nose with a tissue when you cough or sneeze. Throw used tissues in a lined trash can. Immediately wash your hands with soap and water for at least 20 seconds or, if soap and water are not available, clean your hands with an alcohol-based hand executive sales assistant that contains at least 60% alcohol. Clean your hands often Wash your hands often with soap and water for at least 20 seconds, especially after blowing your nose, coughing, or sneezing; going to the bathroom; and befo re eating or preparing food. If soap and water are not readily available, use an alcohol-based hand executive sales assistant with at least 60% alcohol, covering all surfaces of your hands and rubbing them together until they feel dry. Soap and water are the best option if hands are visibly dirty. Avoid touching your eyes, nose, and mouth with unwashed hands. Avoid sharing personal household items You should not share dishes, drinking glasses, cups, eating utensils, towels, or bedding with other people or pets in your home. After using these items, they should be washed thoroughly with soap and water. Clean all high-touch surfaces everyday High touch surfaces include counters, tabletops, doorknobs, bathroom fixtures, toilets, phones, keyboards, tablets, and bedside tables. Also, clean any surfaces that may have blood, stool, or body fluids on them. Use a household cleaning spray or wipe, according to the label instructions. Labels contain instructions for safe and effective use of the cleaning product including precautions you should take when applying the product, such as wearing gloves and making sure you have good ventilation during use of the product. Monitor your symptoms Seek prompt medical attention if your illness is worsening (e.g., difficulty breathing).Beforeseeking care, call your healthcare provider and tell them that you have, or are being evaluated for, COVID-19. Put on a face mask before you enter the facility. These steps will help the healthcare providers office to keep other people in the office or waiting room from getting infected or exposed. Ask your healthcare provider to call the local or state health department. Persons who are placed under active monitoring or facilitated self- monitoring should follow instructions provided by their local health department or occupational health professionals, as appropriate. When working with your local health department check their available hours. If you have a medical emergency and need to call 911, notify the dispatch personnel that you have, or are being evaluated for COVID-19. If possible, put on a face mask before emergency medical services arrive. Discontinuing home isolation Patients with confirmed COVID-19 should remain under home isolation precautions until the risk of secondary transmission to others is thought to be low. The decision to discontinue home isolation precautions should be made on a [id number] basis, in consultation with healthcare providers and [facility] and [facility] health departments. Pending Studies at Discharge: No Stand-Alone Forms: [facility] Skilled Items Patient informed of condition?: Yes Discharge Level of Care: Other Communicable Disease: Yes Discharge Prognosis: Stable Lines: None Urinary Catheter: No Medications and DC Order Prescriptions: New diltiazem HCl 180 mg Capsule,Extended Release 24hr 180 mg PO QAM Qty: 90 RF: 0 Continued ascorbic acid (vitamin C) [Vitamin C] 500 mg Tablet 500 mg PO 3XWK RF: 0 pantoprazole 40 mg Tablet,Delayed Release (Dr/Ec) 40 mg PO BID RF: 0 isosorbide mononitrate 60 mg Tablet Extended Release 24 Hr 60 mg PO DAILY Qty: 30 RF: 0 loperamide [Imodium A-D] 2 mg Capsule 2 mg PO QID PRN (Reason: Diarrhea) RF: 0 calcium polycarbophil [Fiber-Lax] 625 mg Tablet 625 mg PO DAILY RF: 0 warfarin 1 mg Tablet 1 mg PO 4XWK RF: 0 atorvastatin 80 mg Tablet 80 mg PO HS RF: 0 ferrous sulfate [iron] 325 mg (65 mg iron) Tablet 325 mg PO 3XWK RF: 0 nitroglycerin [Nitrostat] 0.4 mg Tablet, Sublingual 0.4 mg Sublingual DIRECTED PRN (Reason: Chest Pain) RF: 0 magnesium oxide 400 mg Capsule 400 mg PO BID RF: 0 cyanocobalamin (vitamin B-12) [Vitamin B-12] 1,000 mcg Tablet 1,000 mcg PO DAILY RF: 0 tamsulosin 0.4 mg Capsule 0.4 mg PO HS RF: 0 paroxetine HCl 40 mg Tablet 40 mg PO QAM RF: 0 carvedilol 12.5 mg Tablet 12.5 mg PO BID RF: 0 warfarin 2 mg Tablet 2 mg PO 3XWK RF: 0 Changed lisinopril 20 mg Tablet 10 mg PO DAILY Qty: 0 RF: 0 glipizide 5 mg Tablet 5 mg PO DAILY Qty: 0 RF: 0 Discontinued spironolactone 25 mg Tablet 12.5 mg PO DAILY Qty: 30 RF: 0 hydralazine 10 mg Tablet 10 mg PO TID RF: 0 furosemide 20 mg Tablet 20 mg PO DAILY RF: 0 Discharge Orders: Discharge Order (Routine); Ordered 07/08/20 Ordered By: Deny Finley/Other Patient Handouts: High Blood Sugar (Hyperglycemia), Hypoglycemia (Low Blood Sugar), Managing Type 2 Diabetes Admission Data Admit Date/Time: 07/04/20 15:18 Attending Provider: Deny Mello Admit Provider: Larry Torres Primary Care Provider: Sushil VALDEZ Other Providers: Óscar Gamez Other Interventions: Discharge Summary Assessment (RN) Last Done: 07/08/20 12:25 Coding Level of Care Code D/C Day Management >30 mins Diagnoses Chronic respiratory failure with hypoxia J96.11 Type 2 diabetes mellitus E11.9 Diabetes mellitus senior living insulin use: without ad terminal makeup operator use Diabetes mellitus complication status: without complication Chronic combined systolic (congestive) and diastolic (congestive) heart failure I50.42 Hyperkalemia E87.5 CKD (chronic kidney disease), stage III N18.3 Atrial fibrillation, permanent I48.2
[2020-07-08] MEDS: WARFARIN SOD 1 MG TAB PO SCH (17:46)
[2020-07-08] MEDS ORDERED: REMDESIVIR 100 MG in SODIUM CHLORIDE 0.9% 230 ML IV SCH (18:00)
[2020-07-08] MEDS: SODIUM CHLORIDE 0.9% 10ML FLUSH IV SCH (20:39)
[2020-07-08] MEDS: ATORVASTATIN 40 MG TAB PO SCH (20:40)
[2020-07-08] MEDS: ACETAMINOPHEN 325 MG TAB PO PRN (22:02)
== END 2020-07-09 00:35 | DRG 177 ==
LOC: ED 11:01 → 2E 15:18 → SUATTDRO 15:18 → 2E 18:36

== ENCOUNTER 2020-07-14 12:45 | Inpatient (IN) ==
--- NOTE | 2020-07-14 12:50 | Emergency Department Note ---
Impression & Plan CHF (congestive heart failure), Acute hyperkalemia, Hyperglycemia, COVID-19 ED Provider Note NAME: PILLO [id number] TERI AGE: 75 SEX: M : 1945 ARRIVES VIA: Ambulance INFORMANT: Patient, ED PROVIDER(S): Evan Phillips MD Chief Complaint: Weakness HPI: Patient does present with increasing weakness and fatigue. Patient did have a recent admission for Covid pneumonia. The patient was discharged on July 08. Patient does have some shortness of breath which is chronic in nature. Patient states that he had a recurrence of symptoms beginning yesterday. The patient states that he has had poor appetite. The patient denies any chest pains. The patient has not had any cough. No lower extremity swelling. Patient denies history of DVT or PE. The patient did not take his medications yesterday because he was not feeling well but has taken them today. Patient states otherwise he has been compliant with his medications and has been incarcerated for approximately 10 years. ROS: See HPI for pertinent positives and negatives. A total of 10 systems were reviewed and otherwise negative. Past medical history: See below Surgical history: See below Social history: See below Physical Exam: GENERAL: Tired in appearance, wearing a mask. EYE EXAM: Normal conjunctiva. PERRL, no anisocoria and EOM's grossly intact w/o pain. NECK: Supple, no nuchal rigidity, no adenopathy, non-tender. No signs of meningismus. LUNGS: Clear to auscultation. Normal chest wall mechanics. HEART: NSR, no MRG. ABDOMEN: Abdomen soft, non-tender, normo-active bowel sounds, no masses, no rebound or guarding. BACK: No CVA TTP. SKIN: No rashes and no bruising. UPPER EXTREMITIES: Upper extremities are grossly normal. LOWER EXTREMITIES: Grossly normal, no edema. Negative Homans' sign bilaterally. Right lower extremity in handcuffs. NEURO EXAM: A&O x3, cranial nerves II-XII grossly intact, normal speech, moves all 4 extremities on command w/o issue. Differential diagnoses: Infection, dehydration, metabolic abnormality, hypo/hyperglycemia, electrolyte disturbance, anemia, hypoxia, cardiac sources, intracerebral event, toxicologic, neurologic, as well as other pathologies. Course: Patient was seen and evaluated the bedside. Full history physical exam was performed. EKG: Indication: Weakness Normal sinus rhythm, rate of 94, prolonged QTC, normal axis, T wave inversions in the high lateral and lateral leads. Patient's morphology appears unchanged from prior EKG on July 04, 2020 with exception the patient is currently in sinus instead of atrial fibrillation. Imaging Studies: Radiology results as stated below per my review in the radiologist's interpretation: XR chest 1V portable HISTORY: 75 years-old Male acute weakness COMPARISON: Chest radiograph 07/04/2020 TECHNIQUE: Portable AP view of the chest FINDINGS: Cardiac silhouette is enlarged. Pulmonary vascular congestion with mild i nterstitial coarsening. Emphysema. Trace right pleural effusion with unchanged mild right hemidiaphragmatic elevation. No pneumothorax. Mild pleural thickening of the right lung apex suggestive. Degenerative changes of the shoulders and spine. IMPRESSION: 1. Cardiomegaly with interstitial coarsening suggestive of pulmonary edema. 2. Trace right pleural effusion. 3. Emphysema. ACT 112: Negative or not required by law. The above report was generated using voice recognition software. It may contain grammatical, syntax or spelling errors. Electronically signed by: Moises Vuong M.D. 07/14/2020 1:48 PM Dictated: 07/14/20 1344Transcribed: 07/14/20 1344 Cardiac monitoring: An order was placed for continuous cardiac monitoring. The monitor shows a rate of 94 with regular rhythm. MDM: Patient did present with concern for weakness. The patient did have blood work completed was given some IV fluids. Patient did have a repeat coronavirus test. Patient is still Covid positive. EKG does have T wave inversions but these are chronic in nature. Patient's hemoglobin is 12 white count 11.2. The patient does have a supratherapeutic INR but without bleeding. That is with the pharmacist and the patient was to be recommended to avoid his doses for the next 2 days with a repeat INR on Thursday. The patient's kidney function is relatively unchanged but the patient does have significant hyperglycemia and mild hyperkalemia. The patient was ordered calcium, insulin, and Lasix given his acute CHF exacerbation with associated hyperglycemia and hyperkalemia. Patient does have an elevated BNP with signs of vascular congestion and pulmonary edema seen on his x-ray. Patient's troponin is positive but improved compared to prior. I did speak with the on-call hospitalist Dr. Génesis MD and the patient was admitted to medicine service. Past Med/Surg History Medical History (Updated 07/14/20 @ 17:46 by Evan Phillips MD) Acute [place], inferior wall Afib Anemia Anxiety Anxiety Atrial fibrillation CAD (coronary artery disease) s/p inferior wall [place] with chronically occluded RCA - cath on 01/09/15 - no intervention. L to R collateralization noted Cardiac ischemia CHF (congestive heart failure) ICM with EF of 15-20% CHF exacerbation CKD (chronic kidney disease) stage 3, GFR 30-59 ml/min COPD (chronic obstructive pulmonary disease) Depression Diabetes Essential hypertension GERD (gastroesophageal reflux disease) High cholesterol Hyperlipidemia Male genitourinary symptoms Near syncope PNA (pneumonia) Sepsis Surgical History No significant past surgical history Family History Other Diabetes Social History Smoking Status: Never smoker Second Hand Exposure: Yes; Hx Alcohol Use: No Hx Substance Use: No Preferred Language: Slovak Communication Ability: Effective Visual Impairment: No Limitations Computational Scientist Required: No Beliefs That Will Affect Care: None Current Living Situation: Other Current Living Situation Comment: Skilled Nursing Feels Safe at Home: Yes Assistive Devices: None Allergies Allergies Allergy/AdvReac Type Severity Reaction Status Date / Time No Known Allergies Allergy Verified 07/14/20 15:43 Home Meds Home Medications Medication Instructions Recorded Confirmed atorvastatin 80 mg PO HS 05/01/18 07/14/20 cyanocobalamin (vitamin B-12) 1,000 mcg PO DAILY 05/01/18 07/14/20 [Vitamin B-12] ferrous sulfate [iron] 325 mg PO 3XWK 05/01/18 07/14/20 magnesium oxide 400 mg PO BID 05/01/18 07/14/20 nitroglycerin [Nitrostat] 0.4 mg SUBLINGUAL DIRECTED PRN 05/01/18 07/14/20 paroxetine HCl 40 mg PO QAM 05/01/18 07/14/20 tamsulosin 0.4 mg PO HS 05/01/18 07/14/20 carvedilol 12.5 mg PO BID 09/23/18 07/14/20 warfarin 2.5 mg PO 3XWK 09/23/18 07/14/20 ascorbic acid (vitamin C) [Vitamin 500 mg PO 3XWK 10/14/18 07/14/20 C] pantoprazole 40 mg PO BID 10/14/18 07/14/20 calcium polycarbophil [Fiber-Lax] 625 mg PO DAILY 01/03/20 07/14/20 warfarin 1 mg PO 4XWK 01/03/20 07/14/20 acetaminophen 325 mg PO QID PRN 07/14/20 07/14/20 dexamethasone 6 mg PO DAILY 07/14/20 07/14/20 loperamide [Imodium] 2 mg PO Q4H PRN 07/14/20 07/14/20 Previous Rx's Medication Instructions Recorded isosorbide mononitrate 60 mg PO DAILY #30 tab 10/18/18 glipizide 5 mg PO DAILY #0 tab 07/08/20 lisinopril 10 mg PO DAILY #0 tab 07/08/20 Results & Data (ED) Vital Signs Vital Signs - 24 hr 07/14/20 12:54 07/14/20 13:08 07/14/20 13:10 Temperature 36.9 C Temperature Source Oral Pulse Rate 95 H Pulse Rate [Apical] 95 H Pulse Rate from SpO2 Sensor Respiratory Rate 18 18 Respiratory Effort / Characteristics Non-Labored Non-Labored Respiratory Depth Normal Normal Blood Pressure 144/104 H Blood Pressure [Left Arm] 146/104 H Blood Pressure Mean 117 Blood Pressure Mean [Left Arm] 118 Pulse Oximetry 95 95 95 Oxygen Delivery Method Room Air Room Air Room Air Sepsis Recent Fever Within 48 Hours No Sepsis New/Unexplained Change in Mental Status No Sepsis Action Taken by Nursing No Action Required 07/14/20 13:30 07/14/20 14:00 07/14/20 14:30 Temperature Temperature Source Pulse Rate 100 H 108 H Pulse Rate [Apical] 94 H Pulse Rate from SpO2 Sensor 106 H Respiratory Rate 17 20 26 H Respiratory Effort / Characteristics Respiratory Depth Blood Pressure 134/104 H 135/108 H Blood Pressure [Left Arm] 139/103 H Blood Pressure Mean 112 119 Blood Pressure Mean [Left Arm] 115 Pulse Oximetry 95 93 94 Oxygen Delivery Method Room Air Room Air Sepsis Recent Fever Within 48 Hours Sepsis New/Unexplained Change in Mental Status Sepsis Action Taken by Nursing 07/14/20 14:31 07/14/20 14:40 Temperature Temperature Source Pulse Rate 93 H 95 H Pulse Rate [Apical] Pulse Rate from SpO2 Sensor 93 H 102 H Respiratory Rate 25 H 25 H Respiratory Effort / Characteristics Respiratory Depth Blood Pressure Blood Pressure [Left Arm] Blood Pressure Mean Blood Pressure Mean [Left Arm] Pulse Oximetry 92 93 Oxygen Delivery Method Sepsis Recent Fever Within 48 Hours Sepsis New/Unexplained Change in Mental Status Sepsis Action Taken by Snf Medications Current Medication List: was personally reviewed by me Laboratory Data Attestation: I reviewed the patient's lab results. Result diagrams: 07/14/20 13:11 07/14/20 13:11 Lab Results 07/14/20 07/14/20 07/14/20 Range/Units 13:11 13:11 13:11 WBC 11.23 H (4.8-10.8) K/uL RBC 3.77 L (4.7-6.1) M/uL Hgb 12.1 L (14.0-18.0) g/dL Hct 38.6 L (42-52) % MCV 102.4 H (80-100) fL MCH 32.1 (25-34) pg MCHC 31.3 L (32-36) g/dL RDW Std Deviation 58.9 H (36.4-46.3) fL RDW Coeff of Samara 17.1 H (11.5-14.5) % Plt Count 192 (130-400) K/uL MPV 12.4 H (7.4-10.4) fL Immature Gran % (Auto) 0.5 % Neut % (Auto) 79.1 % Lymph % (Auto) 19.6 % [place] % (Auto) 0.6 % Eos % (Auto) 0.2 % Baso % (Auto) 0.0 % Neut # (Auto) 8.88 H (1.4-6.5) K/uL Lymph # (Auto) 2.20 (1.2-3.4) K/uL [place] # (Auto) 0.07 L (0.11-0.59) K/uL Eos # (Auto) 0.02 (0-0.5) K/uL Baso # (Auto) 0.00 (0-0.2) K/uL Immature Gran # (Auto) 0.06 H (0.00-0.02) K/uL Absolute Nucleated RBC 0.06 H (0-0) K/uL Nucleated RBC % (auto) 0.5 % PT 53.5 H (9.0-12.0) Seconds INR 5.6 H* (0.9-1.1) APTT 50.9 H* (21.0-31.0) Seconds PTT Ratio 1.8 Sodium 136 (136-145) mmol/L Potassium 5.3 H (3.5-5.1) mmol/L Chloride 104 (98-107) mmol/L Carbon Dioxide 23 (21-32) mmol/L Anion Gap 9.0 (3-11) BUN 40 H (7-18) mg/dl Creatinine 1.88 H (0.6-1.4) mg/dl Est Cr Clr Drug Dosing Not Reportable Est GFR ( Amer) 40.2 Est GFR (Non-Af Amer) 34.7 BUN/Creatinine Ratio 21.0 H (10-20) Glucose 538 H* (70-99) mg/dl Calcium 8.2 L (8.5-10.1) mg/dl Magnesium 2.6 H (1.8-2.4) mg/dl Total Bilirubin 1.7 H (0.2-1) mg/dl AST 62 H (15-37) U/L ALT 77 (12-78) U/L Alkaline Phosphatase 108 (45-117) U/L Troponin I 0.061 H* (0-0.045) ng/ml NT-Pro-B Natriuret Pep > 59123 H (0-900) pg/ml Total Protein 6.6 (6.4-8.2) gm/dl Albumin 2.8 L (3.4-5.0) gm/dl Globulin 3.8 (2.5-4.0) gm/dl Albumin/Globulin Ratio 0.7 L (0.9-2) Beta-Hydroxybutyric Acd 2.08 (0.2-2.81) mg/dl TSH 1.340 (0.300-4.500) uIu/ml COVID-19 Eval Order SARS-CoV-2, RNA, NAAT (NEGATIVE) 07/14/20 07/14/20 Range/Units 13:11 13:11 WBC (4.8-10.8) K/uL RBC (4.7-6.1) M/uL Hgb (14.0-18.0) g/dL Hct (42-52) % MCV (80-100) fL MCH (25-34) pg MCHC (32-36) g/dL RDW Std Deviation (36.4-46.3) fL RDW Coeff of Samara (11.5-14.5) % Plt Count (130-400) K/uL MPV (7.4-10.4) fL Immature Gran % (Auto) % Neut % (Auto) % Lymph % (Auto) % [place] % (Auto) % Eos % (Auto) % Baso % (Auto) % Neut # (Auto) (1.4-6.5) K/uL Lymph # (Auto) (1.2-3.4) K/uL [place] # (Auto) (0.11-0.59) K/uL Eos # (Auto) (0-0.5) K/uL Baso # (Auto) (0-0.2) K/uL Immature Gran # (Auto) (0.00-0.02) K/uL Absolute Nucleated RBC (0-0) K/uL Nucleated RBC % (auto) % PT (9.0-12.0) Seconds INR (0.9-1.1) APTT (21.0-31.0) Seconds PTT Ratio Sodium (136-145) mmol/L Potassium (3.5-5.1) mmol/L Chloride (98-107) mmol/L Carbon Dioxide (21-32) mmol/L Anion Gap (3-11) BUN (7-18) mg/dl Creatinine (0.6-1.4) mg/dl Est Cr Clr Drug Dosing Est GFR ( Amer) Est GFR (Non-Af Amer) BUN/Creatinine Ratio (10-20) Glucose (70-99) mg/dl Calcium (8.5-10.1) mg/dl Magnesium (1.8-2.4) mg/dl Total Bilirubin (0.2-1) mg/dl AST (15-37) U/L ALT (12-78) U/L Alkaline Phosphatase (45-117) U/L Troponin I (0-0.045) ng/ml NT-Pro-B Natriuret Pep (0-900) pg/ml Total Protein (6.4-8.2) gm/dl Albumin (3.4-5.0) gm/dl Globulin (2.5-4.0) gm/dl Albumin/Globulin Ratio (0.9-2) Beta-Hydroxybutyric Acd (0.2-2.81) mg/dl TSH (0.300-4.500) uIu/ml COVID-19 Eval Order Covid19 [facility]Now [facility] SARS-CoV-2, RNA, NAAT POSITIVE A* (NEGATIVE) Administered Medications Discontinued Medications Calcium Gluconate (Calcium Gluconate 10% 10 Ml Vial) 2,000 mg IV NOW STA Stop: 07/14/20 14:16 Last Admin: 07/14/20 15:52 Dose: Not Given Documented by: [id number] Furosemide (Furosemide 40 Mg/4 Ml Vial) 40 mg IV NOW STA Stop: 07/14/20 14:16 Last Admin: 07/14/20 14:49 Dose: 40 mg Documented by: [id number] Sodium Chloride (Nss 1000ml) 500 mls @ 999 mls/hr IV .Q31M ONE Stop: 07/14/20 13:36 Last Infusion: 07/14/20 14:00 Dose: 0 mls/hr Documented by: [id number] Admin: 07/14/20 13:18 Dose: 999 mls/hr Documented by: [id number] Calcium Gluconate 2,000 mg/ (Sodium Chloride) 70 mls @ 280 mls/hr IV NOW ONE Stop: 07/14/20 15:29 Last Infusion: 07/14/20 16:08 Dose: 0 mls/hr Documented by: [id number] Admin: 07/14/20 15:52 Dose: 280 mls/hr Documented by: [id number] Insulin Human Regular (Novolin-R Insulin Per Unit Charge) 5 units IV NOW STA Stop: 07/14/20 14:16 Last Admin: 07/14/20 14:53 Dose: 5 units Documented by: [id number] Cosigned by: [id number] Discharge Plan Visit Data Chief Complaint: Weakness ED Provider: Evan Phillips Discharge Problem: CHF (congestive heart failure), Acute hyperkalemia, Hyperglycemia, COVID-19 Discharge Problem: CHF (congestive heart failure) Qualifiers: Heart failure type: unspecified Heart failure chronicity: acute on chronic Qualified Code(s): I50.9 - Heart failure, unspecified
[2020-07-14] MEDS ORDERED: SODIUM CHLORIDE 0.9% 1000ML 500 ML IV ONE (13:06)
[2020-07-14 13:23] LABS: Eosinophils # (auto) 0.02 K/uL (0-0.5); Eosinophils % (auto) 0.2 %; Hematocrit (blood only) 38.6 % (42-52); Hemoglobin 12.1 g/dL (14.0-18.0); Immature Granulocytes # (auto) 0.06 K/uL (0.00-0.02); Immature Granulocytes % (auto) 0.5 %; Lymphocytes % (auto) 19.6 %; Mean Corpuscular Hemoglobin 32.1 pg (25-34); Mean Corpuscular Hgb Conc 31.3 g/dL (32-36); Mean Corpuscular Volume 102.4 fL (80-100); Mean Platelet Volume 12.4 fL (7.4-10.4); Monocytes # (auto) 0.07 K/uL (0.11-0.59); Monocytes % (auto) 0.6 %; Neutrophils # (auto) 8.88 K/uL (1.4-6.5); Neutrophils % (auto) 79.1 %; Nucleated RBC # (auto) 0.06 K/uL (0-0); Nucleated RBC % (auto) 0.5 %; Platelet Count 192 K/uL (130-400); RDW Coefficient of Variation 17.1 % (11.5-14.5); RDW Standard Deviation 58.9 fL (36.4-46.3); Red Blood Count 3.77 M/uL (4.7-6.1); White Blood Count 11.23 K/uL (4.8-10.8)
[2020-07-14 13:44] LABS: Partial Thromboplastin Ratio 1.8; Prothrombin Time 53.5 Seconds (9.0-12.0)
--- NOTE | 2020-07-14 13:49 | XRay Report ---
XR chest 1V portable HISTORY: 75 years-old Male acute weakness COMPARISON: Chest radiograph 07/04/2020 TECHNIQUE: Portable AP view of the chest FINDINGS: Cardiac silhouette is enlarged. Pulmonary vascular congestion with mild interstitial coarsening. Emph ysema. Trace right pleural effusion with unchanged mild right hemidiaphragmatic elevation. No pneumot horax. Mild pleural thickening of the right lung apex suggestive. Degenerative changes of the shoulde rs and spine. IMPRESSION: 1. Cardiomegaly with interstitial coarsening suggestive of pulmonary edema. 2. Trace right pleural effusion. 3. Emphysema. ACT 112: Negative or not required by law. The above report was generated using voice recognition software. It may contain grammatical, syntax o r spelling errors. Electronically signed by: Moises Vuong M.D. 07/14/2020 1:48 PM
[2020-07-14 13:50] LABS: Partial Thromboplastin Time 50.9 Seconds (21.0-31.0)
[2020-07-14 13:51] LABS: INR 5.6 (0.9-1.1)
[2020-07-14 13:53] LABS: Alanine Aminotransferase 77 U/L (12-78); Albumin Globulin Ratio 0.7 (0.9-2); Albumin Level 2.8 gm/dl (3.4-5.0); Alkaline Phosphatase 108 U/L (45-117); Aspartate Aminotransferase 62 U/L (15-37); Bilirubin,Total 1.7 mg/dl (0.2-1); Blood Urea Nitrogen 40 mg/dl (7-18); Calcium 8.2 mg/dl (8.5-10.1); Carbon Dioxide 23 mmol/L (21-32); Chloride 104 mmol/L (98-107); Est GFR (African American) 40.2; Est GFR (Non-African American) 34.7; Globulin 3.8 gm/dl (2.5-4.0); Glucose 538 mg/dl (70-99); Magnesium 2.6 mg/dl (1.8-2.4); NT Pro B Type Natriuretic Pept > 35000 pg/ml (0-900); Potassium 5.3 mmol/L (3.5-5.1); Sodium 136 mmol/L (136-145); Total Protein 6.6 gm/dl (6.4-8.2)
[2020-07-14 14:05] LABS: Beta-Hydroxybutyrate 2.08 mg/dl (0.2-2.81)
[2020-07-14] MEDS ORDERED: NovoLIN-R INSULIN PER UNIT CHARGE IV STA (14:15)
[2020-07-14] MEDS ORDERED: FUROSEMIDE 40 MG/4 ML VIAL IV STA (14:15)
[2020-07-14 14:36] LABS: Troponin I 0.061 ng/ml (0-0.045)
--- NOTE | 2020-07-14 15:07 | History & Physical Report ---
Date of Service July 14, 2020 Assessment & Plan (1) Acute on chronic HFrEF (heart failure with reduced ejection fraction): Acute CHF office Lasix and spironolactone held on discharge due to dehydration last admission. Lasix 40mg IV daily Low Na, Heart healthy, fluid restrict 1200ml Strict I&Os Daily weights No sudden worsening to suggest MT, troponin decreased from last admission. (2) Hypoxia: Without respiratory failure. Secondary to pulmonary edema from CHF exacerbation as above. Mild WBC elevation in setting of steroid use will monitor for possible bacterial pneumonia. Aim O2 sats > 94% (3) COVID-19: Completed 10 days of dexamethasone today - discontinue further steroids. Convalescent plasma and remdesivir given during admission. Prior diagnosis. Tested positive 10 days ago but symptomatic for 1 week prior to this. Will discuss with infection control protocol for possible need for repeat COVID testing to remove off isolation. (4) Hyperkalemia: Suspect will improve with Lasix and insulin use. (5) Type 2 diabetes mellitus: HbA1c 9.3 [07/06] Hold glipizide 5 mg p.o. daily Consult pharmacy for glycemic control with basal bolus insulin (6) CKD (chronic kidney disease), stage III: Appears to be close to his baseline. Monitor with Lasix use as above. Should improve with increased cardiac output as he gets closer to euvolemic state. (7) CAD (coronary artery disease): s/p inferior wall MT with chronically occluded RCA - cath on 01/09/15 - no intervention. L to R collateralization noted Unclear why he is not on antiplatelet however in setting of supratherapeutic INR with no start this at this time. Continue carvedilol 12.5 mg p.o. twice daily Continue lisinopril 10 mg p.o. daily. Continue isosorbide mononitrate 60 mg p.o. daily. (8) Supratherapeutic INR: In setting of warfarin use. No active bleeding from history or exam. Hemoglobin at baseline from last admission (9) Depression: Continue paroxetine 40 mg p.o. every morning (10) Macrocytic anemia: At baseline. Recommend outpatient work-up with B12 and folate if not previously performed -however given he is on supplementation I suspect this is already being worked up. Continue vitamin B12 supplementation. (11) DVT prophylaxis: Supratherapeutic INR on warfarin. PTINR daily - restart warfarin appropriately Admission and Anticipated Discharge Date Admission Date: 07/14/2020 History of Present Illness Chief Complaint: Shortness of breath Primary Care Provider: JOSÉ MIGUEL Sushil Garza is a 75 year old male from [facility] with recent diagnosis of COVID-19 who presents to the ER with progressive worsening generalized fatigue and shortness of breath. He was recently diagnosed with Covid pneumonia on July 04 and was hospitalized at [facility] where he received dexamethasone, convalescent plasma and remdesivir. He was discharged on 07/08 with an increase in his diltiazem, glipizide and lisinopril. Due to dehydration (I suspect from diarrhea from his Covid pneumonia) his Lasix and spironolactone were discontinued at that time. [facility] not restarted [facility] the jail. He was also discharged on a 10-day course of dexamethasone of which he took the last dose this morning. On discharge she felt much improved however since being at the jail again he has been getting increasingly fatigued and short of breath. No cough, fever, chills, sore throat, diarrhea, abdominal pain, chest pain, headache, nasal congestion. In the ER chest x-ray was concerning for pulmonary edema and labs concerning for hyperkalemia and hyperglycemia (likely from steroid use). proBNP greater than 35,000 pg/mL. I am unclear why but he was given 500 mL normal saline bolus (I suspect before all labs/CXR findings were known) in addition to Lasix 40 mg IV. Hypokalemia was treated with IV insulin 5 units and calcium gluconate 10% 2 g IV. He was referred to medicine for CHF exacerbation, hyperglycemia and hyperkalemia. Allergies Allergy/AdvReac Type Severity Reaction Status Date / Time No Known Allergies Allergy Verified 07/14/20 15:43 Home Medications Medication Instructions Recorded Confirmed Type atorvastatin 80 mg PO HS 05/01/18 07/14/20 History cyanocobalamin (vitamin B-12) 1,000 mcg PO DAILY 05/01/18 07/14/20 History [Vitamin B-12] ferrous sulfate [iron] 325 mg PO 3XWK 05/01/18 07/14/20 History magnesium oxide 400 mg PO BID 05/01/18 07/14/20 History nitroglycerin [Nitrostat] 0.4 mg SUBLINGUAL DIRECTED PRN 05/01/18 07/14/20 History paroxetine HCl 40 mg PO QAM 05/01/18 07/14/20 History tamsulosin 0.4 mg PO HS 05/01/18 07/14/20 History carvedilol 12.5 mg PO BID 09/23/18 07/14/20 History warfarin 2.5 mg PO 3XWK 09/23/18 07/14/20 History ascorbic acid (vitamin C) [Vitamin 500 mg PO 3XWK 10/14/18 07/14/20 History C] pantoprazole 40 mg PO BID 10/14/18 07/14/20 History isosorbide mononitrate 60 mg PO DAILY #30 tab 10/18/18 07/14/20 Rx calcium polycarbophil [Fiber-Lax] 625 mg PO DAILY 01/03/20 07/14/20 History warfarin 1 mg PO 4XWK 01/03/20 07/14/20 History glipizide 5 mg PO DAILY #0 tab 07/08/20 07/14/20 Rx lisinopril 10 mg PO DAILY #0 tab 07/08/20 07/14/20 Rx acetaminophen 325 mg PO QID PRN 07/14/20 07/14/20 History dexamethasone 6 mg PO DAILY 07/14/20 07/14/20 History loperamide [Imodium] 2 mg PO Q4H PRN 07/14/20 07/14/20 History Past Med/Surg History Medical History Acute MT, inferior wall Afib Anemia Anxiety Anxiety Atrial fibrillation CAD (coronary artery disease) s/p inferior wall MT with chronically occluded RCA - cath on 01/09/15 - no intervention. L to R collateralization noted Cardiac ischemia CHF (congestive heart failure) ICM with EF of 15-20% CHF exacerbation CKD (chronic kidney disease) stage 3, GFR 30-59 ml/min COPD (chronic obstructive pulmonary disease) Depression Diabetes Essential hypertension GERD (gastroesophageal reflux disease) High cholesterol Hyperlipidemia Male genitourinary symptoms Near syncope PNA (pneumonia) Sepsis Surgical History No significant past surgical history Family History Other Diabetes Social History Smoking Status: Former smoker Second Hand Exposure: Yes; Hx Alcohol Use: No Hx Substance Use: No Preferred Language: Danish Communication Ability: Effective Visual Impairment: No Limitations Shopper Insights Manager Required: No Beliefs That Will Affect Care: None Current Living Situation: Other Current Living Situation Comment: [facility] Other Information That Helps Us Care for You: No Feels Safe at Home: Yes Safety Concerns: Feels Safe At This Time Assistive Devices: None Review of Systems Review of Systems: All systems reviewed & are unremarkable except as noted in HPI & below Physical Exam Constitutional: well developed; + not well nourished and no acute distress Eyes: + anicteric sclerae; normal pupil size ENMT: Ears: no external ear abnormality Nose: no external nose abnormality Mouth: oral mucous membranes not dry Neck: trachea midline, no thyromegaly Respiratory: normal respiratory effort Auscultation: lungs clear to auscultation bilaterally (anteriorly), + diminished lung sounds (bibasal) and + crackles (bibasal); no wheezes Cardiovascular: Rate/Rhythm: regular rate and regular rhythm Heart Sounds: + murmur (apical) Vessels: + JVD (half way to jaw line @ 45 degrees) Extremities: normal capillary refill and + pedal edema (3+ equal bilaterally up to knees); no calf tenderness Gastrointestinal (Abdomen): normal bowel sounds, soft, nontender, no hepatosplenomegaly Musculoskeletal: no cyanosis or clubbing, extremities motor strength 5/5 Skin: no rashes, warm and dry Neurologic: moves all extremities and awake; no focal motor deficits and not confused Psychiatric: A+Ox3, euthymic affect Genitourinary: no CVA tenderness Results & Data Results & Data ([facility]) Vital Signs (Past 12 Hours) Vital Signs Temp Pulse Pulse Resp BP BP Pulse Ox 07/14/20 14:40 95 H 25 H 93 07/14/20 14:31 93 H 25 H 92 07/14/20 14:30 108 H 26 H 135/108 H 94 07/14/20 14:00 100 H 20 134/104 H 93 07/14/20 13:30 94 H 17 139/103 H 95 07/14/20 13:10 95 H 18 146/104 H 95 07/14/20 13:08 95 07/14/20 12:54 36.9 C 95 H 18 144/104 H 95 Diagnostic Findings XR chest 1V portable IMPRESSION: 1. Cardiomegaly with interstitial coarsening suggestive of pulmonary edema. 2. Trace right pleural effusion. 3. Emphysema. Medications Administered ER medications given: NSS 500 mL bolus Lasix 40 mg IV Calcium gluconate 10% 2 g IV Insulin 5 units IV ECG Indication: SOB/dyspnea Rate (beats per minute): 94 Rhythm: normal sinus Findings: + T-wave inversion (Lateral) and + prolonged QT (QTC 510 ms) Comparison ECG Date: from (July 04, 2020) Change: the following changes noted (Now in normal sinus rhythm) Code Status & VTE Plan Code Status No intubation or ventilation but which is all other treatment. VTE Prophylaxis Plan VTE Prophylaxis will be ordered: Yes PG Care Time/CCT Total # of Minutes Spent Total Time Spent with Patient: Total time spent is greater than 50% in coordination of care (as documented) at patient's floor/unit and/or counseling patient: Coding Level of Care Code 62584 Initial Inpt Care Lvl 3 Diagnoses Acute on chronic HFrEF (heart failure with reduced ejection fraction) I50.23 Hypoxia R09.02 COVID-19 U07.1 Hyperkalemia E87.5 Type 2 diabetes mellitus E11.9 Diabetes mellitus complication status: without complication Diabetes mellitus mcc insulin use: without mcc use CKD (chronic kidney disease), stage III N18.3 CAD (coronary artery disease) I25.10 Associated angina: without angina Coronary Disease-Associated Artery/Lesion type: [place] artery [place] vs. 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 transplanted heart: [place] heart Qualified Code(s): I25.10 - Atherosclerotic heart disease of [place] coronary artery without angina pectoris
[2020-07-14] MEDS ORDERED: CALCIUM GLUCONATE 10% 2,000 MG in SODIUM CHLORIDE 0.9% 50 ML IV ONE (15:15)
[2020-07-14] MEDS: CALCIUM GLUCONATE 10% 10 ML VIAL IV STA ×2 (15:51→15:52)
[2020-07-14 16:07] LABS: Appearance Urine Clear (Clear); Bacteria Urine Automated Negative (Negative); Bilirubin Urine Negative (Negative); Blood Urine 2+ (Negative); Color Urine Yellow; Glucose Urine UA 3+ (Negative); Ketones Urine Negative (Negative); Leukocyte Esterase Urine Negative (Negative); Nitrite Urine Negative (Negative); Protein Urine 2+ (Negative); RBC Urine Automated 0-4 /hpf (0-4); Specific Gravity Urine 1.024 (1.000-1.030); Urobilinogen Urine Negative (Negative)
[2020-07-14] MEDS ORDERED: ACETAMINOPHEN 325 MG TAB PO PRN (17:31)
[2020-07-14] MEDS ORDERED: PHARMACY GLYCEMIC MGMT CONSULT PRN (17:37)
[2020-07-14] MEDS ORDERED: GLUCOSE 10 TABS/TUBE PO PRN (18:00)
[2020-07-14] MEDS ORDERED: CARBOHYDRATES FOR HYPOGLYCEMIA PO PRN (18:00)
[2020-07-14] MEDS ORDERED: DEXTROSE 50% 50 ML SYRINGE IV PRN (18:00)
[2020-07-14] MEDS ORDERED: GLUCOSE 40% GEL 15 GM TUBE PO PRN (18:00)
[2020-07-14] MEDS ORDERED: GLUCAGON FOR INJ 1 MG VIAL IM PRN (18:00)
[2020-07-14] MEDS ORDERED: INSULIN GLARGINE SOLOSTAR 100 UNITS/ML 3 ML PEN SC ONE (18:30)
[2020-07-14] MEDS ORDERED: INSULIN HUMAN REGULAR PER UNIT 7 UNITS in SYRINGE 0 ML IV ONE (18:30)
[2020-07-14] MEDS ORDERED: INSULIN HUMAN REGULAR PER UNIT 7 UNITS in SYRINGE 6.93 ML IV ONE (18:30)
[2020-07-14] MEDS: ATORVASTATIN 40 MG TAB PO SCH (20:39)
[2020-07-14] MEDS: carvediloL 12.5 MG TAB PO SCH (20:40)
[2020-07-14] MEDS: TAMSULOSIN HCL 0.4 MG CAP PO SCH (20:41)
[2020-07-14] MEDS: PANTOprazole 40 MG TAB PO SCH (20:41)
[2020-07-14] MEDS: INSULIN ASPART 100 UNITS/ML 3 ML PEN SC SCH ×3 (20:55→23:46)
[2020-07-14] MEDS ORDERED: INSULIN ASPART 100 UNITS/ML 3 ML PEN SC SCH (21:00)
[2020-07-14] MEDS ORDERED: MAGNESIUM OXIDE 400 MG TAB PO SCH (21:00)
[2020-07-15] MEDS: INSULIN ASPART 100 UNITS/ML 3 ML PEN SC SCH ×5 (03:53→20:45)
[2020-07-15 05:59] LABS: Basophils # (auto) 0.01 K/uL (0-0.2); Basophils % (auto) 0.1 %; Eosinophils # (auto) 0.05 K/uL (0-0.5); Eosinophils % (auto) 0.5 %; Hematocrit (blood only) 40.3 % (42-52); Hemoglobin 12.8 g/dL (14.0-18.0); Immature Granulocytes # (auto) 0.04 K/uL (0.00-0.02); Immature Granulocytes % (auto) 0.4 %; Lymphocytes # (auto) 1.37 K/uL (1.2-3.4); Mean Corpuscular Hemoglobin 32.2 pg (25-34); Mean Corpuscular Hgb Conc 31.8 g/dL (32-36); Mean Corpuscular Volume 101.3 fL (80-100); Mean Platelet Volume 12.3 fL (7.4-10.4); Monocytes # (auto) 1.03 K/uL (0.11-0.59); Monocytes % (auto) 10.5 %; Neutrophils # (auto) 7.28 K/uL (1.4-6.5); Neutrophils % (auto) 74.5 %; Platelet Count 158 K/uL (130-400); RDW Coefficient of Variation 17.1 % (11.5-14.5); Red Blood Count 3.98 M/uL (4.7-6.1); White Blood Count 9.78 K/uL (4.8-10.8)
[2020-07-15 06:19] LABS: Prothrombin Time 56.5 Seconds (9.0-12.0)
[2020-07-15 06:22] LABS: INR 5.9 (0.9-1.1)
[2020-07-15 06:42] LABS: BUN Creatinine Ratio 22.2 (10-20); Calcium 8.9 mg/dl (8.5-10.1); Creatinine Clr Calc Pharmacy 39.8 ml/min; Est GFR (African American) 48.8; Est GFR (Non-African American) 42.1; Potassium 3.5 mmol/L (3.5-5.1)
[2020-07-15] MEDS: PARoxetine HCL 20 MG TAB PO SCH (08:14)
[2020-07-15] MEDS: CALCIUM POLYCARBOPHIL 625MG TAB PO SCH (08:14)
[2020-07-15] MEDS: carvediloL 12.5 MG TAB PO SCH ×2 (08:14→20:37)
[2020-07-15] MEDS: lisinopril 10 MG TAB PO SCH (08:14)
[2020-07-15] MEDS: PANTOprazole 40 MG TAB PO SCH ×2 (08:15→20:36)
[2020-07-15] MEDS: ISOSORBIDE MONO EXTENDED REL 60 MG TABCR PO SCH (08:15)
[2020-07-15] MEDS: MAGNESIUM OXIDE 400 MG TAB PO SCH (08:15)
[2020-07-15] MEDS: CYANOCOBALAMIN 500 MCG TABLET (VITAMIN B-12) PO SCH (08:16)
[2020-07-15] MEDS: FUROSEMIDE 40 MG in SYRINGE 0 ML IV SCH (08:16)
--- NOTE | 2020-07-15 08:51 | Electrocardiogram Report ---
Test Reason : Blood Pressure : / mmHG Vent. Rate : 094 BPM Atrial Rate : 094 BPM P-R Int : 190 ms QRS Dur : 100 ms QT Int : 408 ms P-R-T Axes : 053 084 199 degrees QTc Int : 510 ms Normal sinus rhythm Left ventricular hypertrophy with repolarization abnormality Prolonged QT Abnormal ECG When compared with ECG of 04-JUL-2020 11:07, Sinus rhythm has replaced Atrial fibrillation Confirmed by Ash Spencer ([id number]) on 07/15/2020 8:51:03 AM Referred By: Confirmed By:Ash Spencer
--- NOTE | 2020-07-15 13:25 | Hospitalist Progress Note ---
Date of Service July 15, 2020 Assessment & Plan (1) Acute on chronic HFrEF (heart failure with reduced ejection fraction): Acute CHF. Off his Lasix and spironolactone held on discharge due to dehydration last admission. Lasix 40mg IV daily Low Na, Heart healthy, fluid restrict 1200ml Strict I&Os Daily weights No sudden worsening to suggest [place], troponin decreased from last admission. - Weights back to nearly where they were prior to last discharge. Will continue Lasix x 1 more day, then consider return to oral dose. (2) Hypoxia: Without respiratory failure. Secondary to pulmonary edema from CHF exacerbation as above. Mild WBC elevation in setting of steroid use will monitor for possible bacterial pneumonia. Aim O2 sats > 94% -> Down to 2 L NC today; likely wean to room air tomorrow. (3) COVID-19: Completed 10 days of dexamethasone today - discontinue further steroids. Convalescent plasma and remdesivir given during admission. Prior diagnosis. Tested positive 10 days ago but symptomatic for 1 week prior to this. - Discussed with Dr. Church on admission; no need for airborne precautions. (4) Hyperkalemia: Suspect will improve with Lasix and insulin use. (5) Type 2 diabetes mellitus: HbA1c 9.3 [07/06] Hold glipizide 5 mg p.o. daily Consult pharmacy for glycemic control with basal bolus insulin (6) CKD (chronic kidney disease), stage III: Appears to be close to his baseline. Monitor with Lasix use as above. Should improve with increased cardiac output as he gets closer to euvolemic state. (7) CAD (coronary artery disease): s/p inferior wall [place] with chronically occluded RCA - cath on 01/09/15 - no intervention. L to R collateralization noted Unclear why he is not on antiplatelet however in setting of supratherapeutic INR with no start this at this time. Continue carvedilol 12.5 mg p.o. twice daily Continue lisinopril 10 mg p.o. daily. Continue isosorbide mononitrate 60 mg p.o. daily. (8) Supratherapeutic INR: In setting of warfarin use. No active bleeding from history or exam. Hemoglobin at baseline from last admission. - Hold warfarin; monitor INR. (9) Depression: Continue paroxetine 40 mg p.o. every morning (10) Macrocytic anemia: At baseline. Recommend outpatient work-up with B12 and folate if not previously performed -however given he is on supplementation I suspect this is already being worked up. Continue vitamin B12 supplementation. (11) DVT prophylaxis: Supratherapeutic INR on warfarin. PTINR daily - restart warfarin appropriately Admission and Anticipated Discharge Date Admission Date: July 14, 2020 Subjective Comfortable and sleeping today. Reports no fevers/chills, chest pain, shortness of breath, abdominal pain, nausea, or vomiting. Physical Exam Constitutional: WD/WN, vitals as above Eyes: EOM intact bilaterally; no conjunctival abnormality ENMT: external ear and nose normal, oropharynx normal Neck: trachea midline, no thyromegaly normal visual inspection Respiratory: normal respiratory effort, lungs clear to auscultation no respiratory distress Cardiovascular: RRR, no murmur, no edema Gastrointestinal (Abdomen): Inspection/Auscultation: abdomen normal to inspection; abdomen not distended Musculoskeletal: no cyanosis or clubbing, extremities motor strength 5/5 Skin: no rashes, warm and dry Neurologic: moves all extremities and awake Psychiatric: Orientation: alert, oriented to person and cooperative Results & Data Results & Data ([facility]) Vital Signs (Past 12 Hours) Vital Signs Temp Pulse Pulse Resp BP Pulse Ox 07/15/20 11:48 36.5 C 74 18 132/84 97 07/15/20 08:53 81 07/15/20 07:24 36.4 C L 88 18 138/89 92 07/15/20 04:22 36.3 C L 86 16 126/85 95 PG Care Time/CCT Total # of Minutes Spent Total Time Spent with Patient: Total time spent is greater than 50% in coordination of care (as documented) at patient's floor/unit and/or counseling patient: Coding Level of Care Code 63966 Subseq Hosp Care Lvl 2 Diagnoses Acute on chronic HFrEF (heart failure with reduced ejection fraction) I50.23 Hypoxia R09.02 COVID-19 U07.1 Hyperkalemia E87.5 Type 2 diabetes mellitus E11.9 Diabetes mellitus fci insulin use: without fci use Diabetes mellitus complication status: without complication CKD (chronic kidney disease), stage III N18.3 CAD (coronary artery disease) I25.10 Coronary Disease-Associated Artery/Lesion type: [place] artery [place] vs. transplanted heart: [place] heart Associated angina: without angina Supratherapeutic INR R79.1 Depression F32.9 Macrocytic anemia D53.9 DVT prophylaxis Z29.9 (1) Type 2 diabetes mellitus Diabetes mellitus director long term care insulin use: without director long term care use Diabetes mellitus complication status: without complication Qualified Code(s): E11.9 - Type 2 diabetes mellitus without complications (2) CAD (coronary artery disease) Coronary Disease-Associated Artery/Lesion type: [place] artery [place] vs. transplanted heart: [place] heart Associated angina: without angina Qualified Code(s): I25.10 - Atherosclerotic heart disease of [place] coronary artery without angina pectoris
[2020-07-15] MEDS: TAMSULOSIN HCL 0.4 MG CAP PO SCH (20:36)
[2020-07-15] MEDS: ATORVASTATIN 40 MG TAB PO SCH (20:37)
[2020-07-15] MEDS ORDERED: INSULIN GLARGINE SOLOSTAR 100 UNITS/ML 3 ML PEN SC SCH (21:00)
[2020-07-16 08:02] LABS: Hematocrit (blood only) 35.3 % (42-52); Hemoglobin 11.4 g/dL (14.0-18.0); Mean Corpuscular Hemoglobin 32.5 pg (25-34); Mean Corpuscular Hgb Conc 32.3 g/dL (32-36); Mean Corpuscular Volume 100.6 fL (80-100); Mean Platelet Volume 12.1 fL (7.4-10.4); Platelet Count 136 K/uL (130-400); RDW Coefficient of Variation 17.3 % (11.5-14.5); Red Blood Count 3.51 M/uL (4.7-6.1)
[2020-07-16] MEDS: INSULIN ASPART 100 UNITS/ML 3 ML PEN SC SCH ×2 (08:11→12:16)
[2020-07-16] MEDS: PARoxetine HCL 20 MG TAB PO SCH (08:15)
[2020-07-16] MEDS: CYANOCOBALAMIN 500 MCG TABLET (VITAMIN B-12) PO SCH (08:16)
[2020-07-16] MEDS: CALCIUM POLYCARBOPHIL 625MG TAB PO SCH (08:16)
[2020-07-16] MEDS: MAGNESIUM OXIDE 400 MG TAB PO SCH (08:16)
[2020-07-16] MEDS: lisinopril 10 MG TAB PO SCH (08:16)
[2020-07-16] MEDS: PANTOprazole 40 MG TAB PO SCH (08:16)
[2020-07-16] MEDS: ISOSORBIDE MONO EXTENDED REL 60 MG TABCR PO SCH (08:16)
[2020-07-16] MEDS: carvediloL 12.5 MG TAB PO SCH (08:16)
[2020-07-16 08:21] LABS: Prothrombin Time 54.8 Seconds (9.0-12.0)
[2020-07-16 08:24] LABS: INR 5.7 (0.9-1.1)
[2020-07-16] MEDS: FUROSEMIDE 40 MG in SYRINGE 0 ML IV SCH (08:25)
[2020-07-16 08:36] LABS: BUN Creatinine Ratio 21.1 (10-20); Calcium 8.2 mg/dl (8.5-10.1); Creatinine Clr Calc Pharmacy 45.1 ml/min; Est GFR (African American) 56.9; Est GFR (Non-African American) 49.1; Potassium 3.5 mmol/L (3.5-5.1)
--- NOTE | 2020-07-16 08:47 | Pharmacy Report ---
Pharmacy Glycemic Short Note 2 - Date of Service July 16, 2020 - Glycemic Short BSG Results (Last 24 hours): 07/15/20 07/15/20 07/15/20 11:28 16:34 20:03 Glucose POC Glucose 104 H 161 H 140 H 07/16/20 07/16/20 07:21 07:38 Glucose 116 H POC Glucose 183 H OUTPATIENT ANTIDIABETIC REGIMEN: * Glipizide 5 mg PO daily * Dexamethasone 6 mg PO daily x 10 days (completed day of admission) ASSESSMENT: * DH is a 75 year old male admitted on 07/14 from [facility] for increasing shortness of breath and fatigue. * Patient was recently hospitalized for COVID-19 earlier this month * BSGs yesterday of 115, 104, 161, and 140 mg/dL * Patient received 14 units of insulin (10 units of basal and 4 units of prandial/correctional) PLAN FOR INPATIENT GLYCEMIC CONTROL: * Hold outpatient oral diabetes medications * Basal insulin * Lantus scale HS (10-15 units - see EHR for details) * Bolus insulin - tighten carb ratio * NovoLog per scale ACHS or Q6hrs while NPO * Goal Range: Low 110 mg/dL - High 140 mg/dL * Correction Factor: 25 mg/dL/unit * Nutritional / Prandial insulin per carb ratio of 1 unit per 8 grams CHO consumed
[2020-07-16] MEDS ORDERED: ASCORBIC ACID 500 MG TAB PO SCH (09:00)
[2020-07-16] MEDS ORDERED: FERROUS SULFATE 325 MG TAB PO SCH (09:00)
[2020-07-16 11:36] VITALS: PULSE 76; TEMP 96.6; O2SAT 94
--- NOTE | 2020-07-16 11:54 | Discharge Summary ---
Date of Service July 16, 2020 Admission HPI Per Admitting Provider Austin Garza is a 75 year old male from [facility] with recent diagnosis of COVID-19 who presents to the ER with progressive worsening generalized fatigue and shortness of breath. He was recently diagnosed with Covid pneumonia on July 04 and was hospitalized at [facility] where he received dexamethasone, convalescent plasma and remdesivir. He was discharged on 07/08 with an increase in his diltiazem, glipizide and lisinopril. Due to dehydration (I suspect from diarrhea from his Covid pneumonia) his Lasix and spironolactone were discontinued at that time. He has not restarted on these at the nursing home. He was also discharged on a 10-day course of dexamethasone of which he took the last dose this morning. On discharge she felt much improved however since being at the nursing home again he has been getting increasingly fatigued and short of breath. No cough, fever, chills, sore throat, diarrhea, abdominal pain, chest pain, headache, nasal congestion. In the ER chest x-ray was concerning for pulmonary edema and labs concerning for hyperkalemia and hyperglycemia (likely from steroid use). proBNP greater than 35,000 pg/mL. I am unclear why but he was given 500 mL normal saline bolus (I suspect before all labs/CXR findings were known) in addition to Lasix 40 mg IV. Hypokalemia was treated with IV insulin 5 units and calcium gluconate 10% 2 g IV. He was referred to medicine for CHF exacerbation, hyperglycemia and hyperkalemia. Principal Diagnosis Acute on chronic combined systolic and diastolic CHF Discharge Exam Constitutional WD/WN, vitals as above Eyes + anicteric sclerae Neck trachea midline, no thyromegaly Respiratory normal respiratory effort, lungs clear to auscultation Cardiovascular Rate/Rhythm: regular rate and + irregularly irregular Heart Sounds: no murmur Extremities: no calf tenderness and no edema Gastrointestinal (Abdomen) normal bowel sounds, soft, nontender, no hepatosplenomegaly Musculoskeletal Extremities: extremities normal to inspection; no cyanosis and no clubbing Skin no rashes, warm and dry Neurologic moves all extremities and awake; no focal motor deficits Psychiatric A+Ox3, euthymic affect Lymphatic no lymphedema Discharge Data Allergies Allergy/AdvReac Type Severity Reaction Status Date / Time No Known Allergies Allergy Verified 07/14/20 15:43 Consultations 07/14/20 14:20 ED Decision to Admit Stat Ordered Studies XR chest 1V portable HISTORY: 75 years-old Male acute weakness COMPARISON: Chest radiograph 07/04/2020 TECHNIQUE: Portable AP view of the chest FINDINGS: Cardiac silhouette is enlarged. Pulmonary vascular congestion with mild interstitial coarsening. Emphysema. Trace right pleural effusion with unchanged mild right hemidiaphragmatic elevation. No pneumothorax. Mild pleural thickening of the right lung apex suggestive. Degenerative changes of the shoulders and spine. IMPRESSION: 1. Cardiomegaly with interstitial coarsening suggestive of pulmonary edema. 2. Trace right pleural effusion. 3. Emphysema. Hospital Course (1) Acute on chronic HFrEF (heart failure with reduced ejection fraction): Acute on chronic combined systolic and diastolic CHF. He had been off his Lasix and spironolactone sonce previous discharge due to dehydration from COVID and likely cause of recurrence of pulm edema ECHO 2017 showed severely reduced LV function with LVEF 15-20% He received Lasix 40mg IV daily and diuresed quite well Was no longer SOB, was not hypoxic, was lying flat without symptoms continue Low Na+ diet, Heart healthy Strict I&Os Daily weights No sudden worsening to suggest ID, troponin decreased from last admission. - Weights back to nearly where they were prior to last discharge. Discharge on lasix 40mg po once daily and add back on original home aldactone 12.5mg po once daily f/u with Cardiology as outpatient (2) Hypoxia: Without respiratory failure. Secondary to pulmonary edema from CHF exacerbation as above. Mild WBC elevation in setting of steroid use will monitor for possible bacterial pneumonia. Aim O2 sats > 94% ->weaned off O2 and on room air (3) COVID-19: Completed 10 days of dexamethasone. Convalescent plasma and remdesivir given during previous admission. Prior diagnosis. -no need for airborne precautions. (4) Hyperkalemia: resolved with Lasix and insulin use. (5) Type 2 diabetes mellitus: HbA1c 9.3 [07/06] restart glipizide 5 mg p.o. daily on discharge (6) CKD (chronic kidney disease), stage III: Appears to be close to his baseline. [facility] improved with diuresis down to 1.4 on day of discharge. (7) CAD (coronary artery disease): s/p inferior wall ID with chronically occluded RCA - cath on 01/09/15 - no intervention. L to R collateralization noted Unclear why he is not on antiplatelet however in setting of supratherapeutic INR, will not start this at this time. Continue carvedilol 12.5 mg p.o. twice daily Continue lisinopril 10 mg p.o. daily. Continue isosorbide mononitrate 60 mg p.o. daily. -consider adding on ASA 81mg po daily at nursing home once INR therapeutic (8) Supratherapeutic INR: In setting of warfarin use. No active bleeding from history or exam. Hemoglobin at baseline from last admission. INR 5.7 on day of discharge -continue to Hold warfarin; monitor INR at nursing home in 2 days -would restart only at 1mg daily (9) Depression: Continue paroxetine 40 mg p.o. every morning (10) Macrocytic anemia: At baseline. Recommend outpatient work-up with B12 and folate if not previously performed -however given he is on supplementation I suspect this is already being worked up. Continue vitamin B12 supplementation. (11) DVT prophylaxis: coumadin Dispo-stable for dc back to nursing home. Called nursing home medical to discuss discharge but no answer on two separate attempts Total Time Total Time Spent Total Time Spent (In Minutes): 35 min Total Time Includes: Examination of the Patient, Discharge Planning and Medication Reconciliation Discharge Plan Discharge Items Patient Disposition: [facility] Reason For Visit: CHF, COVID 19 + Discharge Diagnosis: Acute CHF exacerbation Condition on Discharge: Good Activity: As commented below Lifting: Gradually increase as tolerated Bathing: No limitations Exercise/Sports: Gradually increase as tolerated Weightbearing: Full weightbearing Non-emergency contact: Primary Care Provider Call non-emergency contact if: you have any medication questions and your symptoms worsen Follow-up/Referrals: Sushil VALDEZ [Primary Care Provider] - Diet: Carb Consistent or DM2, Heart Healthy and Low Sodium (2gm) Addtl Attending Provider Instructions: You were diuresed with IV lasix and had improvement in your shortness of breath. You were no longer requiring oxygen. Please resume lasix by mouth upon discharge. Also, your INR remained elevated at 5.6 on the day of discharge. You should continue to HOLD your coumadin and restart once INE comes down to therapeutic range between 2.0-3.0. Please have your PT/INR checked on 07/18/20. Pending Studies at Discharge: No Stand-Alone Forms: My [facility] Skilled Items Patient informed of condition?: Yes Discharge Level of Care: Other Communicable Disease: Yes Discharge Prognosis: Improving Lines: None Urinary Catheter: No Medications and DC Order Prescriptions: New furosemide [Lasix] 40 mg tablet 40 mg PO DAILY Qty: 30 RF: 0 spironolactone [Aldactone] 25 mg tablet 12.5 mg PO DAILY Qty: 15 RF: 0 Continued ascorbic acid (vitamin C) [Vitamin C] 500 mg Tablet 500 mg PO 3XWK RF: 0 pantoprazole 40 mg Tablet,Delayed Release (Dr/Ec) 40 mg PO BID RF: 0 isosorbide mononitrate 60 mg Tablet Extended Release 24 Hr 60 mg PO DAILY Qty: 30 RF: 0 calcium polycarbophil [Fiber-Lax] 625 mg Tablet 625 mg PO DAILY RF: 0 acetaminophen 325 mg Tablet 325 mg PO QID PRN (Reason: Pain) RF: 0 atorvastatin 80 mg Tablet 80 mg PO HS RF: 0 ferrous sulfate [iron] 325 mg (65 mg iron) Tablet 325 mg PO 3XWK RF: 0 nitroglycerin [Nitrostat] 0.4 mg Tablet, Sublingual 0.4 mg Sublingual DIRECTED PRN (Reason: Chest Pain) RF: 0 cyanocobalamin (vitamin B-12) [Vitamin B-12] 1,000 mcg Tablet 1,000 mcg PO DAILY RF: 0 tamsulosin 0.4 mg Capsule 0.4 mg PO HS RF: 0 paroxetine HCl 40 mg Tablet 40 mg PO QAM RF: 0 carvedilol 12.5 mg Tablet 12.5 mg PO BID RF: 0 lisinopril 20 mg Tablet 10 mg PO DAILY Qty: 0 RF: 0 glipizide 5 mg Tablet 5 mg PO DAILY Qty: 0 RF: 0 Changed magnesium oxide 400 mg Capsule 400 mg PO QAM Qty: 0 RF: 0 warfarin 1 mg Tablet 1 mg PO QPM Qty: 0 RF: 0 Discontinued loperamide [Imodium] 2 mg Capsule 2 mg PO Q4H PRN (Reason: Diarrhea) RF: 0 dexamethasone 6 mg Tablet 6 mg PO DAILY RF: 0 warfarin 2 mg Tablet 2.5 mg PO 3XWK RF: 0 Discharge Orders: Discharge Order (Routine); Ordered 07/16/20 Ordered By: Louise Fish Admission Data Admit Date/Time: 07/14/20 14:59 Attending Provider: Louise Fish Admit Provider: Blu Capps Primary Care Provider: Sushil VALDEZ Other Providers: Micky Cadena Coding Level of Care Code D/C Day Management >30 mins Diagnoses Acute on chronic HFrEF (heart failure with reduced ejection fraction) I50.23 Hypoxia R09.02 COVID-19 U07.1 Hyperkalemia E87.5 Type 2 diabetes mellitus E11.9 Diabetes mellitus complication status: without complication Diabetes mellitus retirement insulin use: without terminal press operator use CKD (chronic kidney disease), stage III N18.3 CAD (coronary artery disease) I25.10 Associated angina: without angina Coronary Disease-Associated Artery/Lesion type: [place] artery [place] vs. transplanted heart: [place] heart Supratherapeutic INR R79.1 Depression F32.9 Macrocytic anemia D53.9 DVT prophylaxis Z29.9
[2020-07-16 12:30] VITALS: BP 138/97
== END 2020-07-16 13:49 | DRG 291 ==
LOC: ED 12:45 → EDINP 14:59 → SUATTDRO 14:59 → 2N 18:48
DX: T38.0X5A Adverse effect of glucocorticoids and synthetic analogues, initial encounter; Y92.149 Unspecified place in prison as the place of occurrence of the external cause; E11.22 Type 2 diabetes mellitus with diabetic chronic kidney disease; Z79.01 Long term (current) use of anticoagulants; R79.1 Abnormal coagulation profile; J44.9 Chronic obstructive pulmonary disease, unspecified; I50.23 Acute on chronic systolic (congestive) heart failure; E87.5 Hyperkalemia; Z87.891 Personal history of nicotine dependence; N18.30 Chronic kidney disease, stage 3 unspecified; R73.9 Hyperglycemia, unspecified; U07.1 COVID-19; I13.0 Hypertensive heart and chronic kidney disease with heart failure and stage 1 through stage 4 chronic kidney disease, or unspecified chronic kidney disease; I48.91 Unspecified atrial fibrillation; Z83.3 Family history of diabetes mellitus; F32.9 Major depressive disorder, single episode, unspecified; I25.10 Atherosclerotic heart disease of native coronary artery without angina pectoris; E78.5 Hyperlipidemia, unspecified; D53.9 Nutritional anemia, unspecified; I25.2 Old myocardial infarction; R09.02 Hypoxemia

== ENCOUNTER 2020-08-19 21:14 | Observation (INO) ==
[2020-08-19 21:54] LABS: INR 2.6 (0.9-1.1); Partial Thromboplastin Ratio 1.3; Partial Thromboplastin Time 36.7 Seconds (21.0-31.0); Prothrombin Time 26.1 Seconds (9.0-12.0)
[2020-08-19 22:06] LABS: BUN Creatinine Ratio 20.8 (10-20); Calcium 8.9 mg/dl (8.5-10.1); Creatinine Clr Calc Pharmacy 28.5 ml/min; Est GFR (African American) 32.7; Est GFR (Non-African American) 28.2; Magnesium 1.9 mg/dl (1.8-2.4); Potassium 4.5 mmol/L (3.5-5.1)
[2020-08-19 22:11] LABS: Albumin Globulin Ratio 0.8 (0.9-2); Bilirubin,Total 2.7 mg/dl (0.2-1); Globulin 3.7 gm/dl (2.5-4.0); Total Protein 6.7 gm/dl (6.4-8.2); Troponin I 0.028 ng/ml (0-0.045)
[2020-08-19 22:17] LABS: Hematocrit (blood only) 39.4 % (42-52); Hemoglobin 12.8 g/dL (14.0-18.0); Mean Corpuscular Hemoglobin 33.4 pg (25-34); Mean Corpuscular Hgb Conc 32.5 g/dL (32-36); Mean Corpuscular Volume 102.9 fL (80-100); Mean Platelet Volume 12.5 fL (7.4-10.4); Nucleated RBC # (auto) 0.06 K/uL (0-0); Nucleated RBC % (auto) 0.6 %; Platelet Count 114 K/uL (130-400); RDW Coefficient of Variation 17.7 % (11.5-14.5); RDW Standard Deviation 65.5 fL (36.4-46.3); Red Blood Count 3.83 M/uL (4.7-6.1); White Blood Count 9.66 K/uL (4.8-10.8)
[2020-08-19 22:18] LABS: Basophils # (auto) 0.03 K/uL (0-0.2); Basophils % (auto) 0.3 %; Eosinophils # (auto) 0.03 K/uL (0-0.5); Eosinophils % (auto) 0.3 %; Immature Granulocytes # (auto) 0.02 K/uL (0.00-0.02); Immature Granulocytes % (auto) 0.2 %; Lymphocytes # (auto) 1.12 K/uL (1.2-3.4); Lymphocytes % (auto) 11.6 %; Monocytes # (auto) 0.85 K/uL (0.11-0.59); Monocytes % (auto) 8.8 %; Neutrophils # (auto) 7.61 K/uL (1.4-6.5); Neutrophils % (auto) 78.8 %; Platelet Estimate Decreased (Normal); Polychromasia 1+
[2020-08-19 22:36] LABS: CoV2 Total Antibody Positive (Negative)
[2020-08-19] MEDS ORDERED: SODIUM CHLORIDE 0.9% 500 ML IV SCH (22:45)
[2020-08-19 22:48] LABS: Influenza A virus by PCR Negative (Negative); Influenza B virus by PCR Negative (Negative)
--- NOTE | 2020-08-19 23:07 | Emergency Department Note ---
History of Present Illness General Chief complaint: Weakness Stated complaint: WEAKNESS Time Seen by Provider: 08/19/20 21:20 History of Present Illness Provider complaint: Weakness Onset (ago): month(s) 2 Location: head and chest 75-year-old male presents emergency department for weakness. Patient states he has been feeling increasingly weak for the last 2 months. He states he tested positive for COVID-19 in June. He states his symptoms have gotten better however he still feels short of breath with exertion having occasional chest pain. He also reports he still cannot taste anything. Patient reports she has been feeling increasing weak. He states he fell yesterday and today. She is on Coumadin. Patient denies any abdominal pain, nausea vomiting or diarrhea. No melena hematochezia. No hematuria. Home Medications Medication Instructions Recorded Confirmed Type atorvastatin 80 mg PO HS 05/01/18 08/19/20 History cyanocobalamin (vitamin B-12) 1,000 mcg PO DAILY 05/01/18 08/19/20 History [Vitamin B-12] ferrous sulfate [iron] 325 mg PO 3XWK 05/01/18 08/19/20 History nitroglycerin [Nitrostat] 0.4 mg SUBLINGUAL DIRECTED PRN 05/01/18 08/19/20 History paroxetine HCl 40 mg PO QAM 05/01/18 08/19/20 History tamsulosin 0.4 mg PO HS 05/01/18 08/19/20 History carvedilol 12.5 mg PO BID 09/23/18 08/19/20 History ascorbic acid (vitamin C) [Vitamin 500 mg PO 3XWK 10/14/18 08/19/20 History C] pantoprazole 40 mg PO BID 10/14/18 08/19/20 History isosorbide mononitrate 60 mg PO DAILY #30 tab 10/18/18 08/19/20 Rx calcium polycarbophil [Fiber-Lax] 625 mg PO DAILY 01/03/20 08/19/20 History glipizide 5 mg PO DAILY #0 tab 07/08/20 08/19/20 Rx lisinopril 10 mg PO DAILY #0 tab 07/08/20 08/19/20 Rx acetaminophen 325 mg PO QID PRN 07/14/20 08/19/20 History furosemide [Lasix] 40 mg PO DAILY #30 tab 07/16/20 08/19/20 Rx magnesium oxide 400 mg PO QAM #0 cap 07/16/20 08/19/20 Rx spironolactone [Aldactone] 12.5 mg PO DAILY #15 tab 07/16/20 08/19/20 Rx warfarin 1 mg PO QPM #0 tab 07/16/20 08/19/20 Rx Allergies Allergy/AdvReac Type Severity Reaction Status Date / Time No Known Allergies Allergy Verified 08/19/20 21:45 Past Med/Surg History Medical History (Updated 08/20/20 @ 01:20 by Otis Varela) AAA (abdominal aortic aneurysm) Acute NC, inferior wall Afib Anemia Anxiety Anxiety Ascites Atrial fibrillation CAD (coronary artery disease) s/p inferior wall NC with chronically occluded RCA - cath on 01/09/15 - no intervention. L to R collateralization noted Cardiac ischemia CHF (congestive heart failure) ICM with EF of 15-20% CHF exacerbation CKD (chronic kidney disease) stage 3, GFR 30-59 ml/min COPD (chronic obstructive pulmonary disease) COVID-19 Depression Diabetes Elevated troponin Essential hypertension GERD (gastroesophageal reflux disease) High cholesterol Hyperlipidemia Male genitourinary symptoms Near syncope PNA (pneumonia) Sepsis Surgical History No significant past surgical history Family History Other Diabetes Social History Smoking Status: Former smoker Second Hand Exposure: Yes; Hx Alcohol Use: No Hx Substance Use: No Preferred Language: Welsh Communication Ability: Effective Visual Impairment: No Limitations Preanalytics Team Lead Required: No Beliefs That Will Affect Care: None marital status: Single Current Living Situation: Other Current Living Situation Comment: [employer] Feels Safe at Home: Yes Assistive Devices: Oxygen - Continuous Review of Systems A total of 10 systems reviewed and were otherwise negative Physical Exam Vital Signs Vital Signs - 24 hr 08/19/20 21:22 08/19/20 21:30 08/19/20 21:43 Temperature 36.8 C Temperature Source Oral Pulse Rate 120 H 109 H Pulse Rate from SpO2 Sensor 119 H Pulse Rhythm Irregular Pulse Strength Normal Respiratory Rate 20 27 H Respiratory Effort / Characteristics Non-Labored Spontaneous Non-Labored Spontaneous Respiratory Depth Normal Blood Pressure 130/94 121/95 Blood Pressure Mean 106 98 Blood Pressure Position Lying Pulse Oximetry 94 92 94 Oxygen Delivery Method Room Air Room Air Room Air Sepsis Recent Fever Within 48 Hours No Sepsis New/Unexplained Change in Mental Status No Sepsis Action Taken by Nursing No Action Required 08/19/20 22:00 08/19/20 23:00 08/19/20 23:32 Temperature Temperature Source Pulse Rate 124 H 123 H 126 H Pulse Rate from SpO2 Sensor 137 H Pulse Rhythm Pulse Strength Respiratory Rate 24 24 24 Respiratory Effort / Characteristics Respiratory Depth Blood Pressure 127/97 135/105 H 109/90 Blood Pressure Mean 111 111 99 Blood Pressure Position Pulse Oximetry 92 96 96 Oxygen Delivery Method Room Air Sepsis Recent Fever Within 48 Hours Sepsis New/Unexplained Change in Mental Status Sepsis Action Taken by Nursing 08/20/20 00:08 08/20/20 00:30 Temperature Temperature Source Pulse Rate 118 H 111 H Pulse Rate from SpO2 Sensor Pulse Rhythm Pulse Strength Respiratory Rate 24 20 Respiratory Effort / Characteristics Respiratory Depth Blood Pressure 108/104 H 129/93 Blood Pressure Mean 107 101 Blood Pressure Position Pulse Oximetry 96 96 Oxygen Delivery Method Sepsis Recent Fever Within 48 Hours Sepsis New/Unexplained Change in Mental Status Sepsis Action Taken by Nursing Physical Exam GENERAL: He is oriented to person, place, and time. He appears well-developed and well-nourished. He does not appear distressed. HENT: Exam performed. - Head: Normocephalic and atraumatic. - Right Ear: External ear normal. No mastoid tenderness. - Left Ear: External ear normal. No mastoid tenderness. - Mouth/Throat: The oropharynx is clear and moist. No trismus in the jaw. No dental abscesses or uvula swelling. No oropharyngeal exudate or tonsillar abscesses. White plaques on the patient's soft palate. EYES: Conjunctivae and EOM are normal. Pupils are equal, round, and reactive to light. Right eye exhibits no discharge. Left eye exhibits no discharge. No scleral icterus. NECK: Normal range of motion. Neck supple. No JVD present. No spinous process tenderness present. No carotid bruit present. No rigidity. No tracheal deviation and normal range of motion present. No Brudzinski's sign and no Kernig's sign noted. CV: Normal rate, irregular rhythm, normal heart sounds and intact distal pulses. There is no peripheral edema. Palpable radial pulses bue. PULM/CHEST: Effort normal and breath sounds normal. No respiratory distress. No stridor. He has no wheezes. He has no rales. - Chest Wall: He exhibits no tenderness. ABD: The abdomen is soft. Bowel sounds are normal. He has no distension. No mass is present. There is no tenderness. There is no rebound, no guarding, no Joshi's sign and no tenderness at McBurney's point. Rovsig negative. MUSC/SKEL: Normal range of motion. There is no peripheral edema, tenderness or deformity. LYMPH: No cervical adenopathy. NEURO: He is alert and oriented to person, place, and time. He has normal strength. No cranial nerve deficit or sensory deficit. Coordination and gait normal. GCS eye subscore is 4. GCS verbal subscore is 5. GCS motor subscore is 6. Cerebellar tests wnl. SKIN: Skin is warm and dry. He is not diaphoretic. PSYCH: He has a normal mood and affect. Behavior is normal. Judgment and thought content normal. Course Course 2119: The patient was evaluated in room C7. A complete history and physical exam was performed. Cardiac monitoring: An order was placed for continuous cardiac monitoring. The monitor shows a rate of 110 with atrial fibrillation rhythm Patient was seen in full airborne precautions. Patient was seen in N95's, gloves, gowns, face shield by myself and staff. 2229: Vital signs stable. Labs show a creatinine of 2.23. Patient is mono screen negative. Patient does have Covid IgG and IgM. Hemoglobin within normal limits. Platelet count 114. INR 2.6. Lactic acid to 3.2. Bilirubin 2.7. AST 295 ALT 410. Ammonia level be added to the patient given his weakness and elevated liver function test. Ultrasound will also be ordered. CT of the head and neck is within normal limits. Will be gently hydrated given his congestive heart failure history. 50: Vital signs stable. HIV test which the patient did verbally consent to was negative. Ultrasound shows an 8 mm stone within the neck of the gallbladder with a thickened wall to 4 to 5 mm. No common bile duct dilatation. Negative sonographic Joshi sign. There is also mention of a abdominal aortic aneurysm of the distal aorta with mural thrombus and/or plaque which measures 6.5 x 3.8 x 3.6 cm. EMR reviewed. Patient has been known to have a AAA in the past last time in [address] was measured at 3.7 cm in the infrarenal area. Patient has no tenderness to palpation of the abdomen. His ammonia level is within normal limits. I discussed the patient's case and read the findings of the ultrasound verbatim to Dr. Montgomery, general surgery on-call, who states that the patient should be admitted to the medicine service, have HIDA scan, and had that he will be on consult. Patient will be treated empirically with antibiotics Rocephin and Flagyl given his elevated lactic acid level. [facility] Carter who will evaluate the patient. 0121: Feet lactic acid 2.8. Patient will be continued to be gently hydrated. Patient being evaluated by Dr. Carter at this time. Administered Medications Sodium Chloride (Nss) 500 mls @ 75 mls/hr IV .[id number] HI Stop: 09/18/20 22:44 Last Admin: 08/19/20 22:41 Dose: 75 mls/hr Documented by: [id number] Ceftriaxone Sodium (Rocephin) 1,000 mg in 50 mls @ 100 mls/hr IV NOW STA Stop: 08/20/20 01:23 Last Admin: 08/20/20 00:59 Dose: 100 mls/hr Documented by: [id number] Critical Care Time Critical Care Time: Yes Total Critical Care Time: 37 I have personally spent greater than 37 minutes of critical care time in the direct management of this patient. This includes bedside care, interpretation of diagnostic studies, and testing, discussion with consultants, patient, and family members, and other required patient management activities. This 37 minutes is in excess of all separately billable procedures. Medical Decision Making Laboratory Data Result diagrams: 08/19/20 21:25 08/19/20 21:25 Lab Results 08/19/20 08/19/20 08/19/20 Range/Units 21:25 21:25 21:25 WBC 9.66 (4.8-10.8) K/uL RBC 3.83 L (4.7-6.1) M/uL Hgb 12.8 L (14.0-18.0) g/dL Hct 39.4 L (42-52) % MCV 102.9 H (80-100) fL MCH 33.4 (25-34) pg MCHC 32.5 (32-36) g/dL RDW Std Deviation 65.5 H (36.4-46.3) fL RDW Coeff of Samara 17.7 H (11.5-14.5) % Plt Count 114 L (130-400) K/uL MPV 12.5 H (7.4-10.4) fL Immature Gran % (Auto) 0.2 % Neut % (Auto) 78.8 % Lymph % (Auto) 11.6 % Liberty % (Auto) 8.8 % Eos % (Auto) 0.3 % Baso % (Auto) 0.3 % Neut # (Auto) 7.61 H (1.4-6.5) K/uL Lymph # (Auto) 1.12 L (1.2-3.4) K/uL Liberty # (Auto) 0.85 H (0.11-0.59) K/uL Eos # (Auto) 0.03 (0-0.5) K/uL Baso # (Auto) 0.03 (0-0.2) K/uL Immature Gran # (Auto) 0.02 (0.00-0.02) K/uL Absolute Nucleated RBC 0.06 H (0-0) K/uL Nucleated RBC % (auto) 0.6 % Platelet Estimate Decreased L (Normal) Polychromasia 1+ PT (9.0-12.0) Seconds INR (0.9-1.1) APTT (21.0-31.0) Seconds PTT Ratio VBG pH (7.36-7.41) VBG pCO2 (38-50) mmHg VBG pO2 mmHg VBG HCO3 mmol/L VBG O2 Saturation % VBG Base Excess mEq/L Barometric Pressure mm/Hg Sodium 137 (136-145) mmol/L Potassium 4.5 (3.5-5.1) mmol/L Chloride 103 (98-107) mmol/L Carbon Dioxide 24 (21-32) mmol/L Anion Gap 10.0 (3-11) BUN 46 H (7-18) mg/dl Creatinine 2.23 H (0.6-1.4) mg/dl Est Cr Clr Drug Dosing 28.5 ml/min Est GFR ( Amer) 32.7 Est GFR (Non-Af Amer) 28.2 BUN/Creatinine Ratio 20.8 H (10-20) Glucose 229 H (70-99) mg/dl Lactate (0.4-2.0) mmol/L Calcium 8.9 (8.5-10.1) mg/dl Magnesium 1.9 (1.8-2.4) mg/dl Total Bilirubin 2.7 H (0.2-1) mg/dl AST 295 H (15-37) U/L ALT 410 H (12-78) U/L Alkaline Phosphatase 115 (45-117) U/L Ammonia (11-32) umol/L Troponin I 0.028 (0-0.045) ng/ml Total Protein 6.7 (6.4-8.2) gm/dl Albumin 3.0 L (3.4-5.0) gm/dl Globulin 3.7 (2.5-4.0) gm/dl Albumin/Globulin Ratio 0.8 L (0.9-2) Procalcitonin 0.43 (0-0.5) ng/ml COVID-19 Eval Order Monoscreen (Negative) HIV 1&2 Ab/P24 Ag 4thGn (Neg) Influ A Molecular Assay (Negative) Influ B Molecular Assay (Negative) SARS-CoV-2, RNA, NAAT (NEGATIVE) SARS-CoV-2 IgG & IgM Ab (Negative) 08/19/20 08/19/20 08/19/20 Range/Units 21:25 21:25 21:25 WBC (4.8-10.8) K/uL RBC (4.7-6.1) M/uL Hgb (14.0-18.0) g/dL Hct (42-52) % MCV (80-100) fL MCH (25-34) pg MCHC (32-36) g/dL RDW Std Deviation (36.4-46.3) fL RDW Coeff of Samara (11.5-14.5) % Plt Count (130-400) K/uL MPV (7.4-10.4) fL Immature Gran % (Auto) % Neut % (Auto) % Lymph % (Auto) % Liberty % (Auto) % Eos % (Auto) % Baso % (Auto) % Neut # (Auto) (1.4-6.5) K/uL Lymph # (Auto) (1.2-3.4) K/uL Liberty # (Auto) (0.11-0.59) K/uL Eos # (Auto) (0-0.5) K/uL Baso # (Auto) (0-0.2) K/uL Immature Gran # (Auto) (0.00-0.02) K/uL Absolute Nucleated RBC (0-0) K/uL Nucleated RBC % (auto) % Platelet Estimate (Normal) Polychromasia PT 26.1 H (9.0-12.0) Seconds INR 2.6 H (0.9-1.1) APTT 36.7 H (21.0-31.0) Seconds PTT Ratio 1.3 VBG pH (7.36-7.41) VBG pCO2 (38-50) mmHg VBG pO2 mmHg VBG HCO3 mmol/L VBG O2 Saturation % VBG Base Excess mEq/L Barometric Pressure mm/Hg Sodium (136-145) mmol/L Potassium (3.5-5.1) mmol/L Chloride (98-107) mmol/L Carbon Dioxide (21-32) mmol/L Anion Gap (3-11) BUN (7-18) mg/dl Creatinine (0.6-1.4) mg/dl Est Cr Clr Drug Dosing ml/min Est GFR ( Amer) Est GFR (Non-Af Amer) BUN/Creatinine Ratio (10-20) Glucose (70-99) mg/dl Lactate (0.4-2.0) mmol/L Calcium (8.5-10.1) mg/dl Magnesium (1.8-2.4) mg/dl Total Bilirubin (0.2-1) mg/dl AST (15-37) U/L ALT (12-78) U/L Alkaline Phosphatase (45-117) U/L Ammonia (11-32) umol/L Troponin I (0-0.045) ng/ml Total Protein (6.4-8.2) gm/dl Albumin (3.4-5.0) gm/dl Globulin (2.5-4.0) gm/dl Albumin/Globulin Ratio (0.9-2) Procalcitonin (0-0.5) ng/ml COVID-19 Eval Order Monoscreen (Negative) HIV 1&2 Ab/P24 Ag 4thGn Neg (Neg) Influ A Molecular Assay (Negative) Influ B Molecular Assay (Negative) SARS-CoV-2, RNA, NAAT (NEGATIVE) SARS-CoV-2 IgG & IgM Ab Positive A (Negative) 08/19/20 08/19/20 08/19/20 Range/Units 21:25 21:50 22:07 WBC (4.8-10.8) K/uL RBC (4.7-6.1) M/uL Hgb (14.0-18.0) g/dL Hct (42-52) % MCV (80-100) fL MCH (25-34) pg MCHC (32-36) g/dL RDW Std Deviation (36.4-46.3) fL RDW Coeff of Samara (11.5-14.5) % Plt Count (130-400) K/uL MPV (7.4-10.4) fL Immature Gran % (Auto) % Neut % (Auto) % Lymph % (Auto) % Liberty % (Auto) % Eos % (Auto) % Baso % (Auto) % Neut # (Auto) (1.4-6.5) K/uL Lymph # (Auto) (1.2-3.4) K/uL Liberty # (Auto) (0.11-0.59) K/uL Eos # (Auto) (0-0.5) K/uL Baso # (Auto) (0-0.2) K/uL Immature Gran # (Auto) (0.00-0.02) K/uL Absolute Nucleated RBC (0-0) K/uL Nucleated RBC % (auto) % Platelet Estimate (Normal) Polychromasia PT (9.0-12.0) Seconds INR (0.9-1.1) APTT (21.0-31.0) Seconds PTT Ratio VBG pH (7.36-7.41) VBG pCO2 (38-50) mmHg VBG pO2 mmHg VBG HCO3 mmol/L VBG O2 Saturation % VBG Base Excess mEq/L Barometric Pressure mm/Hg Sodium (136-145) mmol/L Potassium (3.5-5.1) mmol/L Chloride (98-107) mmol/L Carbon Dioxide (21-32) mmol/L Anion Gap (3-11) BUN (7-18) mg/dl Creatinine (0.6-1.4) mg/dl Est Cr Clr Drug Dosing ml/min Est GFR ( Amer) Est GFR (Non-Af Amer) BUN/Creatinine Ratio (10-20) Glucose (70-99) mg/dl Lactate 3.2 H* (0.4-2.0) mmol/L Calcium (8.5-10.1) mg/dl Magnesium (1.8-2.4) mg/dl Total Bilirubin (0.2-1) mg/dl AST (15-37) U/L ALT (12-78) U/L Alkaline Phosphatase (45-117) U/L Ammonia (11-32) umol/L Troponin I (0-0.045) ng/ml Total Protein (6.4-8.2) gm/dl Albumin (3.4-5.0) gm/dl Globulin (2.5-4.0) gm/dl Albumin/Globulin Ratio (0.9-2) Procalcitonin (0-0.5) ng/ml COVID-19 Eval Order Monoscreen Negative (Negative) HIV 1&2 Ab/P24 Ag 4thGn (Neg) Influ A Molecular Assay Negative (Negative) Influ B Molecular Assay Negative (Negative) SARS-CoV-2, RNA, NAAT (NEGATIVE) SARS-CoV-2 IgG & IgM Ab (Negative) 08/19/20 08/19/20 08/19/20 Range/Units 22:17 22:17 22:43 WBC (4.8-10.8) K/uL RBC (4.7-6.1) M/uL Hgb (14.0-18.0) g/dL Hct (42-52) % MCV (80-100) fL MCH (25-34) pg MCHC (32-36) g/dL RDW Std Deviation (36.4-46.3) fL RDW Coeff of Samara (11.5-14.5) % Plt Count (130-400) K/uL MPV (7.4-10.4) fL Immature Gran % (Auto) % Neut % (Auto) % Lymph % (Auto) % Liberty % (Auto) % Eos % (Auto) % Baso % (Auto) % Neut # (Auto) (1.4-6.5) K/uL Lymph # (Auto) (1.2-3.4) K/uL Liberty # (Auto) (0.11-0.59) K/uL Eos # (Auto) (0-0.5) K/uL Baso # (Auto) (0-0.2) K/uL Immature Gran # (Auto) (0.00-0.02) K/uL Absolute Nucleated RBC (0-0) K/uL Nucleated RBC % (auto) % Platelet Estimate (Normal) Polychromasia PT (9.0-12.0) Seconds INR (0.9-1.1) APTT (21.0-31.0) Seconds PTT Ratio VBG pH 7.36 (7.36-7.41) VBG pCO2 42 (38-50) mmHg VBG pO2 24 mmHg VBG HCO3 23 mmol/L VBG O2 Saturation < 60.0 % VBG Base Excess -2.2 mEq/L Barometric Pressure 733.4 mm/Hg Sodium (136-145) mmol/L Potassium (3.5-5.1) mmol/L Chloride (98-107) mmol/L Carbon Dioxide (21-32) mmol/L Anion Gap (3-11) BUN (7-18) mg/dl Creatinine (0.6-1.4) mg/dl Est Cr Clr Drug Dosing ml/min Est GFR ( Amer) Est GFR (Non-Af Amer) BUN/Creatinine Ratio (10-20) Glucose (70-99) mg/dl Lactate (0.4-2.0) mmol/L Calcium (8.5-10.1) mg/dl Magnesium (1.8-2.4) mg/dl Total Bilirubin (0.2-1) mg/dl AST (15-37) U/L ALT (12-78) U/L Alkaline Phosphatase (45-117) U/L Ammonia (11-32) umol/L Troponin I (0-0.045) ng/ml Total Protein (6.4-8.2) gm/dl Albumin (3.4-5.0) gm/dl Globulin (2.5-4.0) gm/dl Albumin/Globulin Ratio (0.9-2) Procalcitonin (0-0.5) ng/ml COVID-19 Eval [facility] Mon[facility] (Negative) HIV 1&2 Ab/P24 Ag 4thGn (Neg) Influ A Molecular Assay (Negative) Influ B Molecular Assay (Negative) SARS-CoV-2, RNA, NAAT NEGATIVE (NEGATIVE) SARS-CoV-2 IgG & IgM Ab (Negative) 08/19/20 08/20/20 Range/Units 22:43 00:33 WBC (4.8-10.8) K/uL RBC (4.7-6.1) M/uL Hgb (14.0-18.0) g/dL Hct (42-52) % MCV (80-100) fL MCH (25-34) pg MCHC (32-36) g/dL RDW Std Deviation (36.4-46.3) fL RDW Coeff of Samara (11.5-14.5) % Plt Count (130-400) K/uL MPV (7.4-10.4) fL Immature Gran % (Auto) % Neut % (Auto) % Lymph % (Auto) % Liberty % (Auto) % Eos % (Auto) % Baso % (Auto) % Neut # (Auto) (1.4-6.5) K/uL Lymph # (Auto) (1.2-3.4) K/uL Liberty # (Auto) (0.11-0.59) K/uL Eos # (Auto) (0-0.5) K/uL Baso # (Auto) (0-0.2) K/uL Immature Gran # (Auto) (0.00-0.02) K/uL Absolute Nucleated RBC (0-0) K/uL Nucleated RBC % (auto) % Platelet Estimate (Normal) Polychromasia PT (9.0-12.0) Seconds INR (0.9-1.1) APTT (21.0-31.0) Seconds PTT Ratio VBG pH (7.36-7.41) VBG pCO2 (38-50) mmHg VBG pO2 mmHg VBG HCO3 mmol/L VBG O2 Saturation % VBG Base Excess mEq/L Barometric Pressure mm/Hg Sodium (136-145) mmol/L Potassium (3.5-5.1) mmol/L Chloride (98-107) mmol/L Carbon Dioxide (21-32) mmol/L Anion Gap (3-11) BUN (7-18) mg/dl Creatinine (0.6-1.4) mg/dl Est Cr Clr Drug Dosing ml/min Est GFR ( Amer) Est GFR (Non-Af Amer) BUN/Creatinine Ratio (10-20) Glucose (70-99) mg/dl Lactate 2.8 H* (0.4-2.0) mmol/L Calcium (8.5-10.1) mg/dl Magnesium (1.8-2.4) mg/dl Total Bilirubin (0.2-1) mg/dl AST (15-37) U/L ALT (12-78) U/L Alkaline Phosphatase (45-117) U/L Ammonia 23.6 (11-32) umol/L Troponin I (0-0.045) ng/ml Total Protein (6.4-8.2) gm/dl Albumin (3.4-5.0) gm/dl Globulin (2.5-4.0) gm/dl Albumin/Globulin Ratio (0.9-2) Procalcitonin (0-0.5) ng/ml COVID-19 Eval Order Monoscreen (Negative) HIV 1&2 Ab/P24 Ag 4thGn (Neg) Influ A Molecular Assay (Negative) Influ B Molecular Assay (Negative) SARS-CoV-2, RNA, NAAT (NEGATIVE) SARS-CoV-2 IgG & IgM Ab (Negative) Imaging Data My Impression: Chest x-ray: Cardiomegaly with mild cephalization. Airway clear. No free air under the diaphragm. Skeletal structures show no acute fractures. Radiologist's Impression: Preliminary Findings Only See Final Report For Complete Findings CT C SPINE: No acute fracture or traumatic alignment of the cervical spine. Mild multilevel degenerative changes of the cervical spine without high-grade spinal or neuroforaminal stenosis. Mild atherosclerotic calcifications of the bilateral carotid arteries of the neck and bilateral intracranial vertebral arteries. Radiologist: Sallie Cantu M.D. Study ready at 22:43 and initial results transmitted at 22:56 Preliminary Findings Only See Final Report For Complete Findings CT HEAD: Comparison: CT brain 05/13/2018 No acute intracranial abnormality. No acute intracranial hemorrhage, extra-axial fluid collection or mass-effect. No CT evidence of acute territorial infarct. Stable presumed chronic microvascular ischemic changes in the supratentorial white matter. Stable remote left basal ganglia lacunar infarct Radiologist: Sallie Cantu M.D. Study ready at 22:40 and initial results transmitted at 22:52 Preliminary Findings Only See Final Report For Complete Findings US RUQ: There is an 8 mm stone within the neck of the gallbladder. The gallbladder is nondistended with a mildly thickened wall of 4-5 mm. No common bile duct dilation. Negative sonographic Joshi sign. Trace perihepatic fluid. There is an abdominal aortic aneurysm of the distal aorta with mural thrombus and/or plaque. The aneurysm measures 6.5 x 3.8 x 3.6 cm (CC, AP, TR). Cysts are visualized within the right kidney including a 3.4 cm septated cyst within the upper pole. Radiologist: Sallie Cantu M.D. Study ready at 00:33 and initial results transmitted at 00:42 ECG Data Indication: + weakness Rate (beats per minute): 119 Rhythm: + atrial fibrillation ECG Intervals/blocks: no Normal QRS and no Normal QT-c ECG ST segments: no Normal ST segments MDM Narrative 2120: The patient was evaluated in room C7. A complete history and physical exam was performed. Cardiac monitoring: An order was placed for continuous cardiac monitoring. The monitor shows a rate of 110 with atrial fibrillation rhythm Patient was seen in full airborne precautions. Patient was seen in N95's, gloves, gowns, face shield by myself and staff. 2230: Vital signs stable. Labs show a creatinine of 2.23. Patient is mono screen negative. Patient does have Covid IgG and IgM. Hemoglobin within normal limits. Platelet count 114. INR 2.6. Lactic acid to 3.2. Bilirubin 2.7. AST 295 ALT 410. Ammonia level be added to the patient given his weakness and elevated liver function test. Ultrasound will also be ordered. CT of the head and neck is within normal limits. Will be gently hydrated given his congestive heart failure history. 0051: Vital signs stable. HIV test which the patient did verbally consent to was negative. Ultrasound shows an 8 mm stone within the neck of the gallbladder with a thickened wall to 4 to 5 mm. No common bile duct dilatation. Negative sonographic Joshi sign. There is also mention of a abdominal aortic aneurysm of the distal aorta with mural thrombus and/or plaque which measures 6.5 x 3.8 x 3.6 cm. EMR reviewed. Patient has been known to have a AAA in the past last time [place] [address] was measured at 3.7 cm in the infrarenal area. Patient has no tenderness to palpation of the abdomen. His ammonia level is within normal limits. I discussed the patient's case and read the findings of the ultrasound verbatim to Dr. Montgomery, general surgery on-call, who states that the patient should be admitted to the medicine service, have HIDA scan, and had that he will be on consult. Patient will be treated empirically with antibiotics Rocephin and Flagyl given his elevated lactic acid level. [facility] Carter who will evaluate the patient. 0121: Feet lactic acid 2.8. Patient will be continued to be gently hydrated. Patient being evaluated by Dr. Carter at this time. Impression & Plan Gallstones, Sepsis, Jaundice Discharge Plan Visit Data Chief Complaint: Weakness Stated Complaint: WEAKNESS ED Provider: Otis Varela Discharge Problem: Gallstones, Sepsis, Jaundice Patient Disposition: Being Evaluated by Hospitalist Forms Stand Alone Forms: My [facility] [employer] Prescriptions Prescriptions: No Action ascorbic acid (vitamin C) [Vitamin C] 500 mg Tablet 500 mg PO 3XWK RF: 0 pantoprazole 40 mg Tablet,Delayed Release (Dr/Ec) 40 mg PO BID RF: 0 isosorbide mononitrate 60 mg Tablet Extended Release 24 Hr 60 mg PO DAILY Qty: 30 RF: 0 calcium polycarbophil [Fiber-Lax] 625 mg Tablet 625 mg PO DAILY RF: 0 acetaminophen 325 mg Tablet 325 mg PO QID PRN (Reason: Pain) RF: 0 warfarin 1 mg Tablet 1 mg PO QPM Qty: 0 RF: 0 magnesium oxide 400 mg Capsule 400 mg PO QAM Qty: 0 RF: 0 furosemide [Lasix] 40 mg tablet 40 mg PO DAILY Qty: 30 RF: 0 spironolactone [Aldactone] 25 mg tablet 12.5 mg PO DAILY Qty: 15 RF: 0 atorvastatin 80 mg Tablet 80 mg PO HS RF: 0 ferrous sulfate [iron] 325 mg (65 mg iron) Tablet 325 mg PO 3XWK RF: 0 nitroglycerin [Nitrostat] 0.4 mg Tablet, Sublingual 0.4 mg Sublingual DIRECTED PRN (Reason: Chest Pain) RF: 0 cyanocobalamin (vitamin B-12) [Vitamin B-12] 1,000 mcg Tablet 1,000 mcg PO DAILY RF: 0 tamsulosin 0.4 mg Capsule 0.4 mg PO HS RF: 0 paroxetine HCl 40 mg Tablet 40 mg PO QAM RF: 0 carvedilol 12.5 mg Tablet 12.5 mg PO BID RF: 0 lisinopril 20 mg Tablet 10 mg PO DAILY Qty: 0 RF: 0 glipizide 5 mg Tablet 5 mg PO DAILY Qty: 0 RF: 0 Referrals Referrals: Sushil VALDEZ [Primary Care Provider] - Discharge Problem: Sepsis Qualifiers: Sepsis type: sepsis due to unspecified organism Sepsis acute organ dysfunction status: unspecified Qualified Code(s): A41.9 - Sepsis, unspecified organism
[2020-08-19 23:12] LABS: Base Excess VBG -2.2 mEq/L; HCO3 VBG 23 mmol/L; PCO2 VBG 42 mmHg (38-50); PO2 VBG 24 mmHg; pH VBG 7.36 (7.36-7.41)
[2020-08-19 23:33] LABS: Oxygen Saturation VBG < 60.0 %
[2020-08-20] MEDS ORDERED: metroNIDAZOLE 500 MG/100 ML BAG IV STA (00:54)
[2020-08-20] MEDS ORDERED: cefTRIAXone SODIUM 1,000 MG/50 ML BAG IV STA (00:54)
[2020-08-20 01:50] LABS: Appearance Urine Clear (Clear); Bacteria Urine Automated Negative (Negative); Blood Urine Negative (Negative); Color Urine Dark Yellow; Epithelial Cell Urine Auto 0-5 /lpf (0-5); Glucose Urine UA Negative (Negative); Ketones Urine Trace (Negative); Leukocyte Esterase Urine Negative (Negative); Nitrite Urine Negative (Negative); Protein Urine 2+ (Negative); RBC Urine Automated 0-4 /hpf (0-4); Specific Gravity Urine 1.024 (1.000-1.030); Urobilinogen Urine Negative (Negative)
[2020-08-20 01:52] LABS: Bilirubin Urine 1+ (Negative)
[2020-08-20] MEDS ORDERED: carvediloL 12.5 MG TAB PO ONE (01:52)
--- NOTE | 2020-08-20 02:08 | History & Physical Report ---
Date of Service August 20, 2020 Assessment & Plan (1) Gallstones: 8mm gallstone, elevation of AST/ALT/Tbili. Patient afebrile, non-toxic in appearance. -Check HIDA scan -Follow cultures -Zosyn -Tylenol as needed for pain or fever -General Surgery consultation appreciated -Heart healthy diet for now Present on Admission?: Yes (2) AAA (abdominal aortic aneurysm): Infrarenal aneurysm measures 6.5 x 3.8 x 3.6 cm today which is increased from last imaging study on 10/14/18 - 3.7cm. Mural thrombus. Patient on Coumadin for AF. No evidence of rupture on imaging -Patient should followup with Vascular Surgery - ?inpatient consult vs outpatient followup Present on Admission?: Yes (3) Depression: Chronic. Stable. -Continue Paroxetine Present on Admission?: Yes (4) Anemia: Stable macrocytic anemia -Continue to monitor Present on Admission?: Yes (5) Type 2 diabetes mellitus: Poorly controlled. [id number]=0.3 on 07/06/20. Elevated glucose of 192 currently -Hold oral agents -Lantus 5u BID -ISS -Goal blood sugar 100 - 140 Present on Admission?: Yes (6) Chronic combined systolic (congestive) and diastolic (congestive) heart failure: -Continue Lasix 40mg po daily -Continue Isosorbide mono -Continue Spironolactone Present on Admission?: Yes (7) CKD (chronic kidney disease), stage III: BUN=46, Cr=2.23, slightly elevated from prior -Gentle IVF -Monitor BUN/Cr/electroltyes and UOP -Avoid nephrotoxic agents Present on Admission?: Yes (8) CAD (coronary artery disease): Chronic. No CP at present -Continue Carvedilol 12.5mg po BID -Hold Atorvastatin for now, elevated LFTs. Monitor Present on Admission?: Yes (9) Hypertension: BP stable -Continue Carvedilol\\ -Continue Isosorbide -Continue Lisinopril -Continue to monitor Present on Admission?: Yes (10) BPH (benign prostatic hyperplasia): -Continue Flomax -Hines catheter placed in ER Present on Admission?: Yes (11) Atrial fibrillation, permanent: -Continue Carvedilol -Metoprolol IV as needed for HR > 110 -Hold Coumadin for possible surgery Present on Admission?: Yes (12) Constipation: Chronic. Patient states he hasn't had a normal BM for weeks. He reports he was being given daily scheduled Immodium at the [facility] rather than PRN. His lower abdomen is tender -Dulcolax PRN -Continue Fibercon -Colace PRN -Miralax PRN NSS at 80mL/hr x 1 liter, continue PO Mag, montior electrolytes Ppx - On Coumadin - holding for possible surgery. Monitor INR Code - Full. Patient would not like prolonged support or "being kept alive by machines" Dispo -Admit Present on Admission?: Yes History of Present Illness Chief Complaint: weakness, fatigue and abdominal pain Primary Care Provider: [facility] Austin Garza is a 75yo C male inmate at [facility] presenting with two months of progressive weakness. He reports occasional episodes of abdominal pains/pressure and cramping that are followed by feeling weak. He states that these episodes occur intermittently and last only a few minutes. They do not seem to be associated with food. He denies fever/chills/nausea, denies vomiting or diarrhea but states he is severely constipated with last good BM being weeks ago. Patient was diagnosed with Covid-19 infection in June. He states he still feels weak and fatigued since having the infection as well as ongoing ESPANA and occasional chest discomfort. He is still unable to taste or smell anything. He dose present with antibodies on workup today. ER Course: Ceftriaxone, Flagyl, NSS Allergies Allergy/AdvReac Type Severity Reaction Status Date / Time No Known Allergies Allergy Verified 08/19/20 21:45 Home Medications Medication Instructions Recorded Confirmed Type atorvastatin 80 mg PO HS 05/01/18 08/19/20 History cyanocobalamin (vitamin B-12) 1,000 mcg PO DAILY 05/01/18 08/19/20 History [Vitamin B-12] ferrous sulfate [iron] 325 mg PO 3XWK 05/01/18 08/19/20 History nitroglycerin [Nitrostat] 0.4 mg SUBLINGUAL DIRECTED PRN 05/01/18 08/19/20 History paroxetine HCl 40 mg PO QAM 05/01/18 08/19/20 History tamsulosin 0.4 mg PO HS 05/01/18 08/19/20 History carvedilol 12.5 mg PO BID 09/23/18 08/19/20 History ascorbic acid (vitamin C) [Vitamin 500 mg PO 3XWK 10/14/18 08/19/20 History C] pantoprazole 40 mg PO BID 10/14/18 08/19/20 History isosorbide mononitrate 60 mg PO DAILY #30 tab 10/18/18 08/19/20 Rx calcium polycarbophil [Fiber-Lax] 625 mg PO DAILY 01/03/20 08/19/20 History glipizide 5 mg PO DAILY #0 tab 07/08/20 08/19/20 Rx lisinopril 10 mg PO DAILY #0 tab 07/08/20 08/19/20 Rx acetaminophen 325 mg PO QID PRN 07/14/20 08/19/20 History furosemide [Lasix] 40 mg PO DAILY #30 tab 07/16/20 08/19/20 Rx magnesium oxide 400 mg PO QAM #0 cap 07/16/20 08/19/20 Rx spironolactone [Aldactone] 12.5 mg PO DAILY #15 tab 07/16/20 08/19/20 Rx warfarin 1 mg PO QPM #0 tab 07/16/20 08/19/20 Rx Past Med/Surg History Medical History (Updated 08/20/20 @ 04:49 by Jacqui Carter DO) AAA (abdominal aortic aneurysm) Anemia Anxiety Ascites Atrial fibrillation CAD (coronary artery disease) s/p inferior wall [place] with chronically occluded RCA - cath on 01/09/15 - no intervention. L to R collateralization noted CHF (congestive heart failure) ICM with EF of 15-20% CKD (chronic kidney disease) stage 3, GFR 30-59 ml/min COPD (chronic obstructive pulmonary disease) COVID-19 Depression Diabetes Elevated troponin Essential hypertension GERD (gastroesophageal reflux disease) Hyperlipidemia Male genitourinary symptoms Near syncope Surgical History No significant past surgical history Family History Other Diabetes Social History Smoking Status: Former smoker Second Hand Exposure: Yes; Hx Alcohol Use: No Hx Substance Use: No Preferred Language: [place] Communication Ability: Effective Visual Impairment: No Limitations Environmental Health Manager Required: No Beliefs That Will Affect Care: None marital status: Single Current Living Situation: Other Current Living Situation Comment: [facility] Ling Feels Safe at Home: Yes Safety Concerns: Feels Safe At This Time Assistive Devices: Glasses and Walker Review of Systems Review of Systems: All systems reviewed & are unremarkable except as noted in HPI & below Physical Exam Physical Exam: General: thin male patient resting comfortably, NAD, non-toxic in appearance, AA&O x 4 Skin: warm, dry, intact, no rashes or lesions HEENT: NC/AT, PERRL, EOMI, anicteric sclera, conjunctiva without injection, external ear normal to inspection and nontender, nares patent, moist mucus membranes, dentures in place, ill-fitting, neck supple, trachea midline, no LAD, no thyromegaly, no JVD Heart: +S1/S2, irregularly irregular, tachycardic, no m/r/g Lungs: equal air entry bilaterally, no rales/rhonchi/wheezes Abd: +BS, soft, ND, tender in lower quadrants with deep palpation, no rebound/guarding/peritoneal signs, negative Joshi's, no masses/organomegaly/ascites Ext: warm, 2+ pulses in UE/LE bilaterally, no clubbing/cyanosis, 1+ pitting edema Neuro: nonfocal, patient AA&O x 4, speech intact, no facial droop, moving all extremities on command with equal strength 5/5 Results & Data Results & Data ([facility]) Vital Signs (Past 12 Hours) Vital Signs Temp Pulse Resp BP Pulse Ox 08/20/20 01:43 125 H 24 130/99 94 08/20/20 00:30 111 H 20 129/93 96 08/20/20 00:08 118 H 24 108/104 H 96 08/19/20 23:32 126 H 24 109/90 96 08/19/20 23:00 123 H 24 135/105 H 96 08/19/20 22:00 124 H 24 127/97 92 08/19/20 21:43 94 08/19/20 21:30 109 H 27 H 121/95 92 08/19/20 21:22 36.8 C 120 H 20 130/94 94 Laboratory Results Lab Results 08/19/20 08/19/20 08/19/20 Range/Units 21:25 21:25 21:25 WBC 9.66 (4.8-10.8) K/uL RBC 3.83 L (4.7-6.1) M/uL Hgb 12.8 L (14.0-18.0) g/dL Hct 39.4 L (42-52) % MCV 102.9 H (80-100) fL MCH 33.4 (25-34) pg MCHC 32.5 (32-36) g/dL RDW Std Deviation 65.5 H (36.4-46.3) fL RDW Coeff of Samara 17.7 H (11.5-14.5) % Plt Count 114 L (130-400) K/uL MPV 12.5 H (7.4-10.4) fL Immature Gran % (Auto) 0.2 % Neut % (Auto) 78.8 % Lymph % (Auto) 11.6 % Swain % (Auto) 8.8 % Eos % (Auto) 0.3 % Baso % (Auto) 0.3 % Neut # (Auto) 7.61 H (1.4-6.5) K/uL Lymph # (Auto) 1.12 L (1.2-3.4) K/uL Swain # (Auto) 0.85 H (0.11-0.59) K/uL Eos # (Auto) 0.03 (0-0.5) K/uL Baso # (Auto) 0.03 (0-0.2) K/uL Immature Gran # (Auto) 0.02 (0.00-0.02) K/uL Absolute Nucleated RBC 0.06 H (0-0) K/uL Nucleated RBC % (auto) 0.6 % Platelet Estimate Decreased L (Normal) Polychromasia 1+ PT (9.0-12.0) Seconds INR (0.9-1.1) APTT (21.0-31.0) Seconds PTT Ratio VBG pH (7.36-7.41) VBG pCO2 (38-50) mmHg VBG pO2 mmHg VBG HCO3 mmol/L VBG O2 Saturation % VBG Base Excess mEq/L Barometric Pressure mm/Hg Sodium 137 (136-145) mmol/L Potassium 4.5 (3.5-5.1) mmol/L Chloride 103 (98-107) mmol/L Carbon Dioxide 24 (21-32) mmol/L Anion Gap 10.0 (3-11) BUN 46 H (7-18) mg/dl Creatinine 2.23 H (0.6-1.4) mg/dl Est Cr Clr Drug Dosing 28.5 ml/min Est GFR ( Amer) 32.7 Est GFR (Non-Af Amer) 28.2 BUN/Creatinine Ratio 20.8 H (10-20) Glucose 229 H (70-99) mg/dl Lactate (0.4-2.0) mmol/L Calcium 8.9 (8.5-10.1) mg/dl Magnesium 1.9 (1.8-2.4) mg/dl Total Bilirubin 2.7 H (0.2-1) mg/dl AST 295 H (15-37) U/L ALT 410 H (12-78) U/L Alkaline Phosphatase 115 (45-117) U/L Ammonia (11-32) umol/L Troponin I 0.028 (0-0.045) ng/ml Total Protein 6.7 (6.4-8.2) gm/dl Albumin 3.0 L (3.4-5.0) gm/dl Globulin 3.7 (2.5-4.0) gm/dl Albumin/Globulin Ratio 0.8 L (0.9-2) Procalcitonin 0.43 (0-0.5) ng/ml Urine Color Urine Appearance (Clear) Urine pH (4.5-7.5) Ur Specific [place] (1.000-1.030) Urine Protein (Negative) Urine Glucose (UA) (Negative) Urine Ketones (Negative) Urine Blood (Negative) Urine Nitrite (Negative) Urine Bilirubin (Negative) Urine Urobilinogen (Negative) Ur Leukocyte Esterase (Negative) Urine WBC (Auto) (0-5) /hpf Urine RBC (Auto) (0-4) /hpf U Hyaline Cast (Auto) (0-5) /lpf U Epithel Cells (Auto) (0-5) /lpf Urine Bacteria (Auto) (Negative) COVID-19 Eval Order Monoscreen (Negative) HIV 1&2 Ab/P24 Ag 4thGn (Neg) Influ A Molecular Assay (Negative) Influ B Molecular Assay (Negative) SARS-CoV-2, RNA, NAAT (NEGATIVE) SARS-CoV-2 IgG & IgM Ab (Negative) 08/19/20 08/19/20 08/19/20 Range/Units 21:25 21:25 21:25 WBC (4.8-10.8) K/uL RBC (4.7-6.1) M/uL Hgb (14.0-18.0) g/dL Hct (42-52) % MCV (80-100) fL MCH (25-34) pg MCHC (32-36) g/dL RDW Std Deviation (36.4-46.3) fL RDW Coeff of Samara (11.5-14.5) % Plt Count (130-400) K/uL MPV (7.4-10.4) fL Immature Gran % (Auto) % Neut % (Auto) % Lymph % (Auto) % Swain % (Auto) % Eos % (Auto) % Baso % (Auto) % Neut # (Auto) (1.4-6.5) K/uL Lymph # (Auto) (1.2-3.4) K/uL Swain # (Auto) (0.11-0.59) K/uL Eos # (Auto) (0-0.5) K/uL Baso # (Auto) (0-0.2) K/uL Immature Gran # (Auto) (0.00-0.02) K/uL Absolute Nucleated RBC (0-0) K/uL Nucleated RBC % (auto) % Platelet Estimate (Normal) Polychromasia PT 26.1 H (9.0-12.0) Seconds INR 2.6 H (0.9-1.1) APTT 36.7 H (21.0-31.0) Seconds PTT Ratio 1.3 VBG pH (7.36-7.41) VBG pCO2 (38-50) mmHg VBG pO2 mmHg VBG HCO3 mmol/L VBG O2 Saturation % VBG Base Excess mEq/L Barometric Pressure mm/Hg Sodium (136-145) mmol/L Potassium (3.5-5.1) mmol/L Chloride (98-107) mmol/L Carbon Dioxide (21-32) mmol/L Anion Gap (3-11) BUN (7-18) mg/dl Creatinine (0.6-1.4) mg/dl Est Cr Clr Drug Dosing ml/min Est GFR ( Amer) Est GFR (Non-Af Amer) BUN/Creatinine Ratio (10-20) Glucose (70-99) mg/dl Lactate (0.4-2.0) mmol/L Calcium (8.5-10.1) mg/dl Magnesium (1.8-2.4) mg/dl Total Bilirubin (0.2-1) mg/dl AST (15-37) U/L ALT (12-78) U/L Alkaline Phosphatase (45-117) U/L Ammonia (11-32) umol/L Troponin I (0-0.045) ng/ml Total Protein (6.4-8.2) gm/dl Albumin (3.4-5.0) gm/dl Globulin (2.5-4.0) gm/dl Albumin/Globulin Ratio (0.9-2) Procalcitonin (0-0.5) ng/ml Urine Color Urine Appearance (Clear) Urine pH (4.5-7.5) Ur Specific [place] (1.000-1.030) Urine Protein (Negative) Urine Glucose (UA) (Negative) Urine Ketones (Negative) Urine Blood (Negative) Urine Nitrite (Negative) Urine Bilirubin (Negative) Urine Urobilinogen (Negative) Ur Leukocyte Esterase (Negative) Urine WBC (Auto) (0-5) /hpf Urine RBC (Auto) (0-4) /hpf U Hyaline Cast (Auto) (0-5) /lpf U Epithel Cells (Auto) (0-5) /lpf Urine Bacteria (Auto) (Negative) COVID-19 Eval Order Monoscreen (Negative) HIV 1&2 Ab/P24 Ag 4thGn Neg (Neg) Influ A Molecular Assay (Negative) Influ B Molecular Assay (Negative) SARS-CoV-2, RNA, NAAT (NEGATIVE) SARS-CoV-2 IgG & IgM Ab Positive A (Negative) 08/19/20 08/19/20 08/19/20 Range/Units 21:25 21:50 22:07 WBC (4.8-10.8) K/uL RBC (4.7-6.1) M/uL Hgb (14.0-18.0) g/dL Hct (42-52) % MCV (80-100) fL MCH (25-34) pg MCHC (32-36) g/dL RDW Std Deviation (36.4-46.3) fL RDW Coeff of Samara (11.5-14.5) % Plt Count (130-400) K/uL MPV (7.4-10.4) fL Immature Gran % (Auto) % Neut % (Auto) % Lymph % (Auto) % Swain % (Auto) % Eos % (Auto) % Baso % (Auto) % Neut # (Auto) (1.4-6.5) K/uL Lymph # (Auto) (1.2-3.4) K/uL Swain # (Auto) (0.11-0.59) K/uL Eos # (Auto) (0-0.5) K/uL Baso # (Auto) (0-0.2) K/uL Immature Gran # (Auto) (0.00-0.02) K/uL Absolute Nucleated RBC (0-0) K/uL Nucleated RBC % (auto) % Platelet Estimate (Normal) Polychromasia PT (9.0-12.0) Seconds INR (0.9-1.1) APTT (21.0-31.0) Seconds PTT Ratio VBG pH (7.36-7.41) VBG pCO2 (38-50) mmHg VBG pO2 mmHg VBG HCO3 mmol/L VBG O2 Saturation % VBG Base Excess mEq/L Barometric Pressure mm/Hg Sodium (136-145) mmol/L Potassium (3.5-5.1) mmol/L Chloride (98-107) mmol/L Carbon Dioxide (21-32) mmol/L Anion Gap (3-11) BUN (7-18) mg/dl Creatinine (0.6-1.4) mg/dl Est Cr Clr Drug Dosing ml/min Est GFR ( Amer) Est GFR (Non-Af Amer) BUN/Creatinine Ratio (10-20) Glucose (70-99) mg/dl Lactate 3.2 H* (0.4-2.0) mmol/L Calcium (8.5-10.1) mg/dl Magnesium (1.8-2.4) mg/dl Total Bilirubin (0.2-1) mg/dl AST (15-37) U/L ALT (12-78) U/L Alkaline Phosphatase (45-117) U/L Ammonia (11-32) umol/L Troponin I (0-0.045) ng/ml Total Protein (6.4-8.2) gm/dl Albumin (3.4-5.0) gm/dl Globulin (2.5-4.0) gm/dl Albumin/Globulin Ratio (0.9-2) Procalcitonin (0-0.5) ng/ml Urine Color Urine Appearance (Clear) Urine pH (4.5-7.5) Ur Specific [place] (1.000-1.030) Urine Protein (Negative) Urine Glucose (UA) (Negative) Urine Ketones (Negative) Urine Blood (Negative) Urine Nitrite (Negative) Urine Bilirubin (Negative) Urine Urobilinogen (Negative) Ur Leukocyte Esterase (Negative) Urine WBC (Auto) (0-5) /hpf Urine RBC (Auto) (0-4) /hpf U Hyaline Cast (Auto) (0-5) /lpf U Epithel Cells (Auto) (0-5) /lpf Urine Bacteria (Auto) (Negative) COVID-19 Eval Order Monoscreen Negative (Negative) HIV 1&2 Ab/P24 Ag 4thGn (Neg) Influ A Molecular Assay Negative (Negative) Influ B Molecular Assay Negative (Negative) SARS-CoV-2, RNA, NAAT (NEGATIVE) SARS-CoV-2 IgG & IgM Ab (Negative) 08/19/20 08/19/20 08/19/20 Range/Units 22:17 22:17 22:43 WBC (4.8-10.8) K/uL RBC (4.7-6.1) M/uL Hgb (14.0-18.0) g/dL Hct (42-52) % MCV (80-100) fL MCH (25-34) pg MCHC (32-36) g/dL RDW Std Deviation (36.4-46.3) fL RDW Coeff of Samara (11.5-14.5) % Plt Count (130-400) K/uL MPV (7.4-10.4) fL Immature Gran % (Auto) % Neut % (Auto) % Lymph % (Auto) % Swain % (Auto) % Eos % (Auto) % Baso % (Auto) % Neut # (Auto) (1.4-6.5) K/uL Lymph # (Auto) (1.2-3.4) K/uL Swain # (Auto) (0.11-0.59) K/uL Eos # (Auto) (0-0.5) K/uL Baso # (Auto) (0-0.2) K/uL Immature Gran # (Auto) (0.00-0.02) K/uL Absolute Nucleated RBC (0-0) K/uL Nucleated RBC % (auto) % Platelet Estimate (Normal) Polychromasia PT (9.0-12.0) Seconds INR (0.9-1.1) APTT (21.0-31.0) Seconds PTT Ratio VBG pH 7.36 (7.36-7.41) VBG pCO2 42 (38-50) mmHg VBG pO2 24 mmHg VBG HCO3 23 mmol/L VBG O2 Saturation < 60.0 % VBG Base Excess -2.2 mEq/L Barometric Pressure 733.4 mm/Hg Sodium (136-145) mmol/L Potassium (3.5-5.1) mmol/L Chloride (98-107) mmol/L Carbon Dioxide (21-32) mmol/L Anion Gap (3-11) BUN (7-18) mg/dl Creatinine (0.6-1.4) mg/dl Est Cr Clr Drug Dosing ml/min Est GFR ( Amer) Est GFR (Non-Af Amer) BUN/Creatinine Ratio (10-20) Glucose (70-99) mg/dl Lactate (0.4-2.0) mmol/L Calcium (8.5-10.1) mg/dl Magnesium (1.8-2.4) mg/dl Total Bilirubin (0.2-1) mg/dl AST (15-37) U/L ALT (12-78) U/L Alkaline Phosphatase (45-117) U/L Ammonia (11-32) umol/L Troponin I (0-0.045) ng/ml Total Protein (6.4-8.2) gm/dl Albumin (3.4-5.0) gm/dl Globulin (2.5-4.0) gm/dl Albumin/Globulin Ratio (0.9-2) Procalcitonin (0-0.5) ng/ml Urine Color Urine Appearance (Clear) Urine pH (4.5-7.5) Ur Specific [place] (1.000-1.030) Urine Protein (Negative) Urine Glucose (UA) (Negative) Urine Ketones (Negative) Urine Blood (Negative) Urine Nitrite (Negative) Urine Bilirubin (Negative) Urine Urobilinogen (Negative) Ur Leukocyte Esterase (Negative) Urine WBC (Auto) (0-5) /hpf Urine RBC (Auto) (0-4) /hpf U Hyaline Cast (Auto) (0-5) /lpf U Epithel Cells (Auto) (0-5) /lpf Urine Bacteria (Auto) (Negative) COVID[facility]19 [facility] ([facility]) HIV 1&2 Ab/P24 Ag 4thGn (Neg) Influ A Molecular Assay (Negative) Influ B Molecular Assay (Negative) SARS-CoV-2, RNA, NAAT NEGATIVE (NEGATIVE) SARS-CoV-2 IgG & IgM Ab (Negative) 08/19/20 08/20/20 08/20/20 Range/Units 22:43 00:33 01:38 WBC (4.8-10.8) K/uL RBC (4.7-6.1) M/uL Hgb (14.0-18.0) g/dL Hct (42-52) % MCV (80-100) fL MCH (25-34) pg MCHC (32-36) g/dL RDW Std Deviation (36.4-46.3) fL RDW Coeff of Samara (11.5-14.5) % Plt Count (130-400) K/uL MPV (7.4-10.4) fL Immature Gran % (Auto) % Neut % (Auto) % Lymph % (Auto) % Swain % (Auto) % Eos % (Auto) % Baso % (Auto) % Neut # (Auto) (1.4-6.5) K/uL Lymph # (Auto) (1.2-3.4) K/uL Swain # (Auto) (0.11-0.59) K/uL Eos # (Auto) (0-0.5) K/uL Baso # (Auto) (0-0.2) K/uL Immature Gran # (Auto) (0.00-0.02) K/uL Absolute Nucleated RBC (0-0) K/uL Nucleated RBC % (auto) % Platelet Estimate (Normal) Polychromasia PT (9.0-12.0) Seconds INR (0.9-1.1) APTT (21.0-31.0) Seconds PTT Ratio VBG pH (7.36-7.41) VBG pCO2 (38-50) mmHg VBG pO2 mmHg VBG HCO3 mmol/L VBG O2 Saturation % VBG Base Excess mEq/L Barometric Pressure mm/Hg Sodium (136-145) mmol/L Potassium (3.5-5.1) mmol/L Chloride (98-107) mmol/L Carbon Dioxide (21-32) mmol/L Anion Gap (3-11) BUN (7-18) mg/dl Creatinine (0.6-1.4) mg/dl Est Cr Clr Drug Dosing ml/min Est GFR ( Amer) Est GFR (Non-Af Amer) BUN/Creatinine Ratio (10-20) Glucose (70-99) mg/dl Lactate 2.8 H* (0.4-2.0) mmol/L Calcium (8.5-10.1) mg/dl Magnesium (1.8-2.4) mg/dl Total Bilirubin (0.2-1) mg/dl AST (15-37) U/L ALT (12-78) U/L Alkaline Phosphatase (45-117) U/L Ammonia 23.6 (11-32) umol/L Troponin I (0-0.045) ng/ml Total Protein (6.4-8.2) gm/dl Albumin (3.4-5.0) gm/dl Globulin (2.5-4.0) gm/dl Albumin/Globulin Ratio (0.9-2) Procalcitonin (0-0.5) ng/ml Urine Color Dark Yellow Urine Appearance Clear (Clear) Urine pH 5.0 (4.5-7.5) Ur Specific [place] 1.024 (1.000-1.030) Urine Protein 2+ H (Negative) Urine Glucose (UA) Negative (Negative) Urine Ketones Trace H (Negative) Urine Blood Negative (Negative) Urine Nitrite Negative (Negative) Urine Bilirubin 1+ H (Negative) Urine Urobilinogen Negative (Negative) Ur Leukocyte Esterase Negative (Negative) Urine WBC (Auto) 1-5 (0-5) /hpf Urine RBC (Auto) 0-4 (0-4) /hpf U Hyaline Cast (Auto) 5-10 H (0-5) /lpf U Epithel Cells (Auto) 0-5 (0-5) /lpf Urine Bacteria (Auto) Negative (Negative) COVID-19 Eval Order Monoscreen (Negative) HIV 1&2 Ab/P24 Ag 4thGn (Neg) Influ A Molecular Assay (Negative) Influ B Molecular Assay (Negative) SARS-CoV-2, RNA, NAAT (NEGATIVE) SARS-CoV-2 IgG & IgM Ab (Negative) Diagnostic Findings RUQ-US - Per STAT-rad: 8mm stone in the neck of the gallbladder. Gallbladder is nondistended with a mildly thickened wall of 4-5mm. No common bile duct dilation. Negative sonographic Joshi sign. Trace perihepatic fluid. There is an abdominal aortic aneurysm of the distal aorta with mural thrombus and/or plaque. The aneurysm measures 6.5 x 3.8 x 3.6 cm. The cysts are visualized within the right kidney including a 3.4cm septated cyst within the upper pole. ECG Additional Comments: AF with RVR Code Status & VTE Plan VTE Prophylaxis Plan VTE Prophylaxis will be ordered: Yes PG Care Time/CCT Total # of Minutes Spent Total Time Spent with Patient: Total time spent is greater than 50% in coordination of care (as documented) at patient's floor/unit and/or counseling patient: Coding Level of Care Code 82189 Initial Inpt Care Lvl 3 Diagnoses Gallstones K80.20 AAA (abdominal aortic aneurysm) I71.4 Presence of rupture: without rupture Depression F32.9 Depression Type: unspecified Anemia D64.9 Anemia type: unspecified type Type 2 diabetes mellitus E11.9 Diabetes mellitus assistant terminal manager insulin use: without long-term use Diabetes mellitus complication status: without complication Chronic combined systolic (congestive) and diastolic (congestive) heart failure I50.42 CKD (chronic kidney disease), stage III N18.30 Chronic kidney disease stage 3 subtype: unspecified whether 3a or 3b CAD (coronary artery disease) I25.10 Coronary Disease-Associated Artery/Lesion type: [place] artery [place] vs. transplanted heart: [place] heart Associated angina: without angina Hypertension I10 Hypertension type: essential hypertension BPH (benign prostatic hyperplasia) N40.0 Lower urinary tract symptom presence: symptoms absent Atrial fibrillation, permanent I48.2 Constipation K59.00 Constipation type: unspecified constipation type (1) AAA (abdominal aortic aneurysm) Presence of rupture: without rupture Qualified Code(s): I71.4 - Abdominal aortic aneurysm, without rupture (2) Depression Depression Type: unspecified Qualified Code(s): F32.9 - Major depressive disorder, single episode, unspecified (3) Anemia Anemia type: unspecified type Qualified Code(s): D64.9 - Anemia, unspecified (4) Type 2 diabetes mellitus Diabetes mellitus assistant terminal manager insulin use: without long-term use Diabetes mellitus complication status: without complication Qualified Code(s): E11.9 - Type 2 diabetes mellitus without complications (5) CKD (chronic kidney disease), stage III Chronic kidney disease stage 3 subtype: unspecified whether 3a or 3b Qualified Code(s): N18.30 - Chronic kidney disease, stage 3 unspecified (6) CAD (coronary artery disease) Coronary Disease-Associated Artery/Lesion type: [place] artery [place] vs. transplanted heart: [place] heart Associated angina: without angina Qualified Code(s): I25.10 - Atherosclerotic heart disease of [place] coronary artery without angina pectoris (7) Hypertension Hypertension type: essential hypertension Qualified Code(s): I10 - Essential (primary) hypertension (8) BPH (benign prostatic hyperplasia) Lower urinary tract symptom presence: symptoms absent Qualified Code(s): N40.0 - Benign prostatic hyperplasia without lower urinary tract symptoms (9) Constipation Constipation type: unspecified constipation type Qualified Code(s): K59.00 - Constipation, unspecified
[2020-08-20] MEDS ORDERED: POLYETHYLENE (MIRALAX) 17 GM PACK PO PRN (03:13)
[2020-08-20] MEDS ORDERED: PIPERACILL/TAZOBAC CONSULT ACTIVE PRN (03:13)
[2020-08-20] MEDS ORDERED: GLUCOSE 40% GEL 15 GM TUBE PO PRN (03:13)
[2020-08-20] MEDS ORDERED: CARBOHYDRATES FOR HYPOGLYCEMIA PO PRN (03:13)
[2020-08-20] MEDS ORDERED: DOCUSATE SODIUM 100 MG CAP PO PRN (03:13)
[2020-08-20] MEDS ORDERED: bisacodyL 10 MG SUPP PR PRN (03:13)
[2020-08-20] MEDS ORDERED: GLUCAGON FOR INJ 1 MG VIAL SQ PRN (03:13)
[2020-08-20] MEDS ORDERED: METOPROLOL TARTRATE 1 MG/ML VIAL IV PRN (03:13)
[2020-08-20] MEDS ORDERED: GLUCOSE 10 TABS/TUBE PO PRN (03:13)
[2020-08-20] MEDS ORDERED: SODIUM CHLORIDE 0.9% 1000ML 1,000 ML IV SCH (03:13)
[2020-08-20] MEDS ORDERED: ACETAMINOPHEN 325 MG TAB PO PRN (03:13)
[2020-08-20] MEDS ORDERED: ONDANSETRON INJ 2 MG/ML 2 ML VIAL IV PRN (03:13)
[2020-08-20] MEDS ORDERED: DEXTROSE 50% 50 ML SYRINGE IV PRN (03:13)
[2020-08-20] MEDS ORDERED: Nursing to Pharmacy Communication SCH (04:45)
[2020-08-20] MEDS ORDERED: INSULIN ASPART 100 UNITS/ML 3 ML PEN SC SCH (06:00)
[2020-08-20] MEDS ORDERED: PIPERACILLIN/TAZOBACTAM 3.375 GM in DEXTROSE 5% 100 ML IV SCH (06:00)
--- NOTE | 2020-08-20 07:23 | CT Scan Report ---
CT SCAN OF THE BRAIN WITHOUT IV CONTRAST CLINICAL HISTORY: Fall. Head injury. COMPARISON STUDY: CT of the brain dated 05/13/2018. TECHNIQUE: Unenhanced axial CT scan of the brain is performed from the vertex to the skull base. A do se lowering technique was utilized adhering to the principles of ALARA. FINDINGS: Brain parenchyma: There are age-related involutional changes noting moderate subcortical and periven tricular microangiopathic change. There is no hemorrhage, mass effect, or evidence of acute territori al ischemia by CT criteria. Carson-white matter differentiation is preserved. No extra-axial fluid bg ection is seen. Ventricles, sulci, cisterns: Prominent secondary to involutional change. Intracranial vasculature: There is atherosclerotic calcification of the cavernous carotid and vertebr al arteries. Calvarium: Unremarkable. Sinuses and mastoids: The visualized paranasal sinuses are clear. The mastoid air cells are well pneu matized. Orbits: The bony orbits are grossly intact. There is a right ocular lens implant. IMPRESSION: There is no hemorrhage, mass effect, or evidence of acute territorial ischemia by CT mona rios. ACT 112: Negative or not required by law. Electronically signed by: Aden Gómez M.D. 08/20/2020 7:21 AM
--- NOTE | 2020-08-20 07:27 | Ultrasound Report ---
ULTRASOUND RIGHT UPPER QUADRANT ABDOMEN CLINICAL HISTORY: Elevated hepatic transaminases. Fatigue. COMPARISON STUDY: Abdominal CT dated 10/14/2018 TECHNIQUE: Real-time, grayscale, and color flow sonography of the right upper quadrant of the abdomen was performed. Images are reviewed in the transverse and longitudinal planes. FINDINGS: Liver: The liver is top normal in size and slightly heterogeneous in echotexture. There is no intrahe patic biliary ductal dilatation. The main portal vein is patent. Gallbladder: Pneumonia or shadowing stone is seen in the region of the gallbladder neck. The gallblad isac is contracted. There is no gallbladder wall thickening or pericholecystic fluid. A sonographic Mu rphy's sign is reportedly absent. The common bile duct measures up to 0.3 cm in diameter. Pancreas: Visualized portions of the pancreatic head and body are normal in appearance. The splenic v ein is patent. Right kidney: Survey images of the right kidney demonstrate cortical atrophy. Echotexture is normal. There is no hydronephrosis. A minimally complex cyst arising from the right upper pole measures 3.4 c m. This is unchanged from previous. Additional smaller cysts are incidentally noted. Ascites: There is a small volume of perihepatic ascites. Abdominal vasculature: There is advanced atherosclerotic plaque involving the abdominal. An infrarena l abdominal aortic aneurysm measures up to 3.8 x 3.6 cm. This extends 6.5 cm in craniocaudal length. IMPRESSION: 1. Cholelithiasis within a contracted gallbladder. There is no sonographic evidence of acute cholecys titis. 2. There is a small volume of perihepatic ascites. 3. There is a 3.8 cm infrarenal abdominal aortic aneurysm. 4. Additional findings as above. ACT 112: Negative or not required by law. Electronically signed by: Aden Gómez M.D. 08/20/2020 7:25 AM
--- NOTE | 2020-08-20 07:51 | CT Scan Report ---
CT OF THE CERVICAL SPINE WITHOUT CONTRAST CLINICAL HISTORY: Fall. COMPARISON STUDY: Cervical spine CT May 13, 2018. Cervical spine radiographs October 14, 2018 . TECHNIQUE: Helical axial images of the cervical spine were obtained without IV contrast. Sagittal a nd coronal reconstructions were viewed. Automated exposure control was utilized for the study. A do se lowering technique was utilized adhering to the principles of ALARA. FINDINGS: Alignment of the cervical spine is anatomic. Vertebral body heights are maintained. No acut e cervical spine fracture or subluxation is present. There is no prevertebral edema. Facet joints are intact. There is mild rightward curvature of the cervical spine. Moderate multilevel degenerative d isc disease and facet arthrosis is noted. Emphysema and interlobular septal thickening is noted withi n visualized portions of the lung apices. IMPRESSION: No acute cervical spine fracture or subluxation. ACT 112: Negative or not required by law. Electronically signed by: Leroy Maguire M.D. 08/20/2020 7:49 AM
--- NOTE | 2020-08-20 07:55 | XRay Report ---
XR chest 1V portable CLINICAL HISTORY: SEPSIS COMPARISON STUDY: Chest radiograph July 14, 2020. FINDINGS: Cardiomegaly is unchanged. There is mild interstitial thickening. There is underlying emphy sema. Cardiomegaly is unchanged. There is no pneumothorax or pleural effusion. Mild right basilar opa city likely reflects atelectasis. IMPRESSION: 1. Cardiomegaly with suspected mild pulmonary edema. 2. Right basilar opacity which favors atelectasis. Radiographic follow-up is recommended. 3. Emphysema. ACT 112: Negative or not required by law. Electronically signed by: Leroy Maguire M.D. 08/20/2020 7:53 AM
[2020-08-20] MEDS: INSULIN ASPART 100 UNITS/ML 3 ML PEN SC SCH ×4 (08:46→21:13)
[2020-08-20] MEDS: INSULIN GLARGINE SOLOSTAR 100 UNITS/ML 3 ML PEN SC SCH ×2 (08:47→21:12)
[2020-08-20] MEDS: CALCIUM POLYCARBOPHIL 625MG TAB PO SCH (08:47)
[2020-08-20] MEDS: carvediloL 12.5 MG TAB PO SCH ×2 (08:47→21:12)
[2020-08-20] MEDS: SPIRONOLACTONE 12.5 MG TAB PO SCH (08:47)
[2020-08-20] MEDS: MAGNESIUM OXIDE 400 MG TAB PO SCH (08:48)
[2020-08-20] MEDS: PARoxetine HCL 20 MG TAB PO SCH (08:48)
[2020-08-20] MEDS: PANTOprazole 40 MG TAB PO SCH ×2 (08:48→21:12)
[2020-08-20] MEDS: FUROSEMIDE 40 MG TAB PO SCH (08:48)
[2020-08-20] MEDS ORDERED: ISOSORBIDE MONO EXTENDED REL 60 MG TABCR PO SCH (09:00)
[2020-08-20] MEDS ORDERED: lisinopril 10 MG TAB PO SCH (09:00)
--- NOTE | 2020-08-20 09:53 | Electrocardiogram Report ---
Test Reason : Blood Pressure : / mmHG Vent. Rate : 119 BPM Atrial Rate : 120 BPM P-R Int : 000 ms QRS Dur : 102 ms QT Int : 314 ms P-R-T Axes : 000 076 222 degrees QTc Int : 441 ms Atrial fibrillation with rapid ventricular response T wave abnormality, consider inferior ischemia T wave abnormality, consider anterolateral ischemia Abnormal ECG When compared with ECG of 14-JUL-2020 13:01, Atrial fibrillation has replaced Sinus rhythm Confirmed by Cj Ceja ([id number]) on 08/20/2020 9:53:40 AM Referred By: [facility] Confirmed By:Cj Ceja
--- NOTE | 2020-08-20 10:05 | Hospitalist Progress Note ---
Date of Service August 20, 2020 Assessment & Plan (1) Abdominal pain: Austin Garza is a 75yo male who presents with two months of progressive weakness as well as abdominal pressure/pain. Progressive weakness/lightheadedness -recent covid illness (06/2020) -poor PO intake noted -likely contributions include recent covid illness, CHF with reduced EF of 15- 20% -possibly exacerbated by med regimen; reducing imdur to 30mg and lisinopril to 5mg as below -will continue to work up and monitor Gallstones -seen on US -mild elevation of AST/ALT/Tbili -afebrile, nontoxic appearing; mild abdominal pain but no worse in the RUQ compared to other quadrants -following cultures -on zosyn IV -tylenol as needed for pain -no efidence of cholecystitis on HIDA scan -gallbladder ejection fraction 30% - only minimally diminished -general surgery recommends GI evaluation -CBC, CMP qAM AF, supratherapeutic INR -rate controlled when examined today -INR 2.6 -holding warfarin in anticipation of possible ERCP -c/w carvedilol 12.5mg PO bid AAA -measuring 3.8cm in width, up from 3.7cm in 2019 -mural thrombus; on warfarin for AF -no evidence of rupture -f/u imaging outpatient CHF: stable -EF 15-20% -c/w furosemide 40mg PO qd -c/w spironolactone 12.5mg PO qd HTN: stable -c/w lisinopril 5mg PO qd -c/w metoprolol tartrate 5mg IV q4h T2DM, CKD: stable -c/w glargine 5u bid -c/w ISS BPH -c/w tamsulosin 0.4mg PO qhs FENGI: T2DM diet DVT ppx: holding warfarin as described above Code status: full code Dispo: tele (2) AAA (abdominal aortic aneurysm): (3) Supratherapeutic INR: (4) Atrial fibrillation, permanent: Admission and Anticipated Discharge Date Admission Date: August 20, 2020 Supervising Physician Co-Signing Physician Notes I personally examined the patient and verified all coy points of history and exam, discussed case, and agree with decision making with Dr Mcleod biggest complaint to me is lightheadedness - falls about half the time it happens - happens when he gest up/stands. has not been happening for too long- he can't really recall if it was since covid discharge or more recent - but not prior to covid hospitalization. notes poor PO intake lately - ate ~1/3 of his main meal on tray by the time i enter the room and he notes this is probably the best he's eaten in a month. also inadequate BMs - did have one a day or two ago but has been much longer since anything that he feels was truly good. no RUQ pain. vitals noted nad heent nc at mmm lungs diffusely coarse throughout no focal findings -coarseness sl more rhonchorous but also w a slightly rale-like quality. no accessory muscles no conversational dyspnea good effort skin no rashes no pallor or icterus weakness/lightheadedness/near syncope - w poor PO intake, frailty and EF 15-20% suspect this is all in his long-post covid course -- with poor PO intake being the biggest culprit at this time, exacerbated by med regimen normally required to manage his chronic systolic chf but right now likely more than he can handle. drop imdur to 30mg, drop lisinopril to 5mg. keep coreg the same for now since HR 90's and wouldn't want to go higher if possible; keep lasix the same due to lung findings and very low EF - but low threshold to reduce this as well abdominal pain - no RUQ pain, LFTs up but mostly hepatocellular except bili. US nonspecific, as is HIDA. will await GI input but suspect abdominal pain fitting better w constipation than biliary disease. appreciate surgical opinion however, and will coordinate care after getting opinion from GI as well otherwise as above Subjective Patient seen at bedside this morning. He was resting comfortably. Endorsed some abdominal pain but had no complaints otherwise. Review of Systems Constitutional: no fever and no chills Respiratory: no cough and no dyspnea Cardiovascular: no chest pain, no palpitations and no lightheadedness Gastrointestinal: + abdominal pain; no nausea, no vomiting, no constipation and no diarrhea/loose stools Physical Exam Constitutional: cooperative; no acute distress Respiratory: normal respiratory effort mild expiratory wheezes Cardiovascular: Rate/Rhythm: regular rate and + irregularly irregular Heart Sounds: no murmur Gastrointestinal (Abdomen): abdomen soft, mildly tender in all quadrants, nondistended, normoactive bowel sounds x4 quadrants Psychiatric: A+Ox3, euthymic affect Results & Data Results & Data ([facility]) Vital Signs (Past 12 Hours) Vital Signs Temp Pulse Pulse Resp BP BP Pulse Ox 08/20/20 07:20 36.6 C 93 H 16 119/81 92 08/20/20 04:00 98 H 08/20/20 03:14 37.1 C 116 H 18 119/62 98 08/20/20 02:00 112 H 24 134/90 98 08/20/20 01:43 125 H 24 130/99 94 08/20/20 00:30 111 H 20 129/93 96 08/20/20 00:08 118 H 24 108/104 H 96 08/19/20 23:32 126 H 24 109/90 96 08/19/20 23:00 123 H 24 135/105 H 96 Resident Activity Tracking Resident Involvement: Resident Care Provided Care Provided: Adult Hospital Medicine (1) AAA (abdominal aortic aneurysm) Presence of rupture: without rupture Qualified Code(s): I71.4 - Abdominal aortic aneurysm, without rupture
[2020-08-20] MEDS ORDERED: SINCALIDE 1.5 MCG in 0.9 % SODIUM CHLORIDE 100 ML IV SCH (11:00)
--- NOTE | 2020-08-20 12:31 | Nuclear Medicine Report ---
NUCLEAR HEPATOBILIARY SCAN WITH EJECTION FRACTION IMAGING CLINICAL HISTORY: Cholelithiasis. COMPARISON STUDY: Abdominal ultrasound dated 08/19/2020. TECHNIQUE: Dynamic images of the liver and anterior abdomen were obtained every 5 minutes for a total of 60 minutes following the IV administration of 5.3mCi of technetium 99m Choletec. 1.5 mcg of sin calide was then injected with additional images acquired every 5 minutes for 45 minutes to calculate the gallbladder ejection fraction. FINDINGS: The hepatobiliary scan shows prompt and homogeneous hepatic uptake. There is visualized act ivity within the intra and extrahepatic biliary tree at 15 minutes, and within the gallbladder at 15 minutes. There is normal biliary to bowel transit, with small bowel visualized by 65 minutes. On the sincalide imaging, the gallbladder ejection fraction was measured at 30%. IMPRESSION: 1. Unremarkable nuclear hepatobiliary scan. There is no scintigraphic evidence of cholecystitis. 2. The gallbladder ejection fraction is minimally diminished, measuring 30%. ACT 112: Negative or not required by law. Electronically signed by: Aden Gómez M.D. 08/20/2020 12:30 PM
[2020-08-20] MEDS ORDERED: POLYETHYLENE (MIRALAX) 17 GM PACK PO ONE (13:36)
--- NOTE | 2020-08-20 15:11 | Surgery Consultation ---
Date of Consultation August 20, 2020 Assessment & Plan (1) Gallstones: 75 year-old male with fatigue, weakness, falls and deconditioning presented to [facility] with elevated t. bili and lfts. Ultrasound showing gallstone but no evidence of acute cholecystitis. Negative HIDA scan. No leukocytosis. Plan: given elevation of LFTS and t. bili could of passed gallstone or has small CBD stones. Will ask GI to evaluate and consider ERCP. Repeat labs in am (CBC, CMP) If labs return close to normal and no ERCP can plan to do Cholecystectomy Thursday Hold coumadin in case of surgery Continue current medical management (2) Elevated LFTs: consult GI for further evaluation may need ERCP if t. bili continues to be elevated plan as above Discussed with Dr. Owens who examined patient separately and agrees with above plan. History of Present Illness Reason for Consultation: Cholecystectomy?, abnormal LFTs Requesting Physician: Jacqui Carter DO Attending Physician: Kalin Zacarias DO History of Present Illness Austin is a 75 year-old male with history of CAD, HTN, Afib on coumadin, chronic kidney disease, BPH, CHF, diabetes, depression, and anxiety who presented to hospital from the intermediate due to weakness, falls, and deconditioning. Patient drowsy and sleeping upon entering room but comfortable. Unable to stay awake to obtain any history. History obtained by chart and nursing staff. [facility] guards unsure of complete history but felt he came in due to chest pain and shortness of breath. He did test positive for COVID in June and has positive antigen test. ER work-up incuded labs which showed no leukocytosis. elevated t. bili at 2.7, ASt at 295, ALT at 410 and ALk phos wnl at 115. Lactates elevated at 3.2. Blood cultures pending. Ultrasound showed possible pneumonia for gallstone in neck of gallbladder. CBD measuring 0.3 cm. HIDA scan normal without signs of cholecystitis , mildly reduced EF at 30%. Allergies Allergy/AdvReac Type Severity Reaction Status Date / Time No Known Allergies Allergy Verified 08/19/20 21:45 Home Medications Medication Instructions Recorded Confirmed Type atorvastatin 80 mg PO HS 05/01/18 08/19/20 History cyanocobalamin (vitamin B-12) 1,000 mcg PO DAILY 05/01/18 08/19/20 History [Vitamin B-12] ferrous sulfate [iron] 325 mg PO 3XWK 05/01/18 08/19/20 History nitroglycerin [Nitrostat] 0.4 mg SUBLINGUAL DIRECTED PRN 05/01/18 08/19/20 History paroxetine HCl 40 mg PO QAM 05/01/18 08/19/20 History tamsulosin 0.4 mg PO HS 05/01/18 08/19/20 History carvedilol 12.5 mg PO BID 09/23/18 08/19/20 History ascorbic acid (vitamin C) [Vitamin 500 mg PO 3XWK 10/14/18 08/19/20 History C] pantoprazole 40 mg PO BID 10/14/18 08/19/20 History isosorbide mononitrate 60 mg PO DAILY #30 tab 10/18/18 08/19/20 Rx calcium polycarbophil [Fiber-Lax] 625 mg PO DAILY 01/03/20 08/19/20 History glipizide 5 mg PO DAILY #0 tab 07/08/20 08/19/20 Rx lisinopril 10 mg PO DAILY #0 tab 07/08/20 08/19/20 Rx acetaminophen 325 mg PO QID PRN 07/14/20 08/19/20 History furosemide [Lasix] 40 mg PO DAILY #30 tab 07/16/20 08/19/20 Rx magnesium oxide 400 mg PO QAM #0 cap 07/16/20 08/19/20 Rx spironolactone [Aldactone] 12.5 mg PO DAILY #15 tab 07/16/20 08/19/20 Rx warfarin 1 mg PO QPM #0 tab 07/16/20 08/19/20 Rx Patient History Medical History (Updated 08/20/20 @ 15:13 by Jessica Noland PA-C) AAA (abdominal aortic aneurysm) Anemia Anxiety Ascites Atrial fibrillation CAD (coronary artery disease) s/p inferior wall PA with chronically occluded RCA - cath on 01/09/15 - no intervention. L to R collateralization noted CHF (congestive heart failure) ICM with EF of 15-20% CKD (chronic kidney disease) stage 3, GFR 30-59 ml/min COPD (chronic obstructive pulmonary disease) COVID-19 Depression Diabetes Elevated troponin Essential hypertension GERD (gastroesophageal reflux disease) Hyperlipidemia Male genitourinary symptoms Near syncope Surgical History No significant past surgical history Family History Other Diabetes Social History Smoking Status: Former smoker Second Hand Exposure: Yes; Hx Alcohol Use: No Hx Substance Use: No Preferred Language: Spanish Communication Ability: Effective Visual Impairment: No Limitations Automotive Service Advisor Required: No Beliefs That Will Affect Care: None marital status: Single Current Living Situation: Other Current Living Situation Comment: [facility] Feels Safe at Home: Yes Safety Concerns: Feels Safe At This Time Assistive Devices: None Review of Systems Review of Systems: unable to complete ROS as patient very drowsy and unable to stay awake enough to answer multiple questions. Denies abdominal pain now or prior to admission Physical Exam Constitutional: not in distress deconditioned, drowsy Respiratory: normal respiratory effort, lungs clear to auscultation normal respiratory effort; no respiratory distress, no labored breathing and no retractions Cardiovascular: Rate/Rhythm: + irregularly irregular Gastrointestinal (Abdomen): Inspection/Auscultation: abdomen normal to inspection and normal bowel sounds; abdomen not distended and no abdominal surgical scar Percussion/Palpation: abdomen soft; abdomen nontender, no guarding and abdomen not rigid Skin: no rashes, warm and dry Results & Data ([facility]) Vital Signs (Past 12 Hours) Vital Signs Temp Pulse Pulse Resp BP Pulse Ox 08/20/20 08:00 115 H 08/20/20 07:20 36.6 C 93 H 16 119/81 92 08/20/20 04:00 98 H 08/20/20 03:14 37.1 C 116 H 18 119/62 98 Laboratory Results 08/20/20 08/20/20 08/20/20 Range/Units 13:01 07:32 07:04 WBC (4.8-10.8) K/uL RBC (4.7-6.1) M/uL Hgb (14.0-18.0) g/dL Hct (42-52) % MCV (80-100) fL MCH (25-34) pg MCHC (32-36) g/dL RDW Std Deviation (36.4-46.3) fL RDW Coeff of Samara (11.5-14.5) % Plt Count (130-400) K/uL MPV (7.4-10.4) fL Immature Gran % (Auto) % Neut % (Auto) % Lymph % (Auto) % [place] % (Auto) % Eos % (Auto) % Baso % (Auto) % Neut # (Auto) (1.4-6.5) K/uL Lymph # (Auto) (1.2-3.4) K/uL [place] # (Auto) (0.11-0.59) K/uL Eos # (Auto) (0-0.5) K/uL Baso # (Auto) (0-0.2) K/uL Immature Gran # (Auto) (0.00-0.02) K/uL Absolute Nucleated RBC (0-0) K/uL Nucleated RBC % (auto) % Platelet Estimate (Normal) Polychromasia PT (9.0-12.0) Seconds INR (0.9-1.1) APTT (21.0-31.0) Seconds PTT Ratio VBG pH (7.36-7.41) VBG pCO2 (38-50) mmHg VBG pO2 mmHg VBG HCO3 mmol/L VBG O2 Saturation % VBG Base Excess mEq/L Barometric Pressure mm/Hg Sodium (136-145) mmol/L Potassium (3.5-5.1) mmol/L Chloride (98-107) mmol/L Carbon Dioxide (21-32) mmol/L Anion Gap (3-11) BUN (7-18) mg/dl Creatinine (0.6-1.4) mg/dl Est Cr Clr Drug Dosing ml/min Est GFR ( Amer) Est GFR (Non-Af Amer) BUN/Creatinine Ratio (10-20) Glucose (70-99) mg/dl POC Glucose 163 H 196 H (70-99) mg/dl Lactate 2.6 H* (0.4-2.0) mmol/L Calcium (8.5-10.1) mg/dl Magnesium (1.8-2.4) mg/dl Total Bilirubin (0.2-1) mg/dl AST (15-37) U/L ALT (12-78) U/L Alkaline Phosphatase (45-117) U/L Ammonia (11-32) umol/L Troponin I (0-0.045) ng/ml Total Protein (6.4-8.2) gm/dl Albumin (3.4-5.0) gm/dl Globulin (2.5-4.0) gm/dl Albumin/Globulin Ratio (0.9-2) Procalcitonin (0-0.5) ng/ml Urine Color Urine Appearance (Clear) Urine pH (4.5-7.5) Ur Specific [place] (1.000-1.030) Urine Protein (Negative) Urine Glucose (UA) (Negative) Urine Ketones (Negative) Urine Blood (Negative) Urine Nitrite (Negative) Urine Bilirubin (Negative) Urine Urobilinogen (Negative) Ur Leukocyte Esterase (Negative) Urine WBC (Auto) (0-5) /hpf Urine RBC (Auto) (0-4) /hpf U Hyaline Cast (Auto) (0-5) /lpf U Epithel Cells (Auto) (0-5) /lpf Urine Bacteria (Auto) (Negative) Nasal Screen MRSA (PCR) (Negative) COVID-19 Eval Order Monoscreen (Negative) HIV 1&2 Ab/P24 Ag 4thGn (Neg) Influ A Molecular Assay (Negative) Influ B Molecular Assay (Negative) SARS-CoV-2, RNA, NAAT (NEGATIVE) SARS-CoV-2 IgG & IgM Ab (Negative) 08/20/20 08/20/20 08/20/20 Range/Units 05:00 03:52 01:38 WBC (4.8-10.8) K/uL RBC (4.7-6.1) M/uL Hgb (14.0-18.0) g/dL Hct (42-52) % MCV (80-100) fL MCH (25-34) pg MCHC (32-36) g/dL RDW Std Deviation (36.4-46.3) fL RDW Coeff of Samara (11.5-14.5) % Plt Count (130-400) K/uL MPV (7.4-10.4) fL Immature Gran % (Auto) % Neut % (Auto) % Lymph % (Auto) % [place] % (Auto) % Eos % (Auto) % Baso % (Auto) % Neut # (Auto) (1.4-6.5) K/uL Lymph # (Auto) (1.2-3.4) K/uL [place] # (Auto) (0.11-0.59) K/uL Eos # (Auto) (0-0.5) K/uL Baso # (Auto) (0-0.2) K/uL Immature Gran # (Auto) (0.00-0.02) K/uL Absolute Nucleated RBC (0-0) K/uL Nucleated RBC % (auto) % Platelet Estimate (Normal) Polychromasia PT (9.0-12.0) Seconds INR (0.9-1.1) APTT (21.0-31.0) Seconds PTT Ratio VBG pH (7.36-7.41) VBG pCO2 (38-50) mmHg VBG pO2 mmHg VBG HCO3 mmol/L VBG O2 Saturation % VBG Base Excess mEq/L Barometric Pressure mm/Hg Sodium (136-145) mmol/L Potassium (3.5-5.1) mmol/L Chloride (98-107) mmol/L Carbon Dioxide (21-32) mmol/L Anion Gap (3-11) BUN (7-18) mg/dl Creatinine (0.6-1.4) mg/dl Est Cr Clr Drug Dosing ml/min Est GFR ( Amer) Est GFR (Non-Af Amer) BUN/Creatinine Ratio (10-20) Glucose (70-99) mg/dl POC Glucose 192 H (70-99) mg/dl Lactate (0.4-2.0) mmol/L Calcium (8.5-10.1) mg/dl Magnesium (1.8-2.4) mg/dl Total Bilirubin (0.2-1) mg/dl AST (15-37) U/L ALT (12-78) U/L Alkaline Phosphatase (45-117) U/L Ammonia (11-32) umol/L Troponin I (0-0.045) ng/ml Total Protein (6.4-8.2) gm/dl Albumin (3.4-5.0) gm/dl Globulin (2.5-4.0) gm/dl Albumin/Globulin Ratio (0.9-2) Procalcitonin (0-0.5) ng/ml Urine Color Dark Yellow Urine Appearance Clear (Clear) Urine pH 5.0 (4.5-7.5) Ur Specific [place] 1.024 (1.000-1.030) Urine Protein 2+ H (Negative) Urine Glucose (UA) Negative (Negative) Urine Ketones Trace H (Negative) Urine Blood Negative (Negative) Urine Nitrite Negative (Negative) Urine Bilirubin 1+ H (Negative) Urine Urobilinogen Negative (Negative) Ur Leukocyte Esterase Negative (Negative) Urine WBC (Auto) 1-5 (0-5) /hpf Urine RBC (Auto) 0-4 (0-4) /hpf U Hyaline Cast (Auto) 5-10 H (0-5) /lpf U Epithel Cells (Auto) 0-5 (0-5) /lpf Urine Bacteria (Auto) Negative (Negative) Nasal Screen MRSA (PCR) Negative (Negative) COVID-19 Eval Order Monoscreen (Negative) HIV 1&2 Ab/P24 Ag 4thGn (Neg) Influ A Molecular Assay (Negative) Influ B Molecular Assay (Negative) SARS-CoV-2, RNA, NAAT (NEGATIVE) SARS-CoV-2 IgG & IgM Ab (Negative) 08/20/20 08/19/20 08/19/20 Range/Units 00:33 22:43 22:43 WBC (4.8-10.8) K/uL RBC (4.7-6.1) M/uL Hgb (14.0-18.0) g/dL Hct (42-52) % MCV (80-100) fL MCH (25-34) pg MCHC (32-36) g/dL RDW Std Deviation (36.4-46.3) fL RDW Coeff of Samara (11.5-14.5) % Plt Count (130-400) K/uL MPV (7.4-10.4) fL Immature Gran % (Auto) % Neut % (Auto) % Lymph % (Auto) % [place] % (Auto) % Eos % (Auto) % Baso % (Auto) % Neut # (Auto) (1.4-6.5) K/uL Lymph # (Auto) (1.2-3.4) K/uL [place] # (Auto) (0.11-0.59) K/uL Eos # (Auto) (0-0.5) K/uL Baso # (Auto) (0-0.2) K/uL Immature Gran # (Auto) (0.00-0.02) K/uL Absolute Nucleated RBC (0-0) K/uL Nucleated RBC % (auto) % Platelet Estimate (Normal) Polychromasia PT (9.0-12.0) Seconds INR (0.9-1.1) APTT (21.0-31.0) Seconds PTT Ratio VBG pH 7.36 (7.36-7.41) VBG pCO2 42 (38-50) mmHg VBG pO2 24 mmHg VBG HCO3 23 mmol/L VBG O2 Saturation < 60.0 % VBG Base Excess -2.2 mEq/L Barometric Pressure 733.4 mm/Hg Sodium (136-145) mmol/L Potassium (3.5-5.1) mmol/L Chloride (98-107) mmol/L Carbon Dioxide (21-32) mmol/L Anion Gap (3-11) BUN (7-18) mg/dl Creatinine (0.6-1.4) mg/dl Est Cr Clr Drug Dosing ml/min Est GFR ( Amer) Est GFR (Non-Af Amer) BUN/Creatinine Ratio (10-20) Glucose (70-99) mg/dl POC Glucose (70-99) mg/dl Lactate 2.8 H* (0.4-2.0) mmol/L Calcium (8.5-10.1) mg/dl Magnesium (1.8-2.4) mg/dl Total Bilirubin (0.2-1) mg/dl AST (15-37) U/L ALT (12-78) U/L Alkaline Phosphatase (45-117) U/L Ammonia 23.6 (11-32) umol/L Troponin I (0-0.045) ng/ml Total Protein (6.4-8.2) gm/dl Albumin (3.4-5.0) gm/dl Globulin (2.5-4.0) gm/dl Albumin/Globulin Ratio (0.9-2) Procalcitonin (0-0.5) ng/ml Urine Color Urine Appearance (Clear) Urine pH (4.5-7.5) Ur Specific [place] (1.000-1.030) Urine Protein (Negative) Urine Glucose (UA) (Negative) Urine Ketones (Negative) Urine Blood (Negative) Urine Nitrite (Negative) Urine Bilirubin (Negative) Urine Urobilinogen (Negative) Ur Leukocyte Esterase (Negative) Urine WBC (Auto) (0-5) /hpf Urine RBC (Auto) (0-4) /hpf U Hyaline Cast (Auto) (0-5) /lpf U Epithel Cells (Auto) (0-5) /lpf Urine Bacteria (Auto) (Negative) Nasal Screen MRSA (PCR) (Negative) COVID-19 Eval Order Monoscreen (Negative) HIV 1&2 Ab/P24 Ag 4thGn (Neg) Influ A Molecular Assay (Negative) Influ B Molecular Assay (Negative) SARS-CoV-2, RNA, NAAT (NEGATIVE) SARS-CoV-2 IgG & IgM Ab (Negative) 08/19/20 08/19/20 08/19/20 Range/Units 22:17 22:17 22:07 WBC (4.8-10.8) K/uL RBC (4.7-6.1) M/uL Hgb (14.0-18.0) g/dL Hct (42-52) % MCV (80-100) fL MCH (25-34) pg MCHC (32-36) g/dL RDW Std Deviation (36.4-46.3) fL RDW Coeff of Samara (11.5-14.5) % Plt Count (130-400) K/uL MPV (7.4-10.4) fL Immature Gran % (Auto) % Neut % (Auto) % Lymph % (Auto) % [place] % (Auto) % Eos % (Auto) % Baso % (Auto) % Neut # (Auto) (1.4-6.5) K/uL Lymph # (Auto) (1.2-3.4) K/uL [place] # (Auto) (0.11-0.59) K/uL Eos # (Auto) (0-0.5) K/uL Baso # (Auto) (0-0.2) K/uL Immature Gran # (Auto) (0.00-0.02) K/uL Absolute Nucleated RBC (0-0) K/uL Nucleated RBC % (auto) % Platelet Estimate (Normal) Polychromasia PT (9.0-12.0) Seconds INR (0.9-1.1) APTT (21.0-31.0) Seconds PTT Ratio VBG pH (7.36-7.41) VBG pCO2 (38-50) mmHg VBG pO2 mmHg VBG HCO3 mmol/L VBG O2 Saturation % VBG Base Excess mEq/L Barometric Pressure mm/Hg Sodium (136-145) mmol/L Potassium (3.5-5.1) mmol/L Chloride (98-107) mmol/L Carbon Dioxide (21-32) mmol/L Anion Gap (3-11) BUN (7-18) mg/dl Creatinine (0.6-1.4) mg/dl Est Cr Clr Drug Dosing ml/min Est GFR ( Amer) Est GFR (Non-Af Amer) BUN/Creatinine Ratio (10-20) Glucose (70-99) mg/dl POC Glucose (70-99) mg/dl Lactate (0.4-2.0) mmol/L Calcium (8.5-10.1) mg/dl Magnesium (1.8-2.4) mg/dl Total Bilirubin (0.2-1) mg/dl AST (15-37) U/L ALT (12-78) U/L Alkaline Phosphatase (45-117) U/L Ammonia (11-32) umol/L Troponin I (0-0.045) ng/ml Total Protein (6.4-8.2) gm/dl Albumin (3.4-5.0) gm/dl Globulin (2.5-4.0) gm/dl Albumin/Globulin Ratio (0.9-2) Procalcitonin (0-0.5) ng/ml Urine Color Urine Appearance (Clear) Urine pH (4.5-7.5) Ur Specific [place] (1.000-1.030) Urine Protein (Negative) Urine Glucose (UA) (Negative) Urine Ketones (Negative) Urine Blood (Negative) Urine Nitrite (Negative) Urine Bilirubin (Negative) Urine Urobilinogen (Negative) Ur Leukocyte Esterase (Negative) Urine WBC (Auto) (0-5) /hpf Urine RBC (Auto) (0-4) /hpf U Hyaline Cast (Auto) (0-5) /lpf U Epithel Cells (Auto) (0-5) /lpf Urine Bacteria (Auto) (Negative) Nasal Screen MRSA (PCR) (Negative) COVID-19 [facility] ([facility]) HIV 1&2 Ab/P24 Ag 4thGn (Neg) Influ A Molecular Assay Negative (Negative) Influ B Molecular Assay Negative (Negative) SARS-CoV-2, RNA, NAAT NEGATIVE (NEGATIVE) SARS-CoV-2 IgG & IgM Ab (Negative) 08/19/20 08/19/20 08/19/20 Range/Units 21:50 21:25 21:25 WBC (4.8-10.8) K/uL RBC (4.7-6.1) M/uL Hgb (14.0-18.0) g/dL Hct (42-52) % MCV (80-100) fL MCH (25-34) pg MCHC (32-36) g/dL RDW Std Deviation (36.4-46.3) fL RDW Coeff of Samara (11.5-14.5) % Plt Count (130-400) K/uL MPV (7.4-10.4) fL Immature Gran % (Auto) % Neut % (Auto) % Lymph % (Auto) % [place] % (Auto) % Eos % (Auto) % Baso % (Auto) % Neut # (Auto) (1.4-6.5) K/uL Lymph # (Auto) (1.2-3.4) K/uL [place] # (Auto) (0.11-0.59) K/uL Eos # (Auto) (0-0.5) K/uL Baso # (Auto) (0-0.2) K/uL Immature Gran # (Auto) (0.00-0.02) K/uL Absolute Nucleated RBC (0-0) K/uL Nucleated RBC % (auto) % Platelet Estimate (Normal) Polychromasia PT (9.0-12.0) Seconds INR (0.9-1.1) APTT (21.0-31.0) Seconds PTT Ratio VBG pH (7.36-7.41) VBG pCO2 (38-50) mmHg VBG pO2 mmHg VBG HCO3 mmol/L VBG O2 Saturation % VBG Base Excess mEq/L Barometric Pressure mm/Hg Sodium (136-145) mmol/L Potassium (3.5-5.1) mmol/L Chloride (98-107) mmol/L Carbon Dioxide (21-32) mmol/L Anion Gap (3-11) BUN (7-18) mg/dl Creatinine (0.6-1.4) mg/dl Est Cr Clr Drug Dosing ml/min Est GFR ( Amer) Est GFR (Non-Af Amer) BUN/Creatinine Ratio (10-20) Glucose (70-99) mg/dl POC Glucose (70-99) mg/dl Lactate 3.2 H* (0.4-2.0) mmol/L Calcium (8.5-10.1) mg/dl Magnesium (1.8-2.4) mg/dl Total Bilirubin (0.2-1) mg/dl AST (15-37) U/L ALT (12-78) U/L Alkaline Phosphatase (45-117) U/L Ammonia (11-32) umol/L Troponin I (0-0.045) ng/ml Total Protein (6.4-8.2) gm/dl Albumin (3.4-5.0) gm/dl Globulin (2.5-4.0) gm/dl Albumin/Globulin Ratio (0.9-2) Procalcitonin (0-0.5) ng/ml Urine Color Urine Appearance (Clear) Urine pH (4.5-7.5) Ur Specific [place] (1.000-1.030) Urine Protein (Negative) Urine Glucose (UA) (Negative) Urine Ketones (Negative) Urine Blood (Negative) Urine Nitrite (Negative) Urine Bilirubin (Negative) Urine Urobilinogen (Negative) Ur Leukocyte Esterase (Negative) Urine WBC (Auto) (0-5) /hpf Urine RBC (Auto) (0-4) /hpf U Hyaline Cast (Auto) (0-5) /lpf U Epithel Cells (Auto) (0-5) /lpf Urine Bacteria (Auto) (Negative) Nasal Screen MRSA (PCR) (Negative) COVID-19 Eval Order Monoscreen Negative (Negative) HIV 1&2 Ab/P24 Ag 4thGn (Neg) Influ A Molecular Assay (Negative) Influ B Molecular Assay (Negative) SARS-CoV-2, RNA, NAAT (NEGATIVE) SARS-CoV-2 IgG & IgM Ab Positive A (Negative) 08/19/20 08/19/20 08/19/20 Range/Units 21:25 21:25 21:25 WBC 9.66 (4.8-10.8) K/uL RBC 3.83 L (4.7-6.1) M/uL Hgb 12.8 L (14.0-18.0) g/dL Hct 39.4 L (42-52) % MCV 102.9 H (80-100) fL MCH 33.4 (25-34) pg MCHC 32.5 (32-36) g/dL RDW Std Deviation 65.5 H (36.4-46.3) fL RDW Coeff of Samara 17.7 H (11.5-14.5) % Plt Count 114 L (130-400) K/uL MPV 12.5 H (7.4-10.4) fL Immature Gran % (Auto) 0.2 % Neut % (Auto) 78.8 % Lymph % (Auto) 11.6 % [place] % (Auto) 8.8 % Eos % (Auto) 0.3 % Baso % (Auto) 0.3 % Neut # (Auto) 7.61 H (1.4-6.5) K/uL Lymph # (Auto) 1.12 L (1.2-3.4) K/uL [place] # (Auto) 0.85 H (0.11-0.59) K/uL Eos # (Auto) 0.03 (0-0.5) K/uL Baso # (Auto) 0.03 (0-0.2) K/uL Immature Gran # (Auto) 0.02 (0.00-0.02) K/uL Absolute Nucleated RBC 0.06 H (0-0) K/uL Nucleated RBC % (auto) 0.6 % Platelet Estimate Decreased L (Normal) Polychromasia 1+ PT 26.1 H (9.0-12.0) Seconds INR 2.6 H (0.9-1.1) APTT 36.7 H (21.0-31.0) Seconds PTT Ratio 1.3 VBG pH (7.36-7.41) VBG pCO2 (38-50) mmHg VBG pO2 mmHg VBG HCO3 mmol/L VBG O2 Saturation % VBG Base Excess mEq/L Barometric Pressure mm/Hg Sodium (136-145) mmol/L Potassium (3.5-5.1) mmol/L Chloride (98-107) mmol/L Carbon Dioxide (21-32) mmol/L Anion Gap (3-11) BUN (7-18) mg/dl Creatinine (0.6-1.4) mg/dl Est Cr Clr Drug Dosing ml/min Est GFR ( Amer) Est GFR (Non-Af Amer) BUN/Creatinine Ratio (10-20) Glucose (70-99) mg/dl POC Glucose (70-99) mg/dl Lactate (0.4-2.0) mmol/L Calcium (8.5-10.1) mg/dl Magnesium (1.8-2.4) mg/dl Total Bilirubin (0.2-1) mg/dl AST (15-37) U/L ALT (12-78) U/L Alkaline Phosphatase (45-117) U/L Ammonia (11-32) umol/L Troponin I (0-0.045) ng/ml Total Protein (6.4-8.2) gm/dl Albumin (3.4-5.0) gm/dl Globulin (2.5-4.0) gm/dl Albumin/Globulin Ratio (0.9-2) Procalcitonin (0-0.5) ng/ml Urine Color Urine Appearance (Clear) Urine pH (4.5-7.5) Ur Specific [place] (1.000-1.030) Urine Protein (Negative) Urine Glucose (UA) (Negative) Urine Ketones (Negative) Urine Blood (Negative) Urine Nitrite (Negative) Urine Bilirubin (Negative) Urine Urobilinogen (Negative) Ur Leukocyte Esterase (Negative) Urine WBC (Auto) (0-5) /hpf Urine RBC (Auto) (0-4) /hpf U Hyaline Cast (Auto) (0-5) /lpf U Epithel Cells (Auto) (0-5) /lpf Urine Bacteria (Auto) (Negative) Nasal Screen MRSA (PCR) (Negative) COVID-19 Eval Order Monoscreen (Negative) HIV 1&2 Ab/P24 Ag 4thGn Neg (Neg) Influ A Molecular Assay (Negative) Influ B Molecular Assay (Negative) SARS-CoV-2, RNA, NAAT (NEGATIVE) SARS-CoV-2 IgG & IgM Ab (Negative) 08/19/20 08/19/20 Range/Units 21:25 21:25 WBC (4.8-10.8) K/uL RBC (4.7-6.1) M/uL Hgb (14.0-18.0) g/dL Hct (42-52) % MCV (80-100) fL MCH (25-34) pg MCHC (32-36) g/dL RDW Std Deviation (36.4-46.3) fL RDW Coeff of Samara (11.5-14.5) % Plt Count (130-400) K/uL MPV (7.4-10.4) fL Immature Gran % (Auto) % Neut % (Auto) % Lymph % (Auto) % [place] % (Auto) % Eos % (Auto) % Baso % (Auto) % Neut # (Auto) (1.4-6.5) K/uL Lymph # (Auto) (1.2-3.4) K/uL [place] # (Auto) (0.11-0.59) K/uL Eos # (Auto) (0-0.5) K/uL Baso # (Auto) (0-0.2) K/uL Immature Gran # (Auto) (0.00-0.02) K/uL Absolute Nucleated RBC (0-0) K/uL Nucleated RBC % (auto) % Platelet Estimate (Normal) Polychromasia PT (9.0-12.0) Seconds INR (0.9-1.1) APTT (21.0-31.0) Seconds PTT Ratio VBG pH (7.36-7.41) VBG pCO2 (38-50) mmHg VBG pO2 mmHg VBG HCO3 mmol/L VBG O2 Saturation % VBG Base Excess mEq/L Barometric Pressure mm/Hg Sodium 137 (136-145) mmol/L Potassium 4.5 (3.5-5.1) mmol/L Chloride 103 (98-107) mmol/L Carbon Dioxide 24 (21-32) mmol/L Anion Gap 10.0 (3-11) BUN 46 H (7-18) mg/dl Creatinine 2.23 H (0.6-1.4) mg/dl Est Cr Clr Drug Dosing 28.5 ml/min Est GFR ( Amer) 32.7 Est GFR (Non-Af Amer) 28.2 BUN/Creatinine Ratio 20.8 H (10-20) Glucose 229 H (70-99) mg/dl POC Glucose (70-99) mg/dl Lactate (0.4-2.0) mmol/L Calcium 8.9 (8.5-10.1) mg/dl Magnesium 1.9 (1.8-2.4) mg/dl Total Bilirubin 2.7 H (0.2-1) mg/dl AST 295 H (15-37) U/L ALT 410 H (12-78) U/L Alkaline Phosphatase 115 (45-117) U/L Ammonia (11-32) umol/L Troponin I 0.028 (0-0.045) ng/ml Total Protein 6.7 (6.4-8.2) gm/dl Albumin 3.0 L (3.4-5.0) gm/dl Globulin 3.7 (2.5-4.0) gm/dl Albumin/Globulin Ratio 0.8 L (0.9-2) Procalcitonin 0.43 (0-0.5) ng/ml Urine Color Urine Appearance (Clear) Urine pH (4.5-7.5) Ur Specific [place] (1.000-1.030) Urine Protein (Negative) Urine Glucose (UA) (Negative) Urine Ketones (Negative) Urine Blood (Negative) Urine Nitrite (Negative) Urine Bilirubin (Negative) Urine Urobilinogen (Negative) Ur Leukocyte Esterase (Negative) Urine WBC (Auto) (0-5) /hpf Urine RBC (Auto) (0-4) /hpf U Hyaline Cast (Auto) (0-5) /lpf U Epithel Cells (Auto) (0-5) /lpf Urine Bacteria (Auto) (Negative) Nasal Screen MRSA (PCR) (Negative) COVID-19 Eval Order Monoscreen (Negative) HIV 1&2 Ab/P24 Ag 4thGn (Neg) Influ A Molecular Assay (Negative) Influ B Molecular Assay (Negative) SARS-CoV-2, RNA, NAAT (NEGATIVE) SARS-CoV-2 IgG & IgM Ab (Negative) Diagnostic Findings ULTRASOUND RIGHT UPPER QUADRANT ABDOMEN CLINICAL HISTORY: Elevated hepatic transaminases. Fatigue. COMPARISON STUDY: Abdominal CT dated 10/14/2018 TECHNIQUE: Real-time, grayscale, and color flow sonography of the right upper quadrant of the abdomen was performed. Images are reviewed in the transverse and longitudinal planes. FINDINGS: Liver: The liver is top normal in size and slightly heterogeneous in echotexture. There is no intrahepatic biliary ductal dilatation. The main portal vein is patent. Gallbladder: Pneumonia or shadowing stone is seen in the region of the gallbladder neck. The gallbladder is contracted. There is no gallbladder wall thickening or pericholecystic fluid. A sonographic Joshi's sign is reportedly absent. The common bile duct measures up to 0.3 cm in diameter. Pancreas: Visualized portions of the pancreatic head and body are normal in appearance. The splenic vein is patent. Right kidney: Survey images of the right kidney demonstrate cortical atrophy. Echotexture is normal. There is no hydronephrosis. A minimally complex cyst arising from the right upper pole measures 3.4 cm. This is unchanged from previous. Additional smaller cysts are incidentally noted. Ascites: There is a small volume of perihepatic ascites. Abdominal vasculature: There is advanced atherosclerotic plaque involving the abdominal. An infrarenal abdominal aortic aneurysm measures up to 3.8 x 3.6 cm. This extends 6.5 cm in craniocaudal length. IMPRESSION: 1. Cholelithiasis within a contracted gallbladder. There is no sonographic evidence of acute cholecystitis. 2. There is a small volume of perihepatic ascites. 3. There is a 3.8 cm infrarenal abdominal aortic aneurysm. 4. Additional findings as above. NUCLEAR HEPATOBILIARY SCAN WITH EJECTION FRACTION IMAGING CLINICAL HISTORY: Cholelithiasis. COMPARISON STUDY: Abdominal ultrasound dated 08/19/2020. TECHNIQUE: Dynamic images of the liver and anterior abdomen were obtained every 5 minutes for a total of 60 minutes following the IV administration of 5.3mCi of technetium 99m Choletec. 1.5 mcg of sincalide was then injected with addition al images acquired every 5 minutes for 45 minutes to calculate the gallbladder ejection fraction. FINDINGS: The hepatobiliary scan shows prompt and homogeneous hepatic uptake. There is visualized activity within the intra and extrahepatic biliary tree at 15 minutes, and within the gallbladder at 15 minutes. There is normal biliary to bowel transit, with small bowel visualized by 65 minutes. On the sincalide imaging, the gallbladder ejection fraction was measured at 30%. IMPRESSION: 1. Unremarkable nuclear hepatobiliary scan. There is no scintigraphic evidence of cholecystitis. 2. The gallbladder ejection fraction is minimally diminished, measuring 30%.
--- NOTE | 2020-08-20 16:45 | Billing Data ---
Date of Service August 20, 2020 Coding Level of Care Code 11053 Subseq Hosp Care Lvl 3
[2020-08-20] MEDS ORDERED: ATORVASTATIN 40 MG TAB PO SCH (21:00)
[2020-08-20] MEDS: TAMSULOSIN HCL 0.4 MG CAP PO SCH (21:12)
[2020-08-21 08:26] LABS: INR 2.4 (0.9-1.1)
[2020-08-21 08:36] LABS: Hematocrit (blood only) 37.6 % (42-52); Hemoglobin 11.9 g/dL (14.0-18.0); Mean Corpuscular Hemoglobin 33.1 pg (25-34); Mean Corpuscular Hgb Conc 31.6 g/dL (32-36); Mean Corpuscular Volume 104.4 fL (80-100); Mean Platelet Volume 12.6 fL (7.4-10.4); Platelet Count 91 K/uL (130-400); RDW Coefficient of Variation 17.9 % (11.5-14.5); RDW Standard Deviation 67.4 fL (36.4-46.3); White Blood Count 7.55 K/uL (4.8-10.8)
[2020-08-21 08:41] LABS: Basophils # (auto) 0.01 K/uL (0-0.2); Basophils % (auto) 0.1 %; Eosinophils # (auto) 0.09 K/uL (0-0.5); Eosinophils % (auto) 1.2 %; Immature Granulocytes # (auto) 0.02 K/uL (0.00-0.02); Immature Granulocytes % (auto) 0.3 %; Lymphocytes # (auto) 1.07 K/uL (1.2-3.4); Lymphocytes % (auto) 14.2 %; Monocytes # (auto) 0.76 K/uL (0.11-0.59); Monocytes % (auto) 10.1 %; Neutrophils % (auto) 74.1 %
[2020-08-21 08:46] LABS: Albumin Level 2.6 gm/dl (3.4-5.0); BUN Creatinine Ratio 20.8 (10-20); Bilirubin Direct 0.7 mg/dl (0-0.2); Calcium 8.6 mg/dl (8.5-10.1); Creatinine Clr Calc Pharmacy 28.3 ml/min; Est GFR (African American) 32.3; Est GFR (Non-African American) 27.9; Potassium 4.1 mmol/L (3.5-5.1)
--- NOTE | 2020-08-21 08:56 | Hospitalist Progress Note ---
Date of Service August 21, 2020 Assessment & Plan (1) Abdominal pain: Austin Garza is a 75yo male who presents with two months of progressive weakness as well as abdominal pressure/pain. Progressive weakness/lightheadedness -recent covid illness (06/2020) -poor PO intake noted -likely contributions include recent covid illness, CHF with reduced EF of 15- 20% -possibly exacerbated by med regimen; reducing imdur to 30mg and lisinopril to 5mg as below -will continue to work up and monitor Gallstones -seen on US -mild elevation of AST/ALT/Tbili -afebrile, nontoxic appearing; mild abdominal pain but no worse in the RUQ compared to other quadrants -zosyn IV discontinued -tylenol as needed for pain -no evidence of cholecystitis on HIDA scan -gallbladder ejection fraction 30% - only minimally diminished -MRCP to be performed today, per GI consult -NPO since midnight -CBC, CMP qAM AF, supratherapeutic INR -rate controlled when examined today -INR 2.4 -holding warfarin in anticipation of possible ERCP -c/w carvedilol 12.5mg PO bid AAA -measuring 3.8cm in width, up from 3.7cm in 2019 -mural thrombus; on warfarin for AF -no evidence of rupture -f/u imaging outpatient CHF: stable -EF 15-20% -c/w furosemide 40mg PO qd -c/w spironolactone 12.5mg PO qd HTN: stable -c/w lisinopril 5mg PO qd -c/w metoprolol tartrate 5mg IV q4h T2DM, CKD: stable -c/w glargine 5u bid -c/w ISS BPH -c/w tamsulosin 0.4mg PO qhs FENGI: NPO since midnight ahead of MRCP 2/2 possible ERCP; T2DM diet afterward DVT ppx: holding warfarin as described above Code status: full code Dispo: tele (2) AAA (abdominal aortic aneurysm): (3) Supratherapeutic INR: (4) Atrial fibrillation, permanent: Admission and Anticipated Discharge Date Admission Date: August 20, 2020 Supervising Physician Co-Signing Physician Notes I personally examined the patient and verified all coy points of history and exam, discussed case, and agree with decision making with Dr Mcleod. feeling better - belly feeling better. still hasn't had BM though. no lightheaded today. ate reasonably well. smell and taste improving. GI input noted vitals noted nad heent nc at mmm breathing unlabored no accessory muscles good effort skin no rashes no pallor or icterus neuro no focal deficits. abd soft nd nt weakness/lightheadedness/near syncope - w poor PO intake, frailty and EF 15-20% suspect this is all in his long-post covid course -- has improved w med reductions, and better PO intake. continue reduced imdur and lisinopril for now, may need to be increased again down the road depending on how he progresses abdominal pain - no RUQ pain, LFTs up but mostly hepatocellular except bili. US nonspecific, as is HIDA. anticipate MRCP not showing biliary obstruction. LFTs have trended down slightly. suspect transaminitis is nonspecific (?med related, multifactorial - doubt purely covid residual since they weren't as high before), and suspect abdominal pain was constipation - stool softener has helped but will give more since still no BM. otherwise as above Subjective Patient seen at bedside this morning. He was resting comfortably. He endorses mild abdominal pain that is not limited to nor worse in the RUQ. Notes he has not had a BM in a few days and does feel constipated. Notes that the lightheadedness upon standing that he previously reported had resolved today. Reports he has a good appetite and that his sense of taste/smell is coming back. Patient has no other complaints including chest pain, shortness of breath, nausea, vomiting, fever, chills, or other symptoms. Review of Systems Review of Systems: All systems reviewed & are unremarkable except as noted in HPI & below Physical Exam Constitutional: cooperative; no acute distress Respiratory: normal respiratory effort Cardiovascular: Rate/Rhythm: regular rate and + irregularly irregular Heart Sounds: no murmur Psychiatric: A+Ox3, euthymic affect Results & Data Results & Data ([facility]) Vital Signs (Past 12 Hours) Vital Signs Temp Pulse Pulse Resp BP Pulse Ox 08/21/20 07:44 36.9 C 92 H 18 125/78 92 08/21/20 03:49 36.6 C 91 H 19 109/80 93 08/21/20 01:00 90 (1) AAA (abdominal aortic aneurysm) Presence of rupture: without rupture Qualified Code(s): I71.4 - Abdominal aortic aneurysm, without rupture
[2020-08-21 08:59] LABS: Bilirubin,Total 1.6 mg/dl (0.2-1); Total Protein 5.9 gm/dl (6.4-8.2)
[2020-08-21] MEDS: MAGNESIUM OXIDE 400 MG TAB PO SCH (09:03)
[2020-08-21] MEDS: CALCIUM POLYCARBOPHIL 625MG TAB PO SCH (09:03)
[2020-08-21] MEDS: PARoxetine HCL 20 MG TAB PO SCH (09:03)
[2020-08-21] MEDS: PANTOprazole 40 MG TAB PO SCH ×2 (09:04→20:29)
[2020-08-21] MEDS: lisinopril 5 MG TAB PO SCH (09:04)
--- NOTE | 2020-08-21 09:44 | Gastrointestinal Consultation ---
Date of Consultation August 21, 2020 Assessment & Plan (1) Abdominal pain: (2) Elevated LFTs: Pt is a 75 y/o male inmate admitted w weakness, fatigue, abd pain symptoms. On eval, noted to have elevated LFTs. Gallbladder u/s w ? cholelithiasis, non dilated CBD of 3mm, HIDA unremarkable. Hx of COVID infection in June, negative test on admission now. - Trend LFTs - Obtain MRCP to r/o biliary obstruction - Serologies ordered to r/o AIH, A1A, [place], Acute hepatitis A/B/C - Macrocytic anemia: will check FA and Vit B12 levels. Supervising Physician Co-Signing Physician Notes I have seen and examined the patient and discussed the management with BIANKA Carson. Admitted with falls on coumadin. Incidental finding of elevated lft's, tb 2.7, gb sobeida showing ? shadow, cbd of 0.3 cm Platelets are 91, INR 2.4. MRCP pending Agree with further plan of care as below. History of Present Illness Reason for Consultation: Elevated LFTs Requesting Physician: Dr. Kalin Zacarias Attending Physician: Dr. Aria Callejas History of Present Illness Pt is a 75 y/o male inmate who was admitted yesterday for symptoms of weakness, fatigue and abdominal pain. He reports having light headedness and syncopal episodes since "months ago". He had another episode of this yesterday. Head CT and cervical spine CT negative for acute processes. He denies associated fever, chills, CP, SOB. He is c/o abd pain, on exam is TTP on LUQ area, mild nausea. + constipation. Denies any appetite or weight loss, jaundice. He is COVID 19 positive in June, repeat test on admission was negative. On eval, noted to have elevated LFTs: Tbili 2, AST/ALT 200s/300s. Alk phos 100. He is on Warfarin for Afib, INR 2.4. Gallbladder u/s showed signs of ? cholelithiasis within contracted gallbladder w CBD of 0.3cm. HIDA unremarkable w/o signs of acute cholecystitis. He denies any hx of liver dz, autoimmune dz. Denies ETOH, illicit drugs, herbal supplements or new meds. No tattoos or body piercing. Allergies Allergy/AdvReac Type Severity Reaction Status Date / Time No Known Allergies Allergy Verified 08/19/20 21:45 Home Medications Medication Instructions Recorded Confirmed Type atorvastatin 80 mg PO HS 05/01/18 08/19/20 History cyanocobalamin (vitamin B-12) 1,000 mcg PO DAILY 05/01/18 08/19/20 History [Vitamin B-12] ferrous sulfate [iron] 325 mg PO 3XWK 05/01/18 08/19/20 History nitroglycerin [Nitrostat] 0.4 mg SUBLINGUAL DIRECTED PRN 05/01/18 08/19/20 History paroxetine HCl 40 mg PO QAM 05/01/18 08/19/20 History tamsulosin 0.4 mg PO HS 05/01/18 08/19/20 History carvedilol 12.5 mg PO BID 09/23/18 08/19/20 History ascorbic acid (vitamin C) [Vitamin 500 mg PO 3XWK 10/14/18 08/19/20 History C] pantoprazole 40 mg PO BID 10/14/18 08/19/20 History isosorbide mononitrate 60 mg PO DAILY #30 tab 10/18/18 08/19/20 Rx calcium polycarbophil [Fiber-Lax] 625 mg PO DAILY 01/03/20 08/19/20 History glipizide 5 mg PO DAILY #0 tab 07/08/20 08/19/20 Rx lisinopril 10 mg PO DAILY #0 tab 07/08/20 08/19/20 Rx acetaminophen 325 mg PO QID PRN 07/14/20 08/19/20 History furosemide [Lasix] 40 mg PO DAILY #30 tab 07/16/20 08/19/20 Rx magnesium oxide 400 mg PO QAM #0 cap 07/16/20 08/19/20 Rx spironolactone [Aldactone] 12.5 mg PO DAILY #15 tab 07/16/20 08/19/20 Rx warfarin 1 mg PO QPM #0 tab 07/16/20 08/19/20 Rx Patient History Medical History AAA (abdominal aortic aneurysm) Anemia Anxiety Ascites Atrial fibrillation CAD (coronary artery disease) s/p inferior wall FL with chronically occluded RCA - cath on 01/09/15 - no intervention. L to R collateralization noted CHF (congestive heart failure) ICM with EF of 15-20% CKD (chronic kidney disease) stage 3, GFR 30-59 ml/min COPD (chronic obstructive pulmonary disease) COVID-19 Depression Diabetes Elevated troponin Essential hypertension GERD (gastroesophageal reflux disease) Hyperlipidemia Male genitourinary symptoms Near syncope Surgical History No significant past surgical history Family History Other Diabetes Social History Smoking Status: Former smoker Second Hand Exposure: Yes; Hx Alcohol Use: No Hx Substance Use: No Preferred Language: Moldovan Communication Ability: Effective Visual Impairment: No Limitations [employer]er Apprentice Required: No Beliefs That Will Affect Care: None marital status: Single Current Living Situation: Other Current Living Situation Comment: [facility] Feels Safe at Home: Yes Safety Concerns: Feels Safe At This Time Assistive Devices: None Review of Systems Review of Systems: All systems reviewed & are unremarkable except as noted in HPI & below Physical Exam Constitutional: WD/WN, vitals as above well groomed, cooperative and comfortable Eyes: PERRL, conjunctivae normal, anicteric sclerae ENMT: external ear and nose normal, oropharynx normal Respiratory: normal respiratory effort, lungs clear to auscultation Cardiovascular: RRR, no murmur, no edema Gastrointestinal (Abdomen): Inspection/Auscultation: normal bowel sounds Percussion/Palpation: + abdomen tender (LUQ) and abdomen soft Skin: no rashes, warm and dry no jaundice Psychiatric: A+Ox3, euthymic affect Lymphatic: no lymphedema Results & Data ([facility]) Vital Signs (Past 12 Hours) Vital Signs Temp Pulse Pulse Resp BP Pulse Ox 08/21/20 07:44 36.9 C 92 H 18 125/78 92 08/21/20 03:49 36.6 C 91 H 19 109/80 93 08/21/20 01:00 90
[2020-08-21] MEDS: INSULIN ASPART 100 UNITS/ML 3 ML PEN SC SCH ×4 (10:39→20:29)
[2020-08-21 11:17] LABS: Hepatitis B Surface Antigen Neg (Neg); Vitamin B12 > 2000 pg/ml (193-986)
[2020-08-21] MEDS ORDERED: bisacodyL 10 MG SUPP PR STA (11:22)
--- NOTE | 2020-08-21 11:28 | Surgery Progress Note ---
Date of Service August 21, 2020 Assessment & Plan (1) Gallstones: 75 year-old male with fatigue, weakness, falls and deconditioning presented to [facility] with elevated t. bili and lfts. Ultrasound showing gallstone but no evidence of acute cholecystitis. Negative HIDA scan. No leukocytosis. 08/21/2020 - t. bili improved but still elevated at 1.6 (2.7) - Lfts improved but still elevated AST 295 --> 235 ALT 410 --> 388 - Alk phos wnl - direct bilirubin elevated at 0.7 Plan: awaiting MRCP today given elevated LFTs and t. bili. There is no signs of acute cholecysitits on US or HIDA scan, patient does not have abdominal pain but mildly tender on exam in RUQ, negative Gilbert sign and no leukocytosis. Given deconditioning from COVID infection in June and CHF with EF of 15-20% would avoid cholecystectomy unless signs of biliary obstruction on MRCP. Constipation with no bowel movement for a few weeks. Suppository now may need enema. Continue NPO for MRCP, if normal can advance diet and may need oral bowel regimen daily continue medical management (2) Elevated LFTs: await MRCP results plan as above Dr. Owens has seen and examined patient, agrees with above. Admission and Anticipated Discharge Date Admission Date: August 20, 2020 Subjective feeling good, more alert today, not drowsy hungry and very thirsty no abdominal pain no bowel movement Physical Exam Constitutional: WD/WN, vitals as above Respiratory: normal respiratory effort Gastrointestinal (Abdomen): Inspection/Auscultation: abdomen normal to inspection Percussion/Palpation: + abdomen tender (mild in ruq/epigastric region, no guarding, rigidity) and abdomen soft Skin: no rashes, warm and dry Psychiatric: Orientation: alert and oriented x 3 Eye Contact: good eye contact Results & Data ([facility]) Vital Signs (Past 12 Hours) Vital Signs Temp Pulse Pulse Resp BP Pulse Ox 08/21/20 07:44 36.9 C 92 H 18 125/78 92 08/21/20 03:49 36.6 C 91 H 19 109/80 93 08/21/20 01:00 90 Laboratory Results 08/21/20 08/21/20 08/21/20 Range/Units 10:00 10:00 10:00 WBC (4.8-10.8) K/uL RBC (4.7-6.1) M/uL Hgb (14.0-18.0) g/dL Hct (42-52) % MCV (80-100) fL MCH (25-34) pg MCHC (32-36) g/dL RDW Std Deviation (36.4-46.3) fL RDW Coeff of Samara (11.5-14.5) % Plt Count (130-400) K/uL MPV (7.4-10.4) fL Immature Gran % (Auto) % Neut % (Auto) % Lymph % (Auto) % Delta % (Auto) % Eos % (Auto) % Baso % (Auto) % Neut # (Auto) (1.4-6.5) K/uL Lymph # (Auto) (1.2-3.4) K/uL Delta # (Auto) (0.11-0.59) K/uL Eos # (Auto) (0-0.5) K/uL Baso # (Auto) (0-0.2) K/uL Immature Gran # (Auto) (0.00-0.02) K/uL PT (9.0-12.0) Seconds INR (0.9-1.1) Sodium (136-145) mmol/L Potassium (3.5-5.1) mmol/L Chloride (98-107) mmol/L Carbon Dioxide (21-32) mmol/L Anion Gap (3-11) BUN (7-18) mg/dl Creatinine (0.6-1.4) mg/dl Est Cr Clr Drug Dosing ml/min Est GFR ( Amer) Est GFR (Non-Af Amer) BUN/Creatinine Ratio (10-20) Glucose (70-99) mg/dl POC Glucose (70-99) mg/dl Calcium (8.5-10.1) mg/dl Total Bilirubin (0.2-1) mg/dl Direct Bilirubin (0-0.2) mg/dl AST (15-37) U/L ALT (12-78) U/L Alkaline Phosphatase (45-117) U/L Total Protein (6.4-8.2) gm/dl Total Protein (PEP) Pending Albumin (3.4-5.0) gm/dl Albumin (PEP) Pending Tcrjf-2-Wdhlgrzzv Pending Hjezc-1-Ogwnjaqgo Pending Ouhu-2-Biyeirzg Pending Ujgd-5-Entifnsp Pending Gamma Globulins Pending Monoclonal Peak 3 Pending Ser Monoclonl Protein Pending Ser Monoclonal Prot 2 Pending PEP Interpretation Pending Cgdyz-1-Oimcmayblnv Pending Ceruloplasmin Pending Lipase (73-393) U/L Vitamin B12 (193-986) pg/ml Folate (>5.38) ng/ml ARELY Screen Pending Anti-Mitochondrial Ab Pending Anti-Smooth Muscle Ab Pending Hepatitis A IgM Ab Pending Hep Bs Antigen Neg (Neg) Hep B Core IgM Ab Pending Hepatitis C Antibody Pending 08/21/20 08/21/20 08/21/20 Range/Units 10:00 07:57 07:57 WBC (4.8-10.8) K/uL RBC (4.7-6.1) M/uL Hgb (14.0-18.0) g/dL Hct (42-52) % MCV (80-100) fL MCH (25-34) pg MCHC (32-36) g/dL RDW Std Deviation (36.4-46.3) fL RDW Coeff of Samara (11.5-14.5) % Plt Count (130-400) K/uL MPV (7.4-10.4) fL Immature Gran % (Auto) % Neut % (Auto) % Lymph % (Auto) % Delta % (Auto) % Eos % (Auto) % Baso % (Auto) % Neut # (Auto) (1.4-6.5) K/uL Lymph # (Auto) (1.2-3.4) K/uL Delta # (Auto) (0.11-0.59) K/uL Eos # (Auto) (0-0.5) K/uL Baso # (Auto) (0-0.2) K/uL Immature Gran # (Auto) (0.00-0.02) K/uL PT (9.0-12.0) Seconds INR (0.9-1.1) Sodium 142 (136-145) mmol/L Potassium 4.1 (3.5-5.1) mmol/L Chloride 110 H (98-107) mmol/L Carbon Dioxide 25 (21-32) mmol/L Anion Gap 8.0 (3-11) BUN 47 H (7-18) mg/dl Creatinine 2.25 H (0.6-1.4) mg/dl Est Cr Clr Drug Dosing 28.3 ml/min Est GFR ( Amer) 32.3 Est GFR (Non-Af Amer) 27.9 BUN/Creatinine Ratio 20.8 H (10-20) Glucose 118 H (70-99) mg/dl POC Glucose (70-99) mg/dl Calcium 8.6 (8.5-10.1) mg/dl Total Bilirubin 1.6 H (0.2-1) mg/dl Direct Bilirubin 0.7 H (0-0.2) mg/dl AST 235 H (15-37) U/L ALT 388 H (12-78) U/L Alkaline Phosphatase 105 (45-117) U/L Total Protein 5.9 L (6.4-8.2) gm/dl Total Protein (PEP) Albumin 2.6 L (3.4-5.0) gm/dl Albumin (PEP) Wrmjw-2-Lxovyuita Nveff-8-Fqclpqpno Fkml-0-Gygwvesy Ybxr-7-Bzyjxnuz Gamma Globulins Monoclonal Peak 3 Ser Monoclonl Protein Ser Monoclonal Prot 2 PEP Interpretation Fcsdi-8-Yhofuhguehs Ceruloplasmin Lipase 211 (73-393) U/L Vitamin B12 > 2000 H (193-986) pg/ml Folate 16.00 (>5.38) ng/ml ARELY Screen Anti-Mitochondrial Ab Anti-Smooth Muscle Ab Hepatitis A IgM Ab Hep Bs Antigen (Neg) Hep B Core IgM Ab Hepatitis C Antibody 08/21/20 08/21/20 08/21/20 Range/Units 07:57 07:57 07:25 WBC 7.55 (4.8-10.8) K/uL RBC 3.60 L (4.7-6.1) M/uL Hgb 11.9 L (14.0-18.0) g/dL Hct 37.6 L (42-52) % MCV 104.4 H (80-100) fL MCH 33.1 (25-34) pg MCHC 31.6 L (32-36) g/dL RDW Std Deviation 67.4 H (36.4-46.3) fL RDW Coeff of Samara 17.9 H (11.5-14.5) % Plt Count 91 L (130-400) K/uL MPV 12.6 H (7.4-10.4) fL Immature Gran % (Auto) 0.3 % Neut % (Auto) 74.1 % Lymph % (Auto) 14.2 % Delta % (Auto) 10.1 % Eos % (Auto) 1.2 % Baso % (Auto) 0.1 % Neut # (Auto) 5.60 (1.4-6.5) K/uL Lymph # (Auto) 1.07 L (1.2-3.4) K/uL Delta # (Auto) 0.76 H (0.11-0.59) K/uL Eos # (Auto) 0.09 (0-0.5) K/uL Baso # (Auto) 0.01 (0-0.2) K/uL Immature Gran # (Auto) 0.02 (0.00-0.02) K/uL PT 24.0 H (9.0-12.0) Seconds INR 2.4 H (0.9-1.1) Sodium (136-145) mmol/L Potassium (3.5-5.1) mmol/L Chloride (98-107) mmol/L Carbon Dioxide (21-32) mmol/L Anion Gap (3-11) BUN (7-18) mg/dl Creatinine (0.6-1.4) mg/dl Est Cr Clr Drug Dosing ml/min Est GFR ( Amer) Est GFR (Non-Af Amer) BUN/Creatinine Ratio (10-20) Glucose (70-99) mg/dl POC Glucose 121 H (70-99) mg/dl Calcium (8.5-10.1) mg/dl Total Bilirubin (0.2-1) mg/dl Direct Bilirubin (0-0.2) mg/dl AST (15-37) U/L ALT (12-78) U/L Alkaline Phosphatase (45-117) U/L Total Protein (6.4-8.2) gm/dl Total Protein (PEP) Albumin (3.4-5.0) gm/dl Albumin (PEP) Oqahh-1-Ofrsobuzf Xrgaj-9-Vbcvootal Wdag-5-Cbbqkzfs Jpbc-0-Sryfvccw Gamma Globulins Monoclonal Peak 3 Ser Monoclonl Protein Ser Monoclonal Prot 2 PEP Interpretation Ylult-8-Eblbifjlart Ceruloplasmin Lipase (73-393) U/L Vitamin B12 (193-986) pg/ml Folate (>5.38) ng/ml ARELY Screen Anti-Mitochondrial Ab Anti-Smooth Muscle Ab Hepatitis A IgM Ab Hep Bs Antigen (Neg) Hep B Core IgM Ab Hepatitis C Antibody 08/20/20 08/20/20 08/20/20 Range/Units 19:58 16:49 13:01 WBC (4.8-10.8) K/uL RBC (4.7-6.1) M/uL Hgb (14.0-18.0) g/dL Hct (42-52) % MCV (80-100) fL MCH (25-34) pg MCHC (32-36) g/dL RDW Std Deviation (36.4-46.3) fL RDW Coeff of Samara (11.5-14.5) % Plt Count (130-400) K/uL MPV (7.4-10.4) fL Immature Gran % (Auto) % Neut % (Auto) % Lymph % (Auto) % Delta % (Auto) % Eos % (Auto) % Baso % (Auto) % Neut # (Auto) (1.4-6.5) K/uL Lymph # (Auto) (1.2-3.4) K/uL Delta # (Auto) (0.11-0.59) K/uL Eos # (Auto) (0-0.5) K/uL Baso # (Auto) (0-0.2) K/uL Immature Gran # (Auto) (0.00-0.02) K/uL PT (9.0-12.0) Seconds INR (0.9-1.1) Sodium (136-145) mmol/L Potassium (3.5-5.1) mmol/L Chloride (98-107) mmol/L Carbon Dioxide (21-32) mmol/L Anion Gap (3-11) BUN (7-18) mg/dl Creatinine (0.6-1.4) mg/dl Est Cr Clr Drug Dosing ml/min Est GFR ( Amer) Est GFR (Non-Af Amer) BUN/Creatinine Ratio (10-20) Glucose (70-99) mg/dl POC Glucose 228 H 255 H 163 H (70-99) mg/dl Calcium (8.5-10.1) mg/dl Total Bilirubin (0.2-1) mg/dl Direct Bilirubin (0-0.2) mg/dl AST (15-37) U/L ALT (12-78) U/L Alkaline Phosphatase (45-117) U/L Total Protein (6.4-8.2) gm/dl Total Protein (PEP) Albumin (3.4-5.0) gm/dl Albumin (PEP) Gaflj-6-Ehickfjlu Winny-6-Jjqfkkeyk Atlb-0-Tdfevipj Gnsm-4-Glmyktom Gamma Globulins Monoclonal Peak 3 Ser Monoclonl Protein Ser Monoclonal Prot 2 PEP Interpretation Fsicv-0-Pvomsdtoipf Ceruloplasmin Lipase (73-393) U/L Vitamin B12 (193-986) pg/ml Folate (>5.38) ng/ml ARELY Screen Anti-Mitochondrial Ab Anti-Smooth Muscle Ab Hepatitis A IgM Ab Hep Bs Antigen (Neg) Hep B Core IgM Ab Hepatitis C Antibody Microbiology 08/19/20 21:50 Aerobic Blood Culture - Preliminary Blood No growth in Aerobic bottle after 24 hours. Anaerobic Blood Culture - Final 08/19/20 22:43 Aerobic Blood Culture - Preliminary Blood No growth in Aerobic bottle after 24 hours. Anaerobic Blood Culture - Preliminary No growth in Anaerobic bottle after 24 hours.
[2020-08-21] MEDS: INSULIN GLARGINE SOLOSTAR 100 UNITS/ML 3 ML PEN SC SCH ×2 (11:41→20:28)
[2020-08-21 11:45] LABS: Hepatitis C IgG 13Yrs+Old_Rflx Neg (Neg)
[2020-08-21] MEDS: carvediloL 12.5 MG TAB PO SCH ×2 (12:53→20:29)
[2020-08-21] MEDS: SPIRONOLACTONE 12.5 MG TAB PO SCH (15:11)
[2020-08-21] MEDS: ISOSORBIDE MONO EXTENDED REL 30 MG TABCR PO SCH (15:11)
[2020-08-21] MEDS: FUROSEMIDE 40 MG TAB PO SCH (15:11)
--- NOTE | 2020-08-21 16:58 | Billing Data ---
Date of Service August 21, 2020 Coding Level of Care Code 34735 Subseq Hosp Care Lvl 3
[2020-08-21] MEDS ORDERED: POLYETHYLENE (MIRALAX) 17 GM PACK PO ONE (16:59)
--- NOTE | 2020-08-21 17:59 | Magnetic Resonance Report ---
MRCP CLINICAL HISTORY: elevated lfts; r/o biliary obstruction TECHNIQUE: Utilizing a 1.5 Shelly magnet and dedicated coil, multiplanar, multiecho imaging of the [facility] er abdomen was performed utilizing heavily T2 weighted pulsing sequences without IV contrast. COMPARISON STUDY: CT of the abdomen and pelvis October 14, 2018. Right upper quadrant ultrasound [facility] 2020. Nuclear medicine hepatobiliary scan August 20, 2020. FINDINGS: Visualized portions of the lower chest demonstrate moderate cardiomegaly. Small left and tr cristobal right pleural effusions are noted. There is anasarca. There is trace abdominal ascites. Note is m amy of an infrarenal abdominal aortic aneurysm that measures at least 4 x 3.5 cm. This aneurysm is pa rtially imaged on this exam. This contains extensive eccentric neural thrombus. Moderate left renal a trophy is noted. Numerous T2 hyperintense bilateral renal lesions are noted. Several of these lesions contain layering debris. These favor cysts but are suboptimally assessed on this unenhanced exam. Th ere is no hydronephrosis. Multiple subcentimeter T2 hyperintense hepatic lesions are unchanged. These reflect cysts. There is an 8 mm gallstone within the gallbladder without evidence for acute cholecys titis. There is no peripancreatic infiltration or fluid. No pancreatic or biliary ductal dilatation i s present. The common bile duct measures 4 mm in caliber. There are a few suspected tiny calculi with in the distal common bile duct that measure up to 2 mm. No abdominal lymphadenopathy is present. This exam is mildly compromised by motion artifact. Liver morphology is normal. The size of the spleen is at the upper limits of normal. Caliber of visualized small and large bowel is normal. IMPRESSION: 1. Several suspected small calculi within the distal common bile duct that measure up to 2 mm. No giancarlo iary ductal dilatation. Exam mildly compromised by motion artifact. 2. Cholelithiasis. No evidence for acute cholecystitis. 3. Infrarenal abdominal aortic aneurysm which measures at least 4 x 3.5 cm, partially imaged on this exam. 4. Small right and trace left pleural effusions. 5. Cardiomegaly. 6. Anasarca. ACT 112: Negative or not required by law. Electronically signed by: Leroy Maguire M.D. 08/21/2020 5:57 PM
[2020-08-21] MEDS: TAMSULOSIN HCL 0.4 MG CAP PO SCH (20:28)
[2020-08-22 05:03] LABS: Hepatitis A Antibody IgM NON-REACTIVE (NON-REACTIVE); Hepatitis B Core Antibody IgM NON-REACTIVE (NON-REACTIVE)
[2020-08-22 07:43] LABS: INR 2.1 (0.9-1.1); Prothrombin Time 21.7 Seconds (9.0-12.0)
[2020-08-22] MEDS: carvediloL 12.5 MG TAB PO SCH ×2 (08:05→21:55)
[2020-08-22] MEDS: CALCIUM POLYCARBOPHIL 625MG TAB PO SCH (08:06)
[2020-08-22] MEDS: MAGNESIUM OXIDE 400 MG TAB PO SCH (08:06)
[2020-08-22] MEDS: PANTOprazole 40 MG TAB PO SCH ×2 (08:06→21:55)
[2020-08-22] MEDS: ISOSORBIDE MONO EXTENDED REL 30 MG TABCR PO SCH (08:07)
[2020-08-22] MEDS: PARoxetine HCL 20 MG TAB PO SCH (08:07)
[2020-08-22] MEDS: SPIRONOLACTONE 12.5 MG TAB PO SCH (08:08)
[2020-08-22] MEDS: FUROSEMIDE 40 MG TAB PO SCH (08:08)
[2020-08-22] MEDS: lisinopril 5 MG TAB PO SCH (08:10)
[2020-08-22 08:12] LABS: Albumin Level 2.6 gm/dl (3.4-5.0); BUN Creatinine Ratio 21.1 (10-20); Bilirubin Direct 0.8 mg/dl (0-0.2); Calcium 8.8 mg/dl (8.5-10.1); Creatinine Clr Calc Pharmacy 29.6 ml/min; Est GFR (African American) 34.1; Est GFR (Non-African American) 29.5
[2020-08-22] MEDS: INSULIN ASPART 100 UNITS/ML 3 ML PEN SC SCH ×4 (08:14→21:55)
[2020-08-22 08:15] LABS: Bilirubin,Total 1.6 mg/dl (0.2-1)
[2020-08-22] MEDS: INSULIN GLARGINE SOLOSTAR 100 UNITS/ML 3 ML PEN SC SCH ×2 (08:15→21:55)
[2020-08-22 08:51] LABS: Basophils # (auto) 0.02 K/uL (0-0.2); Basophils % (auto) 0.2 %; Eosinophils # (auto) 0.06 K/uL (0-0.5); Eosinophils % (auto) 0.6 %; Hematocrit (blood only) 39.2 % (42-52); Hemoglobin 12.1 g/dL (14.0-18.0); Immature Granulocytes # (auto) 0.03 K/uL (0.00-0.02); Immature Granulocytes % (auto) 0.3 %; Lymphocytes # (auto) 1.33 K/uL (1.2-3.4); Lymphocytes % (auto) 14.3 %; Mean Corpuscular Hemoglobin 32.5 pg (25-34); Mean Corpuscular Hgb Conc 30.9 g/dL (32-36); Mean Corpuscular Volume 105.4 fL (80-100); Mean Platelet Volume 12.9 fL (7.4-10.4); Monocytes # (auto) 0.74 K/uL (0.11-0.59); Monocytes % (auto) 7.9 %; Neutrophils # (auto) 7.14 K/uL (1.4-6.5); Neutrophils % (auto) 76.7 %; Platelet Count 86 K/uL (130-400); Platelet Estimate Decreased (Normal); Polychromasia 1+; RDW Coefficient of Variation 18.1 % (11.5-14.5); Red Blood Count 3.72 M/uL (4.7-6.1); White Blood Count 9.32 K/uL (4.8-10.8)
--- NOTE | 2020-08-22 09:59 | Hospitalist Progress Note ---
Date of Service August 22, 2020 Assessment & Plan (1) Abdominal pain: Austin Garza is a 75yo male who presents with two months of progressive weakness as well as abdominal pressure/pain. Progressive weakness/lightheadedness -recent covid illness (06/2020) -poor PO intake noted -likely contributions include recent covid illness, CHF with reduced EF of 15- 20% -possibly exacerbated by med regimen; reducing imdur to 30mg and lisinopril to 5mg as below -will continue to work up and monitor Gallstones -seen on US -mild elevation of AST/ALT/Tbili -afebrile, nontoxic appearing; mild abdominal pain but no worse in the RUQ compared to other quadrants -zosyn IV discontinued -tylenol as needed for pain -no evidence of cholecystitis on HIDA scan -gallbladder ejection fraction 30% - only minimally diminished -MRCP performed 08/21/2020: -several suspected small calculi in distal CBD up to 2mm, no biliary ductal dilatation (exam mildly compromised by motion artifact) -no evidence of acute cholecystitis -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 -trace right and left pleural effusions -cardiomegaly -anasarca -GI plans to perform ERCP tomorrow (08/23/2020) -CBC, CMP qAM Supratherapeutic INR (resolved), AF -rate controlled when examined today -INR 2.1 today (08/21/2020) -holding warfarin ahead of ERCP planned for tomorrow (08/23/2020) -vitamin K 5mg IV administered -c/w carvedilol 12.5mg PO bid AAA -measuring 3.8cm in width, up from 3.7cm in 2019 (measured 4cm in diameter on MRCP) -mural thrombus; on warfarin for AF -no evidence of rupture -f/u imaging outpatient CHF: stable -EF 15-20% -lisnopril dose halved as described below -c/w spironolactone 12.5mg PO qd HTN: stable -c/w lisinopril 5mg PO qd -c/w metoprolol tartrate 5mg IV q4h T2DM, CKD -halving lisinopril dose (40mg PO to 20mg PO) in response to bump in Cr -c/w glargine 5u bid -c/w ISS BPH -c/w tamsulosin 0.4mg PO qhs FENGI: NPO since midnight (08/21/2020) per GI order DVT ppx: holding warfarin as described above Code status: full code Dispo: tele (2) AAA (abdominal aortic aneurysm): (3) Supratherapeutic INR: (4) Atrial fibrillation, permanent: Admission and Anticipated Discharge Date Admission Date: August 20, 2020 Supervising Physician Co-Signing Physician Notes I personally examined the patient and verified all coy points of history and exam, discussed case, and agree with decision making with Dr Mcleod. still no BM but belly feeling better. no lightheaded. no sob. vitals noted nad heent nc at mmm breathing unlabored no accessory muscles good effort skin no rashes no pallor or icterus neuro no focal deficits. abd soft nd nt weakness/lightheadedness/near syncope - w poor PO intake, frailty and EF 15-20% suspect this is all in his long-post covid course -- has improved w med reductions, and better PO intake. continue reduced imdur and lisinopril for now, may need to be increased again down the road depending on how he progresses. today cut lasix in half given sl bump in creatinine abdominal pain - no RUQ pain, LFTs up but mostly hepatocellular except bili. US nonspecific, as is HIDA. MRCP w small stones. LFTs continue to trend down slightly. constipation definitely playing a role, can't ignore stones, however, given pain/MCRP/LFTs. continue bowel regimen, appreciate GI input. otherwise as above Subjective Patient seen at bedside this morning. He was resting comfortably. He reports his abdominal pain is nearly gone. Endorses no new symptoms or concerns. He has not had a BM yet. Reports his appetite has been good since his MRCP yesterday. Reports he was able to ambulate around the unit without lightheadedness yesterday. Review of Systems Constitutional: no fever, no chills and no fatigue Cardiovascular: no chest pain, no palpitations, no lightheadedness and no calf pain Gastrointestinal: + constipation; no nausea and no vomiting Genitourinary: no dysuria Physical Exam Constitutional: cooperative and comfortable; no acute distress Respiratory: normal respiratory effort, lungs clear to auscultation Cardiovascular: Rate/Rhythm: regular rate and + irregularly irregular Gastrointestinal (Abdomen): abdomen soft, mildly tender in the epigastrum, hypoactive BS in all four quadrants, nondistended Psychiatric: A+Ox3, euthymic affect Results & Data Results & Data ([facility]) Vital Signs (Past 12 Hours) Vital Signs Temp Pulse Resp BP Pulse Ox 08/22/20 07:35 36.3 C L 87 16 126/86 92 08/22/20 03:07 36.5 C 102 H 20 110/69 95 08/22/20 00:01 36.5 C 46 L 16 128/76 94 Resident Activity Tracking Resident Involvement: Resident Care Provided Care Provided: Adult Hospital Medicine (1) AAA (abdominal aortic aneurysm) Presence of rupture: without rupture Qualified Code(s): I71.4 - Abdominal aortic aneurysm, without rupture
[2020-08-22] MEDS ORDERED: PHYTONADIONE 5 MG in SODIUM CHLORIDE 0.9% 50 ML IV ONE ×2 (10:15→22:47)
--- NOTE | 2020-08-22 11:06 | Gastroenterology Progress Note ---
Date of Service August 22, 2020 Assessment & Plan (1) Abdominal pain: (2) Elevated LFTs: Pt is a 75 y/o male inmate admitted w weakness, fatigue, abd pain symptoms. On eval, noted to have elevated LFTs. Gallbladder u/s w ? cholelithiasis, non dilated CBD of 3mm, HIDA unremarkable. Hx of COVID infection in June, negative test on admission now. MRCP 08/21/2020: Showed several suspected small calculi within the distal common bile duct that measure up to 2 mm. No biliary ductal dilatation. + cholelithiasis w/o acute cholecystitis - Trend LFTs - F/U serologies ordered to r/o AIH, A1A, [place], Acute hepatitis A/B/C - Keep NPO after midnight. Plan for ERCP on 08/23/[address] Sethi - Surgery following, appreciate recs Admission and Anticipated Discharge Date Admission Date: August 20, 2020 Supervising Physician Co-Signing Physician Notes I have seen and examined the patient and discussed the management with BIANKA Coe. MRCP results reviewed. Still with elevated lft's Planning for ercp 08/23/19 pending reversal with vit K today and continued holding of coumadin. Subjective Pt feels well, tolerating regular diet, denies any abd pain, n/v, fever, chills overnight Review of Systems Review of Systems: All systems reviewed & are unremarkable except as noted in HPI & below Physical Exam Constitutional: WD/WN, vitals as above well groomed, cooperative and comfortable Eyes: PERRL, conjunctivae normal, anicteric sclerae ENMT: external ear and nose normal, oropharynx normal Respiratory: normal respiratory effort, lungs clear to auscultation Cardiovascular: RRR, no murmur, no edema Gastrointestinal (Abdomen): normal bowel sounds, soft, nontender, no hepatosplenomegaly Skin: no rashes, warm and dry no jaundice Psychiatric: A+Ox3, euthymic affect Lymphatic: no lymphedema Results & Data ([facility]) Vital Signs (Past 12 Hours) Vital Signs Temp Pulse Resp BP Pulse Ox 08/22/20 07:35 36.3 C L 87 16 126/86 92 08/22/20 03:07 36.5 C 102 H 20 110/69 95 08/22/20 00:01 36.5 C 46 L 16 128/76 94
[2020-08-22] MEDS ORDERED: POLYETHYLENE (MIRALAX) 17 GM PACK PO ONE (11:12)
--- NOTE | 2020-08-22 12:13 | Surgery Progress Note ---
Date of Service August 22, 2020 Assessment & Plan (1) Gallstones: 75 year-old male with fatigue, weakness, falls and deconditioning presented to [facility] with elevated t. bili and lfts. Ultrasound showing gallstone but no evidence of acute cholecystitis. Negative HIDA scan. No leukocytosis. 08/22/2020: -MRCP showing small stones at distal CBD measuring up to 2 mm in size, no signs of acute cholecystitis - t. bili, d. bili still elevated, lfts improving - INR 2.1 Plan: GI planning for possible ERCP tomorrow or Thursday. Given there is no evidence of acute cholecystitis on US, HIDA scan or MRCP as well as patient's CHF with EF of 15-20%, no postprandial symptoms, and deconditioning we do not plan to proceed with cholecystectomy. Would recommend trending labs after ERCP and if returning to normal and no abdominal pain will likely be able to be discharged Should adhere to low fat diet Continue current medical management (2) Elevated LFTs: plan as above Dr. Owens has seen and examined patient, agrees with above. Admission and Anticipated Discharge Date Admission Date: August 20, 2020 Subjective patient feeling well today and is feeling much better since arrival denies of any abdominal pain tolerated breakfast without any postprandial pain no nausea or vomiting Physical Exam Constitutional: WD/WN, vitals as above Respiratory: normal respiratory effort; no respiratory distress and no labored breathing Gastrointestinal (Abdomen): Inspection/Auscultation: abdomen normal to inspection; abdomen not distended Skin: no rashes, warm and dry Psychiatric: Orientation: alert and oriented x 3 Results & Data ([facility]) Vital Signs (Past 12 Hours) Vital Signs Temp Pulse Resp BP Pulse Ox 08/22/20 11:51 36.6 C 89 16 107/70 93 08/22/20 07:35 36.3 C L 87 16 126/86 92 08/22/20 03:07 36.5 C 102 H 20 110/69 95 Laboratory Results 08/22/20 08/22/20 08/22/20 Range/Units 11:59 07:30 06:51 WBC (4.8-10.8) K/uL RBC (4.7-6.1) M/uL Hgb (14.0-18.0) g/dL Hct (42-52) % MCV (80-100) fL MCH (25-34) pg MCHC (32-36) g/dL RDW Std Deviation (36.4-46.3) fL RDW Coeff of Samara (11.5-14.5) % Plt Count (130-400) K/uL MPV (7.4-10.4) fL Immature Gran % (Auto) % Neut % (Auto) % Lymph % (Auto) % Lewis % (Auto) % Eos % (Auto) % Baso % (Auto) % Neut # (Auto) (1.4-6.5) K/uL Lymph # (Auto) (1.2-3.4) K/uL Lewis # (Auto) (0.11-0.59) K/uL Eos # (Auto) (0-0.5) K/uL Baso # (Auto) (0-0.2) K/uL Immature Gran # (Auto) (0.00-0.02) K/uL Platelet Estimate (Normal) Polychromasia PT (9.0-12.0) Seconds INR (0.9-1.1) Sodium 141 (136-145) mmol/L Potassium 4.0 (3.5-5.1) mmol/L Chloride 108 H (98-107) mmol/L Carbon Dioxide 23 (21-32) mmol/L Anion Gap 10.0 (3-11) BUN 45 H (7-18) mg/dl Creatinine 2.15 H (0.6-1.4) mg/dl Est Cr Clr Drug Dosing 29.6 ml/min Est GFR ( Amer) 34.1 Est GFR (Non-Af Amer) 29.5 BUN/Creatinine Ratio 21.1 H (10-20) Glucose 105 H (70-99) mg/dl POC Glucose 174 H 122 H (70-99) mg/dl Calcium 8.8 (8.5-10.1) mg/dl Total Bilirubin 1.6 H (0.2-1) mg/dl Direct Bilirubin 0.8 H (0-0.2) mg/dl AST 163 H (15-37) U/L ALT 337 H (12-78) U/L Alkaline Phosphatase 108 (45-117) U/L Total Protein 6.0 L (6.4-8.2) gm/dl Albumin 2.6 L (3.4-5.0) gm/dl Hepatitis A IgM Ab (NON-REACTIVE) Hep B Core IgM Ab (NON-REACTIVE) 08/22/20 08/22/20 08/21/20 Range/Units 06:51 06:51 20:27 WBC 9.32 (4.8-10.8) K/uL RBC 3.72 L (4.7-6.1) M/uL Hgb 12.1 L (14.0-18.0) g/dL Hct 39.2 L (42-52) % MCV 105.4 H (80-100) fL MCH 32.5 (25-34) pg MCHC 30.9 L (32-36) g/dL RDW Std Deviation 69.0 H (36.4-46.3) fL RDW Coeff of Samara 18.1 H (11.5-14.5) % Plt Count 86 L (130-400) K/uL MPV 12.9 H (7.4-10.4) fL Immature Gran % (Auto) 0.3 % Neut % (Auto) 76.7 % Lymph % (Auto) 14.3 % Lewis % (Auto) 7.9 % Eos % (Auto) 0.6 % Baso % (Auto) 0.2 % Neut # (Auto) 7.14 H (1.4-6.5) K/uL Lymph # (Auto) 1.33 (1.2-3.4) K/uL Lewis # (Auto) 0.74 H (0.11-0.59) K/uL Eos # (Auto) 0.06 (0-0.5) K/uL Baso # (Auto) 0.02 (0-0.2) K/uL Immature Gran # (Auto) 0.03 H (0.00-0.02) K/uL Platelet Estimate Decreased L (Normal) Polychromasia 1+ PT 21.7 H (9.0-12.0) Seconds INR 2.1 H (0.9-1.1) Sodium (136-145) mmol/L Potassium (3.5-5.1) mmol/L Chloride (98-107) mmol/L Carbon Dioxide (21-32) mmol/L Anion Gap (3-11) BUN (7-18) mg/dl Creatinine (0.6-1.4) mg/dl Est Cr Clr Drug Dosing ml/min Est GFR ( Amer) Est GFR (Non-Af Amer) BUN/Creatinine Ratio (10-20) Glucose (70-99) mg/dl POC Glucose 133 H (70-99) mg/dl Calcium (8.5-10.1) mg/dl Total Bilirubin (0.2-1) mg/dl Direct Bilirubin (0-0.2) mg/dl AST (15-37) U/L ALT (12-78) U/L Alkaline Phosphatase (45-117) U/L Total Protein (6.4-8.2) gm/dl Albumin (3.4-5.0) gm/dl Hepatitis A IgM Ab (NON-REACTIVE) Hep B Core IgM Ab (NON-REACTIVE) 08/21/20 08/21/20 08/21/20 Range/Units 17:59 16:42 10:00 WBC (4.8-10.8) K/uL RBC (4.7-6.1) M/uL Hgb (14.0-18.0) g/dL Hct (42-52) % MCV (80-100) fL MCH (25-34) pg MCHC (32-36) g/dL RDW Std Deviation (36.4-46.3) fL RDW Coeff of Samara (11.5-14.5) % Plt Count (130-400) K/uL MPV (7.4-10.4) fL Immature Gran % (Auto) % Neut % (Auto) % Lymph % (Auto) % Lewis % (Auto) % Eos % (Auto) % Baso % (Auto) % Neut # (Auto) (1.4-6.5) K/uL Lymph # (Auto) (1.2-3.4) K/uL Lewis # (Auto) (0.11-0.59) K/uL Eos # (Auto) (0-0.5) K/uL Baso # (Auto) (0-0.2) K/uL Immature Gran # (Auto) (0.00-0.02) K/uL Platelet Estimate (Normal) Polychromasia PT (9.0-12.0) Seconds INR (0.9-1.1) Sodium (136-145) mmol/L Potassium (3.5-5.1) mmol/L Chloride (98-107) mmol/L Carbon Dioxide (21-32) mmol/L Anion Gap (3-11) BUN (7-18) mg/dl Creatinine (0.6-1.4) mg/dl Est Cr Clr Drug Dosing ml/min Est GFR ( Amer) Est GFR (Non-Af Amer) BUN/Creatinine Ratio (10-20) Glucose (70-99) mg/dl POC Glucose 117 H 132 H (70-99) mg/dl Calcium (8.5-10.1) mg/dl Total Bilirubin (0.2-1) mg/dl Direct Bilirubin (0-0.2) mg/dl AST (15-37) U/L ALT (12-78) U/L Alkaline Phosphatase (45-117) U/L Total Protein (6.4-8.2) gm/dl Albumin (3.4-5.0) gm/dl Hepatitis A IgM Ab NON-REACTIVE (NON-REACTIVE) Hep B Core IgM Ab NON-REACTIVE (NON-REACTIVE) Diagnostic Findings MRCP CLINICAL HISTORY: elevated lfts; r/o biliary obstruction TECHNIQUE: Utilizing a 1.5 Shelly magnet and dedicated coil, multiplanar, multiecho imaging of the upper abdomen was performed utilizing heavily T2 weighted pulsing sequences without IV contrast. COMPARISON STUDY: CT of the abdomen and pelvis October 14, 2018. Right upper quadrant ultrasound August 19, 2020. Nuclear medicine hepatobiliary scan August 20, 2020. FINDINGS: Visualized portions of the lower chest demonstrate moderate cardiomegaly. Small left and trace right pleural effusions are noted. There is anasarca. There is trace abdominal ascites. Note is made of an infrarenal abdominal aortic aneurysm that measures at least 4 x 3.5 cm. This aneurysm is partially imaged on this exam. This contains extensive eccentric neural thrombus. Moderate left renal atrophy is noted. Numerous T2 hyperintense bi lateral renal lesions are noted. Several of these lesions contain layering debris. These favor cysts but are suboptimally assessed on this unenhanced exam. There is no hydronephrosis. Multiple subcentimeter T2 hyperintense hepatic lesions are unchanged. These reflect cysts. There is an 8 mm gallstone within the gallbladder without evidence for acute cholecystitis. There is no peripancreatic infiltration or fluid. No pancreatic or biliary ductal dilatation is present. The common bile duct measures 4 mm in caliber. There are a few suspected tiny calculi within the distal common bile duct that measure up to 2 mm. No abdominal lymphadenopathy is present. This exam is mildly compromised by motion artifact. Liver morphology is normal. The size of the spleen is at the upper limits of normal. Caliber of visualized small and large bowel is normal. IMPRESSION: 1. Several suspected small calculi within the distal common bile duct that measure up to 2 mm. No biliary ductal dilatation. Exam mildly compromised by motion artifact. 2. Cholelithiasis. No evidence for acute cholecystitis. 3. Infrarenal abdominal aortic aneurysm which measures at least 4 x 3.5 cm, partially imaged on this exam. 4. Small right and trace left pleural effusions. 5. Cardiomegaly. 6. Anasarca.
--- NOTE | 2020-08-22 17:42 | Billing Data ---
Date of Service August 22, 2020 Coding Level of Care Code 93846 Subseq Hosp Care Lvl 3
--- NOTE | 2020-08-22 17:43 | Billing Data ---
Date of Service August 22, 2020 Coding Level of Care Code 71556 Subseq Hosp Care Lvl 3
[2020-08-22 18:26] LABS: INR 1.9 (0.9-1.1); Prothrombin Time 19.2 Seconds (9.0-12.0)
[2020-08-22] MEDS: TAMSULOSIN HCL 0.4 MG CAP PO SCH (21:55)
[2020-08-23] MEDS: LACTATED RINGER'S 1,000 ML IV SCH (06:17)
[2020-08-23] MEDS ORDERED: Nursing to Pharmacy Communication SCH ×2 (07:15→16:15)
[2020-08-23 07:28] LABS: INR 1.5 (0.9-1.1); Prothrombin Time 15.7 Seconds (9.0-12.0)
[2020-08-23 07:32] LABS: Anisocytosis Present; Basophils # (auto) 0.01 K/uL (0-0.2); Basophils % (auto) 0.1 %; Echinocytes 2+; Eosinophils % (auto) 1.3 %; Hematocrit (blood only) 38.4 % (42-52); Immature Granulocytes # (auto) 0.02 K/uL (0.00-0.02); Immature Granulocytes % (auto) 0.3 %; Lymphocytes # (auto) 1.04 K/uL (1.2-3.4); Lymphocytes % (auto) 13.7 %; Mean Corpuscular Hemoglobin 32.9 pg (25-34); Mean Corpuscular Hgb Conc 31.3 g/dL (32-36); Mean Corpuscular Volume 105.2 fL (80-100); Mean Platelet Volume 12.4 fL (7.4-10.4); Monocytes # (auto) 0.67 K/uL (0.11-0.59); Monocytes % (auto) 8.8 %; Neutrophils # (auto) 5.75 K/uL (1.4-6.5); Neutrophils % (auto) 75.8 %; Platelet Count 87 K/uL (130-400); Platelet Estimate Decreased (Normal); RDW Coefficient of Variation 17.7 % (11.5-14.5); RDW Standard Deviation 67.6 fL (36.4-46.3); Red Blood Count 3.65 M/uL (4.7-6.1); White Blood Count 7.59 K/uL (4.8-10.8)
[2020-08-23 07:39] LABS: Albumin Level 2.6 gm/dl (3.4-5.0); BUN Creatinine Ratio 22.8 (10-20); Calcium 8.2 mg/dl (8.5-10.1); Est GFR (African American) 40.4; Est GFR (Non-African American) 34.9
[2020-08-23 07:42] LABS: Albumin Globulin Ratio 0.8 (0.9-2); Bilirubin,Total 1.3 mg/dl (0.2-1); Globulin 3.3 gm/dl (2.5-4.0); Total Protein 5.9 gm/dl (6.4-8.2)
--- NOTE | 2020-08-23 07:44 | Anesthesiology Consultation ---
Date of Service August 23, 2020 Assessment & Plan (1) Encounter for pre-operative examination: Chart Review Chart Review: Acceptable Risk for Surgery and Patient NOT seen in Pre Admission Testing Consults Requested cardiac Patient with weakness, SOB and CP since COVID in June with a PMH significant for severe ischemic cardiomyopathy, afib with RVR, AAA, severe tricuspid regurg and elevated pulmonary pressures. Also recently admitted for CHF exacerbation. 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 Also evaluate for rate optimization due to intermittant periods of afib with RVR. History Surgery Operation Date: 08/23/20 08:00 Proposed Procedures p Endoscopic Retrograde Cholangiopancreatogram - Rosalind Sethi MD Height/Weight Height: 5 ft 8 in Weight: 77.8 kg Allergies Allergy/AdvReac Type Severity Reaction Status Date / Time No Known Allergies Allergy Verified 08/19/20 21:45 Medications Home Medications Medication Instructions Recorded Confirmed Last Taken atorvastatin 80 mg PO HS 05/01/18 08/19/20 09/22/18 cyanocobalamin (vitamin B-12) 1,000 mcg PO DAILY 05/01/18 08/19/20 09/23/18 [Vitamin B-12] ferrous sulfate [iron] 325 mg PO 3XWK 05/01/18 08/19/20 09/22/18 nitroglycerin [Nitrostat] 0.4 mg SUBLINGUAL DIRECTED PRN 05/01/18 08/19/20 Unknown paroxetine HCl 40 mg PO QAM 05/01/18 08/19/20 09/23/18 tamsulosin 0.4 mg PO HS 05/01/18 08/19/20 09/22/18 carvedilol 12.5 mg PO BID 09/23/18 08/19/20 09/23/18 ascorbic acid (vitamin C) [Vitamin 500 mg PO 3XWK 10/14/18 08/19/20 Unknown C] pantoprazole 40 mg PO BID 10/14/18 08/19/20 Unknown isosorbide mononitrate 60 mg PO DAILY #30 tab 10/18/18 08/19/20 Unknown calcium polycarbophil [Fiber-Lax] 625 mg PO DAILY 01/03/20 08/19/20 Unknown glipizide 5 mg PO DAILY #0 tab 07/08/20 08/19/20 09/23/18 lisinopril 10 mg PO DAILY #0 tab 07/08/20 08/19/20 Unknown acetaminophen 325 mg PO QID PRN 07/14/20 08/19/20 Unknown furosemide [Lasix] 40 mg PO DAILY #30 tab 07/16/20 08/19/20 Unknown magnesium oxide 400 mg PO QAM #0 cap 07/16/20 08/19/20 09/23/18 spironolactone [Aldactone] 12.5 mg PO DAILY #15 tab 07/16/20 08/19/20 Unknown warfarin 1 mg PO QPM #0 tab 07/16/20 08/19/20 Unknown Active Medications Generic Name Dose Route Start Last Admin Trade Name Freq PRN Reason Stop Dose Admin Calcium Polycarbophil 625 mg 08/20/20 09:00 08/22/20 08:06 Calcium Polycarbophil 625mg Tab PO 09/19/20 08:59 625 mg DAILY HI Administration Carvedilol 12.5 mg 08/20/20 09:00 08/22/20 21:55 Carvedilol 12.5 Mg Tab PO 09/19/20 08:59 12.5 mg BID HI Administration Lactated Ringer's 1,000 mls @ 100 mls/hr 08/23/20 06:15 08/23/20 06:17 Lr IV 09/22/20 06:14 100 mls/hr .Q10H HI Administration Insulin Aspart 0 units 08/23/20 07:20 08/23/20 07:46 Insulin Aspart 100 Units/Ml 3 Ml Pen SC 09/19/20 07:29 1 units Q6 HI Administration Insulin Glargine 5 units 08/20/20 09:00 08/23/20 08:11 Insulin Glargine Solostar 100 Units/Ml 3 Ml Pen SC 09/19/20 08:59 5 units BID HI Administration Isosorbide Mononitrate 30 mg 08/21/20 09:00 08/22/20 08:07 Isosorbide Chase Extended Rel 30 Mg Tabcr PO 09/20/20 08:59 30 mg DAILY HI Administration Lisinopril 5 mg 08/21/20 09:00 08/22/20 08:10 Lisinopril 5 Mg Tab PO 09/20/20 08:59 5 mg DAILY HI Administration Magnesium Oxide 400 mg 08/20/20 09:00 08/22/20 08:06 Magnesium Oxide 400 Mg Tab PO 09/19/20 08:59 400 mg QAM HI Administration Pantoprazole Sodium 40 mg 08/20/20 09:00 08/22/20 21:55 Pantoprazole 40 Mg Tab PO 09/19/20 08:59 40 mg BID HI Administration Paroxetine HCl 40 mg 08/20/20 09:00 08/22/20 08:07 Paroxetine Hcl 20 Mg Tab PO 09/19/20 08:59 40 mg QAM HI Administration Spironolactone 12.5 mg 08/20/20 09:00 08/22/20 08:08 Spironolactone 12.5 Mg Tab PO 09/19/20 08:59 12.5 mg DAILY HI Administration Tamsulosin HCl 0.4 mg 08/20/20 21:00 08/22/20 21:55 Tamsulosin Hcl 0.4 Mg Cap PO 09/19/20 20:59 0.4 mg HS HI Administration NPO Date Last Intake of Fluids: 08/23/20 Time Last Intake of Fluids: 00:00 Last Intake of Fluids Comment: 08/22/20 Date Last Intake of Solids: 08/22/20 Time Last Intake of Solids: 21:00 Past Medical History Medical History AAA (abdominal aortic aneurysm) Anemia Anxiety Ascites Atrial fibrillation CAD (coronary artery disease) s/p inferior wall OH with chronically occluded RCA - cath on 01/09/15 - no intervention. L to R collateralization noted CHF (congestive heart failure) ICM with EF of 15-20% CKD (chronic kidney disease) stage 3, GFR 30-59 ml/min COPD (chronic obstructive pulmonary disease) COVID-19 Depression Diabetes Elevated troponin Essential hypertension GERD (gastroesophageal reflux disease) Hyperlipidemia Male genitourinary symptoms Near syncope Past Family History Family History Other Diabetes Past Surgical History Surgical History No significant past surgical history Social History Smoking Status: Former smoker Hx Alcohol Use: No Hx Substance Use: No substance use type: does not use Physical Exam Vital Signs Last Vital Signs Temp 36.7 C 08/23/20 07:30 Pulse 99 H 08/23/20 07:30 Resp 18 08/23/20 07:30 BP 118/87 08/23/20 07:30 Pulse Ox 95 08/23/20 07:30 Testing Laboratory Results 08/23/20 06:49 08/23/20 06:49 PT 15.7 Seconds (9.0-12.0) H 08/23/20 06:49 INR 1.5 (0.9-1.1) H 08/23/20 06:49 APTT 36.7 Seconds (21.0-31.0) H 08/19/20 21:25 Urine Color Dark Yellow 08/20/20 01:38 Urine Appearance Clear (Clear) 08/20/20 01:38 Urine pH 5.0 (4.5-7.5) 08/20/20 01:38 Ur Specific [place] 1.024 (1.000-1.030) 08/20/20 01:38 Urine Protein 2+ (Negative) H 08/20/20 01:38 Urine Glucose (UA) Negative (Negative) 08/20/20 01:38 Urine Ketones Trace (Negative) H 08/20/20 01:38 Urine Nitrite Negative (Negative) 08/20/20 01:38 Ur Leukocyte Esterase Negative (Negative) 08/20/20 01:38 Urine WBC (Auto) 1-5 /hpf (0-5) 08/20/20 01:38 Urine RBC (Auto) 0-4 /hpf (0-4) 08/20/20 01:38 U Hyaline Cast (Auto) 5-10 /lpf (0-5) H 08/20/20 01:38 U Epithel Cells (Auto) 0-5 /lpf (0-5) 08/20/20 01:38 Urine Bacteria (Auto) Negative (Negative) 08/20/20 01:38 Blood Type O Negative 08/22/20 18:02 Antibody Screen NEGATIVE 08/22/20 18:02 08/19/20 22:43 Aerobic Blood Culture - Preliminary Blood No growth in Aerobic bottle after 48 hours. Anaerobic Blood Culture - Preliminary No growth in Anaerobic bottle after 48 hours. 08/19/20 21:50 Aerobic Blood Culture - Preliminary Blood No growth in Aerobic bottle after 48 hours. Anaerobic Blood Culture - Final 08/23/20 08/22/20 07:26 20:48 POC Glucose 183 H 226 H Electrocardiogram Date: 08/19/20 Findings: + AFIB @ (120) Afib with RVR, t wave abnormality, consider inferior ischemia, t wave abnormality, consider anteriolateral ischemia, when compared with ECG 07/14/2020 afib has replaced SR Chest X-Ray Date: 08/20/20 IMPRESSION: 1. Cardiomegaly with suspected mild pulmonary edema. 2. Right basilar opacity which favors atelectasis. Radiographic follow-up is recommended. 3. Emphysema. Echocardiogram Date: 05/15/18 EF: 15-20% LV mildly dilated, LV systolic function severely reduced (inferior wall is thinned and akinetic with severe hypokinesis of the remaining segments), right ventricular systolic function moderately reduced, left atrium moderately dilated, moderate mitral regurg, severe tricuspid regurg, RV systolic pressure elevated at >60mmHg, moderate size left pleural effusion
[2020-08-23] MEDS: INSULIN ASPART 100 UNITS/ML 3 ML PEN SC SCH ×4 (07:46→21:07)
[2020-08-23] MEDS: INSULIN GLARGINE SOLOSTAR 100 UNITS/ML 3 ML PEN SC SCH ×2 (08:11→21:07)
[2020-08-23] MEDS ORDERED: INDOMETHACIN 50 MG SUPP PR ONE ×2 (09:00→13:32)
--- NOTE | 2020-08-23 09:08 | Gastroenterology Progress Note ---
Date of Service August 23, 2020 Assessment & Plan (1) Abdominal pain: (2) Elevated LFTs: Pt is a 75 y/o male inmate admitted w weakness, fatigue, abd pain symptoms. On eval, noted to have elevated LFTs. Gallbladder u/s w ? cholelithiasis, non dilated CBD of 3mm, HIDA unremarkable. Hx of COVID infection in June, negative test on admission now. MRCP 08/21/2020: Showed several suspected small calculi within the distal common bile duct that measure up to 2 mm. No biliary ductal dilatation. + cholelithiasis w/o acute cholecystitis - Trend LFTs - F/U serologies ordered to r/o AIH, A1A, [place], Acute hepatitis A/B/C - Keep NPO for ERCP on 08/23/[address] Sethi - Surgery following, appreciate recs Admission and Anticipated Discharge Date Admission Date: August 20, 2020 Supervising Physician Co-Signing Physician Notes I have discussed the patient's management with the advanced practitioner. Please refer to the nurse practitioner's note for the documented findings and plan of care. Patient with choledocholithiasis on MRCP and clearly sepsis, elevated LFTs, needs ERCP, the anesthesiologist declined to provide sedation in view of his cardiac status and thinks he would benefit from cardiology evaluation, We spoke to cardiology who indicated patient can undergo the procedure however the anesthesiologist still wants an Echo which I personally thinks it will not add anything to his management regardless of his cardiac status, he needs the ERCP SADE. Given scheduling difficulties in view of the ongoing COVID-19 pandemic, the case would not be done today in a timely manner. Will try to schedule the case again for tomorrow with as he is covering the service. Subjective Pt denies fever, chills, CP, SOB, abd pain, n/v overnight. Been NPO Review of Systems Review of Systems: All systems reviewed & are unremarkable except as noted in HPI & below Physical Exam Constitutional: WD/WN, vitals as above well groomed, cooperative and comfortable Eyes: PERRL, conjunctivae normal, anicteric sclerae ENMT: external ear and nose normal, oropharynx normal Respiratory: normal respiratory effort, lungs clear to auscultation Cardiovascular: RRR, no murmur, no edema Gastrointestinal (Abdomen): normal bowel sounds, soft, nontender, no hepatosplenomegaly Skin: no rashes, warm and dry no jaundice Psychiatric: A+Ox3, euthymic affect Lymphatic: no lymphedema Results & Data ([facility]) Vital Signs (Past 12 Hours) Vital Signs Temp Pulse Pulse Resp BP BP Pulse Ox 08/23/20 07:30 36.7 C 99 H 18 118/87 95 08/23/20 03:30 36.5 C 98 H 18 112/75 95 08/23/20 02:56 100 H 08/22/20 23:15 36.2 C L 100 H 20 134/84 98 08/22/20 21:54 108 H 139/95
[2020-08-23] MEDS: PANTOprazole 40 MG TAB PO SCH ×2 (11:10→21:13)
[2020-08-23] MEDS: carvediloL 12.5 MG TAB PO SCH ×2 (11:10→21:13)
--- NOTE | 2020-08-23 11:15 | Hospitalist Progress Note ---
Date of Service August 23, 2020 Assessment & Plan (1) Abdominal pain: Austin Garza is a 75yo male who presents with two months of progressive weakness as well as abdominal pressure/pain. Progressive weakness/lightheadedness -recent covid illness (06/2020) -poor PO intake noted -likely contributions include recent covid illness, CHF with reduced EF<15% -possibly exacerbated by med regimen; reducing imdur to 30mg and lisinopril to 5mg as below -will continue to work up and monitor Gallstones, transaminitis -seen on US -mild elevation of AST/ALT/Tbili -afebrile, nontoxic appearing; mild abdominal pain but no worse in the RUQ compared to other quadrants -tylenol as needed for pain -no evidence of cholecystitis on HIDA scan -gallbladder ejection fraction 30% - only minimally diminished -MRCP performed 08/21/2020: -several suspected small calculi in distal CBD up to 2mm, no biliary ductal dilatation (exam mildly compromised by motion artifact) -no evidence of acute cholecystitis -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 -trace right and left pleural effusions -cardiomegaly -anasarca -ERCP today (08/23/2020) -CBC, CMP qAM Supratherapeutic INR (resolved), AF -holding warfarin ahead of ERCP today (08/23/2020) -vitamin K 5mg IV administered -c/w carvedilol 12.5mg PO bid AAA -measuring 3.8cm in width, up from 3.7cm in 2019 (measured 4cm in diameter on MRCP) -mural thrombus; on warfarin for AF -no evidence of rupture -f/u imaging outpatient CHF: stable -echo 08/23/2020: EF<15% -lisnopril dose halved as described below -c/w spironolactone 12.5mg PO qd HTN: stable -c/w lisinopril 5mg PO qd -c/w metoprolol tartrate 5mg IV q4h T2DM, CKD -halving lisinopril dose (40mg PO to 20mg PO) in response to bump in Cr -c/w glargine 5u bid -c/w ISS BPH -c/w tamsulosin 0.4mg PO qhs FENGI: DM2 diet DVT ppx: holding warfarin as described above Code status: full code Dispo: tele (2) AAA (abdominal aortic aneurysm): (3) Supratherapeutic INR: (4) Atrial fibrillation, permanent: Admission and Anticipated Discharge Date Admission Date: August 20, 2020 Supervising Physician Co-Signing Physician Notes I personally examined the patient and verified all coy points of history and exam, discussed case, and agree with decision making with Dr Mcleod. seen multiple times today. pre ERCP feeling fine no sob no abdominal pain. mostly wants to no longer be NPO. post ERCP very groggy - wakes a little to voice and noxious stim. not really any meaningful HPI or ROS obtainable vitals noted nad heent nc at mmm lungs both exams faintly coarse throughout c/w before but a little more clear better air entry no accessory muscles good effort abd soft nd nt no guarding no rebound. no focal neuro deficits weakness/lightheadedness/near syncope - w poor PO intake, frailty and EF 15-20% suspect this is all in his long-post covid course -- has improved w med reductions, and better PO intake. continue med management and adjustment abdominal pain - no RUQ pain, LFTs up but mostly hepatocellular except bili. US nonspecific, as is HIDA. MRCP w small stones. LFTs continue to trend down slightly. constipation definitely playing a role, can't ignore stones, however, given pain/MCRP/LFTs - ERCP done successfully. post op abx. supportive care afib RVR - mostly likely from being NPO. for now too groggy for PO beta josé luis - will Rx w IV and titrate as needed sedation - no focal neuro deficits. ABG without hypercapnea. outside of RVR vitals are stable. strongly suspect just slow to wake up from procedure given overall frailty otherwise as above Subjective Patient seen at bedside this morning; he was sleeping comfortably in bed. Patient reports he feels "pretty good" today and has no complaints. He reports a good appetite yesterday. Had a BM last night. Today he endorses very mild abdominal pain improved from yesterday but has no other complaints. Denies fever, chills, nausea, vomiting, constipation, diarrhea, chest pain, palpitations, shortness of breath, change in appetite, lightheadedness, dizziness, or other symptoms. Review of Systems Constitutional: no fever and no chills Respiratory: no cough and no dyspnea Cardiovascular: no chest pain, no palpitations and no edema Gastrointestinal: no nausea, no vomiting, no constipation and no diarrhea/loose stools Physical Exam Constitutional: cooperative and comfortable; no acute distress Cardiovascular: Rate/Rhythm: + irregularly irregular grade 2/6 systolic murmur appreciated Gastrointestinal (Abdomen): soft, mild diffuse abdominal tenderness in all quadrants, normoactive BS in all quadrants Results & Data Results & Data ([facility]) Vital Signs (Past 12 Hours) Vital Signs Temp Pulse Pulse Resp BP BP Pulse Ox 08/23/20 07:30 36.7 C 99 H 18 118/87 95 08/23/20 03:30 36.5 C 98 H 18 112/75 95 08/23/20 02:56 100 H 08/22/20 23:15 36.2 C L 100 H 20 134/84 98 08/22/20 21:54 108 H 139/95 Resident Activity Tracking Resident Involvement: Resident Care Provided Care Provided: Adult Hospital Medicine (1) AAA (abdominal aortic aneurysm) Presence of rupture: without rupture Qualified Code(s): I71.4 - Abdominal aortic aneurysm, without rupture
[2020-08-23 12:06] LABS: Albumin 2.9 g/dL (3.8-4.8); Alpha 1 Antitrypsin 215 mg/dL (83-199); Alpha 1 Globulin 0.4 g/dL (0.2-0.3); Alpha 2 Globulin 0.6 g/dL (0.5-0.9); Anti Nuclear Antibody Screen POSITIVE (NEGATIVE); Beta-1-Globulin 0.4 g/dL (0.4-0.6); Beta-2-Globulin 0.4 g/dL (0.2-0.5); Ceruloplasmin 44 mg/dL (18-36); Gamma Globulin 0.8 g/dL (0.8-1.7); Monoclonal Protein Band 1 0.3 g/dL (NONE DETECTED); Monoclonal Protein Band 2 DNR g/dL (NONE DETECTED); Monoclonal Protein Band 3 DNR g/dL (NONE DETECTED); Smooth Muscle Antibody POSITIVE (NEGATIVE); Total Protein 5.4 g/dL (6.1-8.1)
--- NOTE | 2020-08-23 12:53 | History & Physical Bridge Note ---
Date of Service August 23, 2020 History & Physical Bridge Note I have examined the patient, reviewed the History & Physical and in the interval since the performance of the History & Physical I have noted the following changes of clinical significance: no changes noted ERCP today
[2020-08-23] MEDS ORDERED: PROPOFOL IV EMULSION 10 MG/ML 20 ML VIAL IV ONE (13:06)
[2020-08-23] MEDS ORDERED: LARYING-O-JET KIT (LTA) ONE (13:06)
[2020-08-23] MEDS ORDERED: SUCCINYLCHOLINE CHLORIDE 20 MG/ML 10 ML VIAL IV ONE (13:06)
[2020-08-23] MEDS ORDERED: fentaNYL citrate 100 MCG/2 ML VIAL ONE (13:06)
[2020-08-23] MEDS ORDERED: ONDANSETRON INJ 2 MG/ML 2 ML VIAL ONE (13:06)
[2020-08-23] MEDS ORDERED: LIDOCAINE HCL 2% 2 ML VIAL/AMP(20MG/ML) INFIL ONE (13:06)
[2020-08-23] MEDS ORDERED: IOVERSOL 50ml IV ONE (13:07)
--- NOTE | 2020-08-23 13:15 | Cardiology Consultation ---
Date of Consultation August 23, 2020 Assessment & Plan (1) Pre-operative cardiovascular examination, LVEF < 35%: Patient is a 75-year-old male with known ischemic cardiomyopathy and well- documented severe LV dysfunction, EF 15%, moderate pulmonary hypertension and atrial fibrillation by past hospitalizations. He has a history of compensated systolic congestive heart failure on appropriate medical therapies. He has been referred for ERCP for cholelithiasis in the setting of abdominal dis comfort and elevated hepatic enzymes. He denies history of recent angina worsening congestive heart failure or arrhythmias. No history of significant valvular disease but pulmonary hypertension present secondary to underlying cardiomyopathy Patient's cardiovascular risk is elevated secondary to underlying significant morbidities but currently compensated. Would consider risk high but overall pr ocedure length and severity low. Patient on appropriate medical therapies including heart failure indicated beta-josé luis, SHANNON inhibitor, nitrates and statin diuretics with furosemide and aldosterone antagonist No indications for further cardiac testing or adjusting medication preprocedure (2) Ischemic cardiomyopathy: (3) Chronic combined systolic (congestive) and diastolic (congestive) heart failure: (4) CKD (chronic kidney disease), stage III: (5) COPD (chronic obstructive pulmonary disease): (6) Elevated LFTs: As above. In part may be due to hepatic congestion from severe chronic heart failure History of Present Illness Reason for Consultation: Preoperative evaluation, planned ERCP Requesting Physician: Dr. Zacarias Attending Physician: Kalin Zacarias DO History of Present Illness Patient is a 75-year-old [facility] inmate referred for evaluation prior to planned ERCP his underlying medical issues include per chart review and discussion with the patient 1. Severe ischemic cardiomyopathy, EF less than 15% 2. Chronic compensated systolic heart failure 3. Paroxysmal now persistent atrial fibrillation on chronic anticoagulation with warfarin 4. Type 2 diabetes mellitus 5. Abdominal aortic aneurysm 6. Stage III chronic kidney disease Patient per discussion and review of records presented with abdominal pain and bloating discomfort, elevated LFTs with cholelithiasis identified. Patient recommended to undergo ERCP as part of evaluation and course. Currently afebrile. Denies chest pains tachypalpitations syncope or near syncope in the recent months. No signs of fluid retention or congestive heart failure recently. Appetite only fair with nausea. No bleeding difficulties. No history of significant valvular disease but pulmonary hypertension observed on prior echocardiography Allergies Allergy/AdvReac Type Severity Reaction Status Date / Time No Known Allergies Allergy Verified 08/19/20 21:45 Home Medications Medication Instructions Recorded Confirmed Type atorvastatin 80 mg PO HS 05/01/18 08/19/20 History cyanocobalamin (vitamin B-12) 1,000 mcg PO DAILY 05/01/18 08/19/20 History [Vitamin B-12] ferrous sulfate [iron] 325 mg PO 3XWK 05/01/18 08/19/20 History nitroglycerin [Nitrostat] 0.4 mg SUBLINGUAL DIRECTED PRN 05/01/18 08/19/20 History paroxetine HCl 40 mg PO QAM 05/01/18 08/19/20 History tamsulosin 0.4 mg PO HS 05/01/18 08/19/20 History carvedilol 12.5 mg PO BID 09/23/18 08/19/20 History ascorbic acid (vitamin C) [Vitamin 500 mg PO 3XWK 10/14/18 08/19/20 History C] pantoprazole 40 mg PO BID 10/14/18 08/19/20 History isosorbide mononitrate 60 mg PO DAILY #30 tab 10/18/18 08/19/20 Rx calcium polycarbophil [Fiber-Lax] 625 mg PO DAILY 01/03/20 08/19/20 History glipizide 5 mg PO DAILY #0 tab 07/08/20 08/19/20 Rx lisinopril 10 mg PO DAILY #0 tab 07/08/20 08/19/20 Rx acetaminophen 325 mg PO QID PRN 07/14/20 08/19/20 History furosemide [Lasix] 40 mg PO DAILY #30 tab 07/16/20 08/19/20 Rx magnesium oxide 400 mg PO QAM #0 cap 07/16/20 08/19/20 Rx spironolactone [Aldactone] 12.5 mg PO DAILY #15 tab 07/16/20 08/19/20 Rx warfarin 1 mg PO QPM #0 tab 07/16/20 08/19/20 Rx Patient History Medical History AAA (abdominal aortic aneurysm) Anemia Anxiety Ascites Atrial fibrillation CAD (coronary artery disease) s/p inferior wall ID with chronically occluded RCA - cath on 01/09/15 - no intervention. L to R collateralization noted CHF (congestive heart failure) ICM with EF of 15-20% CKD (chronic kidney disease) stage 3, GFR 30-59 ml/min COPD (chronic obstructive pulmonary disease) COVID-19 Depression Diabetes Elevated troponin Essential hypertension GERD (gastroesophageal reflux disease) Hyperlipidemia Male genitourinary symptoms Near syncope Surgical History No significant past surgical history Family History Other Diabetes Social History Smoking Status: Former smoker Second Hand Exposure: Yes; Hx Alcohol Use: No Hx Substance Use: No Preferred Language: Amharic Communication Ability: Effective Visual Impairment: No Limitations Pipe Testing Technician Required: No Beliefs That Will Affect Care: None marital status: Single Current Living Situation: Other Current Living Situation Comment: [facility] Feels Safe at Home: Yes Safety Concerns: Feels Safe At This Time Assistive Devices: Walker Review of Systems Review of Systems: All systems reviewed & are unremarkable except as noted in HPI & below Physical Exam Constitutional: + ill appearing and + frail appearing Eyes: PERRL, conjunctivae normal, anicteric sclerae ENMT: external ear and nose normal, oropharynx normal Neck: trachea midline, no thyromegaly Respiratory: Auscultation: lungs clear to auscultation bilaterally Cardiovascular: Rate/Rhythm: + tachycardic and + irregularly irregular Heart Sounds: normal S1, normal S2 and + murmur (Grade 1/6 at right lower sternal border) Gastrointestinal (Abdomen): Inspection/Auscultation: abdomen not distended Mild diffuse tenderness on palpation Musculoskeletal: no cyanosis or clubbing, extremities motor strength 5/5 Mild cachexia Results & Data ([facility]) Vital Signs (Past 12 Hours) Vital Signs Temp Pulse Pulse Resp BP BP Pulse Ox 08/23/20 11:19 36.4 C L 105 H 18 125/89 98 08/23/20 07:30 36.7 C 99 H 18 118/87 95 08/23/20 03:30 36.5 C 98 H 18 112/75 95 08/23/20 02:56 100 H Laboratory Results Laboratory Results - last 24 hr 08/21/20 08/22/20 08/22/20 10:00 16:39 18:02 WBC RBC Hgb Hct MCV MCH MCHC RDW Std Deviation RDW Coeff of Samara Plt Count MPV Immature Gran % (Auto) Neut % (Auto) Lymph % (Auto) Barton % (Auto) Eos % (Auto) Baso % (Auto) Neut # (Auto) Lymph # (Auto) Barton # (Auto) Eos # (Auto) Baso # (Auto) Immature Gran # (Auto) Platelet Estimate Anisocytosis Echinocytes PT 19.2 H INR 1.9 H Sodium Potassium Chloride Carbon Dioxide Anion Gap BUN Creatinine Est Cr Clr Drug Dosing Est GFR ( Amer) Est GFR (Non-Af Amer) BUN/Creatinine Ratio Glucose POC Glucose 239 H Calcium Total Bilirubin AST ALT Alkaline Phosphatase Total Protein Total Protein (PEP) 5.4 L Albumin Albumin (PEP) 2.9 L Globulin Albumin/Globulin Ratio Xphyx-3-Davmjffjo 0.4 H Twunh-8-Eejzrecku 0.6 Iqlm-3-Srvocuan 0.4 Eelp-8-Avwvcejg 0.4 Gamma Globulins 0.8 Monoclonal Peak 3 DNR Ser Monoclonl Protein 0.3 H Ser Monoclonal Prot 2 DNR PEP Interpretation SEE NOTE Icmfn-3-Oivxrlfljlk 215 H Ceruloplasmin 44 H ARELY Screen POSITIVE A Anti-Mitochondrial Ab NEGATIVE Anti-Smooth Muscle Ab POSITIVE A Blood Type Antibody Screen 08/22/20 08/22/20 08/23/20 18:02 20:48 06:49 WBC 7.59 RBC 3.65 L Hgb 12.0 L Hct 38.4 L MCV 105.2 H MCH 32.9 MCHC 31.3 L RDW Std Deviation 67.6 H RDW Coeff of Samara 17.7 H Plt Count 87 L MPV 12.4 H Immature Gran % (Auto) 0.3 Neut % (Auto) 75.8 Lymph % (Auto) 13.7 Barton % (Auto) 8.8 Eos % (Auto) 1.3 Baso % (Auto) 0.1 Neut # (Auto) 5.75 Lymph # (Auto) 1.04 L Barton # (Auto) 0.67 H Eos # (Auto) 0.10 Baso # (Auto) 0.01 Immature Gran # (Auto) 0.02 Platelet Estimate Decreased L Anisocytosis Present Echinocytes 2+ PT INR Sodium Potassium Chloride Carbon Dioxide Anion Gap BUN Creatinine Est Cr Clr Drug Dosing Est GFR ( Amer) Est GFR (Non-Af Amer) BUN/Creatinine Ratio Glucose POC Glucose 226 H Calcium Total Bilirubin AST ALT Alkaline Phosphatase Total Protein Total Protein (PEP) Albumin Albumin (PEP) Globulin Albumin/Globulin Ratio Piole-6-Qcwtlwjep Doegi-0-Gfvgxwuqc Loas-8-Gclngiin Vhsg-6-Xkhssbnl Gamma Globulins Monoclonal Peak 3 Ser Monoclonl Protein Ser Monoclonal Prot 2 PEP Interpretation Djswy-5-Vnkyxvoopek Ceruloplasmin ARELY Screen Anti-Mitochondrial Ab Anti-Smooth Muscle Ab Blood Type O Negative Antibody Screen NEGATIVE 08/23/20 08/23/20 08/23/20 06:49 06:49 07:26 WBC RBC Hgb Hct MCV MCH MCHC RDW Std Deviation RDW Coeff of Samara Plt Count MPV Immature Gran % (Auto) Neut % (Auto) Lymph % (Auto) Barton % (Auto) Eos % (Auto) Baso % (Auto) Neut # (Auto) Lymph # (Auto) Barton # (Auto) Eos # (Auto) Baso # (Auto) Immature Gran # (Auto) Platelet Estimate Anisocytosis Echinocytes PT 15.7 H INR 1.5 H Sodium 138 Potassium 4.0 Chloride 109 H Carbon Dioxide 21 Anion Gap 8.0 BUN 43 H Creatinine 1.87 H Est Cr Clr Drug Dosing 34.0 Est GFR ( Amer) 40.4 Est GFR (Non-Af Amer) 34.9 BUN/Creatinine Ratio 22.8 H Glucose 189 H POC Glucose 183 H Calcium 8.2 L Total Bilirubin 1.3 H AST 76 H ALT 264 H Alkaline Phosphatase 115 Total Protein 5.9 L Total Protein (PEP) Albumin 2.6 L Albumin (PEP) Globulin 3.3 Albumin/Globulin Ratio 0.8 L Alnah-6-Irsfjiuky Zczgz-6-Ccuyzjttu Lddc-0-Shrdxajy Rcxx-9-Khszhqhm Gamma Globulins Monoclonal Peak 3 Ser Monoclonl Protein Ser Monoclonal Prot 2 PEP Interpretation Ohsyo-6-Kpopkwgxvkn Ceruloplasmin ARELY Screen Anti-Mitochondrial Ab Anti-Smooth Muscle Ab Blood Type Antibody Screen 08/23/20 11:10 WBC RBC Hgb Hct MCV MCH MCHC RDW Std Deviation RDW Coeff of Samara Plt Count MPV Immature Gran % (Auto) Neut % (Auto) Lymph % (Auto) Barton % (Auto) Eos % (Auto) Baso % (Auto) Neut # (Auto) Lymph # (Auto) Barton # (Auto) Eos # (Auto) Baso # (Auto) Immature Gran # (Auto) Platelet Estimate Anisocytosis Echinocytes PT INR Sodium Potassium Chloride Carbon Dioxide Anion Gap BUN Creatinine Est Cr Clr Drug Dosing Est GFR ( Amer) Est GFR (Non-Af Amer) BUN/Creatinine Ratio Glucose POC Glucose 182 H Calcium Total Bilirubin AST ALT Alkaline Phosphatase Total Protein Total Protein (PEP) Albumin Albumin (PEP) Globulin Albumin/Globulin Ratio Zmczo-0-Ycslcdxxl Vmeby-6-Ackkzexbs Rmet-6-Wvphfpab Bahq-2-Wsprsuff Gamma Globulins Monoclonal Peak 3 Ser Monoclonl Protein Ser Monoclonal Prot 2 PEP Interpretation Gwefj-9-Rccisphwqac Ceruloplasmin ARELY Screen Anti-Mitochondrial Ab Anti-Smooth Muscle Ab Blood Type Antibody Screen (1) CKD (chronic kidney disease), stage III Chronic kidney disease stage 3 subtype: unspecified whether 3a or 3b Qualified Code(s): N18.30 - Chronic kidney disease, stage 3 unspecified
[2020-08-23] MEDS ORDERED: ONDANSETRON INJ 2 MG/ML 2 ML VIAL IV PRN (13:25)
[2020-08-23] MEDS ORDERED: ePHEDrine sulfate 50 MG/ML AMP IV PRN (13:25)
[2020-08-23] MEDS ORDERED: ATROPINE SULFATE 0.1 MG/ML 10ML SYR IV PRN (13:25)
[2020-08-23] MEDS ORDERED: ETOMIDATE 2 MG/ML 20 ML VIAL IV ONE (14:06)
[2020-08-23 14:18] LABS: ANA Pattern Nuclear, Speckled; ANA Titer 1:40 titer
[2020-08-23] MEDS ORDERED: ePHEDrine sulfate 50 MG/ML SYR ONE (14:31)
[2020-08-23] MEDS ORDERED: PHENYLEPHRINE 100MCG/ML 5ML SYR ONE (14:31)
[2020-08-23] MEDS ORDERED: GLUCAGON 0.5 ML IV ONE (14:36)
--- NOTE | 2020-08-23 14:58 | Operative Report ---
Post Operative Report Pre & Post Diagnosis Operation Date: 08/23/20 08:00 Pre-Op Diagnosis: Gallstones, Abdominal pain, Elevated liver function tests Post-Op Diagnosis: Gallstones, Abdominal pain, Elevated liver function tests Cholangitis and Common Bile Duct Stone I identified the patient and participated in the time-out.: Yes Procedure Operation Date: 08/23/20 08:00 Actual Procedures p Endoscopic Retrograde Cholangiopancreatography with Spinchterotomy, Pancreatic stent placement(Not Applicable) - Rosalind Sethi MD Surgeon Rosalind Sethi MD Tag Press Operator None Estimated Blood Loss 0 Findings See Below (Pus drained out of the bile duct, stones removed, Cholangitis seen, stent placed) Specimens None Description of Procedure ERCP I attest to the content of the Intraoperative Record and any orders documented therein. Any exceptions are noted below.
--- NOTE | 2020-08-23 14:59 | Gastroenterology Progress Note ---
Date of Service August 23, 2020 Assessment & Plan Admission and Anticipated Discharge Date Admission Date: August 20, 2020 Subjective ERCP done, tolerated well, stones and pus removed, cholangitis seen, Stent pl aced. Results & Data ([facility] [place]) Vital Signs (Past 12 Hours) Vital Signs Temp Pulse Resp BP BP Pulse Ox 08/23/20 13:25 36.7 C 106 H 20 142/94 H 97 08/23/20 11:19 36.4 C L 105 H 18 125/89 98 08/23/20 07:30 36.7 C 99 H 18 118/87 95 08/23/20 03:30 36.5 C 98 H 18 112/75 95
--- NOTE | 2020-08-23 15:18 | Fluoroscopy Report ---
[place] ERCP biliary ductal CLINICAL HISTORY: ERCP COMPARISON STUDY: MRCP August 21, 2020. FLUOROSCOPY TIME: 1 minute and 56 seconds. FLUOROSCOPIC IMAGES: 7 FINDINGS: Fluoroscopy was provided during ERCP. Cannulation of the common bile duct is noted. Balloon sweep through the common bile duct was performed. Filling defects within the common bile duct reflec t stones or gas bubbles. Pancreatic stent was placed. IMPRESSION: Fluoroscopy provided during ERCP with placement of a pancreatic stent.. ACT 112: Negative or not required by law. Electronically signed by: Leroy Maguire M.D. 08/23/2020 3:17 PM
--- NOTE | 2020-08-23 15:59 | Anesthesiology Progress Note ---
Date of Service August 23, 2020 Anesthesia Post Procedure Vital Signs Vital Signs: Temp Pulse Pulse Pulse Resp BP BP 08/23/20 15:50 36.1 C L 113 H 18 108/87 08/23/20 15:40 121 H 16 92/74 L 08/23/20 15:30 115 H 111 H 20 102/74 94/72 L 08/23/20 15:20 133 H 15 103/82 08/23/20 15:14 36 C L 128 H 16 115/83 08/23/20 13:25 36.7 C 106 H 20 142/94 H 08/23/20 11:19 36.4 C L 105 H 18 08/23/20 07:30 36.7 C 99 H 18 08/23/20 03:30 36.5 C 98 H 18 112/75 08/23/20 02:56 100 H 08/22/20 23:15 36.2 C L 100 H 20 134/84 08/22/20 21:54 108 H 139/95 08/22/20 19:46 36.4 C L 99 H 18 08/22/20 16:00 95 H BP Pulse Ox 08/23/20 15:50 95 08/23/20 15:40 97 08/23/20 15:30 97 08/23/20 15:20 95 08/23/20 15:14 94 08/23/20 13:25 97 08/23/20 11:19 125/89 98 08/23/20 07:30 118/87 95 08/23/20 03:30 95 08/23/20 02:56 08/22/20 23:15 98 08/22/20 21:54 08/22/20 19:46 125/69 96 08/22/20 16:00 Transfer of Care Handoff Completed per policy Notes Mental Status: alert / awake / arousable and participated in evaluation Patient Amnestic to Procedure: Yes Nausea / Vomiting: adequately controlled Pain: adequately controlled Airway Patency, RR, SpO2: stable & adequate BP & HR: stable & adequate Hydration State: stable & adequate Anesthetic Complications: no major complications apparent and Pt Satisfied with anesthetic care
--- NOTE | 2020-08-23 17:14 | Communication Note ---
Date of Service: August 23, 2020 Chart review patient heart rate climbing up did not receive beta-josé luis this morning due to strict n.p.o. status. We will give p.m. dose of carvedilol now along with a.m. dose of lisinopril
[2020-08-23] MEDS: carvediloL 12.5 MG TAB PO ONE ×2 (17:24→19:59)
[2020-08-23] MEDS: lisinopril 5 MG TAB PO SCH ×2 (17:24→17:46)
[2020-08-23] MEDS: CALCIUM POLYCARBOPHIL 625MG TAB PO SCH (17:40)
[2020-08-23] MEDS: MAGNESIUM OXIDE 400 MG TAB PO SCH (17:45)
[2020-08-23] MEDS: FUROSEMIDE 20 MG TAB PO SCH (17:45)
[2020-08-23] MEDS: ISOSORBIDE MONO EXTENDED REL 30 MG TABCR PO SCH (17:45)
[2020-08-23] MEDS: SPIRONOLACTONE 12.5 MG TAB PO SCH (17:45)
[2020-08-23] MEDS: PARoxetine HCL 20 MG TAB PO SCH (17:46)
[2020-08-23] MEDS ORDERED: METOPROLOL TARTRATE 1 MG/ML VIAL IV STA (17:57)
--- NOTE | 2020-08-23 18:07 | GI REPORT ---
Patient Name: Austin Garza Procedure Date: 08/23/2020 1:00 PM Date of : 1945 Admit Type: Inpatient Age: 75 Gender: Male Attending MD: Rosalind Sethi MD Procedure: ERCP Providers: Rosalind Sethi MD Referring MD: Kalin Zacarias Indications: Bile duct stone on magnetic resonance cholangiopancreatography, For therapy of bile duct stone(s), Suspected ascending cholangitis Medicines: General Anesthesia Complications: No immediate complications. Estimated Blood Loss: Estimated blood loss: none. Procedure: Pre-Anesthesia Assessment: - Prior to the procedure, a History and Physical was performed, and patient medications, allergies and sensitivities were reviewed. The patient's tolerance of previous anesthesia was reviewed. - The risks and benefits of the procedure and the sedation options and risks were discussed with the patient. All questions were answered and informed consent was obtained. - Patient identification and proposed procedure were verified prior to the procedure by the physician and the nurse. The procedure was verified in the procedure room. - Pre-procedure physical examination revealed no contraindications to sedation. After obtaining informed consent, the scope was passed under direct vision. Throughout the procedure, the patient's blood pressure, pulse, and oxygen saturations were monitored continuously. The Scope was introduced through the mouth, and advanced to the duodenum and used to inject contrast into the bile duct. The ERCP was accomplished without difficulty. The patient tolerated the procedure well. Findings: The wood products manufacturer film was normal. The esophagus was successfully intubated under direct vision. The scope was advanced to a normal major papilla in the descending duodenum without detailed examination of the pharynx, larynx and associated structures, and upper GI tract. The upper GI tract was grossly normal. , Pus was emerging from the major papilla. The ventral pancreatic duct was inadvertently cannulated with the short-nosed traction sphincterotome and guidewire without any complications. One 5 Fr by 9 cm plastic pancreatic stent with a single external pigtail and no internal flaps was placed into the ventral pancreatic duct. Clear fluid flowed through the stent. The stent was in good position. The bile duct could not be cannulated with a sphincterotome hence a biliary pre-cut sphincterotomy was made with a monofilament needle knife over a pancreatic stent using ERBE electrocautery. There was no post-sphincterotomy bleeding. A 0.035 inch straight standard wire was passed into the biliary tree. The Fusion OMNI sphincterotome was passed over the guidewire and the bile duct was then deeply cannulated. Contrast was injected. I personally interpreted the bile duct images. Ductal flow of contrast was adequate. Image quality was adequate. Contrast extended to the main bile duct. Opacification of the entire biliary tree was successful. The maximum diameter of the ducts was 9 mm. The biliary orifice was stenotic. This appeared benign. The biliary sphincterotomy was extended with a monofilament traction (standard) sphincterotome using ERBE electrocautery. There was self limited oozing from the sphincterotomy which did not require treatment. The biliary tree was swept with a 12 mm balloon starting at the bifurcation. Pus was swept from the duct. One stone was removed. No stones remained. One 8 mm by 6 cm covered metal biliary stent (Elrod Viabil with drainage side holes) was placed into the common bile duct. Bile flowed through the stent. The stent was in good position and the proximal tip was below the cystic duct take off. Indomethacin 100 mg was given via suppository to decrease the risk of post-ERCP pancreatitis (PEP). Impression: - Pus was seen in the major papilla consistent with ascending cholangitis. - Choledocholithiasis was found. Complete removal was accomplished by biliary sphincterotomy and balloon extraction. - One plastic pancreatic stent was placed into the ventral pancreatic duct to decrease risk of post-ERCP pancreatitis. - One covered metal biliary stent was placed into the common bile duct. Recommendation: - Return patient to [facility] for ongoing care. - Avoid aspirin and nonsteroidal anti-inflammatory medicines for 5 days. - Complete a 5 days course of ABx. - Resume Coumadin (warfarin) at prior dose in 4 days. - Repeat ERCP in 6 weeks to remove stent, will perform EUS guided gallbladder drainage with Axios stent at the same time as patient is deemed a nonsurgical candidate, I will schedule this at [facility]. - Recall GI if needed. Rosalind Sethi MD 08/23/2020 6:07:17 PM This report has been signed electronically. Note Initiated On: 08/23/2020 1:00 PM Number of Addenda: 0 I attest to the content of the Intraoperative Record and orders documented therein, exceptions below {[id number]}
[2020-08-23 18:48] LABS: HCO3 ABG 20 mmol/L (19-24); Oxygen Saturation ABG 89.1 % (90-95); PCO2 ABG 39 mmHg (35-46); PO2 ABG 64 mmHg (80-95); pH ABG 7.34 (7.35-7.45)
[2020-08-23 18:50] LABS: Allen Test Pos (Pos)
--- NOTE | 2020-08-23 19:48 | Billing Data ---
Date of Service August 23, 2020 Coding Level of Care Code 16552 Subseq Hosp Care Lvl 3
[2020-08-23] MEDS: AMPICILLIN/SULBACTAM SOD 1,500 MG in 0.9 % SODIUM CHLORIDE 100 ML IV SCH (21:06)
[2020-08-23] MEDS: TAMSULOSIN HCL 0.4 MG CAP PO SCH (21:13)
[2020-08-24] MEDS: LACTATED RINGER'S 1,000 ML IV SCH ×2 (02:31→08:36)
[2020-08-24] MEDS: AMPICILLIN/SULBACTAM SOD 1,500 MG in 0.9 % SODIUM CHLORIDE 100 ML IV SCH ×4 (02:31→21:08)
[2020-08-24] MEDS: SPIRONOLACTONE 12.5 MG TAB PO SCH (07:42)
[2020-08-24] MEDS: MAGNESIUM OXIDE 400 MG TAB PO SCH (07:42)
[2020-08-24] MEDS: ISOSORBIDE MONO EXTENDED REL 30 MG TABCR PO SCH (07:42)
[2020-08-24] MEDS: PANTOprazole 40 MG TAB PO SCH ×2 (07:43→21:09)
[2020-08-24] MEDS: PARoxetine HCL 20 MG TAB PO SCH (07:43)
[2020-08-24] MEDS: FUROSEMIDE 20 MG TAB PO SCH (07:43)
[2020-08-24] MEDS: CALCIUM POLYCARBOPHIL 625MG TAB PO SCH (07:43)
[2020-08-24] MEDS: carvediloL 12.5 MG TAB PO SCH ×2 (07:45→21:08)
[2020-08-24] MEDS: lisinopril 5 MG TAB PO SCH (08:28)
[2020-08-24] MEDS: INSULIN ASPART 100 UNITS/ML 3 ML PEN SC SCH ×4 (08:29→21:09)
[2020-08-24] MEDS: INSULIN GLARGINE SOLOSTAR 100 UNITS/ML 3 ML PEN SC SCH ×2 (08:29→21:09)
[2020-08-24 09:37] LABS: Hematocrit (blood only) 40.7 % (42-52); Hemoglobin 12.4 g/dL (14.0-18.0); Mean Corpuscular Hemoglobin 32.6 pg (25-34); Mean Corpuscular Hgb Conc 30.5 g/dL (32-36); Mean Corpuscular Volume 107.1 fL (80-100); Mean Platelet Volume 12.6 fL (7.4-10.4); Nucleated RBC # (auto) 0.02 K/uL (0-0); Nucleated RBC % (auto) 0.3 %; Platelet Count 87 K/uL (130-400); RDW Coefficient of Variation 17.7 % (11.5-14.5); RDW Standard Deviation 68.5 fL (36.4-46.3); White Blood Count 8.37 K/uL (4.8-10.8)
[2020-08-24 09:39] LABS: Basophils # (auto) 0.03 K/uL (0-0.2); Basophils % (auto) 0.4 %; Eosinophils # (auto) 0.06 K/uL (0-0.5); Eosinophils % (auto) 0.7 %; Immature Granulocytes # (auto) 0.03 K/uL (0.00-0.02); Immature Granulocytes % (auto) 0.4 %; Lymphocytes # (auto) 1.22 K/uL (1.2-3.4); Lymphocytes % (auto) 14.6 %; Monocytes # (auto) 0.99 K/uL (0.11-0.59); Monocytes % (auto) 11.8 %; Neutrophils # (auto) 6.04 K/uL (1.4-6.5); Neutrophils % (auto) 72.1 %
[2020-08-24 09:40] LABS: Albumin Level 2.6 gm/dl (3.4-5.0); BUN Creatinine Ratio 19.6 (10-20); Calcium 8.4 mg/dl (8.5-10.1); Creatinine Clr Calc Pharmacy 27.7 ml/min; Est GFR (African American) 31.5; Est GFR (Non-African American) 27.2; Potassium 4.2 mmol/L (3.5-5.1)
[2020-08-24 09:41] LABS: Albumin Level 2.5 gm/dl (3.4-5.0); Bilirubin Direct 0.6 mg/dl (0-0.2); Bilirubin,Total 1.3 mg/dl (0.2-1); Total Protein 5.7 gm/dl (6.4-8.2)
[2020-08-24 09:43] LABS: Albumin Globulin Ratio 0.8 (0.9-2); Bilirubin,Total 1.4 mg/dl (0.2-1); Globulin 3.3 gm/dl (2.5-4.0); Total Protein 5.9 gm/dl (6.4-8.2)
--- NOTE | 2020-08-24 09:55 | Communication Note ---
Date of Service: August 24, 2020 Chart reviewed, patient not evaluated. ERCP yesterday 08/23/2020 found to have choledocholithiasis and pus consistent with cholangitis. biliary and pancreatic stents placed. GI planning for repeat ERCP for removal of stent and EUS for gallbladder drainage as patient is poor surgical candidate. Follow-up surgical office as needed.
--- NOTE | 2020-08-24 11:22 | Gastroenterology Progress Note ---
Date of Service August 24, 2020 Assessment & Plan (1) Abdominal pain: (2) Elevated LFTs: Pt is a 75 y/o male inmate admitted w weakness, fatigue, abd pain symptoms. On eval, noted to have elevated LFTs. Gallbladder u/s w ? cholelithiasis, non dilated CBD of 3mm, HIDA unremarkable. Hx of COVID infection in June, negative test on admission now. MRCP 08/21/2020: Showed several suspected small calculi within the distal common bile duct that measure up to 2 mm. No biliary ductal dilatation. + cholelithiasis w/o acute cholecystitis ERCP completed 08/23/2020: + pus consistent w cholangitis, choledocholithiasis found, removed, biliary sphincterectomy performed. Pancreatic stent (plastic) & biliary stent (metal) placed. LFTs are trending down - Trend LFTs. - Avoid NSAIDs, ASA 5 days after sphincterectomy. - May resume Coumadin 4 days after ERCP - Complete course of antibx for cholangitis x 5 days - Will arrange f/u ERCP for stent removal & gallbladder drainage w Axios stent to be arranged by Dr. Sethi in 6 week's time at [facility]. Surgery deemed pt not a candidate for cholecystectomy due to his medical comorbidities - GI to sign off; recall prn Admission and Anticipated Discharge Date Admission Date: August 20, 2020 Supervising Physician Co-Signing Physician Notes The patient underwent ERCP with Dr. Shine Prabhakar yesterday. It appears that he seems to be recovering well. He will follow up with Dr. Shine Prabhakar as an outpatient for any further evaluation. Please call with any additional ques tions or concerns GI to sign off Subjective Pt feels well, denies abd pain, n/v, eating solid meals well this AM Review of Systems Review of Systems: All systems reviewed & are unremarkable except as noted in HPI & below Physical Exam Constitutional: WD/WN, vitals as above well groomed, cooperative and comfortable Eyes: PERRL, conjunctivae normal, anicteric sclerae ENMT: external ear and nose normal, oropharynx normal Respiratory: normal respiratory effort, lungs clear to auscultation Cardiovascular: RRR, no murmur, no edema Gastrointestinal (Abdomen): normal bowel sounds, soft, nontender, no hepatosplenomegaly Skin: no rashes, warm and dry no jaundice Psychiatric: A+Ox3, euthymic affect Lymphatic: no lymphedema Results & Data ([facility]) Vital Signs (Past 12 Hours) Vital Signs Temp Pulse Pulse Resp BP Pulse Ox 08/24/20 07:30 36.3 C L 100 H 20 107/74 91 08/24/20 04:00 36.4 C L 103 H 18 115/74 96 08/23/20 23:59 117 H
--- NOTE | 2020-08-24 13:15 | Cardiology Progress Note ---
Date of Service August 24, 2020 Assessment & Plan (1) Pre-operative cardiovascular examination, LVEF < 35%: Patient is a 75-year-old male with known ischemic cardiomyopathy and well- documented severe LV dysfunction, EF 15%, moderate pulmonary hypertension and atrial fibrillation by past hospitalizations. He has a history of compensated systolic congestive heart failure on appropriate medical therapies. Patient tolerated procedure yesterday relatively well with lethargy post procedure now resolved. Patient back on preprocedural medications with reduced dose lisinopril as appropriate. Atrial fibrillation with better control on resumption of usual beta-josé luis We will sign off contact with question (2) Ischemic cardiomyopathy: Severe LV dysfunction previously outlined and confirmed this admission overall prognosis limited (3) Chronic combined systolic (congestive) and diastolic (congestive) heart failure: (4) CKD (chronic kidney disease), stage III: (5) COPD (chronic obstructive pulmonary disease): (6) Elevated LFTs: As above. In part may be due to hepatic congestion from severe chronic heart failure Admission and Anticipated Discharge Date Admission Date: August 20, 2020 Subjective Patient seen and examined, chart, telemetry reviewed. Heart rates improving since initiation of oral regimen. Patient much more alert this morning and taking educations and food. Less abdominal discomfort no chest pains or dizziness Physical Exam Constitutional: Thin frail appearing male but no acute distress Eyes: PERRL, conjunctivae normal, anicteric sclerae Neck: trachea midline, no thyromegaly Respiratory: normal respiratory effort Cardiovascular: Rate/Rhythm: + irregularly irregular Palpation: + abnormal PMI (Displaced laterally) Vessels: no JVD Extremities: no edema Gastrointestinal (Abdomen): Percussion/Palpation: abdomen soft; abdomen nontender Results & Data ([facility]) Vital Signs (Past 12 Hours) Vital Signs Temp Pulse Resp BP Pulse Ox 08/24/20 11:28 36.4 C L 89 20 90/54 L 92 08/24/20 07:30 36.3 C L 100 H 20 107/74 91 08/24/20 04:00 36.4 C L 103 H 18 115/74 96 (1) CKD (chronic kidney disease), stage III Chronic kidney disease stage 3 subtype: unspecified whether 3a or 3b Qualified Code(s): N18.30 - Chronic kidney disease, stage 3 unspecified
--- NOTE | 2020-08-24 16:08 | Hospitalist Progress Note ---
Date of Service August 24, 2020 Assessment & Plan (1) Abdominal pain: Austin Garza is a 75yo male who presents with two months of progressive weakness as well as abdominal pressure/pain. Progressive weakness/lightheadedness -recent covid illness (06/2020) -poor PO intake noted -likely contributions include recent covid illness, CHF with reduced EF<15% -possibly exacerbated by med regimen; reducing imdur to 30mg and lisinopril to 5mg as below -will continue to work up and monitor Gallstones, transaminitis -seen on US -mild elevation of AST/ALT/Tbili -afebrile, nontoxic appearing; mild abdominal pain but no worse in the RUQ compared to other quadrants -tylenol as needed for pain -no evidence of cholecystitis on HIDA scan -gallbladder ejection fraction 30% - only minimally diminished -MRCP performed 08/21/2020: -several suspected small calculi in distal CBD up to 2mm, no biliary ductal dilatation (exam mildly compromised by motion artifact) -no evidence of acute cholecystitis -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 -trace right and left pleural effusions -cardiomegaly -anasarca -ERCP on 08/23/2020 - removed gallstones, pancreatic stent placed -f/u GI outpatient for removal of stent -CBC, CMP qAM Supratherapeutic INR (resolved), AF -holding warfarin ahead of ERCP today (08/23/2020) -vitamin K 5mg IV administered -per GI, restart warfarin in one week -c/w carvedilol 12.5mg PO bid AAA -measuring 3.8cm in width, up from 3.7cm in 2019 (measured 4cm in diameter on MRCP) -mural thrombus; on warfarin for AF -no evidence of rupture -f/u imaging outpatient SVT -6 beat run on 08/24/2020 -no intervention as it was less than 30 seconds -in the setting of not having PO meds since 08/22/2020 -continue to monitor CHF: stable -echo 08/23/2020: EF<15% -lisnopril dose halved as described below -c/w spironolactone 12.5mg PO qd HTN: stable -c/w lisinopril 5mg PO qd -c/w metoprolol tartrate 5mg IV q4h T2DM, CKD -halving lisinopril dose (40mg PO to 20mg PO) in response to bump in Cr -c/w glargine 5u bid -c/w ISS BPH -c/w tamsulosin 0.4mg PO qhs FENGI: DM2 diet DVT ppx: holding warfarin as described above Code status: full code Dispo: tele Admission and Anticipated Discharge Date Admission Date: August 20, 2020 Supervising Physician Co-Signing Physician Notes I personally examined the patient and verified all coy points of history and exam, discussed case, and agree with decision making with Dr Mcleod. awake but confused. no sob no abdominal pain vitals noted nad heent nc at mmm breathing unlabored no accessory muscles good effort abd soft nd nt no guarding no rebound. no focal neuro deficits weakness/lightheadedness/near syncope - w poor PO intake, frailty and EF 15-20% suspect this is all in his long-post covid course -- has improved w med reductions, and better PO intake. continue med management and adjustment, follow abdominal pain - no RUQ pain, LFTs up but mostly hepatocellular except bili. US nonspecific, as is HIDA. MRCP w small stones. LFTs continue to trend down slightly. constipation definitely playing a role, can't ignore stones, however, given pain/MCRP/LFTs - ERCP done successfully. post op abx. supportive care, advance diet. home once able to eat OK afib RVR - continue rate control; d/w cardiology may need digoxin alf sedation - now delirium. supportive care otherwise as above Subjective Patient seen at bedside this morning. Reports feeling fatigued and sleepy but feels well otherwise. Has a good appetite. Lost his dentures sometime after ERCP yesterday - halfway guards and staff looking for them. Endorses mild abdominal tenderness. Denies CP, SOB, nausea, vomiting, lightheadedness, dizziness, constipation, diarrhea, or other symptoms. Review of Systems Review of Systems: All systems reviewed & are unremarkable except as noted in HPI & below Physical Exam Constitutional: cooperative and comfortable; no acute distress Respiratory: normal respiratory effort, lungs clear to auscultation Cardiovascular: Rate/Rhythm: regular rate and + irregularly irregular systolic murmur appreciated Gastrointestinal (Abdomen): soft, mildly tender in lower quadrants bilaterally, RUQ and LUQ nontender, BS normoactive Psychiatric: A+Ox3, euthymic affect Results & Data Results & Data ([facility]) Vital Signs (Past 12 Hours) Vital Signs Temp Pulse Pulse Resp BP BP Pulse Ox 08/24/20 15:00 35.4 C L 85 84 18 102/65 91 08/24/20 11:28 36.4 C L 89 20 90/54 L 92 08/24/20 07:30 36.3 C L 100 H 20 107/74 91 Resident Activity Tracking Resident Involvement: Resident Care Provided Care Provided: Adult Hospital Medicine
--- NOTE | 2020-08-24 17:50 | Billing Data ---
Date of Service August 24, 2020 Coding Level of Care Code 25223 Subseq Hosp Care Lvl 3
[2020-08-24] MEDS: TAMSULOSIN HCL 0.4 MG CAP PO SCH (21:08)
[2020-08-25] MEDS: AMPICILLIN/SULBACTAM SOD 1,500 MG in 0.9 % SODIUM CHLORIDE 100 ML IV SCH ×3 (02:07→14:10)
[2020-08-25] MEDS: PARoxetine HCL 20 MG TAB PO SCH (08:13)
[2020-08-25] MEDS: SPIRONOLACTONE 12.5 MG TAB PO SCH (08:13)
[2020-08-25] MEDS: PANTOprazole 40 MG TAB PO SCH (08:13)
[2020-08-25] MEDS: CALCIUM POLYCARBOPHIL 625MG TAB PO SCH (08:13)
[2020-08-25] MEDS: ISOSORBIDE MONO EXTENDED REL 30 MG TABCR PO SCH (08:13)
[2020-08-25] MEDS: MAGNESIUM OXIDE 400 MG TAB PO SCH (08:13)
[2020-08-25] MEDS: FUROSEMIDE 20 MG TAB PO SCH (08:13)
[2020-08-25] MEDS: lisinopril 5 MG TAB PO SCH (08:13)
[2020-08-25] MEDS: carvediloL 12.5 MG TAB PO SCH (08:14)
[2020-08-25] MEDS: INSULIN ASPART 100 UNITS/ML 3 ML PEN SC SCH ×3 (08:15→18:07)
[2020-08-25] MEDS: INSULIN GLARGINE SOLOSTAR 100 UNITS/ML 3 ML PEN SC SCH (08:18)
[2020-08-25 08:30] LABS: Albumin Level 2.5 gm/dl (3.4-5.0); BUN Creatinine Ratio 18.3 (10-20); Calcium 8.8 mg/dl (8.5-10.1); Creatinine Clr Calc Pharmacy 26.6 ml/min; Est GFR (Non-African American) 25.9; Potassium 4.2 mmol/L (3.5-5.1)
[2020-08-25 08:34] LABS: Albumin Globulin Ratio 0.8 (0.9-2); Bilirubin,Total 1.2 mg/dl (0.2-1); Globulin 3.1 gm/dl (2.5-4.0); Total Protein 5.6 gm/dl (6.4-8.2)
[2020-08-25 08:38] LABS: Hematocrit (blood only) 40.5 % (42-52); Hemoglobin 12.4 g/dL (14.0-18.0); Mean Corpuscular Hemoglobin 32.2 pg (25-34); Mean Corpuscular Hgb Conc 30.6 g/dL (32-36); Mean Corpuscular Volume 105.2 fL (80-100); Mean Platelet Volume 12.2 fL (7.4-10.4); Platelet Count 107 K/uL (130-400); RDW Coefficient of Variation 17.4 % (11.5-14.5); RDW Standard Deviation 66.5 fL (36.4-46.3); Red Blood Count 3.85 M/uL (4.7-6.1); White Blood Count 9.58 K/uL (4.8-10.8)
[2020-08-25 08:39] LABS: Basophils # (auto) 0.02 K/uL (0-0.2); Basophils % (auto) 0.2 %; Echinocytes 1+; Eosinophils # (auto) 0.15 K/uL (0-0.5); Eosinophils % (auto) 1.6 %; Immature Granulocytes # (auto) 0.01 K/uL (0.00-0.02); Immature Granulocytes % (auto) 0.1 %; Lymphocytes # (auto) 1.53 K/uL (1.2-3.4); Monocytes # (auto) 0.38 K/uL (0.11-0.59); Neutrophils # (auto) 7.49 K/uL (1.4-6.5); Neutrophils % (auto) 78.1 %; Platelet Estimate Decreased (Normal)
--- NOTE | 2020-08-25 17:21 | Discharge Summary ---
Date of Service August 25, 2020 Admission HPI Per Admitting Provider Austin Garza is a 75yo C male inmate at [facility] presenting with two months of progressive weakness. He reports occasional episodes of abdominal pains/pressure and cramping that are followed by feeling weak. He states that these episodes occur intermittently and last only a few minutes. They do not seem to be associated with food. He denies fever/chills/nausea, denies vomiting or diarrhea but states he is severely constipated with last good BM being weeks ago. Patient was diagnosed with Covid-19 infection in June. He states he still feels weak and fatigued since having the infection as well as ongoing ESPANA and occasional chest discomfort. He is still unable to taste or smell anything. He dose present with antibodies on workup today. ER Course: Ceftriaxone, Flagyl, NSS Admission Exam Per Admitting Provider General: thin male patient resting comfortably, NAD, non-toxic in appearance, AA&O x 4 Skin: warm, dry, intact, no rashes or lesions HEENT: NC/AT, PERRL, EOMI, anicteric sclera, conjunctiva without injection, external ear normal to inspection and nontender, nares patent, moist mucus membranes, dentures in place, ill-fitting, neck supple, trachea midline, no LAD, no thyromegaly, no JVD Heart: +S1/S2, irregularly irregular, tachycardic, no m/r/g Lungs: equal air entry bilaterally, no rales/rhonchi/wheezes Abd: +BS, soft, ND, tender in lower quadrants with deep palpation, no rebound/guarding/peritoneal signs, negative Joshi's, no masses/organomegaly/ascites Ext: warm, 2+ pulses in UE/LE bilaterally, no clubbing/cyanosis, 1+ pitting edema Neuro: nonfocal, patient AA&O x 4, speech intact, no facial droop, moving all extremities on command with equal strength 5/5 Principal Diagnosis gallstones, transaminitis Discharge Exam GENERAL: No acute distress. Vital signs reviewed as above. Patient had just finished eating breakfast and reports eating scrambled eggs and oatmeal. . EYES: EOMI. Anicteric sclerae. HENT: Moist mucous membranes. RESPIRATORY: Clear to auscultation bilaterally. No wheezing, rales, or rhonchi. CARDIOVASCULAR: Distant heart sounds. Regular rate. Irregularly irregular rhythm. No murmurs. ABDOMEN: Soft, non-tender and non-distended. Normal bowel sounds. EXTREMITIES: No edema. Non-tender. NEUROLOGIC: Awake, alert, and oriented x3 to person, place, and situation. Not oriented to time. Intermittent delirium. Speech intact. Moving all extremities on command. PSYCHIATRIC: Cooperative. Appropriate mood and affect. Discharge Data Allergies Allergy/AdvReac Type Severity Reaction Status Date / Time No Known Allergies Allergy Verified 08/19/20 21:45 Consultations 08/20/20 03:13 Consult General Surgery Routine 08/20/20 15:00 Consult Gastroenterology Routine 08/23/20 09:31 Consult Cardiology Routine Procedures Performed Operation Date: 08/23/20 08:00 Actual Procedures p Endoscopic Retrograde Cholangiopancreatography with Spinchterotomy, Pancreatic stent placement(Not Applicable) - Rosalind Sethi MD Ordered Studies 08/19/20 21:38 CT cervical spine wo con Urgent CT head/brain wo con Urgent 08/19/20 22:29 US gallbladder Urgent 08/21/20 09:26 MR MRCP Routine 08/23/20 [place] ERCP biliary ductal Routine Hospital Course (1) Abdominal pain: Austin Garza is a 75yo male who presents with two months of progressive weakness as well as abdominal pressure/pain. Progressive weakness/lightheadedness -recent covid illness (06/2020) -poor PO intake noted -likely contributions include recent covid illness, CHF with reduced EF<15% -possibly exacerbated by med regimen; reduced imdur to 30mg and lisinopril to 5mg as below -has improved with med reductions and better po intake Gallstones, transaminitis -seen on US -mild elevation of AST/ALT/Tbili -afebrile, nontoxic appearing; mild abdominal pain but no worse in the RUQ compared to other quadrants -tylenol as needed for pain -no evidence of cholecystitis on HIDA scan -gallbladder ejection fraction 30% - only minimally diminished -MRCP performed 08/21/2020: -several suspected small calculi in distal CBD up to 2mm, no biliary ductal dilatation (exam mildly compromised by motion artifact) -no evidence of acute cholecystitis -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 -trace right and left pleural effusions -cardiomegaly -anasarca -ERCP on 08/23/2020 - removed gallstones, pancreatic stent placed -f/u GI outpatient for removal of stent Delirium -Patient with intermittent delirium since receiving propofol for ERCP on 08/23/20 -No signs of infectious process or toxic encephalopathy -Noted that this could continue for several weeks up to 3 months -Continue to monitor Austin, provide reorientation, and encourage po intake -Avoid benzodiazepines (unless he is a danger to self or others) as this may worsen delirium Supratherapeutic INR (resolved), AF -holding warfarin ahead of ERCP today (08/23/2020) -vitamin K 5mg IV administered -per GI, restart warfarin in one week -c/w carvedilol 12.5mg PO bid AAA -measuring 3.8cm in width, up from 3.7cm in 2019 (measured 4cm in diameter on MRCP) -mural thrombus; on warfarin for AF -no evidence of rupture -f/u imaging outpatient SVT -6 beat run on 08/24/2020 -no intervention as it was less than 30 seconds -in the setting of not having PO meds since 08/22/2020 CHF: stable -echo 08/23/2020: EF<15% -lisnopril dose halved as described above -c/w spironolactone 12.5mg PO qd HTN: stable -c/w lisinopril 5mg PO qd -received metoprolol tartrate 5mg IV q4h T2DM, CKD -halving furosemide dose (40mg PO to 20mg PO) in response to bump in Cr -c/w glargine 5u bid -c/w ISS BPH -c/w tamsulosin 0.4mg PO qhs FENGI: DM2 diet DVT ppx: holding warfarin as described above Code status: full code [facility] staff Total Time Total Time Spent Total Time Spent (In Minutes): <30 Discharge Plan Discharge Items [facility] Disposition: [facility] Reason For Visit: FATIGUE, WEAKNESS Discharge Diagnosis: gallstones, transaminitis Condition on Discharge: Fair Activity: Per Instructions section Non-emergency contact: Primary Care Provider Call non-emergency contact if: you have any medication questions, your symptoms worsen, your pain is not controlled and your pain is worsening Follow-up/Referrals: Sushil VALDEZ [Primary Care Provider] - Diet: Carb Consistent or DM2 Addtl Attending Provider Instructions: It was our pleasure to care for Austin Garza for his medical needs at [facility] from 08/19/20 to 08/25/20. Below is a summary of medical problems addressed during his stay: Gallstones, transaminitis -Identified on US and patient with mild elevation of AST/ALT/Tbili -Received Tylenol as needed for pain -HIDA scan with no evidence of cholecystitis -Gallbladder ejection fraction 30% - only minimally diminished -MRCP performed 08/21/2020: -Several suspected small calculi in distal CBD up to 2mm, no biliary ductal dilatation (exam mildly compromised by motion artifact) -No evidence of acute cholecystitis -Infrarenal AAA 4cm x 3.5cm -Trace right and left pleural effusions -Cardiomegaly -Anasarca -ERCP on 08/23/2020 - removed gallstones, pancreatic stent placed -Please have patient follow up with GI outpatient for removal of stent Delirium -Patient with intermittent delirium since receiving propofol for ERCP on 08/23/20 -No signs of infectious process or toxic encephalopathy -Noted that this could continue for several weeks up to 3 months -Continue to monitor Austin, provide reorientation, and encourage po intake -Avoid benzodiazepines (unless he is a danger to self or others) as this may worsen delirium Progressive weakness/lightheadedness -Recent covid illness (06/2020) -Likely contributions to his progressive weakness include recent covid illness, CHF with reduced EF<15%, and possibly exacerbated due to medication regimen -Imdur reduced to 30mg po daily and lisinopril reduced to 5mg po daily -Poor PO intake noted -- please continue to encourage adequate po intake for proper nutrition and hydration Supratherapeutic INR (resolved), AF -Warfarin held and vitamin K 5mg IV administered prior to ERCP on 08/23/2020 -Per GI, restart warfarin in one week Pending Studies at Discharge: No Stand-Alone Forms: My [facility] [employer] Skilled Items Patient informed of condition?: Yes Discharge Level of Care: Other Communicable Disease: No Discharge Prognosis: Stable Lines: None Urinary Catheter: No Medications and DC Order Prescriptions: New isosorbide mononitrate 30 mg Tablet Extended Release 24 Hr 30 mg PO DAILY 30 Days Qty: 30 RF: 0 lisinopril [Zestril] 5 mg Tablet 5 mg PO DAILY 30 Days Qty: 30 RF: 0 furosemide 20 mg Tablet 20 mg PO DAILY 30 Days Qty: 30 RF: 0 Continued ascorbic acid (vitamin C) [Vitamin C] 500 mg Tablet 500 mg PO 3XWK RF: 0 pantoprazole 40 mg Tablet,Delayed Release (Dr/Ec) 40 mg PO BID RF: 0 calcium polycarbophil [Fiber-Lax] 625 mg Tablet 625 mg PO DAILY RF: 0 acetaminophen 325 mg Tablet 325 mg PO QID PRN (Reason: Pain) RF: 0 warfarin 1 mg Tablet 1 mg PO QPM Qty: 0 RF: 0 magnesium oxide 400 mg Capsule 400 mg PO QAM Qty: 0 RF: 0 spironolactone [Aldactone] 25 mg tablet 12.5 mg PO DAILY Qty: 15 RF: 0 atorvastatin 80 mg Tablet 80 mg PO HS RF: 0 ferrous sulfate [iron] 325 mg (65 mg iron) Tablet 325 mg PO 3XWK RF: 0 nitroglycerin [Nitrostat] 0.4 mg Tablet, Sublingual 0.4 mg Sublingual DIRECTED PRN (Reason: Chest Pain) RF: 0 cyanocobalamin (vitamin B-12) [Vitamin B-12] 1,000 mcg Tablet 1,000 mcg PO DAILY RF: 0 tamsulosin 0.4 mg Capsule 0.4 mg PO HS RF: 0 paroxetine HCl 40 mg Tablet 40 mg PO QAM RF: 0 carvedilol 12.5 mg Tablet 12.5 mg PO BID RF: 0 glipizide 5 mg Tablet 5 mg PO DAILY Qty: 0 RF: 0 Discontinued isosorbide mononitrate 60 mg Tablet Extended Release 24 Hr 60 mg PO DAILY Qty: 30 RF: 0 furosemide [Lasix] 40 mg tablet 40 mg PO DAILY Qty: 30 RF: 0 lisinopril 20 mg Tablet 10 mg PO DAILY Qty: 0 RF: 0 Discharge Orders: Discharge Order (Routine); Ordered 08/25/20 Ordered By: Veena Dutta Admission Data Admit Date/Time: 08/20/20 01:44 Attending Provider: Kalin Zacarias Admit Provider: Jacqui Carter Primary Care Provider: Sushil VALDEZ Other Providers: Harley Flroes ; Joselyn Barclay ; Jessica Lema ; Giuseppe Valdivia ; Jo Olson ; Ab Singh ; Chirag Lopes ; Denver Sandhu ; Cj Aponte ; Richy Cisse ; Erika Tracey ; Cindy Caab ; Latia Rivero ; Aria Callejas ; Rosalind Sethi ; Juan Francisco Hampton Supervising Physician Co-Signing Physician Notes I personally examined the patient and verified all coy points of history and exam, discussed case, and agree with decision making with Dr Dutta. awake and still confused. no sob no abdominal pain vitals noted nad heent nc at mmm breathing unlabored no accessory muscles no r/r/w good effort abd soft nd nt no guarding no rebound. no focal neuro deficits weakness/lightheadedness/near syncope - w poor PO intake, frailty and EF 15-20% suspect this is all in his long-post covid course -- has improved w med reductions, and better PO intake. continue med management and adjustment, follow (may need meds resumed at prior doses eventually - but for now keep at reduced dosing) abdominal pain - no RUQ pain, LFTs up but mostly hepatocellular except bili. US nonspecific, as is HIDA. MRCP w small stones. LFTs continue to trend down slightly. constipation definitely playing a role, can't ignore stones, however, given pain/MCRP/LFTs - ERCP done successfully. post op abx. supportive care, advanced diet. able to eat OK afib RVR - continue rate control - right now acceptable; d/w cardiology may need digoxin oil heaterman sedation - now delirium. supportive care. anticipate delirium likely will take time to clear. propofol sedation for ERCP appears to have been the inciting factor, no clear ongoing exacerbating factors beyond simply being in the hhopsital environment otherwise as above Resident Activity Tracking Resident Involvement: Resident Care Provided Care Provided: Adult [facility] Medicine
--- NOTE | 2020-08-25 17:46 | Billing Data ---
Date of Service August 25, 2020 Coding Level of Care Code D/C Day Management <30 mins
[2020-08-26] MEDS ORDERED: AMPICILLIN/SULBACTAM SOD 1,500 MG in 0.9 % SODIUM CHLORIDE 100 ML IV SCH (06:00)
== END 2020-08-25 19:57 | DRG 445 ==
LOC: ED 21:14 → 2N 08-20 01:44 → SUATTDRO 08-20 01:44 → INTOOBSV 08-20 01:44 → 2N 08-20 02:43
DX: D64.9 Anemia, unspecified; F32.9 Major depressive disorder, single episode, unspecified; R79.89 Other specified abnormal findings of blood chemistry; K59.00 Constipation, unspecified; E78.5 Hyperlipidemia, unspecified; I25.10 Atherosclerotic heart disease of native coronary artery without angina pectoris; Z79.84 Long term (current) use of oral hypoglycemic drugs; I11.0 Hypertensive heart disease with heart failure; I48.21 Permanent atrial fibrillation; I71.4 Abdominal aortic aneurysm, without rupture; R74.01 Elevation of levels of liver transaminase levels; K21.9 Gastro-esophageal reflux disease without esophagitis; Z86.16 Personal history of COVID-19; E78.00 Pure hypercholesterolemia, unspecified; K80.33 Calculus of bile duct with acute cholangitis with obstruction; I50.42 Chronic combined systolic (congestive) and diastolic (congestive) heart failure; N18.30 Chronic kidney disease, stage 3 unspecified; N40.0 Benign prostatic hyperplasia without lower urinary tract symptoms; I25.2 Old myocardial infarction; E11.22 Type 2 diabetes mellitus with diabetic chronic kidney disease; Z79.01 Long term (current) use of anticoagulants; J44.9 Chronic obstructive pulmonary disease, unspecified; Z87.891 Personal history of nicotine dependence